=== PATIENT | male | born 1975 | race Caucasian/White ===

== ENCOUNTER 2018-04-13 00:22 | Emergency (ER) | payer SELFPAY ==
--- NOTE | 2018-04-13 00:52 | ER ---
Nurse's Notes [facility] Name: Ming Odonnell Age: 42 yrs Sex: Male : 1975 Arrival Date: 04/13/2018 Time: 00:24 Bed 19 Private MD: Diagnosis: Dental caries Presentation: 04/13 00:33 Presenting complaint: Patient states: that he has a bad tooth on the left lower side. fc States that it was swollen and then today he was chewing he heard a pop. Then tasted something bad. He is concerned that if the infection gets into his blood stream it will kill him (that's what marya says). Transition of care: patient was not received from another setting of care. Onset of symptoms was April 13, 2018. Risk Assessment: Do you want to hurt yourself or someone else? Patient reports no desire to harm self or others. Initial Sepsis Screen: Does the patient meet any 2 criteria? No. Patient's initial sepsis screen is negative. Does the patient have a suspected source of infection? No. Patient's initial sepsis screen is negative. Care prior to arrival: None. 00:33 Method Of Arrival: Ambulatory fc 00:33 Acuity: CELENA 4 fc Triage Assessment: 00:38 General: Appears uncomfortable, obese, Behavior is calm, cooperative, appropriate for age. Pain: Complains of pain in mouth Pain currently is 5 out of 10 on a pain scale. at worst was 9 out of 10 on a pain scale. Quality of pain is described as aching, throbbing, Is continuous, Aggravated by eating. EENT: Oral mucosa is moist. Dental caries noted in lower left first bicuspid (#21) Reports pain in mouth. Neuro: Level of Consciousness is awake, alert, obeys commands, Oriented to person, place, time, situation, Appropriate for age. Cardiovascular: No deficits noted. Respiratory: No deficits noted. GI: No deficits noted. : No deficits noted. Derm: Skin is pink, warm \T\ dry. Musculoskeletal: Circulation, motion, and sensation intact. Capillary refill < 3 seconds, Range of motion: intact in all extremities. Historical: - Allergies: 00:37 PENICILLINS; fc - Home Meds: 00:37 None [Active]; fc - PMHx: 00:37 None; fc - PSHx: 00:37 Ankle; Elbow; Ear; fc - Immunization history:: Last tetanus immunization: up to date Flu vaccine is not up to date. - Social history:: Smoking status: Patient uses tobacco products, smokes one pack cigarettes per day. Patient/guardian denies using alcohol, street drugs. - Ebola Screening: : Patient negative for fever greater than or equal to 101.5 degrees Fahrenheit, and additional compatible Ebola Virus Disease symptoms Patient denies exposure to infectious person Patient denies travel to an Ebola-affected area in the 21 days before illness onset. - Family history:: not pertinent. - Hospitalizations: : No recent hospitalization is reported. Screenin:38 Abuse screen: Denies threats or abuse. Nutritional screening: No deficits noted. fc Tuberculosis screening: No symptoms or risk factors identified. Fall Risk None identified. Assessment: 01:00 General: Appears in no apparent distress. Behavior is calm, cooperative, appropriate jd3 for age. Pain: Denies pain. Neuro: Level of Consciousness is awake, alert, obeys commands, Oriented to person, place, time, situation. Cardiovascular: Capillary refill < 3 seconds Patient's skin is warm and dry. Respiratory: Airway is patent Respiratory effort is even, unlabored, Respiratory pattern is regular, symmetrical. GI: No signs and/or symptoms were reported involving the gastrointestinal system. : No signs and/or symptoms were reported regarding the genitourinary system. EENT: Oral mucosa is moist. Poor dentition noted. pt reporting burst dental cyst.. Derm: Skin is intact, Skin is dry, Skin is normal, Skin temperature is warm. Musculoskeletal: Circulation, motion, and sensation intact. Range of motion: intact in all extremities. Vital Signs: 00:37 BP 120 / 77; Pulse 86; Resp 18; Temp 98.5(O); Pulse Ox 97% on R/A; Weight 113.4 kg (R); fc Height 5 ft. 10 in. (177.80 cm) (R); Pain 5/10; 00:37 Body Mass Index 35.87 (113.40 kg, 177.80 cm) ED Course: 00:24 Patient arrived in ED. am2 00:33 Ricardo Ambrocio MD is Attending Physician. rn 00:33 Irina Bhat is Primary Nurse. cc3 00:36 Triage completed. 00:37 Arm band placed on Patient placed in an exam room, on a stretcher. fc 00:38 Patient has correct armband on for positive identification. Bed in low position. Call fc light in reach. 00:38 No provider procedures requiring assistance completed. fc 01:00 Eladio Culver, RN is Primary Nurse. jd3 01:01 Patient did not have IV access during this emergency room visit. jd3 Administered Medications: No medications were administered Outcome: 00:51 Discharge ordered by MD. rn 01:01 Discharged to home ambulatory, with family. jd3 01:01 Condition: stable 01:01 Discharge instructions given to patient, family, Instructed on discharge instructions, follow up and referral plans. medication usage, Demonstrated understanding of instructions, follow-up care, medications, Prescriptions given X 1. 01:01 Patient left the ED. jd3 Signatures: Lillie Martinez RN RN Ricardo Ambrocio MD MD rn Moreno, Amanda am2 Eladio Culver RN RN jd3 Cordel, Charlene cc3 Corrections: (The following items were deleted from the chart) 00:38 00:33 Initial Sepsis Screen: Does the patient meet any 2 criteria? HR > 90 bpm. Yes fc Does the patient have a suspected source of infection? No. Patient's initial sepsis screen is negative. fc
--- NOTE | 2018-04-13 00:52 | EDPHYS ---
Physician Documentation [facility] Name: Ming Odonnell Age: 42 yrs Sex: Male : 1975 Arrival Date: 04/13/2018 Time: 00:24 Bed 19 Private MD: ED Physician Ricardo Ambrocio HPI: 04/13 00:46 This 42 yrs old Male presents to ER via Ambulatory with complaints of rn Toothache. 00:46 The patient presents with swelling. The problem is located in the left lower jaw. rn Onset: The symptoms/episode began/occurred 1 week(s) ago. Modifying factors: The symptoms are alleviated by nothing, the symptoms are aggravated by nothing. Severity of symptoms: At their worst the symptoms were moderate, in the emergency department the symptoms have improved. The patient has experienced a previous episode. Reports has been having tooth pain and swelling along left jaw, was chewing and felt pop, tasted purulence, and now pain has decreased to 1/10. Plans of seeing dentist soon, but googled could from dental infection so came in for evaluation. . Historical: - Allergies: 00:37 PENICILLINS; fc - Home Meds: 00:37 None [Active]; fc - PMHx: 00:37 None; fc - PSHx: 00:37 Ankle; Elbow; Ear; fc - Immunization history:: Last tetanus immunization: up to date Flu vaccine is not up to date. - Social history:: Smoking status: Patient uses tobacco products, smokes one pack cigarettes per day. Patient/guardian denies using alcohol, street drugs. - Ebola Screening: : Patient negative for fever greater than or equal to 101.5 degrees Fahrenheit, and additional compatible Ebola Virus Disease symptoms Patient denies exposure to infectious person Patient denies travel to an Ebola-affected area in the 21 days before illness onset. - Family history:: not pertinent. - Hospitalizations: : No recent hospitalization is reported. ROS: 00:46 Constitutional: Negative for fever, chills, and weight loss, ENT: + dental pain and rn swelling Exam: 00:46 Constitutional: This is a well developed, well nourished patient who is awake, alert, rn and in no acute distress. ENT: Oropharynx with no redness, swelling, or masses, exudates, or evidence of obstruction, uvula midline. Mucous membranes moist. + poor dentition, no visible or palpable abscess/fluctuance Vital Signs: 00:37 BP 120 / 77; Pulse 86; Resp 18; Temp 98.5(O); Pulse Ox 97% on R/A; Weight 113.4 kg (R); fc Height 5 ft. 10 in. (177.80 cm) (R); Pain 5/10; 00:37 Body Mass Index 35.87 (113.40 kg, 177.80 cm) fc MDM: 00:33 Patient medically screened. rn 00:46 Differential diagnosis: dental caries, dental abscess. Data reviewed: vital signs, rn nurses notes, and as a result, I will discharge patient. Counseling: I had a detailed discussion with the patient and/or guardian regarding: the historical points, exam findings, and any diagnostic results supporting the discharge/admit diagnosis, the need for outpatient follow up, to return to the emergency department if symptoms worsen or persist or if there are any questions or concerns that arise at home. Special discussion: I discussed with the patient/guardian in detail that at this point there is no indication for admission to the hospital. It is understood, however, that if the symptoms persist or worsen the patient needs to return immediately for re-evaluation. Based on the history and exam findings, there is no indication for further emergent testing or inpatient evaluation. I discussed with the patient/guardian the need to see a dentist for further evaluation of the symptoms. Administered Medications: No medications were administered Disposition: 04/13/18 00:51 Discharged to Home. Impression: Dental caries. - Condition is Stable. - Discharge Instructions: Dental Pain. - Prescriptions for Clindamycin HCl 300 mg Oral Capsule - take 1 capsule by ORAL route every 6 hours for 10 days; 40 capsule. - Medication Reconciliation Form, Thank You Letter, Antibiotic Education, Prescription Opioid Use form. - Follow up: Private Physician; When: As needed; Reason: Recheck today's complaints, Re-evaluation by your physician. - Problem is an ongoing problem. - Symptoms have improved. Signatures: Lillie Martinez RN RN Ricardo Ambrocio MD MD rn Davies, Jonathon, RN RN jd3 Corrections: (The following items were deleted from the chart) 01:01 00:51 04/13/2018 00:51 Discharged to Home. Impression: Dental caries. Condition is jd3 Stable. Forms are Medication Reconciliation Form, Thank You Letter, Antibiotic Education, Prescription Opioid Use. Follow up: Private Physician; When: As needed; Reason: Recheck today's complaints, Re-evaluation by your physician. Problem is an ongoing problem. Symptoms have improved. rn
== END 2018-04-13 01:01 | disposition home or self-care (01) ==
LOC: ER 00:22
DX: K02.9 Dental caries, unspecified (principal); F17.210 Nicotine dependence, cigarettes, uncomplicated; Z88.0 Allergy status to penicillin
CPT/HCPCS: 99282

== ENCOUNTER 2018-09-16 07:36 | Emergency (ER) | payer SELFPAY ==
--- NOTE | 2018-09-16 07:49 | ER ---
Nurse's Notes [facility] Name: Ming Odonnell Age: 42 yrs Sex: Male : 1975 Arrival Date: 09/16/2018 Time: 07:38 Bed 8 Private MD: Diagnosis: Cellulitis of left upper limb-left forearm Presentation: 09/16 07:49 Presenting complaint: Abscess on left forearm x 2 days. Transition of care: patient was hb not received from another setting of care. Onset of symptoms was September 16, 2018. Risk Assessment: Do you want to hurt yourself or someone else? Patient reports no desire to harm self or others. Initial Sepsis Screen: Does the patient meet any 2 criteria? No. Patient's initial sepsis screen is negative. Does the patient have a suspected source of infection? No. Patient's initial sepsis screen is negative. Care prior to arrival: None. 07:49 Method Of Arrival: Ambulatory hb 07:49 Acuity: CELENA 4 hb Historical: - Allergies: 07:52 PENICILLINS; hb - Home Meds: 07:52 None [Active]; hb - PMHx: 07:52 None; hb - PSHx: 07:52 Ankle; Ear - LEFT; Elbow - RIGHT; Knee - RIGHT; hb - Immunization history:: Adult Immunizations up to date. - Social history:: Smoking status: Patient uses tobacco products, smokes one pack cigarettes per day. - Ebola Screening: : No symptoms or risks identified at this time. Screenin:53 Abuse screen: Denies threats or abuse. Denies injuries from another. Nutritional hb screening: No deficits noted. Tuberculosis screening: No symptoms or risk factors identified. Fall Risk None identified. Assessment: 07:54 General: Appears in no apparent distress. Behavior is calm, cooperative. Pain: Pain hb currently is 2 out of 10 on a pain scale. Neuro: Level of Consciousness is awake, alert, obeys commands, Oriented to person, place, time, situation. Cardiovascular: Capillary refill < 3 seconds Patient's skin is warm and dry. Respiratory: Airway is patent Respiratory effort is even, unlabored, Respiratory pattern is regular, symmetrical. GI: No signs and/or symptoms were reported involving the gastrointestinal system. : No signs and/or symptoms were reported regarding the genitourinary system. EENT: No signs and/or symptoms were reported regarding the EENT system. Derm: cellulitis noted to left inner forearm. Musculoskeletal: No signs and/or symptoms reported regarding the musculoskeletal system. Vital Signs: 07:49 BP 124 / 75; Pulse 86; Resp 16; Temp 98.3; Pulse Ox 100% on R/A; Weight 108.86 kg; hb Height 6 ft. 1 in. (185.42 cm); Pain 2/10; 07:49 Body Mass Index 31.66 (108.86 kg, 185.42 cm) hb ED Course: 07:38 Patient arrived in ED. rg4 07:42 Michaela Sherman [facility]C [facility]. kb 07:42 Adrián Quiroga MD is Attending Physician. kb 07:49 Peyton Barlow, RN is Primary Nurse. hb 07:49 Patient has correct armband on for positive identification. Bed in low position. Call hb light in reach. 07:50 Triage completed. hb 07:53 Arm band placed on. hb 08:00 No provider procedures requiring assistance completed. Patient did not have IV access hb during this emergency room visit. Administered Medications: 07:59 Drug: Bactrim (160 mg-800 mg (DS) 1 tablet Route: PO; hb 07:59 Follow up: Response: Medication administered at discharge. hb Outcome: 07:48 Discharge ordered by . kb 08:00 Discharged to home ambulatory, with significant other. hb 08:00 Condition: stable 08:00 Discharge instructions given to patient, Instructed on discharge instructions, follow up and referral plans. medication usage, wound care, Demonstrated understanding of instructions, follow-up care, medications, wound care, Prescriptions given X 1. 08:10 Patient left the ED. hb Signatures: Michaela Sherman FNP-C FNP-Peyton Boateng, RN RN Haritha Bryan rg4 Corrections: (The following items were deleted from the chart) 07:55 07:54 Derm: Skin is healthy with good turgor, Abscess located on palmar aspect of left hb forearm is golf ball sized, has no drainage, hb
--- NOTE | 2018-09-16 07:49 | EDPHYS ---
Physician Documentation [facility] Name: Ming Odonnell Age: 42 yrs Sex: Male : 1975 Arrival Date: 09/16/2018 Time: 07:38 Bed 8 Private MD: ED Physician Adrián Quiroga HPI: 09/16 07:47 This 42 yrs old Male presents to ER via Unassigned with complaints of Arm kb Swelling. 07:49 the patient presents with a swollen area of the palmar aspect of left forearm. kb Description: erythematous, swollen, warm. Onset: The symptoms/episode began/occurred 2 day(s) ago. Possible cause(s): insect sting. Associated signs and symptoms: Pertinent positives: erythema, swelling, Pertinent negatives: discharge, drainage, foreign body sensation, fever, headache, nausea, shortness of breath, vomiting. Modifying factors: the symptoms are alleviated by nothing, the symptoms are aggravated by pressure, touching. Severity of symptoms: At their worst the symptoms were mild, moderate, in the emergency department the symptoms are unchanged. The patient has not experienced similar symptoms in the past. The patient has not recently seen a physician. Historical: - Allergies: 07:52 PENICILLINS; hb - Home Meds: 07:52 None [Active]; hb - PMHx: 07:52 None; hb - PSHx: 07:52 Ankle; Ear - LEFT; Elbow - RIGHT; Knee - RIGHT; hb - Immunization history:: Adult Immunizations up to date. - Social history:: Smoking status: Patient uses tobacco products, smokes one pack cigarettes per day. - Ebola Screening: : No symptoms or risks identified at this time. ROS: 07:49 Constitutional: Negative for fever, chills, and weight loss, Cardiovascular: Negative kb for chest pain, palpitations, and edema, Respiratory: Negative for shortness of breath, cough, wheezing, and pleuritic chest pain, Abdomen/GI: Negative for abdominal pain, nausea, vomiting, diarrhea, and constipation, MS/Extremity: Negative for injury and deformity, Neuro: Negative for headache, weakness, numbness, tingling, and seizure. 07:49 Skin: Positive for cellulitis, erythema, swelling, of the palmar aspect of left forearm. Exam: 07:49 Constitutional: This is a well developed, well nourished patient who is awake, alert, kb and in no acute distress. Head/Face: Normocephalic, atraumatic. Chest/axilla: Normal chest wall appearance and motion. Nontender with no deformity. No lesions are appreciated. Cardiovascular: Regular rate and rhythm with a normal S1 and S2. No gallops, murmurs, or rubs. Normal PMI, no JVD. No pulse deficits. Respiratory: Lungs have equal breath sounds bilaterally, clear to auscultation and percussion. No rales, rhonchi or wheezes noted. No increased work of breathing, no retractions or nasal flaring. Abdomen/GI: Soft, non-tender, with normal bowel sounds. No distension or tympany. No guarding or rebound. No evidence of tenderness throughout. MS/ Extremity: Pulses equal, no cyanosis. Neurovascular intact. Full, normal range of motion. Neuro: Awake and alert, GCS 15, oriented to person, place, time, and situation. Cranial nerves II-XII grossly intact. Motor strength 5/5 in all extremities. Sensory grossly intact. Cerebellar exam normal. Normal gait. 07:49 Skin: cellulitis, that is mild, on the palmar aspect of left forearm. Vital Signs: 07:49 BP 124 / 75; Pulse 86; Resp 16; Temp 98.3; Pulse Ox 100% on R/A; Weight 108.86 kg; hb Height 6 ft. 1 in. (185.42 cm); Pain 2/10; 07:49 Body Mass Index 31.66 (108.86 kg, 185.42 cm) hb MDM: 07:42 Patient medically screened. kb 07:48 Data reviewed: vital signs, nurses notes. Data interpreted: Pulse oximetry: on room air kb is 100 %. Interpretation: normal. Counseling: I had a detailed discussion with the patient and/or guardian regarding: the historical points, exam findings, and any diagnostic results supporting the discharge/admit diagnosis, the need for outpatient follow up, a family practitioner, to return to the emergency department if symptoms worsen or persist or if there are any questions or concerns that arise at home. Administered Medications: 07:59 Drug: Bactrim (160 mg-800 mg (DS) 1 tablet Route: PO; hb 07:59 Follow up: Response: Medication administered at discharge. hb Disposition: 10:12 Co-signature as Attending Physician, Adrián Quiroga MD I agree with the assessment and kdr plan of care. Disposition: 09/16/18 07:48 Discharged to Home. Impression: Cellulitis of left upper limb - left forearm. - Condition is Stable. - Discharge Instructions: Cellulitis, Adult, [id number]-[id number]. - Prescriptions for Bactrim DS 800- 160 mg Oral Tablet - take 1 tablet by ORAL route every 12 hours for 7 days; 14 tablet. - Work release form, Medication Reconciliation Form, Thank You Letter, Antibiotic Education, Prescription Opioid Use form. - Follow up: Emergency Department; When: As needed; Reason: Worsening of condition. Follow up: Private Physician; When: 2 - 3 days; Reason: Recheck today's complaints, Continuance of care, Re-evaluation by your physician. Signatures: Michaela Sherman, DIRECTOR SOCIAL WELFARE-C DIRECTOR SOCIAL WELFARE-Ckb Adrián Quiroga MD MD [facility] Peyton Barlow, RN RN Corrections: (The following items were deleted from the chart) 08:10 07:48 09/16/2018 07:48 Discharged to Home. Impression: Cellulitis of left upper limb - hb left forearm. Condition is Stable. Forms are Medication Reconciliation Form, Thank You Letter, Antibiotic Education, Prescription Opioid Use. Follow up: Emergency Department; When: As needed; Reason: Worsening of condition. Follow up: Private Physician; When: 2 - 3 days; Reason: Recheck today's complaints, Continuance of care, Re-evaluation by your physician. kb
[2018-09-16] MEDS ORDERED: SMZ./TMP. 800/160 MG TABLET ONE (08:10)
== END 2018-09-16 08:10 | disposition home or self-care (01) ==
LOC: ER 07:36
DX: L03.114 Cellulitis of left upper limb (principal); F17.210 Nicotine dependence, cigarettes, uncomplicated; Z88.0 Allergy status to penicillin
CPT/HCPCS: 99283

== ENCOUNTER 2018-11-15 08:08 | Emergency (ER) | payer SELFPAY ==
--- NOTE | 2018-11-15 08:39 | ER ---
Nurse's Notes [facility] Name: Ming Odonnell Age: 43 yrs Sex: Male : 1975 Arrival Date: 11/15/2018 Time: 08:12 Bed 20 Private MD: Diagnosis: Otalgia, right ear Presentation: 11/15 08:20 Presenting complaint: Patient states: right ear pain x 2 months ago. Pt states "my ear aa5 feels clogged and sometimes I get a sharp pain". 08:20 Transition of care: patient was not received from another setting of care. Onset of aa5 symptoms was 2018. Risk Assessment: Do you want to hurt yourself or someone else? Patient reports no desire to harm self or others. Initial Sepsis Screen: Does the patient meet any 2 criteria? No. Patient's initial sepsis screen is negative. Does the patient have a suspected source of infection? No. Patient's initial sepsis screen is negative. Care prior to arrival: None. 08:20 Acuity: CELENA 4 aa5 08:20 Method Of Arrival: Ambulatory aa5 Historical: - Allergies: 08:21 PENICILLINS; aa5 - Home Meds: 08:21 None [Active]; aa5 - PMHx: 08:21 None; aa5 - PSHx: 08:21 Ankle; Ear - LEFT; Elbow - RIGHT; Knee - RIGHT; aa5 - Immunization history:: Flu vaccine is up to date. - Social history:: Smoking status: Patient uses tobacco products, smokes one pack cigarettes per day. - Ebola Screening: : No symptoms or risks identified at this time. Screenin:31 Abuse screen: Denies threats or abuse. Nutritional screening: No deficits noted. aa5 Tuberculosis screening: No symptoms or risk factors identified. Fall Risk None identified. Assessment: 08:25 General: Appears comfortable, Behavior is calm, cooperative. Pain: Complains of pain in aa5 right ear Pain does not radiate. Pain currently is 5 out of 10 on a pain scale. Quality of pain is described as sharp, Pain began 2 months ago Is intermittent. Neuro: Level of Consciousness is awake, alert, obeys commands, Oriented to person, place, time, situation. Cardiovascular: Patient's skin is warm and dry. Respiratory: Airway is patent Respiratory effort is even, unlabored, Respiratory pattern is regular, symmetrical. GI: No signs and/or symptoms were reported involving the gastrointestinal system. : No signs and/or symptoms were reported regarding the genitourinary system. EENT: Reports pain in right ear. Derm: Skin is pink, warm \\T\\ dry. Musculoskeletal: Range of motion: intact in all extremities. Vital Signs: 08:22 BP 132 / 98; Pulse 77; Resp 16 S; Temp 98.3(O); Pulse Ox 97% on R/A; Weight 113.4 kg aa5 (R); Height 5 ft. 10 in. (177.80 cm) (R); Pain 5/10; 09:07 BP 111 / 73; Pulse 79; Resp 18; Pulse Ox 98% on R/A; ae4 08:22 Body Mass Index 35.87 (113.40 kg, 177.80 cm) aa5 ED Course: 08:12 Patient arrived in ED. as 08:21 Zuleyka Clark FNP-C is PHCP. snw 08:21 Ricardo Ambroico MD is Attending Physician. snw 08:21 Arm band placed on Patient placed in an exam room, on a stretcher. aa5 08:21 Patient has correct armband on for positive identification. aa5 08:28 Lorri Mckeon, RN is Primary Nurse. aa5 08:30 Triage completed. aa5 08:37 Santa Beckford MD is Referral Physician. snw 09:07 No provider procedures requiring assistance completed. Patient did not have IV access ae4 during this emergency room visit. Administered Medications: No medications were administered Outcome: 08:38 Discharge ordered by . snw 09:07 Discharged to home ambulatory. ae4 09:07 Condition: stable 09:07 Discharge instructions given to patient, Instructed on discharge instructions, follow up and referral plans. Demonstrated understanding of instructions. 09:08 Patient left the ED. ae4 Signatures: Zuleyka Clark FNP-C [employer]-Selina Mace Audri, RN RN aa5 Srikanth Green RN RN ae4
--- NOTE | 2018-11-15 08:39 | EDPHYS ---
Physician Documentation [facility] Name: Ming Odonnell Age: 43 yrs Sex: Male : 1975 Arrival Date: 11/15/2018 Time: 08:12 Bed 20 Private MD: ED Physician Ricardo Ambrocio HPI: 11/15 08:33 This 43 yrs old Male presents to ER via Ambulatory with complaints of Ear snw Pain. 08:33 The patient presents with a fullness, pain, tenderness. The complaints affect the right snw ear. Onset: The symptoms/episode began/occurred gradually. Modifying factors: The symptoms are alleviated by clearing with H2O2, the symptoms are aggravated by nothing. Severity of symptoms: At their worst the symptoms were mild moderate. It is unknown whether or not the patient has had similar symptoms in the past. The patient has not recently seen a physician. x 2 months. Historical: - Allergies: 08:21 PENICILLINS; aa5 - Home Meds: 08:21 None [Active]; aa5 - PMHx: 08:21 None; aa5 - PSHx: 08:21 Ankle; Ear - LEFT; Elbow - RIGHT; Knee - RIGHT; aa5 - Immunization history:: Flu vaccine is up to date. - Social history:: Smoking status: Patient uses tobacco products, smokes one pack cigarettes per day. - Ebola Screening: : No symptoms or risks identified at this time. ROS: 08:33 Constitutional: Negative for fever, chills, and weight loss, Eyes: Negative for injury, snw pain, redness, and discharge, ENT: Negative for injury Positive for pain and discharge, clogging multiple days of the week over the past two months Neck: Negative for injury, pain, and swelling, Cardiovascular: Negative for chest pain, palpitations, and edema, Respiratory: Negative for shortness of breath, cough, wheezing, and pleuritic chest pain, Abdomen/GI: Negative for abdominal pain, nausea, vomiting, diarrhea, and constipation, Back: Negative for injury and pain, : Negative for injury, bleeding, discharge, and swelling, MS/Extremity: Negative for injury and deformity, Skin: Negative for injury, rash, and discoloration, Neuro: Negative for headache, weakness, numbness, tingling, and seizure. Exam: 08:33 Constitutional: This is a well developed, well nourished patient who is awake, alert, snw and in no acute distress. Head/Face: Normocephalic, atraumatic. Eyes: Pupils equal round and reactive to light, extra-ocular motions intact. Lids and lashes normal. Conjunctiva and sclera are non-icteric and not injected. Cornea within normal limits. Periorbital areas with no swelling, redness, or edema. ENT: Nares patent. No nasal discharge, no septal abnormalities noted. Tympanic membranes are normal and external auditory canals are clear. Oropharynx with no redness, swelling, or masses, exudates, or evidence of obstruction, uvula midline. Mucous membranes moist. Neck: Trachea midline, no thyromegaly or masses palpated, and no cervical lymphadenopathy. Supple, full range of motion without nuchal rigidity, or vertebral point tenderness. No Meningismus. Chest/axilla: Normal chest wall appearance and motion. Nontender with no deformity. No lesions are appreciated. Cardiovascular: Regular rate and rhythm with a normal S1 and S2. No gallops, murmurs, or rubs. Normal PMI, no JVD. No pulse deficits. Respiratory: Lungs have equal breath sounds bilaterally, clear to auscultation and percussion. No rales, rhonchi or wheezes noted. No increased work of breathing, no retractions or nasal flaring. Abdomen/GI: Soft, non-tender, with normal bowel sounds. No distension or tympany. No guarding or rebound. No evidence of tenderness throughout. Back: No spinal tenderness. No costovertebral tenderness. Full range of motion. Skin: Warm, dry with normal turgor. Normal color with no rashes, no lesions, and no evidence of cellulitis. MS/ Extremity: Pulses equal, no cyanosis. Neurovascular intact. Full, normal range of motion. Neuro: Awake and alert, GCS 15, oriented to person, place, time, and situation. Cranial nerves II-XII grossly intact. Motor strength 5/5 in all extremities. Sensory grossly intact. Cerebellar exam normal. Normal gait. Psych: Awake, alert, with orientation to person, place and time. Behavior, mood, and affect are within normal limits. Vital Signs: 08:22 BP 132 / 98; Pulse 77; Resp 16 S; Temp 98.3(O); Pulse Ox 97% on R/A; Weight 113.4 kg aa5 (R); Height 5 ft. 10 in. (177.80 cm) (R); Pain 5/10; 09:07 BP 111 / 73; Pulse 79; Resp 18; Pulse Ox 98% on R/A; ae4 08:22 Body Mass Index 35.87 (113.40 kg, 177.80 cm) aa5 MDM: 08:21 Patient medically screened. snw 08:33 Data reviewed: vital signs, nurses notes. Data interpreted: Pulse oximetry: on room air snw is 97 %. Interpretation: normal. Counseling: I had a detailed discussion with the patient and/or guardian regarding: the historical points, exam findings, and any diagnostic results supporting the discharge/admit diagnosis, the presence of at least one elevated blood pressure reading (>120/80) during this emergency department visit, the need for outpatient follow up, to return to the emergency department if symptoms worsen or persist or if there are any questions or concerns that arise at home, smoking cessation. discussed causes of ear pain - tumors, tonsils, tmj, tm, thyroid, etc. No noted dysfunction of any of those symptoms presently. Encouraged to log s/s and see ENT. Administered Medications: No medications were administered Disposition: 11:39 Co-signature as Attending Physician, Ricardo Ambrocio MD. rn Disposition: 11/15/18 08:38 Discharged to Home. Impression: Otalgia, right ear. - Condition is Stable. - Discharge Instructions: Hypertension, Earache, Adult, Pain Without a Known Cause, Steps to Quit Smoking, Smoking Hazards. - Work release form, Medication Reconciliation Form, Thank You Letter, Antibiotic Education, Prescription Opioid Use form. - Follow up: Private Physician; When: 1 - 2 days; Reason: Recheck today's complaints, Continuance of care, Re-evaluation by your physician. Follow up: Emergency Department; When: As needed; Reason: Worsening of condition. Follow up: Santa Beckford MD; When: 1 - 2 days; Reason: Recheck today's complaints, Continuance of care. Signatures: Zuleyka Clark, ICE CREAM MIXER-C ICE CREAM MIXER-Csnw Ricardo Ambrocio MD MD rn Calderon, Audri, RN RN aa5 Srikanth Green RN RN ae4 Corrections: (The following items were deleted from the chart) 09:08 08:38 11/15/2018 08:38 Discharged to Home. Impression: Otalgia, right ear. Condition is ae4 Stable. Forms are Medication Reconciliation Form, Thank You Letter, Antibiotic Education, Prescription Opioid Use. Follow up: Private Physician; When: 1 - 2 days; Reason: Recheck today's complaints, Continuance of care, Re-evaluation by your physician. Follow up: Emergency Department; When: As needed; Reason: Worsening of condition. Follow up: Santa Beckford; When: 1 - 2 days; Reason: Recheck today's complaints, Continuance of care. snw
== END 2018-11-15 09:08 | disposition home or self-care (01) ==
LOC: ER 08:08
DX: H92.01 Otalgia, right ear (principal); Z88.0 Allergy status to penicillin; F17.210 Nicotine dependence, cigarettes, uncomplicated
CPT/HCPCS: 99281

== ENCOUNTER 2018-12-03 03:52 | Emergency (ER) | payer SELFPAY ==
[2018-12-03] MEDS ORDERED: METHOCARBAMOL 500 MG TAB ONE (04:25)
--- NOTE | 2018-12-03 05:32 | ER ---
Nurse's Notes [facility] Name: Ming Odonnell Age: 43 yrs Sex: Male : 1975 Arrival Date: 12/03/2018 Time: 03:54 Bed 20 Private MD: Diagnosis: Sacroiliitis, not elsewhere classified Presentation: 12/03 04:00 Presenting complaint: Patient states: last Thursday started like a back sore then rr5 yesterday I woke up cannot turn cannot bend cannot sit. its to painful. denies fall or trauma. 04:00 Transition of care: patient was not received from another setting of care. Onset of rr5 symptoms was December 01, 2018. Risk Assessment: Do you want to hurt yourself or someone else? Patient reports no desire to harm self or others. Initial Sepsis Screen: Does the patient meet any 2 criteria? No. Patient's initial sepsis screen is negative. Does the patient have a suspected source of infection? No. Patient's initial sepsis screen is negative. Care prior to arrival: Medication(s) given: ibuprofen. 04:00 Method Of Arrival: Ambulatory rr5 04:00 Acuity: CELENA 3 rr5 Historical: - Allergies: 04:00 PENICILLINS; rr5 - Home Meds: 04:00 None [Active]; rr5 - PMHx: 04:00 None; rr5 - PSHx: 04:00 finger surgery; Knee surgery; elbow surgery; ear surgery; rr5 - Immunization history:: Adult Immunizations up to date. - Social history:: Smoking status: Patient uses tobacco products, smokes one pack cigarettes per day. Patient/guardian denies using alcohol, street drugs. - Ebola Screening: : Patient negative for fever greater than or equal to 101.5 degrees Fahrenheit, and additional compatible Ebola Virus Disease symptoms Patient denies exposure to infectious person Patient denies travel to an Ebola-affected area in the 21 days before illness onset. Screenin:00 Abuse screen: Denies threats or abuse. Denies injuries from another. Nutritional rr5 screening: No deficits noted. Tuberculosis screening: No symptoms or risk factors identified. Fall Risk Gait- Impaired (20 pts.). Total Gavin Fall Scale indicates No Risk (0-24 pts). Assessment: 04:00 General: Appears in no apparent distress. uncomfortable, Behavior is calm, cooperative, rr5 appropriate for age. Pain: Complains of pain in left low back Pain radiates to left gluteal fold and left hamstring Pain currently is 10 out of 10 on a pain scale. Quality of pain is described as aching, Pain began gradually, Is intermittent. 04:00 Neuro: Level of Consciousness is awake, alert, obeys commands, Oriented to person, rr5 place, time, situation, Appropriate for age. Cardiovascular: Capillary refill < 3 seconds Patient's skin is warm and dry. Respiratory: Airway is patent Respiratory effort is even, unlabored, Respiratory pattern is regular, symmetrical. GI: No signs and/or symptoms were reported involving the gastrointestinal system. : No signs and/or symptoms were reported regarding the genitourinary system. EENT: No signs and/or symptoms were reported regarding the EENT system. Derm: Skin is intact, Skin temperature is warm. Musculoskeletal: Circulation, motion, and sensation intact. Capillary refill < 3 seconds, Reports pain in left low back Pain is 10 out of 10 on a pain scale. 04:30 Reassessment: Patient appears in no apparent distress at this time. walking around the rr5 corridor as ordered by ED provider. 05:35 Reassessment: Patient appears in no apparent distress at this time. Patient is alert, rr5 oriented x 3, equal unlabored respirations, skin warm/dry/pink. discharge instruction given and explained without complaints made. verbalized understanding.assisted by ceramics instructor going home. Patient states feeling better. Patient states symptoms have improved. Vital Signs: 04:02 BP 132 / 95; Pulse 79; Resp 18; Temp 98.9(O); Pulse Ox 97% on R/A; Pain 10/10; oe 04:28 Weight 113.4 kg; Height 5 ft. 10 in. (177.80 cm); rr5 05:30 BP 114 / 67; Pulse 68; Resp 17; Pulse Ox 100% on R/A; Pain 7/10; rr5 04:28 Body Mass Index 35.87 (113.40 kg, 177.80 cm) rr5 ED Course: 03:54 Patient arrived in ED. am2 04:00 Arm band placed on. rr5 04:00 Patient has correct armband on for positive identification. Bed in low position. Call rr5 light in reach. 04:03 Jason Ballard, RN is Primary Nurse. rr5 04:05 Haider Trujillo MD is Attending Physician. ps1 04:06 Triage completed. rr5 05:39 No provider procedures requiring assistance completed. Patient did not have IV access rr5 during this emergency room visit. Administered Medications: 04:28 Drug: Robaxin 750 mg Route: PO; rr5 05:30 Follow up: Response: No adverse reaction rr5 Outcome: 05:31 Discharge ordered by . ps1 05:39 Discharged to home ambulatory. rr5 05:39 Condition: stable 05:39 Discharge instructions given to patient, Instructed on discharge instructions, follow up and referral plans. medication usage, Demonstrated understanding of instructions, follow-up care, medications, Prescriptions given X 3. 05:41 Patient left the ED. rr5 Signatures: Trey Suazo Amanda 2 Haider Turjillo MD MD ps1 Jason Ballard, RN RN rr5
--- NOTE | 2018-12-03 05:32 | EDPHYS ---
Physician Documentation [facility] Name: Ming Odonnell Age: 43 yrs Sex: Male : 1975 Arrival Date: 12/03/2018 Time: 03:54 Bed 20 Private MD: ED Physician Haider Trujillo HPI: 12/03 05:13 This 43 yrs old Male presents to ER via Ambulatory with complaints of Back ps1 Pain. 05:13 Left SI back pain. Has spasm. Atraumatic. No fever. Not immunocompromised. No urinary ps1 complaints. Normal stools. Pain rated as moderate to severe described as spasm. . Historical: - Allergies: 04:00 PENICILLINS; rr5 - Home Meds: 04:00 None [Active]; rr5 - PMHx: 04:00 None; rr5 - PSHx: 04:00 finger surgery; Knee surgery; elbow surgery; ear surgery; rr5 - Immunization history:: Adult Immunizations up to date. - Social history:: Smoking status: Patient uses tobacco products, smokes one pack cigarettes per day. Patient/guardian denies using alcohol, street drugs. - Ebola Screening: : Patient negative for fever greater than or equal to 101.5 degrees Fahrenheit, and additional compatible Ebola Virus Disease symptoms Patient denies exposure to infectious person Patient denies travel to an Ebola-affected area in the 21 days before illness onset. ROS: 05:13 Constitutional: Negative for fever, chills, and weight loss, Eyes: Negative for injury, ps1 pain, redness, and discharge, Cardiovascular: Negative for chest pain, palpitations, and edema, Respiratory: Negative for shortness of breath, cough, wheezing, and pleuritic chest pain, Abdomen/GI: Negative for abdominal pain, nausea, vomiting, diarrhea, and constipation, MS/Extremity: Negative for injury and deformity, Skin: Negative for injury, rash, and discoloration. 05:13 Back: Positive for decreased range of motion, pain with movement. Exam: 05:13 Constitutional: This is a well developed, well nourished patient who is awake, alert, ps1 and in no acute distress. Head/Face: Normocephalic, atraumatic. Eyes: Pupils equal round and reactive to light, extra-ocular motions intact. Lids and lashes normal. Conjunctiva and sclera are non-icteric and not injected. Chest/axilla: Normal chest wall appearance and motion. Nontender with no deformity. No lesions are appreciated. Cardiovascular: Regular rate and rhythm. No gallops, murmurs, or rubs. Normal PMI, no JVD. No pulse deficits. Respiratory: Lungs have equal breath sounds bilaterally, clear to auscultation and percussion. No rales, rhonchi or wheezes noted. No increased work of breathing, no retractions or nasal flaring. Abdomen/GI: Soft, non-tender, with normal bowel sounds. No distension or tympany. No guarding or rebound. No evidence of tenderness throughout. MS/ Extremity: Pulses equal, no cyanosis. Neurovascular intact. Full, normal range of motion. Neuro: Awake and alert, GCS 15, oriented to person, place, time, and situation. Cranial nerves II-XII grossly intact. Sensory grossly intact. 05:13 Back: muscle spasm, is appreciated in the left low back and left mid back. Vital Signs: 04:02 BP 132 / 95; Pulse 79; Resp 18; Temp 98.9(O); Pulse Ox 97% on R/A; Pain 10/10; oe 04:28 Weight 113.4 kg; Height 5 ft. 10 in. (177.80 cm); rr5 05:30 BP 114 / 67; Pulse 68; Resp 17; Pulse Ox 100% on R/A; Pain 7/10; rr5 04:28 Body Mass Index 35.87 (113.40 kg, 177.80 cm) rr5 MDM: 04:29 Patient medically screened. ps1 05:13 Data reviewed: vital signs, nurses notes, and as a result, I will. Counseling: I had a ps1 detailed discussion with the patient and/or guardian regarding: the historical points, exam findings, and any diagnostic results supporting the discharge/admit diagnosis, to return to the emergency department if symptoms worsen or persist or if there are any questions or concerns that arise at home. Administered Medications: 04:28 Drug: Robaxin 750 mg Route: PO; rr5 05:30 Follow up: Response: No adverse reaction rr5 Disposition: 12/03/18 05:31 Discharged to Home. Impression: Sacroiliitis, not elsewhere classified. - Condition is Stable. - Discharge Instructions: Lumbosacral Radiculopathy. - Prescriptions for Anaprox DS 550 mg Oral Tablet - take 1 tablet by ORAL route every 12 hours As needed; 20 tablet. Robaxin 500 mg Oral Tablet - take 2 tablet by ORAL route every 6 hours As needed; 40 tablet. Medrol (Franky) 4 mg Oral Tablets, Dose Pack - take 1 tablet by ORAL route as directed - follow package instructions; 1 packet. - Medication Reconciliation Form, Thank You Letter, Antibiotic Education, Prescription Opioid Use form. - Follow up: Private Physician; When: As needed; Reason: Further diagnostic work-up, Recheck today's complaints, Continuance of care, Re-evaluation by your physician. Follow up: Emergency Department; When: As needed; Reason: Worsening of condition. - Problem is new. - Symptoms have improved. Signatures: Haider Trujillo MD MD ps1 Jason Ballard RN RN rr5 Corrections: (The following items were deleted from the chart) 05:41 05:31 12/03/2018 05:31 Discharged to Home. Impression: Sacroiliitis, not elsewhere rr5 classified. Condition is Stable. Forms are Medication Reconciliation Form, Thank You Letter, Antibiotic Education, Prescription Opioid Use. Follow up: Private Physician; When: As needed; Reason: Further diagnostic work-up, Recheck today's complaints, Continuance of care, Re-evaluation by your physician. Follow up: Emergency Department; When: As needed; Reason: Worsening of condition. Problem is new. Symptoms have improved. ps1
== END 2018-12-03 05:41 | disposition home or self-care (01) ==
LOC: ER 03:52
DX: M46.1 Sacroiliitis, not elsewhere classified (principal); F17.210 Nicotine dependence, cigarettes, uncomplicated; Z88.0 Allergy status to penicillin
CPT/HCPCS: 99283

== ENCOUNTER 2019-04-13 08:37 | Emergency (ER) | payer SELFPAY ==
[2019-04-13] MEDS ORDERED: ALBUTEROL 2.5 MG/3 ML NEB SOL ONE (09:46)
[2019-04-13] MEDS ORDERED: IPRATROPIUM BROM 0.5MG/2.5ML ONE (09:46)
--- NOTE | 2019-04-13 10:01 | ER ---
Nurse's Notes [facility] Name: Ming Odonnell Age: 43 yrs Sex: Male : 1975 Arrival Date: 04/13/2019 Time: 08:38 Bed 16 Private MD: Diagnosis: Acute upper respiratory infection, unspecified Presentation: 04/13 08:54 Presenting complaint: Nonproductive cough, pain with cough, and headache x 3 days. hb Denies fever/N/V/SOB. Transition of care: patient was not received from another setting of care. Onset of symptoms was April 10, 2019. Risk Assessment: Do you want to hurt yourself or someone else? Patient reports no desire to harm self or others. Initial Sepsis Screen: Does the patient meet any 2 criteria? No. Patient's initial sepsis screen is negative. Does the patient have a suspected source of infection? No. Patient's initial sepsis screen is negative. Care prior to arrival: None. 08:54 Method Of Arrival: Ambulatory 08:54 Acuity: CELENA 4 hb Triage Assessment: 09:37 Headache History: Other Headache feels like pressure and increases when he coughs. vc General: Appears. General: Behavior is calm, cooperative. Pain: Complains of pain in top of head and forehead Pain currently is 5 out of 10 on a pain scale. Quality of pain is described as pressure, Pain began 1 day ago. Also complains of cough and SOB when outside in the cool air. Neuro: Level of Consciousness is awake, alert, obeys commands, Oriented to person, place, time. Historical: - Allergies: 08:56 PENICILLINS; hb - Home Meds: 08:56 None [Active]; hb - PMHx: 08:56 None; hb - PSHx: 08:56 finger surgery; Knee surgery; elbow surgery; ear surgery; hb - Immunization history:: Adult Immunizations up to date. - Social history:: Smoking status: Patient uses tobacco products, smokes one pack cigarettes per day. - Ebola Screening: : No symptoms or risks identified at this time. Screenin:36 Abuse screen: Denies threats or abuse. Nutritional screening: No deficits noted. vc Tuberculosis screening: No symptoms or risk factors identified. Fall Risk None identified. Vital Signs: 08:56 BP 134 / 80; Pulse 72; Resp 16; Temp 98.6(O); Pulse Ox 98% on R/A; Weight 102.06 kg; hb Height 5 ft. 9 in. (175.26 cm); Pain 7/10; 09:45 BP 115 / 75; Pulse 65; Resp 18; Pulse Ox 95% on R/A; Pain 3/10; vc 08:56 Body Mass Index 33.23 (102.06 kg, 175.26 cm) hb ED Course: 08:38 Patient arrived in ED. as 08:55 Triage completed. hb 08:56 Arm band placed on. hb 09:09 Michaela Sherman FNP-C is [facility]. kb 09:09 Adrián Quiroga MD is Attending Physician. kb 09:34 Jessica Gaines, RN is Primary Nurse. vc 09:34 Strep Sent. vc 09:34 Flu Sent. vc 09:39 Patient has correct armband on for positive identification. Bed in low position. Call vc light in reach. 10:18 No provider procedures requiring assistance completed. Patient did not have IV access vc during this emergency room visit. Administered Medications: 09:49 Drug: Albuterol 2.5 mg Route: Inhalation; vc 09:49 Drug: AtroVENT Aerosol 0.5 mg Route: Inhalation; vc Outcome: 10:00 Discharge ordered by . kb 10:18 Discharged to home ambulatory. vc 10:18 Condition: good 10:18 Discharge instructions given to patient, significant other, Instructed on discharge instructions, follow up and referral plans. medication usage, Demonstrated understanding of instructions, follow-up care, medications, Prescriptions given X 1. 10:19 Patient left the ED. vc Signatures: Michaela Sherman FNP-C FNP-Ckb Martinez, Amelia as Peyton Barlow, RN RN Jessica Gaines, ANDREW RN vc
--- NOTE | 2019-04-13 10:01 | EDPHYS ---
Physician Documentation [facility] Name: Ming Odonnell Age: 43 yrs Sex: Male : 1975 Arrival Date: 04/13/2019 Time: 08:38 Bed 16 Private MD: ED Physician Adrián Quiroga HPI: 04/13 09:32 This 43 yrs old Male presents to ER via Ambulatory with complaints of Cough, kb Headache. 09:32 The patient or guardian reports cough, that is intermittent, described as moderate, kb with no sputum, difficulty breathing. 09:33 Onset: The symptoms/episode began/occurred 3 day(s) ago. Severity of symptoms: At their kb worst the symptoms were mild, moderate, in the emergency department the symptoms are unchanged. Modifying factors: The symptoms are alleviated by nothing, the symptoms are aggravated by nothing. Associated signs and symptoms: Pertinent positives: fever, sore throat. The patient has not experienced similar symptoms in the past. The patient has not recently seen a physician. Historical: - Allergies: 08:56 PENICILLINS; hb - Home Meds: 08:56 None [Active]; hb - PMHx: 08:56 None; hb - PSHx: 08:56 finger surgery; Knee surgery; elbow surgery; ear surgery; hb - Immunization history:: Adult Immunizations up to date. - Social history:: Smoking status: Patient uses tobacco products, smokes one pack cigarettes per day. - Ebola Screening: : No symptoms or risks identified at this time. ROS: 09:33 Neck: Negative for injury, pain, and swelling, Cardiovascular: Negative for chest pain, kb palpitations, and edema, Abdomen/GI: Negative for abdominal pain, nausea, vomiting, diarrhea, and constipation, Back: Negative for injury and pain, : Negative for injury, bleeding, discharge, and swelling, MS/Extremity: Negative for injury and deformity, Skin: Negative for injury, rash, and discoloration, Neuro: Negative for headache, weakness, numbness, tingling, and seizure. 09:33 Constitutional: Positive for fatigue, fever, malaise. 09:33 ENT: Positive for ear pain, sore throat. 09:33 Respiratory: Positive for cough, dyspnea on exertion, Negative for hemoptysis, orthopnea, pleurisy, shortness of breath, sputum production, wheezing. Exam: 09:33 Constitutional: This is a well developed, well nourished patient who is awake, alert, kb and in no acute distress. Head/Face: Normocephalic, atraumatic. ENT: Nares patent. No nasal discharge, no septal abnormalities noted. Tympanic membranes are normal and external auditory canals are clear. Oropharynx with no redness, swelling, or masses, exudates, or evidence of obstruction, uvula midline. Mucous membranes moist. Neck: Trachea midline, no thyromegaly or masses palpated, and no cervical lymphadenopathy. Supple, full range of motion without nuchal rigidity, or vertebral point tenderness. No Meningismus. Chest/axilla: Normal chest wall appearance and motion. Nontender with no deformity. No lesions are appreciated. Cardiovascular: Regular rate and rhythm with a normal S1 and S2. No gallops, murmurs, or rubs. Normal PMI, no JVD. No pulse deficits. Respiratory: Lungs have equal breath sounds bilaterally, clear to auscultation and percussion. No rales, rhonchi or wheezes noted. No increased work of breathing, no retractions or nasal flaring. Abdomen/GI: Soft, non-tender, with normal bowel sounds. No distension or tympany. No guarding or rebound. No evidence of tenderness throughout. Back: No spinal tenderness. No costovertebral tenderness. Full range of motion. Skin: Warm, dry with normal turgor. Normal color with no rashes, no lesions, and no evidence of cellulitis. MS/ Extremity: Pulses equal, no cyanosis. Neurovascular intact. Full, normal range of motion. Neuro: Awake and alert, GCS 15, oriented to person, place, time, and situation. Cranial nerves II-XII grossly intact. Motor strength 5/5 in all extremities. Sensory grossly intact. Cerebellar exam normal. Normal gait. Vital Signs: 08:56 BP 134 / 80; Pulse 72; Resp 16; Temp 98.6(O); Pulse Ox 98% on R/A; Weight 102.06 kg; hb Height 5 ft. 9 in. (175.26 cm); Pain 7/10; 09:45 BP 115 / 75; Pulse 65; Resp 18; Pulse Ox 95% on R/A; Pain 3/10; vc 08:56 Body Mass Index 33.23 (102.06 kg, 175.26 cm) hb MDM: 09:09 Patient medically screened. kb 09:35 Data reviewed: vital signs, nurses notes. Data interpreted: Pulse oximetry: on room air kb is 98 %. Interpretation: normal. 09:59 Counseling: I had a detailed discussion with the patient and/or guardian regarding: the kb historical points, exam findings, and any diagnostic results supporting the discharge/admit diagnosis, lab results, the need for outpatient follow up, a family practitioner, to return to the emergency department if symptoms worsen or persist or if there are any questions or concerns that arise at home. 04/13 09:09 Order name: Flu; Complete Time: 09:59 kb 04/13 09:22 Order name: Strep; Complete Time: :59 kb 04/13 10:02 Order name: Throat Culture EDMS Administered Medications: 09:49 Drug: Albuterol 2.5 mg Route: Inhalation; vc 09:49 Drug: AtroVENT Aerosol 0.5 mg Route: Inhalation; vc Disposition: 04/13/19 10:00 Discharged to Home. Impression: Acute upper respiratory infection, unspecified. - Condition is Stable. - Discharge Instructions: Upper Respiratory Infection, Adult, [id number], Viral Respiratory Infection, [id number]. - Prescriptions for Albuterol Sulfate 90 mcg/actuation - inhale 1-2 puff by INHALATION route every 4-6 hours; 1 Inhaler. - Medication Reconciliation Form, Thank You Letter, Antibiotic Education, Prescription Opioid Use, Work release form form. - Follow up: Emergency Department; When: As needed; Reason: Worsening of condition. Follow up: Private Physician; When: 2 - 3 days; Reason: Recheck today's complaints, Continuance of care, Re-evaluation by your physician. Addendum: 04/14/2019 20:50 Co-signature as Attending Physician, Adrián Quiroga MD I agree with the assessment and k dr plan of care. Signatures: Dispatcher [employer] EDUT Michaela Sherman, KAYLA-C KAYLA-Adrián Hernandez MD MD [facility] Peyton Barlow, ANDREW RN hb Jessica Gaines RN RN vc Corrections: (The following items were deleted from the chart) 04/13 10:19 10:00 04/13/2019 10:00 Discharged to Home. Impression: Acute upper respiratory vc infection, unspecified. Condition is Stable. Forms are Medication Reconciliation Form, Thank You Letter, Antibiotic Education, Prescription Opioid Use. Follow up: Emergency Department; When: As needed; Reason: Worsening of condition. Follow up: Private Physician; When: 2 - 3 days; Reason: Recheck today's complaints, Continuance of care, Re-evaluation by your physician. kb
[2019-04-13 10:28] VITALS: TEMP 98.6
[2019-04-13 10:30] VITALS: BP 115/75; O2SAT 95
== END 2019-04-13 10:19 | disposition home or self-care (01) ==
LOC: ER 08:37
DX: J06.9 Acute upper respiratory infection, unspecified (principal); Z88.0 Allergy status to penicillin
CPT/HCPCS: 87070; 87081; 87804; 99284

== ENCOUNTER 2019-07-11 13:25 | Emergency (ER) | payer SELFPAY ==
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
--- NOTE | 2019-07-11 13:51 | ER ---
Nurse's Notes [facility] Name: Ming Odonnell Age: 43 yrs Sex: Male : 1975 Arrival Date: 07/11/2019 Time: 13:30 Bed 14 Private MD: Diagnosis: Cough Presentation: 07/10 13:40 Chief complaint: Patient states: was sent from work to because he has a cough, needs a iw doctor's note to return to work, states he smokes daily and has a chronic cough. Coronavirus screen: The patient has NOT traveled to a country currently being monitored by the [facility] within the last 14 days. Proceed with normal triage procedures. The patient has NOT had contact with any known and/or suspected case of coronavirus. Proceed with normal triage procedures. Ebola Screen: Patient negative for fever greater than or equal to 101.5 degrees Fahrenheit, and additional compatible Ebola Virus Disease symptoms Patient denies exposure to infectious person. Patient denies travel to an Ebola-affected area in the 21 days before illness onset. No symptoms or risks identified at this time. Initial Sepsis Screen: Does the patient meet any 2 criteria? No. Patient's initial sepsis screen is negative. Does the patient have a suspected source of infection? No. Patient's initial sepsis screen is negative. Risk Assessment: Do you want to hurt yourself or someone else? Patient reports no desire to harm self or others. 13:40 Method Of Arrival: Ambulatory 13:40 Acuity: CELENA 4 iw Historical: - Allergies: 13:45 PENICILLINS; iw - PSHx: 13:45 finger surgery; Knee surgery; elbow surgery; ear surgery; iw - Family history:: not pertinent. - Hospitalizations: : No recent hospitalization is reported. Screenin:08 Abuse screen: Denies threats or abuse. Nutritional screening: No deficits noted. em Tuberculosis screening: No symptoms or risk factors identified. Fall Risk None identified. Assessment: 14:09 General: Appears in no apparent distress. comfortable, Behavior is calm, cooperative, em Denies fever. Pain: Denies pain. Neuro: Level of Consciousness is awake, alert, obeys commands, Oriented to person, place, time, situation, Appropriate for age. Cardiovascular: Capillary refill < 3 seconds Patient's skin is warm and dry. Respiratory: Reports cough that is non-productive, Airway is patent Respiratory effort is even, unlabored, Respiratory pattern is regular, symmetrical, Breath sounds are clear bilaterally. GI: Abdomen is flat. Derm: Skin is intact, is healthy with good turgor, Skin is pink, warm \T\ dry. Musculoskeletal: Capillary refill < 3 seconds, Range of motion: intact in all extremities. Vital Signs: 13:40 BP 133 / 79; Pulse 87; Resp 20 S; Temp 98.5; Pulse Ox 99% on R/A; iw ED Course: 13:30 Patient arrived in ED. fj1 13:34 Ricardo Ambrocio MD is Attending Physician. rn 13:39 Amaury Connor RN is Primary Nurse. em 13:43 Triage completed. iw 13:45 Arm band placed on. iw 14:08 Patient has correct armband on for positive identification. Bed in low position. Call em light in reach. Adult w/ patient. 14:08 No provider procedures requiring assistance completed. Patient did not have IV access em during this emergency room visit. Administered Medications: No medications were administered Outcome: 13:50 Discharge ordered by . rn 14:10 Discharged to home ambulatory. em 14:10 Condition: good 14:10 Discharge instructions given to patient, Instructed on discharge instructions, follow up and referral plans. Demonstrated understanding of instructions, follow-up care. 14:12 Patient left the ED. em Signatures: Amaury Connor, Tereza Barbosa RN, RN RN Ricardo Ambrocio MD MD rn James, Frank fj1
[2019-07-11 14:45] VITALS: BP 133/79; TEMP 98.5; O2SAT 99
== END 2019-07-11 14:12 | disposition home or self-care (01) ==
LOC: ER 13:25
DX: R05 Cough (principal)
CPT/HCPCS: 99281

== ENCOUNTER 2020-03-18 09:09 | Emergency (ER) | payer SELFPAY ==
[2020-03-18 10:24] LABS: Absolute Lymphocytes (CBC) 2.2 K/uL (0.7-4.9); Hematocrit 44.4 % (39.6-49.0); Lymphocytes % 17.9 % (15.3-44.8); MPV 9.8 fL (7.6-11.3); RBC Red Blood Cell Count 4.77 M/uL (4.33-5.43)
[2020-03-18 10:33] LABS: ALT/SGPT 23 U/L (12-78); AST/SGOT 17 U/L (15-37); Albumin 3.5 g/dL (3.4-5.0); Alkaline Phosphatase 81 U/L (45-117); BUN Blood Urea Nitrogen 16 mg/dL (7-18); Bicarbonate 27 mmol/L (21-32); Bilirubin Direct < 0.1 mg/dL (0-0.2); Bilirubin Total 0.3 mg/dL (0.2-1.0); Glucose Level 98 mg/dL (74-106); Lipase 820 U/L (73-393); Potassium 4.5 mmol/L (3.5-5.1); Protein, Total 8.1 g/dL (6.4-8.2); Sodium Level 141 mmol/L (136-145)
--- NOTE | 2020-03-18 10:47 | RAD REPORT ---
EXAM DESCRIPTION: CT - Stone Protocol - 03/18/2020 10:10 am CLINICAL HISTORY: Flank pain. left flank pain COMPARISON: No comparisons TECHNIQUE: Axial images were obtained without oral or IV contrast. Lack of contrast limits solid org an and vascular assessment. The [id number] spans the entirety of the system partially obscuring uppermost abdomen and lung bases. Coronal reformatted images were obtained and reviewed. All CT scans are performed using dose optimization technique as appropriate and may include automated exposure control or mA/KV adjustment according to patient size. FINDINGS: The lower lung low are clear. Imaged portions of the liver and spleen show no suspicious findings on non-contrast imaging. The adre nal glands are normal.Mild inflammation is seen region of the tail of the pancreas. No pathologic lym phadenopathy in the abdomen or pelvis. No urinary tract stones or obstructive uropathy. No bowel obstruction, free air, free fluid or abscess. Normal appendix noted.Small fat containing ing uinal hernia. No significant bony abnormality. IMPRESSION: Mild acute pancreatitis is suspected without complication evident.
[2020-03-18 10:55] LABS: Urine Blood TRACE (NEG); Urine Glucose NEGATIVE (NEG); Urine Protein NEGATIVE (NEG); Urine Specific Gravity 1.025 (1.005-1.030)
--- NOTE | 2020-03-18 11:07 | ER ---
Nurse's Notes [facility] Name: Ming Odonnell Age: 44 yrs Sex: Male : 1975 Arrival Date: 03/18/2020 Time: 09:13 Bed 13 [facility] MD: Diagnosis: Acute pancreatitis;Otitis media, unspecified, bilateral Presentation: 03/18 09:24 Chief complaint: Patient states: Left flank pain since Thursday, yesterday upper abdomen ph distended/bloated and nausea, denies fever V/D, also reports drainage from bilateral ears and headaches x "months", COVID test negative on . Coronavirus screen: Client denies travel out of the [place] in the last 14 days. At this time, the client does not indicate any symptoms associated with coronavirus-19. The client reports previous COVID testing was negative. Ebola Screen: No symptoms or risks identified at this time. Initial Sepsis Screen: Does the patient meet any 2 criteria? No. Patient's initial sepsis screen is negative. Does the patient have a suspected source of infection? No. Patient's initial sepsis screen is negative. Risk Assessment: Do you want to hurt yourself or someone else? Patient reports no desire to harm self or others. Onset of symptoms was March 18, 2020. 09:24 Method Of Arrival: Ambulatory 09:24 Acuity: CELENA 3 ph Historical: - Allergies: 09:30 PENICILLINS; ph - PSHx: 09:30 finger surgery; Knee surgery; elbow surgery; ear surgery; ph - Immunization history:: Adult Immunizations unknown. - Social history:: Smoking status: Patient reports the use of cigarette tobacco products, smokes one pack cigarettes per day. Screenin:00 Abuse screen: Denies threats or abuse. Denies injuries from another. Nutritional zb screening: No deficits noted. Tuberculosis screening: No symptoms or risk factors identified. Fall Risk No fall in past 12 months (0 pts). Secondary diagnosis (15 points) IV access (20 points). Ambulatory Aid- None/Bed Rest/Nurse Assist (0 pts). Gait- Normal/Bed Rest/Wheelchair (0 pts) Mental Status- Oriented to own ability (0 pts). Total Gavin Fall Scale indicates No Risk (0-24 pts). Assessment: 10:00 General: Appears in no apparent distress. comfortable, Behavior is calm, cooperative. zb Pain: Complains of pain in anterior aspect of left lateral abdomen and posterior aspect of left lateral abdomen. Neuro: Level of Consciousness is awake, alert, obeys commands, Oriented to person, place, time, situation. Cardiovascular: Capillary refill < 3 seconds in bilateral fingers. Respiratory: Airway is patent Respiratory effort is even, unlabored. GI: No signs and/or symptoms were reported involving the gastrointestinal system. : No signs and/or symptoms were reported regarding the genitourinary system. EENT: No signs and/or symptoms were reported regarding the EENT system. Derm: Skin is intact, is healthy with good turgor. Musculoskeletal: Circulation, motion, and sensation intact. 10:05 Reassessment: pt went to CT. zb 11:00 Reassessment: Patient appears in no apparent distress at this time. Patient and/or ph family updated on plan of care and expected duration. Pain level reassessed. Patient is alert, oriented x 3, equal unlabored respirations, skin warm/dry/pink. Vital Signs: 09:24 BP 135 / 88; Pulse 86; Resp 18; Temp 97.9; Pulse Ox 99% on R/A; Weight 124.74 kg; ph Height 5 ft. 11 in. (180.34 cm); 10:30 BP 128 / 86; Pulse 81; Resp 18; Pulse Ox 99% on R/A; ph 11:30 BP 130 / 88; Pulse 83; Resp 18; Temp 97.5; Pulse Ox 99% on R/A; ph 09:24 Body Mass Index 38.35 (124.74 kg, 180.34 cm) ph ED Course: 09:13 Patient arrived in ED. mr 09:16 Carolyn Juan, ANDREW is Primary Nurse. zb 09:17 Foster Perez PA is PHCP. cp 09:17 Ricardo Ambrocio MD is Attending Physician. cp 09:29 Triage completed. ph 09:30 Arm band placed on Patient placed in an exam room. ph 10:10 CT Stone Protocol In Process Unspecified. EDMS 10:37 No provider procedures requiring assistance completed. Inserted saline lock: 20 gauge zb in right antecubital area, using aseptic technique. 10:41 Patient has correct armband on for positive identification. Bed in low position. Call zb light in reach. Pulse ox on. NIBP on. 11:04 Taco Alvarez MD is Referral Physician. cp 11:35 IV discontinued, intact, bleeding controlled, No redness/swelling at site. Pressure ph dressing applied. Administered Medications: No medications were administered Outcome: 11:06 Discharge ordered by . cp 11:37 Patient left the ED. zb 11:37 Discharged to home ambulatory. ph 11:37 Condition: good 11:37 Discharge instructions given to patient, Instructed on discharge instructions, follow up and referral plans. medication usage, Demonstrated understanding of instructions, follow-up care, medications, Prescriptions given X 2. Signatures: Dispatcher [employer] EDMS Atiya Ennis Patricia, RN RN Foster Vela PA PA cp Brown, Zipporah, RN RN anselmo
--- NOTE | 2020-03-18 11:07 | EDPHYS ---
Physician Documentation [facility] Name: Ming Odonnell Age: 44 yrs Sex: Male : 1975 Arrival Date: 03/18/2020 Time: 09:13 Bed 13 Private MD: ED Physician Ricardo Ambrocio HPI: 03/18 09:30 This 44 yrs old Male presents to ER via Ambulatory with complaints of Flank cp Pain. 09:30 The patient complains of pain in the left flank. Onset: The symptoms/episode cp began/occurred 2 day(s) ago. 09:30 Associated signs and symptoms: Pertinent negatives: diarrhea, dysuria, fever, cp hematuria, pain radiating to the lower extremities, vomiting. Historical: - Allergies: 09:30 PENICILLINS; ph - PSHx: 09:30 finger surgery; Knee surgery; elbow surgery; ear surgery; ph - Immunization history:: Adult Immunizations unknown. - Social history:: Smoking status: Patient reports the use of cigarette tobacco products, smokes one pack cigarettes per day. ROS: 09:35 : Positive for flank pain, of the left flank. cp 09:35 Eyes: Negative for injury, pain, redness, and discharge. cp 09:35 Constitutional: Negative for body aches, chills, fever, poor PO intake. 09:35 Cardiovascular: Negative for chest pain. 09:35 Respiratory: Negative for cough, shortness of breath, wheezing. 09:35 Abdomen/GI: Negative for vomiting, diarrhea, constipation. 09:35 Neuro: Negative for altered mental status, weakness. cp 09:35 All other systems are negative. cp Exam: 09:42 Constitutional: The patient appears in no acute distress, alert, awake, non-toxic, well cp developed, well nourished. 09:42 Head/Face: Normocephalic, atraumatic. cp 09:42 Eyes: Periorbital structures: appear normal, Conjunctiva: normal, no exudate, no injection, Sclera: no appreciated abnormality, Lids and lashes: appear normal, bilaterally. 09:42 ENT: External ear(s): are unremarkable, Ear canal(s): are normal, TM's: bulging, bilaterally, erythema, that is mild, bilaterally, Nose: is normal, Mouth: Lips: moist, Oral mucosa: moist, Posterior pharynx: Airway: no evidence of obstruction, patent. 09:42 Chest/axilla: Inspection: normal, Palpation: is normal, no crepitus, no tenderness. 09:42 Cardiovascular: Rate: normal, Rhythm: regular. 09:42 Respiratory: the patient does not display signs of respiratory distress, Respirations: normal, no use of accessory muscles, no retractions, labored breathing, is not present, Breath sounds: are clear throughout, no decreased breath sounds, no stridor. 09:42 Abdomen/GI: Inspection: abdomen appears normal, Bowel sounds: active, all quadrants, Palpation: soft, in all quadrants, mild abdominal tenderness, in the anterior aspect of left lateral abdomen, rebound tenderness, is not appreciated, voluntary guarding, is not appreciated, involuntary guarding, is not appreciated. 09:42 Back: CVA tenderness, is absent. 09:42 Skin: no rash present. Vital Signs: 09:24 BP 135 / 88; Pulse 86; Resp 18; Temp 97.9; Pulse Ox 99% on R/A; Weight 124.74 kg; ph Height 5 ft. 11 in. (180.34 cm); 10:30 BP 128 / 86; Pulse 81; Resp 18; Pulse Ox 99% on R/A; ph 11:30 BP 130 / 88; Pulse 83; Resp 18; Temp 97.5; Pulse Ox 99% on R/A; ph 09:24 Body Mass Index 38.35 (124.74 kg, 180.34 cm) ph MDM: 09:25 Patient medically screened. cp 09:45 Differential diagnosis: nephrolithiasis, pyelonephritis, UTI, diverticulitis, cp pancreatitis, ruptured AAA, dissecting AAA. 11:05 Data reviewed: vital signs, nurses notes, lab test result(s), radiologic studies, CT cp scan, I have discussed the patient's presentation/case with the attending Emergency Department Physician; and as a result, I will discharge patient. 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 03/18 09:25 Order name: Urine Microscopic Only cp 03/18 09:38 Order name: Basic Metabolic Panel; Complete Time: 10:39 cp 03/18 10:39 Interpretation: Normal except: CL 109; GFR 79; CA 8.2. 03/18 09:38 Order name: CBC with Diff; Complete Time: 10:39 cp 03/18 10:39 Interpretation: Normal except: WBC 12.2; NEUT A 8.8. 03/18 09:38 Order name: Hepatic Function; Complete Time: 10:39 cp 03/18 10:39 Interpretation: Normal except: GLOB 4.6; A/G 0.8. 03/18 09:39 Order name: Lipase; Complete Time: 10:39 03/18 10:40 Interpretation: LIP 820; Reviewed. 03/18 10:51 Order name: Urine Dipstick--Ancillary (enter results); Complete Time: 10:56 ak 03/18 09:25 Order name: Urine Dipstick-Ancillary (obtain specimen); Complete Time: 11:06 03/18 09:39 Order name: IV Saline Lock; Complete Time: 18:40 03/18 09:39 Order name: Labs collected and sent; Complete Time: 18:40 03/18 09:39 Order name: CT Stone Protocol; Complete Time: 10:55 03/18 10:57 Interpretation: Report reviewed. 03/18 10:56 Order name: PO challenge; Complete Time: 18:40 cp Administered Medications: No medications were administered Disposition: 11:38 Co-signature as Attending Physician, Ricardo Ambrocio MD. rn Disposition: 03/18/20 11:06 Discharged to Home. Impression: Acute pancreatitis, Otitis media, unspecified, bilateral. - Condition is Stable. - Discharge Instructions: Otitis Media, Adult, Acute Pancreatitis. - Prescriptions for cefdinir 300 mg Oral capsule - take 1 capsule by ORAL route every 12 hours for 10 days; 20 capsule. Bentyl 20 mg Oral Tablet - take 2 tablets by ORAL route every 6 hours As needed; 30 tablet. - Medication Reconciliation Form, Thank You Letter, Antibiotic Education, Prescription Opioid Use form. - Follow up: Taco Alvarez MD; When: 1 - 2 days; Reason: pancreatitis. - Problem is new. - Symptoms have improved. Signatures: Dispatcher [employer] EDMS Ricardo Ambrocio MD MD rn Farrell, Osiris, RN RN Foster Vela, LOU PA Carolyn Martinez RN RN zb Corrections: (The following items were deleted from the chart) 10:39 10:39 Normal except: CL 109; GFR 79. cp cp 11:37 11:06 03/18/2020 11:06 Discharged to Home. Impression: Acute pancreatitis; Otitis zb media, unspecified, bilateral. Condition is Stable. Forms are Medication Reconciliation Form, Thank You Letter, Antibiotic Education, Prescription Opioid Use. Follow up: Taco Alvarez; When: 1 - 2 days; Reason: pancreatitis. Problem is new. Symptoms have improved. cp 18:52 18:49 : Positive for flank pain, of the left flank, cp cp
[2020-03-18] MEDS ORDERED: KETOROLAC 30 MG/ML INJ ONE (11:08)
[2020-03-18 11:12] LABS: Urine Bacteria NONE SEEN /HPF (NONE SEEN); Urine Culture Reflex Order NOT NEEDED; Urine RBC <5 /HPF (NONE SEEN)
[2020-03-18 16:00] VITALS: BP 135/88; TEMP 97.9; O2SAT 99
== END 2020-03-18 11:37 | disposition home or self-care (01) ==
LOC: ER 09:09
DX: K85.90 Acute pancreatitis without necrosis or infection, unspecified (principal); H66.93 Otitis media, unspecified, bilateral; F17.210 Nicotine dependence, cigarettes, uncomplicated; Z88.0 Allergy status to penicillin
CPT/HCPCS: 36415; 74176; 76377; 80048; 80076; 81003; 81015; 83690; 85025; 99284

== ENCOUNTER 2021-03-04 07:46 | Emergency (ER) | payer SELFPAY ==
[2021-03-04] MEDS ORDERED: CYCLOBENZAPRINE 10 MG TAB ONE (08:02)
[2021-03-04] MEDS ORDERED: KETOROLAC 30 MG/ML INJ ONE (08:02)
--- NOTE | 2021-03-04 08:38 | RAD REPORT ---
EXAM DESCRIPTION: RAD - Lumbar Spine 3 Views - 03/04/2021 8:26 am CLINICAL HISTORY: Back pain FINDINGS: The alignment of the lumbar spine is satisfactory. No fracture or dislocation is seen. Mild spondylosis involves the lumbar spine
--- NOTE | 2021-03-04 08:54 | ER ---
Nurse's Notes [facility] Name: Ming Odonnell Age: 45 yrs Sex: Male : 1975 Arrival Date: 03/04/2021 Time: 07:46 Bed 12 Private MD: Diagnosis: Muscle spasm of back Presentation: 03/04 07:50 Chief complaint: Patient states: yesterday i was fine for a couple of hours. and its aa5 like i turned or twisted wrong. but it hurts throughout my lower back. Spouse and/or significant other states: i month ago he was going down stairs and and the last step broke. i dont know if this lead to his back hurting. Coronavirus screen: At this time, the client does not indicate any symptoms associated with coronavirus-19. Ebola Screen: Patient denies travel to an Ebola-affected area in the 21 days before illness onset. Initial Sepsis Screen: Does the patient meet any 2 criteria? No. Patient's initial sepsis screen is negative. Does the patient have a suspected source of infection? No. Patient's initial sepsis screen is negative. Risk Assessment: Do you want to hurt yourself or someone else? Patient reports no desire to harm self or others. Onset of symptoms was March 04, 2021. 07:50 Method Of Arrival: Ambulatory aa5 07:50 Acuity: CELENA 4 aa5 Triage Assessment: 07:52 General: Appears in no apparent distress. uncomfortable, Behavior is calm, cooperative, aa5 appropriate for age. Pain: Complains of pain in lumbar area, left low back and right low back. Musculoskeletal: Range of motion: intact in all extremities. Historical: - Allergies: 07:52 PENICILLINS; aa5 - Home Meds: 07:52 None [Active]; aa5 - PMHx: 07:52 Diabetes mellitus; Hypertensive disorder; Pancreatitis; aa5 - PSHx: 07:52 None; aa5 - Immunization history:: Client reports receiving the 2nd dose of the Covid vaccine. - Social history:: Smoking status: Patient reports the use of cigarette tobacco products, smokes one pack cigarettes per day. Screenin:52 Abuse screen: Denies threats or abuse. Nutritional screening: No deficits noted. tw2 Tuberculosis screening: No symptoms or risk factors identified. Fall Risk Gait- Impaired (20 pts.). Assessment: 07:52 Neuro: Level of Consciousness is awake, alert, obeys commands, Oriented to person, tw2 place, time, situation. Respiratory: Airway is patent Respiratory effort is even, unlabored, Respiratory pattern is regular, symmetrical. Musculoskeletal: Range of motion: intact in all extremities, Reports pain in back and right low back and left low back and lumbar area the pain just makes my knees buckle at times. it hurts to sit down or stand. 07:59 Reassessment: provider at bedside at this time. tw2 08:47 Reassessment: Patient appears in no apparent distress at this time. Patient and/or tw2 family updated on plan of care and expected duration. Pain level reassessed. Patient is alert, oriented x 3, equal unlabored respirations, skin warm/dry/pink. Patient states feeling better. Patient states symptoms have improved. Vital Signs: 07:50 BP 119 / 76; Pulse 79; Resp 18; Temp 97.8(TE); Pulse Ox 100% on R/A; Weight 113.4 kg aa5 (R); Height 5 ft. 10 in. (177.80 cm); Pain 10/10; 08:46 Pain 7/10; tw2 07:50 Body Mass Index 35.87 (113.40 kg, 177.80 cm) aa5 ED Course: 07:46 Patient arrived in ED. am2 07:51 Triage completed. aa5 07:51 Arm band placed on. aa5 07:52 Bed in low position. Call light in reach. Adult w/ patient. tw2 07:55 Charu Rivas MD is Attending Physician. sp3 07:59 Zenaida Calderon, ANDREW is Primary Nurse. tw2 08:08 No provider procedures requiring assistance completed. tw2 08:26 Lumbar Spine (3 Views) XRAY In Process Unspecified. EDMS 09:00 Patient did not have IV access during this emergency room visit. tw2 Administered Medications: 08:07 Drug: Ketorolac 60 mg Route: IM; Site: left deltoid; tw2 08:46 Follow up: Pain 7/10 Adult; Response: No adverse reaction; Pain is decreased tw2 08:08 Drug: Flexeril (cyclobenzaprine) 10 mg Route: PO; tw2 08:46 Follow up: Response: No adverse reaction tw2 Outcome: 08:54 Discharge ordered by . sp3 09:00 Discharged to home ambulatory, with significant other. tw2 09:00 Condition: stable 09:00 Discharge instructions given to patient, significant other, Instructed on discharge instructions, follow up and referral plans. medication usage, Demonstrated understanding of instructions, follow-up care, medications, Prescriptions given X 2. 09:00 Patient left the ED. tw2 Signatures: Dispatcher [employer] EDMS Lorri Mckeon RN RN aa5 Zenaida Calderon RN RN tw2 Adela Diallo am2 Charu Rivas MD MD sp3 Corrections: (The following items were deleted from the chart) 08:27 07:52 Fall Risk None identified. tw2 tw2
--- NOTE | 2021-03-04 08:54 | EDPHYS ---
Physician Documentation [facility] Name: Ming Odonnell Age: 45 yrs Sex: Male : 1975 Arrival Date: 03/04/2021 Time: 07:46 Bed 12 Private MD: ED Physician Charu Rivas HPI: 03/04 08:02 This 45 yrs old Male presents to ER via Ambulatory with complaints of Back sp3 Pain. 08:02 45-year-old male with a history of hypertension, diabetes, and obesity presents to the sp3 ED for lumbar muscular pain that was present when patient awoke. Patient states that he "may have twisted it yesterday" and denies any direct trauma, prior injury, or radiculopathy symptoms. Patient denies numbness or tingling in his extremities, loss of bowel or bladder function, weakness, or any other neurological symptoms. He states that his muscles are "tight" and predominantly in his lower back. On review of systems, he denies headache, neck pain, fever, URI symptoms, chest pain, shortness of breath, back pain, abdominal pain, nausea, vomiting, diarrhea, upper extremity pain, lower extremity pain, rash, dysuria, urinary symptoms, syncope, neurological focal deficits, or any other symptoms at this time. Remainder of ROS negative.. Historical: - Allergies: 07:52 PENICILLINS; aa5 - Home Meds: 07:52 None [Active]; aa5 - PMHx: 07:52 Diabetes mellitus; Hypertensive disorder; Pancreatitis; aa5 - PSHx: 07:52 None; aa5 - Immunization history:: Client reports receiving the 2nd dose of the Covid vaccine. - Social history:: Smoking status: Patient reports the use of cigarette tobacco products, smokes one pack cigarettes per day. ROS: 08:04 Constitutional: Negative for fever, chills, and weight loss, Eyes: Negative for injury, sp3 pain, redness, and discharge, ENT: Negative for injury, pain, and discharge, Neck: Negative for injury, pain, and swelling, Cardiovascular: Negative for chest pain, palpitations, and edema, Respiratory: Negative for shortness of breath, cough, wheezing, and pleuritic chest pain, Abdomen/GI: Negative for abdominal pain, nausea, vomiting, diarrhea, and constipation, : Negative for injury, bleeding, discharge, and swelling, MS/Extremity: Negative for injury and deformity, Skin: Negative for injury, rash, and discoloration, Neuro: Negative for headache, weakness, numbness, tingling, and seizure, Psych: Negative for depression, anxiety, suicide ideation, homicidal ideation, and hallucinations. 08:04 All other systems are negative. Exam: 08:04 Constitutional: This is a well developed, well nourished patient who is awake, alert, sp3 and in no acute distress. Head/Face: Normocephalic, atraumatic. Neck: Trachea midline, no thyromegaly or masses palpated, and no cervical lymphadenopathy. Supple, full range of motion without nuchal rigidity, or vertebral point tenderness. No Meningismus. Chest/axilla: Normal chest wall appearance and motion. Nontender with no deformity. No lesions are appreciated. Cardiovascular: Regular rate and rhythm with a normal S1 and S2. No gallops, murmurs, or rubs. Normal PMI, no JVD. No pulse deficits. Respiratory: Lungs have equal breath sounds bilaterally, clear to auscultation and percussion. No rales, rhonchi or wheezes noted. No increased work of breathing, no retractions or nasal flaring. Abdomen/GI: Soft, non-tender, with normal bowel sounds. No distension or tympany. No guarding or rebound. No evidence of tenderness throughout. Skin: Warm, dry with normal turgor. Normal color with no rashes, no lesions, and no evidence of cellulitis. MS/ Extremity: Pulses equal, no cyanosis. Neurovascular intact. Full, normal range of motion. Neuro: Awake and alert, GCS 15, oriented to person, place, time, and situation. Cranial nerves II-XII grossly intact. Motor strength 5/5 in all extremities. Sensory grossly intact. Cerebellar exam normal. Normal gait. Psych: Awake, alert, with orientation to person, place and time. Behavior, mood, and affect are within normal limits. 08:04 Back: Patient has muscular and diffuse muscular pain on his lower back. There is no pain along the bony prominences and patient has limited range of motion secondary to muscle spasm. Neurovascular exam in the lower extremities are normal including two-point discrimination, pain and temperature, and proprioception. There is no muscle weakness in the lower extremities.. Vital Signs: 07:50 BP 119 / 76; Pulse 79; Resp 18; Temp 97.8(TE); Pulse Ox 100% on R/A; Weight 113.4 kg aa5 (R); Height 5 ft. 10 in. (177.80 cm); Pain 10/10; 08:46 Pain 7/10; tw2 07:50 Body Mass Index 35.87 (113.40 kg, 177.80 cm) aa5 MDM: 08:00 Patient medically screened. sp3 08:05 Data reviewed: vital signs, nurses notes. ED course: 45-year-old male with lumbar sp3 muscle pain. Will administer Flexeril p.o., and ketorolac intramuscularly. I am not highly suspicious of bone injury, fracture, cord compression, vascular compromise including AAA, infectious process, or any other critical emergency at this time. Disposition likely discharge home with PCP follow-up.. 08:53 ED course: Patient is improved after pain medications. X-rays are negative. Will sp3 discharge patient home on diclofenac and Flexeril p.o.. 03/04 08:00 Order name: Lumbar Spine (3 Views) XRAY; Complete Time: 08:42 sp3 Administered Medications: 08:07 Drug: Ketorolac 60 mg Route: IM; Site: left deltoid; tw2 08:46 Follow up: Pain 7/10 Adult; Response: No adverse reaction; Pain is decreased tw2 08:08 Drug: Flexeril (cyclobenzaprine) 10 mg Route: PO; tw2 08:46 Follow up: Response: No adverse reaction tw2 Disposition Summary: 03/04/21 08:54 Discharge Ordered Location: Home sp3 Condition: Stable sp3 Diagnosis - Muscle spasm of back sp3 Followup: sp3 - With: Private Physician - When: - Reason: Re-evaluation by your physician Discharge Instructions: - Discharge Summary Sheet tw2 - Muscle Cramps and Spasms sp3 - Back Injury Prevention, [id number] sp3 Forms: - Work release form tw2 - Medication Reconciliation Form sp3 - Thank You Letter sp3 - Antibiotic Education sp3 - Prescription Opioid Use sp3 Prescriptions: - Diclofenac Sodium 75 mg Oral Tablet Sustained Release - take 1 tablet by ORAL route 2 times per day; 30 tablet; Refills: 0, Product sp3 Selection Permitted - Cyclobenzaprine 5 mg Oral Tablet - take 1 tablet by ORAL route 3 times per day As needed; 15 tablet; Refills: 0, sp3 Product Selection Permitted Signatures: Dispatcher [employer] Lorri Davis, RN RN aa5 Zenaida Calderon RN RN tw2 Charu Rivas MD MD sp3
[2021-03-04 09:06] VITALS: BP 119/76; TEMP 97.8; O2SAT 100
== END 2021-03-04 09:00 | disposition home or self-care (01) ==
LOC: ER 07:46
DX: M62.830 Muscle spasm of back (principal); E11.9 Type 2 diabetes mellitus without complications; I10 Essential (primary) hypertension; F17.210 Nicotine dependence, cigarettes, uncomplicated; Z88.0 Allergy status to penicillin
CPT/HCPCS: 72100; 96372; 99283

== ENCOUNTER 2021-06-11 06:26 | Emergency (ER) | payer SELFPAY ==
[2021-06-11 07:59] LABS: SARS-COV-2 RT PCR NEGATIVE (NEGATIVE)
--- NOTE | 2021-06-11 08:09 | EDPHYS ---
Physician Documentation [facility] Name: Ming Odonnell Age: 45 yrs Sex: Male : 1975 Arrival Date: 06/11/2021 Time: 06:29 Bed 14 Private MD: ED Physician Ricardo Ambrocio HPI: 06/11 07:00 This 45 yrs old Male presents to ER via Ambulatory with complaints of Cough, Sore cp Throat, Chest Congestion. 07:00 The patient or guardian reports cough, chest congestion. Onset: The symptoms/episode cp began/occurred 4 day(s) ago. Severity of symptoms: in the emergency department the symptoms are unchanged, despite home interventions. Associated signs and symptoms: Pertinent positives: chest pain, with cough, sore throat, Pertinent negatives: diarrhea, fever, vomiting. Historical: - Allergies: 06:41 PENICILLINS; st1 - PMHx: 06:41 Pancreatitis; Hypertensive disorder; st1 - Immunization history:: Flu vaccine is up to date. - Social history:: Smoking status: Patient reports the use of cigarette tobacco products, smokes one pack cigarettes per day. Patient/guardian denies using alcohol, street drugs, IV drugs. ROS: 07:05 Constitutional: Negative for body aches, chills, fever, poor PO intake. cp 07:05 Eyes: Negative for injury, pain, redness, and discharge. cp 07:05 ENT: Positive for sore throat, Negative for drainage from ear(s), ear pain, sinus pain, difficulty swallowing, difficulty handling secretions. 07:05 Cardiovascular: Positive for chest pain, with cough, Negative for edema, palpitations. 07:05 Respiratory: Positive for cough, "sounds productive", Negative for shortness of breath, wheezing. 07:05 Abdomen/GI: Negative for abdominal pain, vomiting, diarrhea, constipation. 07:05 Neuro: Negative for altered mental status, headache, weakness. 07:05 All other systems are negative. Exam: 07:10 Constitutional: The patient appears in no acute distress, alert, awake, cp non-diaphoretic, non-toxic, well developed, well nourished. 07:10 Head/Face: Normocephalic, atraumatic. cp 07:10 Eyes: Periorbital structures: appear normal, Conjunctiva: normal, no exudate, no injection, Sclera: no appreciated abnormality, Lids and lashes: appear normal, bilaterally. 07:10 ENT: External ear(s): are unremarkable, Nose: is normal, Mouth: Lips: moist, Oral mucosa: moist, Posterior pharynx: Airway: no evidence of obstruction, patent, Tonsils: no enlargement, no exudate, Uvula: midline, swelling, is not appreciated, erythema, that is mild, exudate, is not appreciated. 07:10 Neck: ROM/movement: is normal, is supple, without pain, no range of motions limitations, Lymph nodes: no appreciated lymphadenopathy. 07:10 Chest/axilla: Inspection: normal. 07:10 Cardiovascular: Rate: tachycardic, Rhythm: regular. 07:10 Respiratory: the patient does not display signs of respiratory distress, Respirations: normal, no use of accessory muscles, no retractions, labored breathing, is not present, Breath sounds: bronchial sounds, that are mild, are heard diffusely, decreased breath sounds, are not appreciated, stridor, is not appreciated, + upper airway congestion. wheezing: is not appreciated. 07:10 Abdomen/GI: Exam negative for discomfort, distension, guarding, Inspection: abdomen appears normal. Vital Signs: 06:37 BP 111 / 82; Pulse 74; Resp 16; Temp 98.3; Pulse Ox 99% on R/A; Weight 113.4 kg; Height st1 5 ft. 10 in. (177.80 cm); Pain 5/10; 06:51 BP 115 / 92; Pulse 102; Resp 16; Pulse Ox 98% on R/A; vc1 07:15 BP 110 / 70; Pulse 68; Resp 18; Pulse Ox 98% on R/A; ww 08:30 BP 107 / 70; Pulse 60; Resp 16; Pulse Ox 98% on R/A; ww 06:37 Body Mass Index 35.87 (113.40 kg, 177.80 cm) st1 MDM: 06:48 Patient medically screened. [facility] 07:10 Differential Diagnosis: Bronchitis Influenza Otitis Media Viral Syndrome Pneumonia cp Other COVID-19. 08:06 Data reviewed: vital signs, nurses notes, lab test result(s), radiologic studies, plain cp films. 08:06 Test interpretation: by ED physician or midlevel provider: plain radiologic studies. cp Counseling: I had a detailed discussion with the patient and/or guardian regarding: the historical points, exam findings, and any diagnostic results supporting the discharge/admit diagnosis, lab results, radiology results, to return to the emergency department if symptoms worsen or persist or if there are any questions or concerns that arise at home. ED course: VSS. Patient appears non-toxic and no signs of respiratory distress. Will discharge to home for continued monitoring. 06/11 06:55 Order name: COVID-19/FLU A+B (Document "Date of Onset" if Symptomatic); Complete Time: cp 08:01 06/11 06:55 Order name: Strep; Complete Time: 08:01 cp 06/11 06:55 Order name: XRAY Chest Pa And Lat (2 Views) cp 06/11 07:34 Order name: Throat Culture EDMS Administered Medications: No medications were administered Disposition: 11:40 Co-signature as Attending Physician, Ricardo Ambrocio MD I agree with the assessment and rn plan of care. Attestation: The patient's history, exam findings, diagnostics, and a summary of any interventions or procedures was reviewed in detail with Foster BLAKE. Disposition Summary: 06/11/21 08:07 Discharge Ordered Location: Home cp Problem: new cp Symptoms: are unchanged cp Condition: Stable cp Diagnosis - Acute bronchitis, unspecified cp Followup: cp - With: Private Physician - When: 2 - 3 days - Reason: Worsening of condition Discharge Instructions: - Discharge Summary Sheet cp - Acute Bronchitis, Adult cp - Steps to Quit Smoking cp - Smoking Tobacco Information, Adult cp - Form - Return To Work ap3 Forms: - Medication Reconciliation Form cp - Thank You Letter cp - Antibiotic Education cp - Prescription Opioid Use cp - Work release form ap3 Prescriptions: - albuterol sulfate 90 mcg/actuation Inhalation HFA aerosol inhaler - inhale 1 puff by INHALATION route every 4-6 hours; 1 Inhaler; Refills: 0, cp Product Selection Permitted - Zithromax Z-Franky 250 mg Oral Tablet - take 1 tablet by ORAL route as directed for 5 days Day 1 - take two (2) tablets cp one time. Day 2, 3, 4 , 5 take one (1) tablet once daily.; 6 tablet; Refills: 0, Product Selection Permitted - Bromfed DM 2-30-10 mg/5 mL Oral syrup - take 10 milliliter by ORAL route every 4 hours; 200 milliliter; Refills: 0, cp Product Selection Permitted Signatures: Dispatcher [employer] Foster Charlton MD MD cha Nieto, Roman, MD MD rn Page, Corey, PA PA cp Tingle, Shellie, RN RN st1
--- NOTE | 2021-06-11 08:09 | ER ---
Nurse's Notes [facility] Name: Ming Odonnell Age: 45 yrs Sex: Male : 1975 Arrival Date: 06/11/2021 Time: 06:29 Bed 14 Private MD: Diagnosis: Acute bronchitis, unspecified Presentation: 06/11 06:37 Chief complaint: Patient states: Coughing with chest congestion , sore throat and st1 lightheaded. Coronavirus screen: Vaccine status: Patient reports receiving the 2nd dose of the covid vaccine. Pfizer. Ebola Screen: No symptoms or risks identified at this time. Initial Sepsis Screen: Does the patient meet any 2 criteria? No. Patient's initial sepsis screen is negative. Does the patient have a suspected source of infection? No. Patient's initial sepsis screen is negative. Risk Assessment: Do you want to hurt yourself or someone else? Patient reports no desire to harm self or others. Onset of symptoms was June 07, 2021. 06:37 Method Of Arrival: Ambulatory st1 06:44 Acuity: CELENA 3 st1 Triage Assessment: 06:41 General: Appears in no apparent distress. uncomfortable, obese, well groomed, Behavior st1 is calm, cooperative. Pain: Complains of pain in Chest congestion pain Pain does not radiate. Pain radiates to Back. EENT: Reports Red ears with liquid and crust bilaterally. Historical: - Allergies: 06:41 PENICILLINS; st1 - PMHx: 06:41 Pancreatitis; Hypertensive disorder; st1 - Immunization history:: Flu vaccine is up to date. - Social history:: Smoking status: Patient reports the use of cigarette tobacco products, smokes one pack cigarettes per day. Patient/guardian denies using alcohol, street drugs, IV drugs. Screenin:52 Abuse screen: Denies threats or abuse. Nutritional screening: No deficits noted. vc1 Tuberculosis screening: No symptoms or risk factors identified. Fall Risk None identified. Assessment: 06:53 Respiratory: Airway is patent Respiratory effort is even, labored. EENT:. vc1 06:54 General: Appears uncomfortable, Behavior is calm, cooperative, appropriate for age. vc1 Neuro: Level of Consciousness is awake, alert, obeys commands. Cardiovascular: No deficits noted. 07:07 General: Appears in no apparent distress. Behavior is calm, cooperative. Pain: ww Complains of pain in uvula, left aspect of posterior pharynx and right aspect of posterior pharynx. Neuro: Level of Consciousness is awake, alert, obeys commands, Oriented to person, place, time, situation, Moves all extremities. Speech is normal. Cardiovascular: No deficits noted. Capillary refill < 3 seconds Patient's skin is warm and dry. Respiratory: Airway is patent Respiratory effort is even, unlabored, Respiratory pattern is regular. GI: Abdomen is round. : No signs and/or symptoms were reported regarding the genitourinary system. EENT: Throat is reddened. Derm: Skin is intact, is healthy with good turgor, Skin is pink, warm \T\ dry. Musculoskeletal: No signs and/or symptoms reported regarding the musculoskeletal system. Circulation, motion, and sensation intact. 08:29 Reassessment: Patient appears in no apparent distress at this time. No changes from ww previously documented assessment. Patient and/or family updated on plan of care and expected duration. Pain level reassessed. Vital Signs: 06:37 BP 111 / 82; Pulse 74; Resp 16; Temp 98.3; Pulse Ox 99% on R/A; Weight 113.4 kg; Height st1 5 ft. 10 in. (177.80 cm); Pain 5/10; 06:51 BP 115 / 92; Pulse 102; Resp 16; Pulse Ox 98% on R/A; vc1 07:15 BP 110 / 70; Pulse 68; Resp 18; Pulse Ox 98% on R/A; ww 08:30 BP 107 / 70; Pulse 60; Resp 16; Pulse Ox 98% on R/A; ww 06:37 Body Mass Index 35.87 (113.40 kg, 177.80 cm) st1 ED Course: 06:29 Patient arrived in ED. ja2 06:40 Triage completed. st1 06:41 Arm band placed on right wrist. st1 06:45 Foster Perez PA is PHCP. cp 06:45 Foster Trejo MD is Attending Physician. cp 06:47 Jessica Gaines, ANDREW is Primary Nurse. vc1 06:54 Patient has correct armband on for positive identification. Pulse ox on. NIBP on. vc1 07:25 Ricardo Ambrocio MD is Attending Physician. cp 07:44 Primary Nurse role handed off by Jessica Gaines RN bd 07:55 Yessica Oro, RN is Primary Nurse. ww 08:09 XRAY Chest Pa And Lat (2 Views) In Process Unspecified. EDMS 08:30 No provider procedures requiring assistance completed. Patient did not have IV access ww during this emergency room visit. Administered Medications: No medications were administered Outcome: 08:07 Discharge ordered by MD. cp 08:30 Discharged to home ambulatory. ww 08:30 Condition: stable 08:30 Discharge instructions given to patient, Instructed on discharge instructions, follow up and referral plans. no drinking with medication, medication usage, benefits of quitting smoking, safety practices, Demonstrated understanding of instructions, follow-up care, medications, Prescriptions given X 3. 08:31 Patient left the ED. ww Signatures: Dispatcher [employer] EDMS Adenike Laura bd Foster Perez PA PA cp Alexander, Jessica ja2 Wood, Whitney, RN RN ww Erica Pride RN RN st1 Jessica Gaines RN RN vc1 Corrections: (The following items were deleted from the chart) 06:44 06:37 Acuity: CELENA 3 st1 st1
[2021-06-11 08:36] VITALS: TEMP 98.3
[2021-06-11 08:37] VITALS: O2SAT 98
[2021-06-11 08:40] VITALS: BP 107/70
--- NOTE | 2021-06-11 09:00 | RAD REPORT ---
EXAM DESCRIPTION: RAD - Chest Pa And Lat (2 Views) - 06/11/2021 8:09 am CLINICAL HISTORY: Cough;Congestion COMPARISON: None TECHNIQUE: Frontal and lateral views of the chest were obtained. FINDINGS: The lungs are clear. Heart size is normal and central vasculature is within normal limit s. No pleural effusion or pneumothorax seen. No acute bony finding noted. No aortic abnormality. IMPRESSION: No acute cardiopulmonary process.
== END 2021-06-11 08:31 | disposition home or self-care (01) ==
LOC: ER 06:26
DX: J20.9 Acute bronchitis, unspecified (principal); I10 Essential (primary) hypertension; Z88.0 Allergy status to penicillin; Z20.822 Contact with and (suspected) exposure to COVID-19
CPT/HCPCS: 0240U; 71046; 87070; 87081; 99283

== ENCOUNTER 2021-08-15 09:42 | Emergency (ER) | payer SELFPAY ==
[2021-08-15 10:14] LABS: Absolute Lymphocytes (CBC) 2.9 K/uL (0.7-4.9); Hematocrit 43.3 % (39.6-49.0); Lymphocytes % 23.3 % (15.3-44.8); MPV 8.8 fL (7.6-11.3); RBC Red Blood Cell Count 4.63 M/uL (4.33-5.43)
[2021-08-15] MEDS ORDERED: ONDANSETRON 4 MG/2 ML VIAL ONE (10:15)
[2021-08-15] MEDS ORDERED: MORPHINE 4 MG/ML SYR ONE (10:15)
[2021-08-15 10:33] LABS: ALT/SGPT 21 U/L (12-78); AST/SGOT 17 U/L (15-37); Albumin 3.8 g/dL (3.4-5.0); Alkaline Phosphatase 68 U/L (45-117); BUN Blood Urea Nitrogen 11 mg/dL (7-18); Bicarbonate 25 mmol/L (21-32); Bilirubin Total 0.4 mg/dL (0.2-1.0); Glucose Level 101 mg/dL (74-106); Lipase 171 U/L (73-393); Potassium 4.1 mmol/L (3.5-5.1); Protein, Total 7.8 g/dL (6.4-8.2); Sodium Level 140 mmol/L (136-145)
[2021-08-15 10:34] LABS: Troponin High Sensitivity < 3.0 pg/mL (<58.9)
--- NOTE | 2021-08-15 10:42 | RAD REPORT ---
EXAM DESCRIPTION: RAD - Chest Single View - 08/15/2021 10:35 am CLINICAL HISTORY: CHEST PAIN Chest pain. COMPARISON: Chest Pa And Lat (2 Views) dated 06/11/2021 FINDINGS: Portable technique limits examination quality. The lungs are grossly clear. The heart is normal in size. No displaced fractures. IMPRESSION: No acute intrathoracic process suspected.
--- NOTE | 2021-08-15 11:18 | RAD REPORT ---
EXAM DESCRIPTION: CTAbdomen Pelvis W Contrast - 08/15/2021 11:02 am CLINICAL HISTORY: Abdominal pain. LLQ abdominal pain COMPARISON: No comparisons TECHNIQUE: Biphasic CT imaging of the abdomen and pelvis was performed with 100 ml non-ionic IV cont rast. All CT scans are performed using dose optimization technique as appropriate and may include automated exposure control or mA/KV adjustment according to patient size. FINDINGS: The lung bases are clear. 9 mm enhancing lesion in the left lobe liver. Hemangioma is suspected in the medial right lobe liver measuring 3 cm. No aggressive hepatic lesion or biliary dilatation. The spleen, pancreas, adrenal gla nds and kidneys are within normal limits. No bowel obstruction, free air, free fluid or abscess. Mild inflammation is seen involving the left l ower quadrant sigmoid colon suggesting mild/ early acute diverticulitis. The appendix is normal. No evidence of significant lymphadenopathy. Small fat containing left inguinal hernia. No suspicious bony findings. IMPRESSION: Mild acute diverticulitis in the left lower quadrant sigmoid colon.
--- NOTE | 2021-08-15 11:38 | ER ---
Nurse's Notes [facility] Name: Ming Odonnell Age: 45 yrs Sex: Male : 1975 Arrival Date: 08/15/2021 Time: 09:43 Bed 6 Private MD: Diagnosis: Diverticulitis of large intestine without perforation or abscess without bleeding;Low back pain Presentation: 08/15 09:49 Chief complaint: Patient states: low back pain x 2 months, midsternal chest pain with jl7 palpation x 2 months, Pain from chest to abdomen x 2 months and "Something's just not right.". Coronavirus screen: At this time, the client does not indicate any symptoms associated with coronavirus-19. Ebola Screen: No symptoms or risks identified at this time. Initial Sepsis Screen: Does the patient meet any 2 criteria? No. Patient's initial sepsis screen is negative. Does the patient have a suspected source of infection? No. Patient's initial sepsis screen is negative. Risk Assessment: Do you want to hurt yourself or someone else? Patient reports no desire to harm self or others. Onset of symptoms is unknown. 09:49 Method Of Arrival: Ambulatory jl7 09:49 Acuity: CELENA 3 jl7 Triage Assessment: 09:51 General: Appears in no apparent distress. uncomfortable, Behavior is calm, cooperative, jl7 appropriate for age. Pain: Complains of pain in back, chest and abdomen Pain currently is 9 out of 10 on a pain scale. GI: Reports diarrhea, Patient currently denies nausea, vomiting. Historical: - Allergies: 09:51 PENICILLINS; jl7 - Home Meds: 09:51 None [Active]; jl7 - PMHx: 09:51 Pancreatitis; jl7 - PSHx: 09:51 None; jl7 - Immunization history:: Client reports receiving the 2nd dose of the Covid vaccine. - Social history:: Smoking status: Patient reports the use of cigarette tobacco products, smokes one pack cigarettes per day. Screenin:10 Abuse screen: Denies threats or abuse. Nutritional screening: No deficits noted. aa5 Tuberculosis screening: No symptoms or risk factors identified. Fall Risk None identified. Assessment: 10:05 General: Appears uncomfortable, Behavior is cooperative, anxious. Pain: Complains of aa5 pain in chest, abdomen, and low back Pain currently is 9 out of 10 on a pain scale. Quality of pain is described as sharp, Pain began 2 months ago Is continuous. Neuro: Level of Consciousness is awake, alert, obeys commands, Oriented to person, place, time, situation. Cardiovascular: Reports chest pain, Denies lightheadedness, nausea, palpitations, shortness of breath, Heart tones S1 S2 present Capillary refill < 3 seconds is brisk in bilateral fingers Edema is absent. Rhythm is regular. Respiratory: Airway is patent Respiratory effort is even, unlabored, Respiratory pattern is regular, symmetrical, Denies cough, shortness of breath. GI: Abdomen is round non-distended, Bowel sounds present X 4 quads. Abd is soft and non tender X 4 quads. Patient currently denies diarrhea, nausea, vomiting. : Denies burning with urination, inability to void. EENT: No signs and/or symptoms were reported regarding the EENT system. Derm: Skin is pink, warm \\T\\ dry. Musculoskeletal: Range of motion: intact in all extremities. 10:40 Reassessment: Patient is alert, oriented x 3, equal unlabored respirations, skin aa5 warm/dry/pink. Pt now to CT via wheelchair . 11:43 Reassessment: Patient is alert, oriented x 3, equal unlabored respirations, skin aa5 warm/dry/pink. Vital Signs: 09:49 BP 127 / 83; Pulse 83; Resp 17; Temp 98.2; Pulse Ox 98% on R/A; Weight 113.4 kg; Height jl7 5 ft. 10 in. (177.80 cm); Pain 9/10; 11:30 BP 115 / 73; Pulse 67; Resp 16 S; Temp 98.0(TE); Pulse Ox 98% on R/A; aa5 09:49 Body Mass Index 35.87 (113.40 kg, 177.80 cm) jl7 ED Course: 09:43 Patient arrived in ED. as 09:44 Tito Guzman FNP-C is [facility]. la1 09:44 Devon Green MD is Attending Physician. la1 09:50 Triage completed. jl7 09:51 Arm band placed on right wrist. jl7 09:54 Lorri Mckeon, RN is Primary Nurse. aa5 10:05 Patient has correct armband on for positive identification. Placed in gown. Bed in low aa5 position. Call light in reach. Side rails up X2. 10:10 Initial lab(s) drawn, by me, sent to lab. Inserted saline lock: 20 gauge in right aa5 antecubital area, using aseptic technique. Blood collected. 10:11 EKG done, by ED staff, reviewed by Tito SHAH. ap3 10:36 Chest Single View XRAY In Process Unspecified. EDMS 11:04 CT Abd/Pelvis - IV Contrast Only In Process Unspecified. EDMS 12:01 No provider procedures requiring assistance completed. IV discontinued, intact, ap3 bleeding controlled, No redness/swelling at site. Pressure dressing applied. Administered Medications: 10:14 Drug: morphine 4 mg Route: IVP; Site: right antecubital; aa5 12:01 Follow up: Response: No adverse reaction ap3 10:14 Drug: Zofran (Ondansetron) 4 mg Route: IVP; Site: right antecubital; aa5 12:02 Follow up: Response: No adverse reaction ap3 11:43 Drug: Cipro (ciprofloxacin) 500 mg Route: PO; aa5 12:01 Follow up: Response: No adverse reaction ap3 11:43 Drug: Flagyl (metroNIDAZOLE) 500 mg Route: PO; aa5 12:02 Follow up: Response: No adverse reaction ap3 11:43 Drug: HYDROcodone-acetaminophen 5 mg-325 mg 1 tabs Route: PO; aa5 12:02 Follow up: Response: No adverse reaction ap3 11:43 Drug: Flexeril (cyclobenzaprine) 10 mg Route: PO; aa5 12:02 Follow up: Response: No adverse reaction ap3 Outcome: 11:38 Discharge ordered by . la1 12:01 Discharged to home ambulatory. ap3 12:01 Condition: good 12:01 Discharge instructions given to patient, family, Instructed on discharge instructions, follow up and referral plans. medication usage, Demonstrated understanding of instructions, follow-up care, medications, Prescriptions given X 3. 12:02 Patient left the ED. ap3 Signatures: Dispatcher [employer] Selina Godinez Audri, RN RN aa5 Tito Guzman FNP-C [employer]-Cla1 Aida Das RN RN jl7 Adela Hermosillo RN RN ap3 Corrections: (The following items were deleted from the chart) 09:51 PMHx: diabetes mellitus; jl7 jl7 [id number] 09:51 PMHx: Hypertensive disorder; jl7 jl7 12:04 11:50 Reassessment: Patient is alert, oriented x 3, equal unlabored respirations, skin aa5 warm/dry/pink. aa5
--- NOTE | 2021-08-15 11:38 | EDPHYS ---
Physician Documentation [facility] Name: Ming Odonnell Age: 45 yrs Sex: Male : 1975 Arrival Date: 08/15/2021 Time: 09:43 Bed 6 Private MD: ED Physician Devon Green HPI: 08/15 10:18 This 45 yrs old Male presents to ER via Ambulatory with complaints of Low Back Pain, la1 Abdominal Pain, Chest Pain. 10:18 The patient presents with abdominal pain in the lower abdomen. Onset: The la1 symptoms/episode began/occurred at an unknown time. The symptoms radiate to back. Associated signs and symptoms: Pertinent negatives: nausea, vomiting, and diarrhea. The symptoms are described as sharp. Modifying factors: the symptoms are aggravated by movement, laying flat. Severity of pain: At its worst the pain was severe in the emergency department the pain has improved. The patient has not experienced similar symptoms in the past. Patient reports problem with ongoing back pain, abdominal pain, chest pain intermittently over the course of last couple months worse today. Historical: - Allergies: 09:51 PENICILLINS; jl7 - Home Meds: 09:51 None [Active]; jl7 - PMHx: 09:51 Pancreatitis; jl7 - PSHx: 09:51 None; jl7 - Immunization history:: Client reports receiving the 2nd dose of the Covid vaccine. - Social history:: Smoking status: Patient reports the use of cigarette tobacco products, smokes one pack cigarettes per day. ROS: 10:19 Constitutional: Negative for fever, chills, and weight loss, Eyes: Negative for injury, la1 pain, redness, and discharge. 10:19 ENT: Negative for injury, pain, and discharge, Neck: Negative for injury, pain, and swelling, : Negative for injury, bleeding, discharge, and swelling, MS/Extremity: Negative for injury and deformity, Neuro: Negative for headache, weakness, numbness, tingling, and seizure. 10:19 Cardiovascular: Positive for chest pain. 10:19 Abdomen/GI: Positive for abdominal pain. 10:19 Back: Positive for pain with movement. Exam: 10:20 Head/Face: Normocephalic, atraumatic. ENT: Nares patent. No nasal discharge, no la1 septal abnormalities noted. Neck: Trachea midlineSupple, full range of motion without nuchal rigidity, Chest/axilla: Normal chest wall appearance and motion. Cardiovascular: Regular rate and rhythm with a normal S1 and S2. Respiratory: Lungs have equal breath sounds bilaterally, clear to auscultation and percussion. Back: No spinal tenderness. No costovertebral tenderness. Full range of motion. Skin: Warm, dry with normal turgor. Normal color with no rashes, no lesions, and no evidence of cellulitis. MS/ Extremity: Pulses equal, no cyanosis. Neurovascular intact. Full, normal range of motion. 10:20 Abdomen/GI: Inspection: obese Bowel sounds: normal, Palpation: soft, in all quadrants, mild abdominal tenderness, in the suprapubic area, right lower quadrant and left lower quadrant, Indicators: McBurney's point is not tender, Mcmillan's sign is negative, Rovsing's sign is negative, Obturator sign is negative, Psoas sign is negative. Vital Signs: 09:49 BP 127 / 83; Pulse 83; Resp 17; Temp 98.2; Pulse Ox 98% on R/A; Weight 113.4 kg; Height jl7 5 ft. 10 in. (177.80 cm); Pain 9/10; 11:30 BP 115 / 73; Pulse 67; Resp 16 S; Temp 98.0(TE); Pulse Ox 98% on R/A; aa5 09:49 Body Mass Index 35.87 (113.40 kg, 177.80 cm) jl7 MDM: 09:52 Patient medically screened. la1 11:36 Data reviewed: vital signs, nurses notes, lab test result(s), radiologic studies, and la1 as a result, I will discharge patient. Data interpreted: Pulse oximetry: on room air is 98 %. Interpretation: normal. Counseling: I had a detailed discussion with the patient and/or guardian regarding: the historical points, exam findings, and any diagnostic results supporting the discharge/admit diagnosis, lab results, radiology results, the need for outpatient follow up, a family practitioner, a schedule manager, to return to the emergency department if symptoms worsen or persist or if there are any questions or concerns that arise at home. ED course: Patient abdominal and back pain improved only mild leukocytosis, will trial patient on outpatient oral antibiotics Cipro/Flagyl, also complaining of low back pain seems to musculoskeletal will provide patient with Flexeril. Return precautions given. Also discussed patient with need for follow-up with GI and family practice.. 08/15 09:59 Order name: CBC with Diff; Complete Time: 10:41 08/15 09:59 Order name: CMP; Complete Time: 10:41 08/15 09:59 Order name: Lipase; Complete Time: 10:41 08/15 09:59 Order name: Troponin HS; Complete Time: 10:41 08/15 09:59 Order name: Chest Single View XRAY; Complete Time: 11:03 08/15 09:59 Order name: CT Abd/Pelvis - IV Contrast Only; Complete Time: 11:23 08/15 09:59 Order name: IV; Complete Time: 10:16 08/15 09:59 Order name: EKG - Nurse/Tech; Complete Time: 10:11 la1 Administered Medications: 10:14 Drug: morphine 4 mg Route: IVP; Site: right antecubital; aa5 12:01 Follow up: Response: No adverse reaction ap3 10:14 Drug: Zofran (Ondansetron) 4 mg Route: IVP; Site: right antecubital; aa5 12:02 Follow up: Response: No adverse reaction ap3 11:43 Drug: Cipro (ciprofloxacin) 500 mg Route: PO; aa5 12:01 Follow up: Response: No adverse reaction ap3 11:43 Drug: Flagyl (metroNIDAZOLE) 500 mg Route: PO; aa5 12:02 Follow up: Response: No adverse reaction ap3 11:43 Drug: HYDROcodone-acetaminophen 5 mg-325 mg 1 tabs Route: PO; aa5 12:02 Follow up: Response: No adverse reaction ap3 11:43 Drug: Flexeril (cyclobenzaprine) 10 mg Route: PO; aa5 12:02 Follow up: Response: No adverse reaction ap3 Disposition: 18:41 Co-signature as Attending Physician, Devon Green MD. ma2 Disposition Summary: 08/15/21 11:38 Discharge Ordered Location: Home la1 Condition: Stable la1 Diagnosis - Diverticulitis of large intestine without perforation or abscess without bleeding la1 - Low back pain la1 Followup: la1 - With: Private Physician - When: 2 - 3 days - Reason: Recheck today's complaints, Re-evaluation by your physician Followup: la1 - With: Emergency Department - When: As needed - Reason: Worsening of condition Discharge Instructions: - Discharge Summary Sheet la1 - Acute Back Pain, Adult la1 - High-Fiber Diet la1 - Diverticulitis la1 - Musculoskeletal Pain la1 - Diverticulitis, [id number] la1 - Back Exercises, [id number] la1 Forms: - Medication Reconciliation Form la1 - Thank You Letter la1 - Antibiotic Education la1 - Work release form aa5 Prescriptions: - Cipro 500 mg Oral Tablet - take 1 tablet by ORAL route every 12 hours for 10 days; 20 tablet; Refills: 0, la1 Product Selection Permitted - Flagyl 500 mg Oral Tablet - take 1 tablet by ORAL route every 8 hours for 10 days; 30 tablet; Refills: 0, la1 Product Selection Permitted - Cyclobenzaprine 5 mg Oral Tablet - take 1 tablet by ORAL route 3 times per day As needed; 15 tablet; Refills: 0, la1 Product Selection Permitted Signatures: Dispatcher [employer] Lorri Davis, RN RN aa5 Tito Guzman, AN/SSN 2 4 OPERATOR-C AN/SSN 2 4 OPERATOR-Cla1 Aida Das RN RN jl7 Devon Green MD MD ma2 Adela Hermosillo RN ap3 Corrections: (The following items were deleted from the chart) 09:51 09:51 PMHx: diabetes mellitus; jl7 09:51 09:51 PMHx: Hypertensive disorder; 7 jl7
[2021-08-15] MEDS ORDERED: metroNIDAZOLE 500 MG TABLET ONE (11:44)
[2021-08-15] MEDS ORDERED: CIPROFLOXACIN HCL 500 MG TAB ONE (11:44)
[2021-08-15] MEDS ORDERED: CYCLOBENZAPRINE 10 MG TAB ONE (11:45)
[2021-08-15] MEDS ORDERED: HYDROCODONE/APAP 5/325 MG TAB ONE (11:45)
[2021-08-15 12:19] VITALS: BP 127/83; TEMP 98.2; O2SAT 98
== END 2021-08-15 12:02 | disposition home or self-care (01) ==
LOC: ER 09:42
DX: K57.32 Diverticulitis of large intestine without perforation or abscess without bleeding (principal); K85.90 Acute pancreatitis without necrosis or infection, unspecified; Z88.0 Allergy status to penicillin; F17.210 Nicotine dependence, cigarettes, uncomplicated
CPT/HCPCS: 36415; 71045; 74177; 80053; 83690; 84484; 85025; 93005; 96374; 96375; 99284; J2405; Q9967

== ENCOUNTER 2021-08-25 13:05 | Inpatient (IN) | payer SELFPAY ==
[2021-08-25 14:06] LABS: Absolute Lymphocytes (CBC) 2.7 K/uL (0.7-4.9); MPV 9.4 fL (7.6-11.3); RBC Red Blood Cell Count 4.51 M/uL (4.33-5.43)
[2021-08-25 14:28] LABS: Albumin 3.6 g/dL (3.4-5.0); Bilirubin Total 0.4 mg/dL (0.2-1.0); Potassium 4.1 mmol/L (3.5-5.1); Protein, Total 7.7 g/dL (6.4-8.2)
--- NOTE | 2021-08-25 14:52 | RAD REPORT ---
EXAM DESCRIPTION: CTAbdomen Pelvis W Contrast - 08/25/2021 2:44 pm CLINICAL HISTORY: Abdominal pain. LLQ abdominal pain COMPARISON: Abdomen Pelvis W Contrast dated 08/15/2021 TECHNIQUE: Biphasic CT imaging of the abdomen and pelvis was performed with 100 ml non-ionic IV cont rast. All CT scans are performed using dose optimization technique as appropriate and may include automated exposure control or mA/KV adjustment according to patient size. FINDINGS: The lung bases are clear. Hepatic lesions are again seen likely benign hemangioma and unchanged. No intra or extrahepatic bilia ry tree dilatation. The spleen, pancreas, adrenal glands and kidneys are within normal limits. Inflammation surrounding the sigmoid colon is again seen and appears moderately increased. In the reg ion of interest there has been development of a small 13 mm intramural abscess is suspected on today' s study. No bowel obstruction. Normal appendix. No evidence of significant lymphadenopathy. Moderate fat containing left inguinal hernia. No suspicious bony findings. IMPRESSION: Moderate worsening of sigmoid acute diverticulitis since 08/15/2021 as detailed.
[2021-08-25] MEDS ORDERED: ONDANSETRON 4 MG/2 ML VIAL ONE (15:07)
[2021-08-25] MEDS ORDERED: MORPHINE 4 MG/ML SYR ONE (15:07)
[2021-08-25] MEDS ORDERED: METRONIDAZOLE 500mg IVPB 500 MG/100 ML BAG IV ONE (15:16)
[2021-08-25] MEDS ORDERED: CIPROFLOXACIN 400mg IV 400 MG/200 ML BAG IV ONE (15:16)
--- NOTE | 2021-08-25 15:20 | EDPHYS ---
Physician Documentation [facility] Name: Ming Odonnell Age: 45 yrs Sex: Male : 1975 Arrival Date: 08/25/2021 Time: 13:06 Bed 8 Private MD: ED Physician Adrián Quiroga HPI: 08/25 13:56 This 45 yrs old Male presents to ER via Ambulatory with complaints of Abdominal Pain. m 13:56 The patient presents with abdominal pain. Onset: The symptoms/episode began/occurred jmm gradually. The symptoms do not radiate. Associated signs and symptoms: Pertinent positives: diarrhea. This is a 45 year old male with a history of pancreatitis that presents to the ED with complaints of ongoing lower abdominal pain. Denies vomiting. Patient was evaluated on 08/15 and prescribed cipro and flagyl. Patient states he has been taking fiber supplements as well. . Historical: - Allergies: 13:46 PENICILLINS; aa5 - PMHx: 13:46 Pancreatitis; aa5 - Immunization history:: Adult Immunizations unknown. - Social history:: Smoking status: Patient reports the use of cigarette tobacco products, smokes two packs cigarettes per day. ROS: 13:56 Constitutional: Negative for fever, chills, and weight loss, Cardiovascular: Negative jmm for chest pain, palpitations, and edema, Respiratory: Negative for shortness of breath, cough, wheezing, and pleuritic chest pain. 13:56 Abdomen/GI: Positive for abdominal pain, diarrhea. 13:56 All other systems are negative. Exam: 13:56 Constitutional: This is a well developed, well nourished patient who is awake, alert, jmm and in no acute distress. Head/Face: atraumatic. Eyes: EOMI, no conjunctival erythema appreciated ENT: Moist Mucus Membranes Neck: Trachea midline, Supple Chest/axilla: Normal chest wall appearance and motion. Cardiovascular: Regular rate and rhythm. No edema appreciated Respiratory: Normal respirations, no respiratory distress appreciated 13:56 Back: Normal ROM Skin: General appearance color normal MS/ Extremity: Moves all extremities, no obvious deformities appreciated, no edema noted to the lower extremities Neuro: Awake and alert Psych: Behavior is normal, Mood is normal, Patient is cooperative and pleasant 13:56 Abdomen/GI: Inspection: abdomen appears normal, Bowel sounds: normal, Palpation: soft, moderate abdominal tenderness, in the right lower quadrant and left lower quadrant. Vital Signs: 13:47 BP 100 / 87; Pulse 95; Resp 20 S; Temp 98.3(O); Pulse Ox 99% on R/A; Weight 113.4 kg aa5 (R); Height 5 ft. 10 in. (177.80 cm) (R); 15:09 BP 115 / 55; Pulse 72; Resp 19 S; Pulse Ox 98% on R/A; jd3 16:24 BP 98 / 60; Pulse 65; Resp 19 S; Pulse Ox 97% on R/A; jd3 13:47 Body Mass Index 35.87 (113.40 kg, 177.80 cm) aa5 MDM: 13:[address] [facility] 15:17 Data reviewed: vital signs, nurses notes. Counseling: I had a detailed discussion with mehrdad the patient and/or guardian regarding: the historical points, exam findings, and any diagnostic results supporting the discharge/admit diagnosis, lab results, radiology results, the need for further work-up and treatment in the hospital. ED course: I discussed the patient with Dr. Ambrocio whom accepted the patient to his service. . 08/25 13:56 Order name: CBC with Diff; Complete Time: 14:13 08/25 13:56 Order name: CMP; Complete Time: 14:32 08/25 13:56 Order name: Lipase; Complete Time: 14:32 08/25 15:13 Order name: SARS-COV-2 RT PCR (Document "Date of Onset" if Symptomatic); Complete Time: [facility] 17:38 08/25 16:06 Order name: CBC with Automated Diff [facility] 08/25 16:06 Order name: CBC with Automated Diff [facility] 08/25 13:57 Order name: CT Abd/Pelvis - IV Contrast Only; Complete Time: 15:00 [facility] 08/25 16:06 Order name: Comprehensive Metabolic Panel [facility] 08/25 16:06 Order name: Comprehensive Metabolic Panel [facility] 08/25 16:06 Order name: Magnesium EDVT 08/25 16:06 Order name: Magnesium [facility] 08/25 13:56 Order name: IV Saline Lock; Complete Time: 14:00 08/25 13:56 Order name: Labs collected and sent; Complete Time: 14:00 08/25 16:04 Order name: CONS Physician Consult EDMS 08/25 16:06 Order name: NPO EDMS Administered Medications: 15:08 Drug: morphine 4 mg Route: IVP; Site: right antecubital; jd3 15:55 Follow up: Response: No adverse reaction; RASS: Alert and Calm (0) jd3 15:08 Drug: Zofran (Ondansetron) 4 mg Route: IVP; Site: right antecubital; jd3 15:55 Follow up: Response: No adverse reaction jd3 15:17 Drug: Flagyl (metroNIDAZOLE) 500 mg Volume: 100 ml; Route: IVPB; Rate: 200 ml/hr; jd3 Infused Over: 30 mins; Site: right antecubital; 15:55 Follow up: Response: No adverse reaction; IV Status: Completed infusion jd3 15:54 Drug: Cipro (ciprofloxacin) 400 mg Volume: 200 ml; Route: IVPB; Infused Over: 60 mins; jd3 Site: right antecubital; 16:50 Follow up: Response: No adverse reaction; IV Status: Completed infusion jd3 Disposition: 18:02 Co-signature as Attending Physician, Adrián Quiroga MD I agree with the assessment and kdr plan of care. Disposition Summary: 08/25/21 15:19 Hospitalization Ordered Hospitalization Status: Inpatient Admission [facility] Provider: Jason Ambrocio Location: Telemetry/[facility] (Inpatient) [facility] Condition: Stable [facility] Problem: new jmm Symptoms: are unchanged [facility] Bed/Room Type: Standard [facility] Room Assignment: 212(08/25/21 17:15) dw Diagnosis - Lower abdominal pain, unspecified jmm - Acute Signmoid Diverticulitis - Failed Outpatient Therapy [facility] Forms: - Medication Reconciliation Form jmm - SBAR form [facility] Signatures: Dispatcher [employer] EDVT Kayla Daniel RN RN dw Rittger, Kevin, MD MD kdr Mickail, Joel, PA PA [facility] Tereza Christie RN RN iw Calderon, Audri RN RN aa5 Tito Guzman, NURSE INTERN-C NURSE INTERN-Cla1 Eladio Culver RN RN jd3 Corrections: (The following items were deleted from the chart) 17:15 15:19 jm dw
--- NOTE | 2021-08-25 15:20 | ER ---
Nurse's Notes [facility] Name: Ming Odonnell Age: 45 yrs Sex: Male : 1975 Arrival Date: 08/25/2021 Time: 13:06 Bed 8 Private MD: Diagnosis: Lower abdominal pain, unspecified;Acute Signmoid Diverticulitis - Failed Outpatient Therapy Presentation: 08/25 13:47 Chief complaint: Patient states: was seen here 08/15/21 and diagnosed with aa5 diverticulitis, sent home with Cipro and Flagyl and has almost completed treatment. Pt c/o increased lower abd pain. Coronavirus screen: At this time, the client does not indicate any symptoms associated with coronavirus-19. Ebola Screen: No symptoms or risks identified at this time. Initial Sepsis Screen: Does the patient meet any 2 criteria? No. Patient's initial sepsis screen is negative. Does the patient have a suspected source of infection? No. Patient's initial sepsis screen is negative. Risk Assessment: Do you want to hurt yourself or someone else? Patient reports no desire to harm self or others. Onset of symptoms was July 2021. 13:47 Acuity: CELENA 3 aa5 13:47 Method Of Arrival: Ambulatory aa5 Historical: - Allergies: 13:46 PENICILLINS; aa5 - PMHx: 13:46 Pancreatitis; aa5 - Immunization history:: Adult Immunizations unknown. - Social history:: Smoking status: Patient reports the use of cigarette tobacco products, smokes two packs cigarettes per day. Screenin:23 Abuse screen: Denies threats or abuse. Nutritional screening: No deficits noted. jd3 Tuberculosis screening: No symptoms or risk factors identified. Fall Risk Ambulatory Aid- None/Bed Rest/Nurse Assist (0 pts). Gait- Normal/Bed Rest/Wheelchair (0 pts) Mental Status- Oriented to own ability (0 pts). Total Gavin Fall Scale indicates No Risk (0-24 pts). Assessment: 15:00 General: Appears in no apparent distress. comfortable, Behavior is calm, cooperative, jd3 appropriate for age. Pain: Complains of pain in suprapubic area, right lower quadrant and left lower quadrant Quality of pain is described as sharp, tender. Neuro: Level of Consciousness is awake, alert, obeys commands, Oriented to person, place, time, situation. Cardiovascular: Denies chest pain, Capillary refill < 3 seconds Patient's skin is warm and dry. Respiratory: Airway is patent Respiratory effort is even, unlabored, Respiratory pattern is regular, symmetrical, Denies cough, shortness of breath. GI: Abdomen is round non-distended, Bowel sounds present X 4 quads. Abd is soft X 4 quads Abdomen is tender to palpation in right lower quadrant and left lower quadrant Reports lower abdominal pain. : No signs and/or symptoms were reported regarding the genitourinary system. EENT: No signs and/or symptoms were reported regarding the EENT system. Derm: Skin is intact, Skin is dry, Skin is normal, Skin temperature is warm. Musculoskeletal: Circulation, motion, and sensation intact. Range of motion: intact in all extremities. 16:23 Reassessment: Patient appears in no apparent distress at this time. No changes from [facility] previously documented assessment. Patient and/or family updated on plan of care and expected duration. Pain level reassessed. Patient is alert, oriented x 3, equal unlabored respirations, skin warm/dry/pink. 17:34 Reassessment: Patient appears in no apparent distress at this time. Patient and/or jd3 family updated on plan of care and expected duration. Pain level reassessed. Patient is alert, oriented x 3, equal unlabored respirations, skin warm/dry/pink. report given to TIKA RN. Vital Signs: 13:47 BP 100 / 87; Pulse 95; Resp 20 S; Temp 98.3(O); Pulse Ox 99% on R/A; Weight 113.4 kg aa (R); Height 5 ft. 10 in. (177.80 cm) (R); 15:09 BP 115 / 55; Pulse 72; Resp 19 S; Pulse Ox 98% on R/A; jd3 16:24 BP 98 / 60; Pulse 65; Resp 19 S; Pulse Ox 97% on R/A; jd3 13:47 Body Mass Index 35.87 (113.40 kg, 177.80 cm) [facility] ED Course: 13:06 Patient arrived in ED. as 13:41 Piter Friend PA is PHCP. [facility] 13:41 Adrián Quiroga MD is Attending Physician. [facility] 13:47 Arm band placed on. aa5 13:48 Triage completed. aa5 14:01 Initial lab(s) drawn, by wi, sent to lab. Inserted saline lock: 20 gauge in right aa5 antecubital area, using aseptic technique. Blood collected. 14:38 Eladio Culver, RN is Primary Nurse. jd3 14:45 CT Abd/Pelvis - IV Contrast Only In Process Unspecified. EDMS 15:19 Jason Ambrocio MD is Hospitalizing Provider. jmm 16:24 Patient has correct armband on for positive identification. Bed in low position. Call jd3 light in reach. Side rails up X 1. Adult w/ patient. Pulse ox on. NIBP on. 17:35 No provider procedures requiring assistance completed. Patient admitted, IV remains in jd3 place. Administered Medications: 15:08 Drug: morphine 4 mg Route: IVP; Site: right antecubital; jd3 15:55 Follow up: Response: No adverse reaction; RASS: Alert and Calm (0) jd3 15:08 Drug: Zofran (Ondansetron) 4 mg Route: IVP; Site: right antecubital; jd3 15:55 Follow up: Response: No adverse reaction jd3 15:17 Drug: Flagyl (metroNIDAZOLE) 500 mg Volume: 100 ml; Route: IVPB; Rate: 200 ml/hr; jd3 Infused Over: 30 mins; Site: right antecubital; 15:55 Follow up: Response: No adverse reaction; IV Status: Completed infusion jd3 15:54 Drug: Cipro (ciprofloxacin) 400 mg Volume: 200 ml; Route: IVPB; Infused Over: 60 mins; jd3 Site: right antecubital; 16:50 Follow up: Response: No adverse reaction; IV Status: Completed infusion jd3 Outcome: 15:19 Decision to Hospitalize by Provider. jmm 17:35 Admitted to Med/surg accompanied by tech, via wheelchair, room 212, with chart, Report jd3 called to TIKA RN 17:35 Condition: stable 17:35 Instructed on the need for admit, Demonstrated understanding of instructions. 17:50 Patient left the ED. j Signatures: Dispatcher [employer] EDMS Piter Friend PA PA jmm Martinez, Amelia as Calderon, Audri RN ANDREW [facility] Eladio Culver, ANDREW MORALES jd3
[2021-08-25] MEDS ORDERED: ONDANSETRON 4 MG/2 ML VIAL IV PRN (16:02)
--- NOTE | 2021-08-25 16:10 | P.HP ---
Certification for Inpatient Patient admitted to: Inpatient With expected LOS: >2 Midnights Practitioner: I am a practitioner with admitting privileges, knowledge of patient current condition, hospital course, and medical plan of care. Services: Services provided to patient in accordance with Admission requirements found in Title 42 Section 412.3 of the Code of Federal Regulations Patient History Date of Service: 08/25/21 Reason for admission: sigmoid diverticulitis, failed outpatient therapy History of Present Illness: 45yo M, without significant PMH presents to ED due to ~2 days of worsening lower abdominal pain. Patient was diagnosed with acute diverticulitis ~1-2 weeks ago, treated with PO cipro & flagyl. He reports initial improvement, then worsening symptoms. States he was told to follow a high fiber diet and was taking fiber supplement pills at home. He was having multiple bowel movements each day. He has been eating chicken / rice, lasagna, etc. Pain became severe yesterday afternoon and again this morning. Denies nausea/vomiting, no urinary changes, no chest pain, no shortness of breath, no rashes In the ED, he was noted to have mild leukocytosis of 12.1, other labs rather unremarkable, CT abd/pelvis: moderate worsening of sigmoid diverticulitis with likely 13mm intramural abscess. Home medications list reviewed: Yes - Past Medical/Surgical History Diabetic: No Past Medical History: Patient denies medical history -: knee - Family History Sister -: Cancer ("stomach", unknown ) - Social History Smoking Status: Current every day smoker Alcohol use: No CD- Drugs: Yes Place of Residence: Home Review of Systems 10-point ROS is otherwise unremarkable Physical Examination - Physical Exam General: Alert, Oriented x3, Mild distress HEENT: Sclerae nonicteric Neck: Supple, No LAD Respiratory: Clear to auscultation bilaterally, Normal air movement Cardiovascular: No edema, Regular rate/rhythm Gastrointestinal: Other (soft, moderate tenderness in lower abdomen, most severe suprapubic. no guarding, no rebound) Musculoskeletal: No erythema, No tenderness Integumentary: No significant lesion Neurological: Normal speech, Normal affect - Studies Laboratory Data (last 24 hrs) 08/25/21 13:55: Sodium 138, Potassium 4.1, BUN 12, Creatinine 1.02, Glucose 99, Total Bilirubin 0.4, AST 17, ALT 30, Alkaline Phosphatase 63, Lipase 220 08/25/21 13:55: WBC 12.1 H, Hgb 14.5, Hct 43.0, Plt Count 227 Assessment and Plan - Advance Directives Does patient have a Living Will: No Does patient have a Durable POA for Healthcare: No Physician Review Additional Text: Problem List Sepsis secondary to Acute sigmoid diverticulitis, failed outpatient therapy 13mm intramural abscess severe penicillin allergy SIRS 2/: tachycardia, leukocytosis; without severe sepsis/shock failed outpatient therapy = cirpo & flagyl, likely due to high fiber diet and having frequent stools likely aggravated the area and possibly affected absorption of antibiotics given severe / anaphylactic reaction to penicillins, will continue IV Cipro & flagyl, started in ED NPO, mIVF IV pain medication and antiemetics as needed serial abd exams repeat labs in AM general surgery consulted VTE: SCDs Code: Full Dispo: home, ~2-3 days Time Spent Managing Pts Care (In Minutes): 65
[2021-08-25] MEDS ORDERED: D5.45NS W/KCL 20MEQ 1,000 ML IV SCH ×2 (17:00)
[2021-08-25] MEDS: Ringers Lactate 1,000 ML IV SCH (18:16)
[2021-08-25] MEDS: CIPROFLOXACIN 400mg IV 400 MG/200 ML BAG IV SCH (20:58)
[2021-08-25] MEDS: MORPHINE 4 MG/ML SYR IV PRN (20:59)
[2021-08-26] MEDS: METRONIDAZOLE 500mg IVPB 500 MG/100 ML BAG IV SCH ×3 (01:35→16:05)
[2021-08-26] MEDS: Ringers Lactate 1,000 ML IV SCH ×3 (01:35→16:05)
[2021-08-26 02:52] VITALS: BMI 35.9
[2021-08-26 05:57] LABS: Absolute Lymphocytes (CBC) 1.8 K/uL (0.7-4.9); Lymphocytes % 18.1 % (15.3-44.8); MPV 9.1 fL (7.6-11.3); RBC Red Blood Cell Count 4.31 M/uL (4.33-5.43)
--- NOTE | 2021-08-26 06:20 | P.PN ---
Date of Service: 08/26/21 Subjective: No nausea/vomiting, pain improving, but still very tender + Flatus, no BM Did not get much sleep, restless, wants to smoke, does not want nicotine patch ROS: 10 point ROS as noted above, otherwise negative Physical exam General: Alert, Oriented x3, NAD HEENT: Sclerae nonicteric Respiratory: Clear to auscultation bilaterally, Normal air movement Cardiovascular: No edema, Regular rate/rhythm Gastrointestinal: soft, moderate tenderness in lower abdomen, most severe suprapubic. no guarding, no rebound Neurological: Normal speech, Normal affect Problem List Sepsis secondary to Acute sigmoid diverticulitis, failed outpatient therapy 13mm intramural abscess severe penicillin allergy Nicotine dependence SIRS 2/4: tachycardia, leukocytosis; without severe sepsis/shock failed outpatient therapy = cirpo & flagyl, likely due to high fiber diet and having frequent stools likely aggravated the area and possibly affected absorption of antibiotics improving, continue IV cipro/flagyl NPO, mIVF IV pain medication and antiemetics as needed serial abd exams general surgery consulted possible ice chips/sips this evening Counseled on tobacco cessation, offered nicotine patch, refused - has not helped in past / made him feel strange VTE: SCDs Code: Full Dispo: home, ~1-2 days Time Spent Managing Pts Care (In Minutes): 35
[2021-08-26 06:21] LABS: Bilirubin Total 0.4 mg/dL (0.2-1.0); Potassium 4.3 mmol/L (3.5-5.1); Protein, Total 6.8 g/dL (6.4-8.2)
[2021-08-26] MEDS: CIPROFLOXACIN 400mg IV 400 MG/200 ML BAG IV SCH ×2 (08:55→20:36)
[2021-08-26] MEDS: MORPHINE 4 MG/ML SYR IV PRN ×3 (09:00→20:34)
--- NOTE | 2021-08-26 11:20 | CON ---
Date of Consultation: 08/25/2021 Reason For Consultation: Abdominal pain. History Of Present Illness: The patient is a 45-year-old gentleman who presented initially to the em ergency room a week ago and was found to have uncomplicated diverticulitis, was sent home on antibiot ics. However, he took high-fiber diet and started having multiple bowel movements. Pain yesterday b ecame worse. He came to the emergency room. Pain is in the left lower quadrant suprapubic region. There was no vomiting involved. There was some nausea. There is no diarrhea currently. No constipa tion. No blood in his stool. No dysuria or hematuria. No sore throat, runny nose, cough, headaches , or dizziness. No chest pain. Review of Systems: Otherwise unremarkable. Past Medical History: Significant for pancreatitis. Past Surgical History: Negative. Allergies: INCLUDE PENICILLIN. Social History: He does smoke and has been counseled. He denies using alcohol. Family History: Significant for heart disease, diabetes, automotive mechanic cancer in family members. Physical Examination: Vital Signs: Today are stable. He is currently afebrile. General: He is awake, alert, and oriented x3. Head And Neck: Cranial 2 through 12 grossly within normal limits. No neck masses. No JVD. Throat clear. Neck supple. Chest: Clear. Heart: S1 and S2. Abdomen: Soft, nondistended. Positive bowel sounds in the left lower quadrant suprapubic region. T here is exquisite tenderness with rebound. No rigidity or guarding elsewhere. Extremity: Adequately perfused. Nontender. Neuro: Nonfocal. Laboratory Data: White count was 12.1, currently is 9.8. Chemistry reviewed. CT of the abdomen and pelvis reviewed, shows moderate worsening sigmoid acute diverticulitis since 08/15. There is a 13 m m intramural abscess suspected on yesterday's study. Assessment: Acute sigmoid diverticulitis with failed outpatient therapy. Recommendation: Admit, n.p.o., IV fluid, IV antibiotics. Dietary consultation for appropriate diet during this acute phase. The patient will need a GI consult as an outpatient for a colonoscopy in 4- 6 weeks followed by an evaluation by a colorectal surgeon for segmental colon resection which I think the patient would benefit from. Plan of care was discussed in detail with the patient. BRITTNEY/BERNADETTE Voice ID: [id number] Report ID: [id number]
[2021-08-27] MEDS: MORPHINE 4 MG/ML SYR IV PRN ×4 (00:38→20:22)
[2021-08-27] MEDS: Ringers Lactate 1,000 ML IV SCH ×3 (00:40→15:56)
[2021-08-27] MEDS: METRONIDAZOLE 500mg IVPB 500 MG/100 ML BAG IV SCH ×3 (00:40→16:53)
[2021-08-27] MEDS: CIPROFLOXACIN 400mg IV 400 MG/200 ML BAG IV SCH ×2 (08:41→20:16)
--- NOTE | 2021-08-27 10:50 | P.PN ---
Date of Service: 08/27/21 Subjective: Patient is awake and alert and feels much better. Patient has minimal pain. Objective: Vital signs are stable and patient is afebrile Abdomen: Soft, nondistended, positive bowel sounds, minimal tenderness in the left lower quadrant and suprapubic region. Patient has no evidence of peritonitis. Assessment: Acute sigmoid diverticulitis that has failed outpatient therapy Plan: Dietary consult, IV antibiotics and we will begin sips of clear liquids and advance slowly. Anticipate discharge in 24 to 48 hours on oral antibiotics for 2 weeks with an outpatient GI follow-up and a colorectal surgery evaluation. CC:
--- NOTE | 2021-08-27 17:12 | P.PN ---
Subjective Date of Service: 08/27/21 Chief Complaint: sigmoid diverticulitis, failed outpatient therapy Patient reports only mild abdominal pain. He reported bowel movement yesterday. No fever. No nausea or vomiting. Physical Examination - Vital Signs Temperature: 99.0 F Blood Pressure: 118/51 Pulse: 68 Respirations: 16 Pulse Ox (%): 98 Assessment And Plan - Plan Physical exam General: Alert, Oriented x3, NAD HEENT: Sclerae nonicteric Respiratory: Clear to auscultation bilaterally, Normal air movement Cardiovascular: No edema, Regular rate/rhythm Gastrointestinal: soft, moderate tenderness on deep palpation of lower abdomen. No guarding, no rebound Neurological: Normal speech, Normal affect Problem List Sepsis secondary to Acute sigmoid diverticulitis, failed outpatient therapy 13mm intramural abscess severe penicillin allergy Nicotine dependence SIRS 2/4: tachycardia, leukocytosis; without severe sepsis/shock. Sepsis resolved. Seen by Dr. Martin who recommended medical management at this time and further evaluation as an outpatient for bowel resection. Clinically improving, continue IV cipro/flagyl Start clear liquid diet today. Concurred by Dr. Martin. Supportive measures with pain medication and antiemetics as needed serial abd exams. Monitor CBC.
[2021-08-27 22:58] VITALS: O2SAT 98
[2021-08-28] MEDS: Ringers Lactate 1,000 ML IV SCH ×2 (00:34→09:00)
[2021-08-28] MEDS: METRONIDAZOLE 500mg IVPB 500 MG/100 ML BAG IV SCH ×2 (00:36→09:24)
[2021-08-28 04:47] LABS: Absolute Lymphocytes (CBC) 1.8 K/uL (0.7-4.9); Hematocrit 40.6 % (39.6-49.0); Lymphocytes % 18.3 % (15.3-44.8); RBC Red Blood Cell Count 4.29 M/uL (4.33-5.43)
[2021-08-28 04:56] LABS: Potassium 4.2 mmol/L (3.5-5.1)
--- NOTE | 2021-08-28 08:54 | P.DS ---
Admission Date: 08/25/21 Discharge Date: 08/28/21 Disposition: ROUTINE DISCHARGE Discharge Condition: FAIR Reason for Admission: sigmoid diverticulitis, failed outpatient therapy Brief History of Present Illness: 45yo M, without significant PMH presents to ED due to 2 days of worsening lower abdominal pain. Patient was diagnosed with acute diverticulitis ~1-2 weeks ago, treated with PO cipro & flagyl. He reports initial improvement, then worsening symptoms. States he was told to eat a high fiber diet and was taking fiber supplement pills at home. He was having multiple bowel movements each day. Pain became severe and he presented to the ED. In the ED, he was noted to have mild leukocytosis of 12.1, other labs rather unremarkable, CT abd/pelvis: moderate worsening of sigmoid diverticulitis with likely 13mm intramural abscess. Patient admitted for further management. Hospital Course: Diagnosis Sepsis secondary to Acute sigmoid diverticulitis, failed outpatient therapy 13mm intramural abscess severe penicillin allergy Nicotine dependence Patient admitted to the medical floor, diagnosis acute sigmoid diverticulitis with intramural abscess and sepsis He was treated with aggressive antibiotic therapy-IV Cipro and Flagyl Sepsis resolved. Seen by Dr. Martin who recommended medical management at this time and further evaluation as an outpatient for bowel resection. Patient improved with treatment, he tolerated diet advancement to soft diet and cleared for discharge by Dr. Martin Patient discharged to continue oral antibiotics and low residue diet. He will follow with Dr. Salmeron as an outpatient. Vital Signs/Physical Exam: Temp Pulse Resp BP Pulse Ox 97.4 F 68 15 114/62 97 08/28/21 04:00 08/28/21 04:00 08/28/21 04:00 08/28/21 04:00 08/28/21 04:00 General: Alert, In no apparent distress, Oriented x3 HEENT: Mucous membr. moist/pink Neck: JVD not distended Respiratory: Clear to auscultation bilaterally, Normal air movement Cardiovascular: No edema, Regular rate/rhythm, Normal S1 S2 Gastrointestinal: Soft and benign, Non-distended, No tenderness Musculoskeletal: No swelling Integumentary: No rashes Neurological: Normal strength at 5/5 x4 extr Laboratory Data at Discharge: WBC 10.0 K/uL (4.3-10.9) 08/28/21 04:29 Hgb 14.0 g/dL (13.6-17.9) 08/28/21 04:29 Hct 40.6 % (39.6-49.0) 08/28/21 04:29 Plt Count 209 K/uL (152-406) 08/28/21 04:29 Sodium 137 mmol/L (136-145) 08/28/21 04:29 Potassium 4.2 mmol/L (3.5-5.1) 08/28/21 04:29 BUN 10 mg/dL (7-18) 08/28/21 04:29 Creatinine 1.01 mg/dL (0.55-1.3) 08/28/21 04:29 Glucose 89 mg/dL (74-106) 08/28/21 04:29 Magnesium 2.0 mg/dL (1.8-2.4) 08/26/21 05:40 Total Bilirubin 0.4 mg/dL (0.2-1.0) 08/26/21 05:40 AST 15 U/L (15-37) 08/26/21 05:40 ALT 24 U/L (12-78) 08/26/21 05:40 Alkaline Phosphatase 56 U/L (45-117) 08/26/21 05:40 Lipase 220 U/L (73-393) 08/25/21 13:55 Home Medications: Cyclobenzaprine [Flexeril*] 5 mg PO TID PRN 08/25/21 Ciprofloxacin HCl [Cipro] 500 mg PO Q12H #20 08/28/21 metroNIDAZOLE [Flagyl*] 500 mg PO Q8H #30 08/28/21 New Medications: Ciprofloxacin HCl [Cipro] 500 mg PO Q12H #20 metroNIDAZOLE [Flagyl*] 500 mg PO Q8H #30 Physician Discharge Instructions: Please start with soft diet and progress as tolerated. Diet: Regular Activity: Ad william Followup: [facility] [Primary Care Provider] - (Call to schedule appointment.) Eddie Martin MD [ACTIVE - CAN ADMIT] - (within 2 weeks) Time spent managing pt's care (in minutes): 35
[2021-08-28] MEDS: CIPROFLOXACIN 400mg IV 400 MG/200 ML BAG IV SCH (09:00)
--- NOTE | 2021-08-28 09:09 | P.PN ---
Date of Service: 08/28/21 Subjective: Patient is awake and alert and feels much better. Patient has no pain and is tolerating clear liquids without any problems. Objective: Vital signs are stable and patient is afebrile, white count is normal Abdomen: Soft, nondistended, positive bowel sounds and patient has no evidence of peritonitis. Assessment: Acute sigmoid diverticulitis that has failed outpatient therapy and clinically improving Plan: Dietary consult, advance diet and patient can be discharged on oral antibiotics for 2 weeks. Patient needs outpatient colonoscopy. And a colorectal surgery evaluation following that. CC:
[2021-08-28 09:19] VITALS: BP 106/54; TEMP 97.6
== END 2021-08-28 10:20 | disposition home or self-care (01) | DRG 872 ==
LOC: ER 13:05 → ERHOLD 16:01 → 2ND 17:35
PROVIDERS: ADMIT Hospitalist; ATTEND Hospitalist
DX: A41.9 Sepsis, unspecified organism (principal); K57.20 Diverticulitis of large intestine with perforation and abscess without bleeding; F17.210 Nicotine dependence, cigarettes, uncomplicated; Z88.0 Allergy status to penicillin; Z20.822 Contact with and (suspected) exposure to COVID-19
CPT/HCPCS: 36415; 74177; 80048; 80053; 83690; 83735; 85025; 96365; 96375; 99285; J0744; J2405; J3490; J7120; Q9967; U0003

== ENCOUNTER 2021-11-19 10:48 | Emergency (ER) | payer OTHER, SELFPAY ==
--- OUTSIDE RECORDS SUMMARY | 2021-11-19 10:51 | XMS REPORT | Continuity of Care Document ---
:1975 Author Organization [facility] t Address [address] [place] [address] Care Team Providers Name Role Phone Rick MEJIAS Primary Care Physician [phone] BROOKE Attending Clinician Unavailable BROOKE Admitting Clinician Unavailable Problems This patient has no known problems. Allergies, Adverse Reactions, Alerts Allergy Allergy Status Severity Reaction(s) Onset Inactive Treating Comm ents Source Name Type Date Date Clinician Penicill Propensi Active ins - ty to 11-12 CLASS adverse 00:00: reaction 00 to drug Penicill Propensi Active ins ty to 24 adverse 00:00: reaction 00 to drug Medications Ordered Filled Start Stop Current Ordering Indication Dosage Frequency Signature Comments Components Source Medication Medication Date Date Medication? Clinician (SIG) Name Name APPLY 2-3 No [id number] TIMES DAILY - TO AFFECTED 00:00: AREA(S). 00 Ciprodex No 4% 0.3 %-0.1 % 11-13 ear 00:00: drops,suspe 00 nsion doxycycline No 1mg hyclate 100 7-20 mg capsule 00:00: 00 Vital Signs Vital Name Observation Time Observation Value Comments Source BP Systolic 2021-11-12 09:34:00 97 mm[Hg] BP Diastolic 2021-11-12 09:34:00 63 mm[Hg] Weight Measured 2021-11-12 09:34:00 258.80 pounds Height Measured 2021-11-12 09:34:00 70.00 inches Body Temperature 2021-11-12 09:34:00 98.30 degrees Heart Rate 2021-11-12 09:34:00 83.00 /min Respiratory Rate 2021-11-12 09:34:00 18.00 /min BP Systolic 2020-11-13 13:25:00 111 mm[Hg] BP Diastolic 2020-11-13 13:25:00 70 mm[Hg] Weight Measured 2020-11-13 13:25:00 251.00 pounds Height Measured 2020-11-13 13:25:00 70.00 inches Body Temperature 2020-11-13 13:25:00 98.40 degrees Heart Rate 2020-11-13 13:25:00 89.00 /min Respiratory Rate 2020-11-13 13:25:00 21.00 /min Procedures This patient has no known procedures. Plan of Care Planned Activity Planned Date Details Comments Source Goal Plan of Care Note [code = 73291-7] Goal Plan of Care Note [code = 49098-8] Goal Plan of Care Note [code = 59593-7] Goal Plan of Care Note [code = 66875-3] Goal Plan of Care Note [code = 65885-4] Goal Plan of Care Note [code = 15452-3] Goal Plan of Care Note [code = 39339-5] Goal Plan of Care Note [code = 10386-8] Goal Plan of Care Note [code = 93646-4] Goal Plan of Care Note [code = 05282-5] Goal Plan of Care Note [code = 95744-5] Goal Plan of Care Note [code = 29630-9] Goal Plan of Care Note [code = 34273-2] Goal Plan of Care Note [code = 19547-7] Encounters Start End Encounter Admission Attending Care Care Encounter Source Date/Time Date/Time Type Type Clinicians Facility Department ID 2021-11-12 2021-11-12 Outpatient [id number] 00:00:00 00:00:00 Visit [id number] 2021-11-07 2021-11-07 Outpatient AMBREEN_JOSE [facility] [address] 12:32:00 12:32:00 [facility] Results Test Description Test Time Test Comments Results Result Comments Source LIPID PANEL 2020-11-23 00:00:00 Test Item Value Reference Range Interpretation Comme nts CHOLESTEROL (test code = 2210) 199 MG/DL TRIGLYCERIDES (test code = 2232) 172 MG/DL HDL CHOLESTEROL (test code = 2220) 33 MG/DL CALC LDL CHOL (test code = 2237) 135 MG/DL RISK RATIO LDL/HDL (test code = 2238) 4.09 RATIO BLOOD GROUP (ABO) AND RH [id number] 00:00:00 Test Item Value Reference Range Interpretation Comments BLOOD TYPE AND RH (test code = A POSITIVE 3901) BLOOD GROUP (ABO) AND RH [id number] 00:00:00 Test Item Value Reference Range Interpretation Comments BLOOD TYPE AND RH (test code = A POSITIVE 3901) CBC W/AUTO [id number] 00:00:00 Test Item Value Reference Range Interpretation Comments WBC (test code = 1001) 11.5 K/UL RBC (test code = 1002) 4.65 M/UL HEMOGLOBIN (test code = 1003) 15.0 G/DL HEMATOCRIT (test code = 1004) 42.7 % MCV (test code = 1005) 91.8 fL MCH (test code = 1006) 32.3 PG MCHC (test code = 1007) 35.1 G/DL RDW (test code = 1038) 13.0 % NEUTROPHILS (test code = 1008) 67.7 % LYMPHOCYTES (test code = 1010) 24.1 % MONOCYTES (test code = 1011) 6.7 % EOSINOPHILS (test code = 1012) 0.8 % BASOPHILS (test code = 1013) 0.4 % IMMATURE GRANULOCYTES (test 0.3 % code = 1036) NUCLEATED RBCS (test code = 0.0 /100WBC'S 1065) PLATELET COUNT (test code = 235 K/UL 1015) ABSOLUTE NEUTROPHILS (test code 7.76 K/UL = 1066) ABSOLUTE LYMPHOCYTES (test code 2.76 K/UL = 1067) ABSOLUTE MONOCYTES (test code = 0.77 K/UL 1068) ABSOLUTE EOSINOPHILS (test code 0.09 K/UL = 1040) ABSOLUTE BASOPHILS (test code = 0.05 K/UL 1069) ABS IMMATURE GRANULOCYTES (test 0.04 K/UL code = 1020) ABS NUCLEATED RBCS (test code = 0.00 K/UL 27338) HEMOGLOBIN [id number] 00:00:00 Test Item Value Reference Range Interpretation Comments HEMOGLOBIN A1c (test code = 39115) 5.7 % HEMOGLOBIN [id number] 00:00:00 Test Item Value Reference Range Interpretation Comments HEMOGLOBIN A1c (test code = 11564) 5.7 % LIPID [id number] 00:00:00 Test Item Value Reference Range Interpretation Comments CHOLESTEROL (test code = 2210) 221 MG/DL TRIGLYCERIDES (test code = 2232) 154 MG/DL HDL CHOLESTEROL (test code = 2220) 35 MG/DL CALC LDL CHOL (test code = 2237) 157 MG/DL RISK RATIO LDL/HDL (test code = 4.49 RATIO 2238) COMPREHENSIVE METABOLIC [id number] 00:00:00 Test Item Value Reference Range Interpretation Comments GLUCOSE (test code = 2217) 107 MG/DL BUN (test code = 2208) 14 MG/DL CREATININE (test code = 2214) 1.13 MG/DL eGFR AMER. (test code 91 ML/MIN/1.73 = 10649) eGFR NON- AMER. (test 79 ML/MIN/1.73 code = 93532) CALC BUN/CREAT (test code = 12 RATIO 2235) SODIUM (test code = 2231) 138 MEQ/L POTASSIUM (test code = 2228) 4.3 MEQ/L CHLORIDE (test code = 2215) 104 MEQ/L CARBON DIOXIDE (test code = 24 MEQ/L 2205) CALCIUM (test code = 2209) 9.0 MG/DL PROTEIN, TOTAL (test code = 7.4 G/DL 2228) ALBUMIN (test code = 2201) 4.6 G/DL CALC GLOBULIN (test code = 2.8 G/DL 0) CALC A/G RATIO (test code = 1.6 RATIO 2234) BILIRUBIN, TOTAL (test code = 0.3 MG/DL 2206) ALKALINE PHOSPHATASE (test 77 U/L code = 2204) AST (test code = 2218) 18 U/L ALT (test code = 2219) 19 U/L [id number] 00:00:00 Test Item Value Reference Range Interpretation Comments AMYLASE (test code = 2205) 59 U/L [id number] 00:00:00 Test Item Value Reference Range Interpretation Comments LIPASE (test code = 2057) 74 U/L [id number] 00:00:00 Test Item Value Reference Range Interpretation Comments LIPASE (test code = 2057) 74 U/L CBC W/AUTO [id number] 00:00:00 Test Item Value Reference Range Interpretation Comments WBC (test code = 1001) 11.5 K/UL RBC (test code = 1002) 4.65 M/UL HEMOGLOBIN (test code = 1003) 15.0 G/DL HEMATOCRIT (test code = 1004) 42.7 % MCV (test code = 1005) 91.8 fL MCH (test code = 1006) 32.3 PG MCHC (test code = 1007) 35.1 G/DL RDW (test code = 1038) 13.0 % NEUTROPHILS (test code = 1008) 67.7 % LYMPHOCYTES (test code = 1010) 24.1 % MONOCYTES (test code = 1011) 6.7 % EOSINOPHILS (test code = 1012) 0.8 % BASOPHILS (test code = 1013) 0.4 % IMMATURE GRANULOCYTES (test 0.3 % code = 1036) NUCLEATED RBCS (test code = 0.0 /100WBC'S 1065) PLATELET COUNT (test code = 235 K/UL 1015) ABSOLUTE NEUTROPHILS (test code 7.76 K/UL = 1066) ABSOLUTE LYMPHOCYTES (test code 2.76 K/UL = 1067) ABSOLUTE MONOCYTES (test code = 0.77 K/UL 1068) ABSOLUTE EOSINOPHILS (test code 0.09 K/UL = 1040) ABSOLUTE BASOPHILS (test code = 0.05 K/UL 1069) ABS IMMATURE GRANULOCYTES (test 0.04 K/UL code = 1020) ABS NUCLEATED RBCS (test code = 0.00 K/UL 88853) COMPREHENSIVE METABOLIC [id number] 00:00:00 Test Item Value Reference Range Interpretation Comments GLUCOSE (test code = 2217) 95 MG/DL BUN (test code = 2208) 14 MG/DL CREATININE (test code = 2214) 0.88 MG/DL eGFR AMER. (test code 122 ML/MIN/1.73 = 14160) eGFR NON- AMER. (test 105 ML/MIN/1.73 code = 35010) CALC BUN/CREAT (test code = 16 RATIO 2235) SODIUM (test code = 2231) 139 MEQ/L POTASSIUM (test code = 2228) 4.2 MEQ/L CHLORIDE (test code = 2215) 105 MEQ/L CARBON DIOXIDE (test code = 23 MEQ/L 2205) CALCIUM (test code = 2209) 9.0 MG/DL PROTEIN, TOTAL (test code = 7.3 G/DL 2228) ALBUMIN (test code = 2201) 4.2 G/DL CALC GLOBULIN (test code = 3.1 G/DL 2239) CALC A/G RATIO (test code = 1.4 RATIO 2233) BILIRUBIN, TOTAL (test code = 0.3 MG/DL 2206) ALKALINE PHOSPHATASE (test 70 U/L code = 220) AST (test code = 2218) 17 U/L ALT (test code = 2219) 18 U/L [id number] 00:00:00 Test Item Value Reference Range Interpretation Comments TSH, THIRD GENERATION (test code 3.110 UIU/ML = 2821) [id number] 00:00:00 Test Item Value Reference Range Interpretation Comments TSH, THIRD GENERATION (test code 3.110 UIU/ML = 2821) LIPID [id number] 00:00:00 Test Item Value Reference Range Interpretation Comments CHOLESTEROL (test code = 2210) 214 MG/DL TRIGLYCERIDES (test code = 2232) 182 MG/DL HDL CHOLESTEROL (test code = 2220) 35 MG/DL CALC LDL CHOL (test code = 2237) 147 MG/DL RISK RATIO LDL/HDL (test code = 4.20 RATIO 8)
--- NOTE | 2021-11-19 11:21 | ER ---
Nurse's Notes [facility] Name: Ming Odonnell Age: 46 yrs Sex: Male : 1975 Arrival Date: 11/19/2021 Time: 10:50 Bed Waiting Private MD: Diagnosis: Unspecified otitis externa, left ear;Unspecified otitis externa, right ear;Acute lymphadenitis, unspecified-post immunization Presentation: 11/19 11:19 Chief complaint: Patient states: Swelling to left axilla x 1 day post covid shot 4 days jl7 ago, ears leaking clear fluid x 6 months. Coronavirus screen: At this time, the client does not indicate any symptoms associated with coronavirus-19. Ebola Screen: No symptoms or risks identified at this time. Initial Sepsis Screen: Does the patient meet any 2 criteria? No. Patient's initial sepsis screen is negative. Does the patient have a suspected source of infection? No. Patient's initial sepsis screen is negative. Risk Assessment: Do you want to hurt yourself or someone else? Patient reports no desire to harm self or others. Onset of symptoms is unknown. 11:19 Method Of Arrival: Ambulatory [facility] 11:19 Acuity: CELENA 4 jl7 Historical: - Allergies: 11:21 PENICILLINS; jl7 - PMHx: 11:21 Pancreatitis; Pancreatitis; Diverticulitis; jl7 - Immunization history:: Client reports receiving the 2nd dose of the Covid vaccine. - Social history:: Smoking status: Patient reports the use of cigarette tobacco products, smokes one pack cigarettes per day. Assessment: 11:10 Reassessment: Shun kay assessing pt. jl7 Vital Signs: 11:19 BP 122 / 69; Pulse 84; Resp 17; Temp 98.2; Pulse Ox 99% on R/A; Weight 113.4 kg; Height jl7 5 ft. 11 in. (180.34 cm); Pain 5/10; 11:19 Body Mass Index 34.87 (113.40 kg, 180.34 cm) 7 ED Course: 10:50 Patient arrived in ED. rg4 11:20 Shun Parks PA is PHCP. jr8 11:20 Foster Trejo MD is Attending Physician. jr8 11:20 Paty Morales MD is Referral Physician. jr8 11:21 Triage completed. jl7 11: Arm band placed on right wrist. jl7 11: No provider procedures requiring assistance completed. Patient did not have IV access jl7 during this emergency room visit. Administered Medications: No medications were administered Outcome: : Discharge ordered by . jr8 11: Discharged to home ambulatory. jl7 11: Condition: stable 11: Discharge instructions given to patient, Instructed on discharge instructions, follow up and referral plans. medication usage, Demonstrated understanding of instructions, follow-up care, medications, Prescriptions given X 1. 11:26 Patient left the ED. jl7 Signatures: Shun Parks PA PA jr8 Haritha Bowman rg4 Aida Das, RN RN jl7
--- NOTE | 2021-11-19 11:22 | EDPHYS ---
Physician Documentation [facility] Name: Ming Odonnell Age: 46 yrs Sex: Male : 1975 Arrival Date: 11/19/2021 Time: 10:50 Bed Waiting Private MD: DESTINEE Physician Foster Trejo HPI: 11/19 11:24 This 46 yrs old Male presents to ER via Ambulatory with complaints of Arm Problem, Arm jr8 Swelling. 11:24 Onset: The symptoms/episode began/occurred acutely, yesterday. Severity of symptoms: At jr8 their worst the symptoms were mild. The patient has not experienced similar symptoms in the past. The patient has not recently seen a physician. Patient stated that he had his COVID immunization on Thursday. Now has a lump to the left axilla on the side of his COVID immunization. Stated that he is also had bilateral ear drainage. Had to have eardrops to clear up the last time and now is back.. Historical: - Allergies: 11:21 PENICILLINS; jl7 - PMHx: 11:21 Pancreatitis; Pancreatitis; Diverticulitis; jl7 - Immunization history:: Client reports receiving the 2nd dose of the Covid vaccine. - Social history:: Smoking status: Patient reports the use of cigarette tobacco products, smokes one pack cigarettes per day. ROS: 11:24 Eyes: Negative for injury, pain, redness, and discharge, Neck: Negative for injury, jr8 pain, and swelling, Cardiovascular: Negative for chest pain, palpitations, and edema, Respiratory: Negative for shortness of breath, cough, wheezing, and pleuritic chest pain, Abdomen/GI: Negative for abdominal pain, nausea, vomiting, diarrhea, and constipation, Back: Negative for injury and pain, MS/Extremity: Negative for injury and deformity, Skin: Negative for injury, rash, and discoloration, Neuro: Negative for headache, weakness, numbness, tingling, and seizure. 11:24 ENT: Positive for drainage from ear(s). 11:24 Hematologic/Lymphatic: Positive for swollen nodes, tender nodes. Exam: 11:24 Constitutional: This is a well developed, well nourished patient who is awake, alert, jr8 and in no acute distress. Neck: Trachea midline, no thyromegaly or masses palpated, and no cervical lymphadenopathy. Supple, full range of motion without nuchal rigidity, or vertebral point tenderness. No Meningismus. Cardiovascular: Regular rate and rhythm with a normal S1 and S2. No gallops, murmurs, or rubs. Normal PMI, no JVD. No pulse deficits. Respiratory: Lungs have equal breath sounds bilaterally, clear to auscultation and percussion. No rales, rhonchi or wheezes noted. No increased work of breathing, no retractions or nasal flaring. Abdomen/GI: Soft, non-tender, with normal bowel sounds. No distension or tympany. No guarding or rebound. No evidence of tenderness throughout. Skin: Warm, dry with normal turgor. Normal color with no rashes, no lesions, and no evidence of cellulitis. MS/ Extremity: Pulses equal, no cyanosis. Neurovascular intact. Full, normal range of motion. Neuro: Awake and alert, GCS 15, oriented to person, place, time, and situation. Cranial nerves II-XII grossly intact. Motor strength 5/5 in all extremities. Sensory grossly intact. 11:24 ENT: External ear(s): are unremarkable, Ear canal(s): erythema, that is minimal, bilaterally, purulent discharge, that is moderate, bilaterally, swelling, that is moderate, bilaterally, TM's: are normal, Mouth: is normal, Posterior pharynx: is normal. 11:24 Chest/axilla: Lymph nodes: Axillary nodes are palpable, tender, on the left. Vital Signs: 11:19 BP 122 / 69; Pulse 84; Resp 17; Temp 98.2; Pulse Ox 99% on R/A; Weight 113.4 kg; Height jl7 5 ft. 11 in. (180.34 cm); Pain 5/10; 11:19 Body Mass Index 34.87 (113.40 kg, 180.34 cm) jl7 MDM: 11:21 Patient medically screened. jr8 11:24 Data reviewed: vital signs, nurses notes, and as a result, I will discharge patient. jr8 Data interpreted: Pulse oximetry: on room air is 99 %. Interpretation: normal. Counseling: I had a detailed discussion with the patient and/or guardian regarding: the historical points, exam findings, and any diagnostic results supporting the discharge/admit diagnosis, the need for outpatient follow up, an ENT specialist, a family practitioner, to return to the emergency department if symptoms worsen or persist or if there are any questions or concerns that arise at home. ED course: Discussed with patient that he needs to follow-up with ENT if he does not clear up with this round of antibiotics. Checked his sugar here and was 104 with fasting. Could be that he is prediabetic as well and needs to follow-up with his family practice physician for this. As far as the lymphadenopathy, discussed with him that it is a known occurrence post COVID immunization that they have lymphadenitis secondary to the immunization. Can take up to a week or so for it to dissipate. Patient good with this and will come back if he worsens at any point time.. Administered Medications: No medications were administered Disposition Summary: 11/19/21 11:21 Discharge Ordered Location: Home jr8 Problem: new jr8 Symptoms: have improved jr8 Condition: Stable jr8 Diagnosis - Unspecified otitis externa, left ear jr8 - Unspecified otitis externa, right ear jr8 - Acute lymphadenitis, unspecified - post immunization jr8 Followup: jr8 - With: Private Physician - When: 1 week - Reason: Recheck today's complaints, Continuance of care, Re-evaluation by your physician Followup: jr8 - With: Paty Morales MD - When: 1 week - Reason: Recheck today's complaints, Continuance of care, Re-evaluation by your physician Discharge Instructions: - Discharge Summary Sheet jr8 - Ear Drops, Adult jr8 - Otitis Externa jr8 - Lymphadenopathy jr8 Forms: - Medication Reconciliation Form jr8 - Thank You Letter jr8 - Antibiotic Education jr8 - Prescription Opioid Use jr8 Prescriptions: - Cortisporin-TC 3.3-3-10-0.5 mg/mL Otic drops,suspension - instill 4 drops by OTIC route every 6 hours Both ears; 1 bottle; Refills: 0, jr8 Product Selection Permitted Signatures: Shun Parks PA PA jr8 Aida Das RN RN jl7
[2021-11-19 11:31] VITALS: BP 122/69; TEMP 98.2; O2SAT 99
== END 2021-11-19 11:26 | disposition home or self-care (01) ==
LOC: ER 10:48
DX: H60.92 Unspecified otitis externa, left ear (principal); H60.91 Unspecified otitis externa, right ear; L04.9 Acute lymphadenitis, unspecified
CPT/HCPCS: 82947; 99282

== ENCOUNTER 2022-06-12 14:47 | Emergency (ER) | payer SELFPAY ==
--- OUTSIDE RECORDS SUMMARY | 2022-06-12 14:51 | XMS REPORT | Continuity of Care Document ---
:1975 Author Organization [facility] t Address [address] [place] [address] Care Team Providers Name Role Phone Rick MEJIAS, [facility] Primary Care Physician [phone] BROOKE Attending Clinician Unavailable BROOKE Admitting Clinician [...] Clinician (SIG) Name Name APPLY 2-3 No [id number] TIMES DAILY - TO AFFECTED 00:00: AREA(S). 00 Ciprodex No 4% 0.3 %-0.1 % 20 ear 00:00: drops,suspe 00 nsion doxycycline No [...] Goal Plan of Care Note [code = 08125-3] Goal Plan of Care Note [code = 57114-1] Goal Plan of Care Note [code = 46289-3] Goal Plan of Care Note [code = 84793-9] Goal Plan of Care Note [code = 46657-0] Goal Plan of Care Note [code = 78705-1] Goal Plan of Care Note [code = 85833-1] Goal Plan of Care Note [code = 49357-0] Goal Plan of Care Note [code = 28446-7] Goal Plan of Care Note [code = 40570-4] Goal Plan of Care Note [code = 31591-2] Goal Plan of Care Note [code = 64824-3] Goal Plan of Care Note [code = 92635-1] Goal Plan of Care Note [code = 45789-6] Encounters Start End Encounter Admission Attending Care Care Encounter Source Date/Time Date/Time Type Type Clinicians Facility Department ID 2021-11-12 2021-11-12 Outpatient [id number] 00:00:00 00:00:00 Visit [id number] 2021-11-07 2021-11-[address] [facility] [address] 12:32:00 12:32:00 SHANNON 0714 da [facility] Program Results Test Description Test Time Test [...] 4.09 RATIO BLOOD GROUP (ABO) AND RH [id number] 00:00:00 Test Item Value Reference Range Interpretation Comments BLOOD TYPE AND RH (test code = A POSITIVE 3901) BLOOD GROUP (ABO) AND RH [id number] 00:00:00 Test Item Value Reference Range Interpretation Comments BLOOD TYPE AND RH (test code = A POSITIVE 3901) CBC W/AUTO [id number] 00:00:00 Test Item Value Reference Range Interpretation [...] NUCLEATED RBCS (test code = 0.00 K/UL 60576) HEMOGLOBIN [id number] 00:00:00 Test Item Value Reference Range Interpretation Comments HEMOGLOBIN A1c (test code = 10525) 5.7 % HEMOGLOBIN [id number] 00:00:00 Test Item Value Reference Range Interpretation Comments HEMOGLOBIN A1c (test code = 87587) 5.7 % LIPID [id number] 00:00:00 Test Item Value Reference Range Interpretation Comments CHOLESTEROL (test code = 2210) 221 MG/DL TRIGLYCERIDES (test code = 2232) 154 MG/DL HDL CHOLESTEROL (test code = 2220) 35 MG/DL CALC LDL CHOL (test code = 2237) 157 MG/DL RISK RATIO LDL/HDL (test code = 4.49 RATIO 2238) COMPREHENSIVE METABOLIC [id number] 00:00:00 Test Item Value Reference Range Interpretation Comments GLUCOSE (test code = 2217) 107 MG/DL BUN (test code = 2208) 14 MG/DL CREATININE (test code = 2214) 1.13 MG/DL eGFR AMER. (test code 91 ML/MIN/1.73 = 74965) eGFR NON- AMER. (test 79 ML/MIN/1.73 code = 40286) CALC BUN/CREAT (test code = 12 RATIO [...] CALC GLOBULIN (test code = 2.8 G/DL 2240) CALC A/G RATIO (test code = 1.6 RATIO 2234) BILIRUBIN, TOTAL (test code = 0.3 MG/DL 2206) ALKALINE PHOSPHATASE (test 77 U/L code = 2204) AST (test code = 2218) 18 U/L ALT (test code = 2219) 19 U/L [id number] 00:00:00 Test Item Value Reference Range Interpretation Comments AMYLASE (test code = 2205) 59 U/L [id number] 00:00:00 Test Item Value Reference Range Interpretation Comments LIPASE (test code = 2057) 74 U/L [id number] 00:00:00 Test Item Value Reference Range Interpretation Comments LIPASE (test code = 2057) 74 U/L CBC W/AUTO [id number] 00:00:00 Test Item Value Reference Range Interpretation [...] NUCLEATED RBCS (test code = 0.00 K/UL 57363) COMPREHENSIVE METABOLIC [id number] 00:00:00 Test Item Value Reference Range Interpretation Comments GLUCOSE (test code = 2217) 95 MG/DL BUN (test code = 2208) 14 MG/DL CREATININE (test code = 2214) 0.88 MG/DL eGFR AMER. (test code 122 ML/MIN/1.73 = 33041) eGFR NON- AMER. (test 105 ML/MIN/1.73 code = 63531) CALC BUN/CREAT (test code = 16 RATIO [...] ALT (test code = 2219) 18 U/L [id number] 00:00:00 Test Item Value Reference Range Interpretation Comments TSH, THIRD GENERATION (test code 3.110 UIU/ML = 2821) [id number] 00:00:00 Test Item Value Reference Range Interpretation Comments TSH, THIRD GENERATION (test code 3.110 UIU/ML = 2821) LIPID [id number] 00:00:00 Test Item Value Reference Range Interpretation Comments CHOLESTEROL (test code = 2210) 214 MG/DL TRIGLYCERIDES (test code = 2232) 182 MG/DL HDL CHOLESTEROL (test code = 2220) 35 MG/DL CALC LDL CHOL (test code = 2237) 147 MG/DL RISK RATIO LDL/HDL (test code = 4.20 RATIO 8)
[2022-06-12 15:32] LABS: Absolute Lymphocytes (CBC) 2.8 K/uL (0.7-4.9); Hematocrit 39.6 % (39.6-49.0); Lymphocytes % 34.2 % (15.3-44.8); MCV 96.3 fL (80-100); MPV 8.7 fL (7.6-11.3); RBC Red Blood Cell Count 4.11 M/uL (4.33-5.43)
[2022-06-12 15:51] LABS: Albumin 3.5 g/dL (3.4-5.0); Bilirubin Total 0.4 mg/dL (0.2-1.0); Potassium 3.8 mmol/L (3.5-5.1)
--- NOTE | 2022-06-12 17:09 | RAD REPORT ---
EXAM DESCRIPTION: CT - Abdomen Pelvis W Contrast - 06/12/2022 4:57 pm CLINICAL HISTORY: Abdominal pain/left flank pain COMPARISON: 2021 TECHNIQUE: Computed axial tomography of the abdomen pelvis was obtained. 100 cc Isovue-300 was admin istered intravenously. Oral contrast was not requested which limits evaluation of bowel and appendix All CT scans are performed using dose optimization technique as appropriate and may include automated exposure control or mA/KV adjustment according to patient size. FINDINGS: Hepatic hemangioma unchanged Spleen, pancreas, adrenals and left kidney unremarkable. Tiny right renal cyst. Normal appendix. Diverticular stem from the colon without evidence of diverticulitis. Small left inguinal hernia contains fat. Small umbilical hernia IMPRESSION: No acute abnormality is displayed.
--- NOTE | 2022-06-12 18:03 | EDPHYS ---
Physician Documentation [facility] Name: Ming Odonnell Age: 46 yrs Sex: Male : 1975 Arrival Date: 06/12/2022 Time: 14:49 Bed 14 Private MD: ED Physician Charu Rivas HPI: 06/12 15:06 This 46 yrs old Male presents to ER via Ambulatory with complaints of Back Pain. jmm 15:06 The patient presents with pain that is acute. Onset: The symptoms/episode jmm began/occurred gradually. The pain radiates to the left lower quadrant. Associated signs and symptoms: Pertinent negatives: fever. Modifying factors: The patient symptoms are alleviated by nothing, the patient symptoms are aggravated by any movement. Is a 46-year-old male with history of diverticulitis the presents emerged part with complaints of left flank pain which radiates to the left lower quadrant. Denies vomiting or diarrhea. Patient does have some concern she may have a flare of diverticulitis. Historical: - Allergies: 15:06 PENICILLINS; mb9 - Home Meds: 15:06 None [Active]; mb9 - PMHx: 15:06 Diverticulitis; Pancreatitis; mb9 - Immunization history:: Adult Immunizations up to date. - Social history:: Smoking status: Patient reports the use of cigarette tobacco products, smokes one pack cigarettes per day. ROS: 15:06 Constitutional: Negative for fever, chills, and weight loss, Cardiovascular: Negative jmm for chest pain, palpitations, and edema, Respiratory: Negative for shortness of breath, cough, wheezing, and pleuritic chest pain. 15:06 Abdomen/GI: Positive for abdominal pain. 15:06 Back: Positive for flank pain, on the left. 15:06 All other systems are negative. Exam: 15:06 Constitutional: This is a well developed, well nourished patient who is awake, alert, jmm and in no acute distress. Head/Face: atraumatic. Eyes: EOMI, no conjunctival erythema appreciated ENT: Moist Mucus Membranes Neck: Trachea midline, Supple Chest/axilla: Normal chest wall appearance and motion. Cardiovascular: Regular rate and rhythm. No edema appreciated Respiratory: Normal respirations, no respiratory distress appreciated Abdomen/GI: Non distended 15:06 Back: pain, that is moderate, of the left mid back. 15:06 Musculoskeletal/extremity: ROM: intact in all extremities. 15:06 Skin: Appearance: Color: normal in color. 15:06 Neuro: Orientation: is normal, Mentation: is normal, Memory: is normal. 15:06 Psych: Behavior/mood is pleasant, cooperative. Vital Signs: 15:04 BP 119 / 69; Pulse 68; Resp 20; Temp 99(O); Pulse Ox 99% on R/A; Weight 113.4 kg; 9 Height 5 ft. 11 in. (180.34 cm); Pain 9/10; 16:23 BP 106 / 62; Pulse 72; Resp 17; Pulse Ox 100% on R/A; mb9 17:45 BP 129 / 72; Pulse 60; Resp 17; Pulse Ox 100% ; mb9 15:04 Body Mass Index 34.87 (113.40 kg, 180.34 cm) 9 MDM: 15:06 Patient medically screened. [facility] 18:02 Data reviewed: vital signs, nurses notes. [facility] 19:46 Counseling: I had a detailed discussion with the patient and/or guardian regarding: the [facility] historical points, exam findings, and any diagnostic results supporting the discharge/admit diagnosis, radiology results, the need for outpatient follow up, to return to the emergency department if symptoms worsen or persist or if there are any questions or concerns that arise at home. ED course: CT was negative for any acute process. Most likely musculoskeletal. Advised follow-up PCP and otherwise given strict return precautions. Patient understood agrees plan of care. 06/12 15:16 Order name: CBC with Diff; Complete Time: 15:49 [facility] 06/12 15:16 Order name: CMP; Complete Time: 15:53 [facility] 06/12 15:16 Order name: Lipase; Complete Time: 15:53 [facility] 06/12 15:16 Order name: CT Abd/Pelvis - IV Contrast Only; Complete Time: 17:11 [facility] 06/12 15:16 Order name: IV Saline Lock; Complete Time: 15:23 [facility] 06/12 15:16 Order name: Labs collected and sent; Complete Time: 15:23 [facility] Administered Medications: No medications were administered Disposition Summary: 06/12/22 18:03 Discharge Ordered Location: Home [facility] Condition: Stable [facility] Diagnosis - Low back pain [facility] Followup: [facility] - With: Private Physician - When: 2 - 3 days - Reason: Recheck today's complaints, Continuance of care, Re-evaluation by your physician Discharge Instructions: - Discharge Summary Sheet thad - Acute Back Pain, Adult mehrdad Forms: - Medication Reconciliation Form thad - Work release form mehrdad - Thank You Letter mehrdad - Antibiotic Education mehrdad - Prescription Opioid Use thad Prescriptions: - Medrol (Franky) 4 mg Oral Tablets, Dose Pack - take 1 tablet by ORAL route as directed - follow package instructions; 1 jmm packet; Refills: 0, Product Selection Permitted - orphenadrine citrate 100 mg Oral Tablet Sustained Release - take 1 tablet by ORAL route 2 times per day As needed; 20 tablet; Refills: 0, [facility] Product Selection Permitted Signatures: Dispatcher [employer] Piter Ennis PA PA jmm Breneman, Mary Beth, RN RN mb9
--- NOTE | 2022-06-12 18:03 | ER ---
Nurse's Notes [facility] Name: Ming Odonnell Age: 46 yrs Sex: Male : 1975 Arrival Date: 06/12/2022 Time: 14:49 Bed 14 Private MD: Diagnosis: Low back pain Presentation: 06/12 15:04 Chief complaint: Patient states: "I have left sided back pain for the past couple days mb9 and it got worse today. Its a sharp shooting pain that goes across my back. I have chronic back pain but today is worse". Coronavirus screen: Vaccine status: Patient reports receiving the 2nd dose of the covid vaccine. Ebola Screen: No symptoms or risks identified at this time. Initial Sepsis Screen: Does the patient meet any 2 criteria? No. Patient's initial sepsis screen is negative. Does the patient have a suspected source of infection? No. Patient's initial sepsis screen is negative. Risk Assessment: Do you want to hurt yourself or someone else? Patient reports no desire to harm self or others. Onset of symptoms was June 12, 2022. 15:04 Method Of Arrival: Ambulatory mb9 15:04 Acuity: CELENA 3 mb9 Historical: - Allergies: 15:06 PENICILLINS; mb9 - Home Meds: 15:06 None [Active]; mb9 - PMHx: 15:06 Diverticulitis; Pancreatitis; mb9 - Immunization history:: Adult Immunizations up to date. - Social history:: Smoking status: Patient reports the use of cigarette tobacco products, smokes one pack cigarettes per day. Screenin:06 [facility] ED Fall Risk Assessment (Adult) History of falling in the last 3 months, mb9 including since admission No falls in past 3 months (0 pts) Confusion or Disorientation No (0 pts) Intoxicated or Sedated No (0 pts) Impaired Gait No (0 pts) Mobility Assist Device Used No (0 pt) Altered Elimination No (0 pt) Score/Fall Risk Level 0 - 2 = Low Risk Oriented to surroundings, Maintained a safe environment, Educated pt \\T\\ family on fall prevention, incl call for assistance when getting out of bed. Abuse screen: Denies threats or abuse. Nutritional screening: No deficits noted. Tuberculosis screening: No symptoms or risk factors identified. Assessment: 15:09 General: Appears in no apparent distress. comfortable, Behavior is calm, cooperative, mb9 appropriate for age. Pain: Complains of pain in lower left back Pain radiates to lower right side of back Pain currently is 9 out of 10 on a pain scale. Quality of pain is described as sharp, shooting, Pain began 1 day ago. Is continuous, Aggravated by increased activity, repositioning. Neuro: [place] Agitation-Sedation Scale (RASS): 0 - Alert and Calm Level of Consciousness is awake, alert, obeys commands, Oriented to person, place, time, situation, Appropriate for age. Cardiovascular: Capillary refill < 3 seconds is brisk Patient's skin is warm and dry. Rhythm is regular. Respiratory: Airway is patent Respiratory effort is even, unlabored, Respiratory pattern is regular, symmetrical. GI: Abdomen is round non-distended. : Denies burning with urination. EENT: No signs and/or symptoms were reported regarding the EENT system. Derm: Skin is pink, warm \\T\\ dry. Musculoskeletal: Range of motion: intact in all extremities. 16:29 Reassessment: No changes from previously documented assessment. Patient and/or family mb9 updated on plan of care and expected duration. Pain level reassessed. Patient is alert, oriented x 3, equal unlabored respirations, skin warm/dry/pink. 16:40 Reassessment: pt taken to CT via wheelchair. mb9 17:45 Reassessment: No changes from previously documented assessment. Patient and/or family mb9 updated on plan of care and expected duration. Pain level reassessed. Patient is alert, oriented x 3, equal unlabored respirations, skin warm/dry/pink. Patient states feeling better. Patient states symptoms have improved. Vital Signs: 15:04 BP 119 / 69; Pulse 68; Resp 20; Temp 99(O); Pulse Ox 99% on R/A; Weight 113.4 kg; mb9 Height 5 ft. 11 in. (180.34 cm); Pain 9/10; 16:23 BP 106 / 62; Pulse 72; Resp 17; Pulse Ox 100% on R/A; mb9 17:45 BP 129 / 72; Pulse 60; Resp 17; Pulse Ox 100% ; mb9 15:04 Body Mass Index 34.87 (113.40 kg, 180.34 cm) mb9 ED Course: 14:49 Patient arrived in ED. rg4 15:03 Mickail, Piter, PA is PHCP. [facility] 15:03 Charu Rivas MD is Attending Physician. [facility] 15:04 Atiya Eduardo, RN is Primary Nurse. mb9 15:04 Arm band placed on. mb9 15:06 Triage completed. mb9 15:07 Placed in gown. Bed in low position. Call light in reach. Side rails up X 1. Client mb9 placed on continuous cardiac and pulse oximetry monitoring. NIBP monitoring applied. Door closed. Noise minimized. Warm blanket given. 15:08 No provider procedures requiring assistance completed. mb9 15:23 Inserted saline lock: 20 gauge in right forearm, using aseptic technique. Blood mb9 collected. 15:23 CBC with Diff Sent. mb9 15:23 Lipase Sent. mb9 15:24 CMP Sent. mb9 16:58 CT Abd/Pelvis - IV Contrast Only In Process Unspecified. EDMS 18:05 IV discontinued, intact, bleeding controlled, No redness/swelling at site. Pressure mb9 dressing applied. Administered Medications: No medications were administered Medication: 15:07 VIS not applicable for this client. mb9 Outcome: 18:03 Discharge ordered by . jmm 18:05 Discharged to home ambulatory. mb9 18:05 Condition: stable 18:05 Discharge instructions given to patient, Instructed on discharge instructions, follow up and referral plans. Demonstrated understanding of instructions, follow-up care, medications, Prescriptions given X 2. 18:12 Patient left the ED. mb9 Signatures: Dispatcher [employer] EDMS Piter Friend PA PA jmm Garcia, Rubi rg4 Atiya Eduardo, RN RN mb9 Corrections: (The following items were deleted from the chart) 15:07 15:04 Pulse 68bpm; Resp 20bpm; Pulse Ox 99% RA; 113.4 kg; Height 5 ft. 11 in.; BMI: mb9 34.8; Pain 9/10; mb9 15:09 15:04 BP 119 / 69; Pulse 68bpm; Resp 20bpm; Pulse Ox 99% RA; 113.4 kg; Height 5 ft. 11 mb9 in.; BMI: 34.8; Pain 9/10; mb9 15:19 15:04 Acuity: CELENA 4 mb9 mb9
[2022-06-12 18:42] VITALS: TEMP 99
[2022-06-12 18:48] VITALS: O2SAT 100
[2022-06-12 19:06] VITALS: BP 129/72
== END 2022-06-12 18:12 | disposition home or self-care (01) ==
LOC: ER 14:47
DX: M54.50 Low back pain, unspecified (principal)
CPT/HCPCS: 36415; 74177; 80053; 83690; 85025; 99284; Q9967

== ENCOUNTER 2022-12-27 14:33 | Emergency (ER) | payer SELFPAY ==
--- OUTSIDE RECORDS SUMMARY | 2022-12-27 14:36 | XMS REPORT | Continuity of Care Document ---
:1975 Author Organization [facility] t Address [address] [facility] [address] [place] [id number] Care Team Providers Name Role Phone [facility] Physician Miguelina King MD Attending Clinician Gus Tadeo MD Attending Clinician GUS TADEO Attending Clinician Unavailable YOLANDA_JOSE Attending Clinician Unavailable GUS TADEO Admitting Clinician Unavailable BROOKE Admitting Clinician Unavailable Problems This patient has no known problems. Allergies, Adverse Reactions, Alerts Allergy Allergy Status Severity Reaction(s) Onset Inactive Treating Comm ents Source Name Type Date Date Clinician Penicill Propensi Active Anaphylaxis U nivers in ty to 5-16 ity of adverse 00:00: [place] reaction 00 Medical Branch PENICILL DRUG Active Anaphylaxis Uni vers IN INGREDI 5-16 ity of 00:00: [place] 00 [facility] Branch Penicill Propensi Active 0 ins - ty to 7-19 CLASS adverse 00:00: reaction 00 to drug Penicill Propensi Active 0 ins ty to 2-24 adverse 00:00: reaction 00 to drug NO KNOWN Drug Active Univers ALLERGIE Class ity of [facility] Social History Social Habit Start Date Stop Date Quantity Comments Source Exposure to 2022-08-30 2022-09-09 Not sure [facility] SARS-CoV-2 (event) 00:00:00 22:44:00 Medica l Branch Sex Ass[birth year] At [birth year] [facility] of [place] 00:00:00 00:00:00 Medical Branch Smoking Status Start Date Stop Date Source Tobacco smoking consumption [facility] Medical unknown Branch Medications Ordered Filled Start Stop Current Ordering Indication Dosage Frequency Signature Comments Components Source Medication Medication Date Date Medication? Clinician (SIG) Name Name iopamidol No [id number] 100mL 100 mL, Univers (ISOVUE 09-10 Intravenou ity o f 370-500 mL) 05:15: 04:16 s, ONCE, 1 [place] injection 00 :00 dose, On Medica l 100 mL Thu Branch 09/10/22 at 0015, Routine morpHINE (2022- No 4mg 4 mg, Slow Univers mg/mL) 09-10 IV Push, ity of injection 4 05:00: 05:02 ONCE, 1 [place] mg 00 :[place] dose, On Medical Thu Branch 09/10/22 at 0000, STAT levoFLOXaci No 500mg 500 mg, U nivers n 09-10 Oral, ity of (LEVAQUIN) 04:45: 04:41 ONCE, 1 [place] tablet 500 00 :00 dose, On Medic al mg Thu Branch 09/09/22 at 2345, LICHA
Re ason for Anti-Infec tive: Empiric Therapy for Suspected Infection< br>Empiric Therapy Site: Abdominal< br>Duratio n of therapy: 72 hours NaCl 0.9% 2022- No 1000mL at 999 Uni vers (NS) bolus 09-10 mL/hr, ity of infusion 04:45: 05:03 1,000 mL, Rob as 1,000 mL 00 :00 IV Medical Piggyback, Branch ONCE, 1 dose, On Thu09/09/22 at 2345, STAT famotidine No 20mg 20 mg, Univ ers (PEPCID 09-10 Slow IV ity of (PF)) 04:00: 04:02 Push, [place] injection 00 :00 ONCE, 1 Medical 20 mg dose, On Branch e 09/09/22 at 2300, LICHA morpHINE (4 2022- No 4mg 4 mg, Slow Univers mg/mL) 5-17 05-17 IV Push, ity of injection 4 04:00: 04:03 ONCE, 1 [place] mg 00 :[place] dose, On Medical Tue Branch 09/09/22 at 2300, STAT ondansetron 0 202- No 4mg 4 mg, Slow Univers (ZOFRAN 5-17 05-17 IV Push, ity of (PF)) 04:00: 04:02 ONCE, 1 [place] injection 4 00 :00 dose, On Medi jian mg Tue Branch 09/09/22 at 2300, LICHA dicyclomine 0 Yes [id number] 20mg Take 1 Univers 20 mg 5-16 tablet by ity of tablet 00:00: mouth 3 (three) Medical times Branch daily as needed for Abdominal pain. proMETHazin 0 Yes [id number] 12.5mg Take 0.5 Univers e 25 mg 5-16 tablets by ity of tablet 00:00: mouth [place] 00 every 6 Medical (six) Branch hours as needed for Nausea and Vomiting (N/V). dicyclomine 2022-0 Yes [id number] 20mg Take 1 Univers 20 mg 5-16 tablet by ity of tablet 00:00: mouth 3 [place] 00 (three) Medical times Branch daily as needed for Abdominal pain. proMETHazin 2022-0 Yes [id number] 12.5mg Take 0.5 Univers e 25 mg 5-16 tablets by ity of tablet 00:00: mouth [place] 00 every 6 Medical (six) Branch hours as needed for Nausea and Vomiting (N/V). levoFLOXaci 2022-0 2022- No [id number] 500mg Take 1 Univers n 5-16 05-24 tablet by ity of (LEVAQUIN) 00:00: 04:59 mouth [place] 500 mg 00 :00 the Medical tablet morning Branch for 7 days. APPLY 2-3 2021-0 No [id number] TIMES DAILY 7-19 TO AFFECTED 00:00: AREA(S). 00 Ciprodex 0 No 4% 0.3 %-0.1 % 7-20 ear 00:00: drops,suspe 00 nsion doxycycline No 1mg hyclate 100 7-20 mg capsule 00:00: 00 Vital Signs Vital Name Observation Time Observation Value Comments Source Heart rate 2022-09-10 03:51:00 65 /min [facility] Body temperature 2022-09-10 03:51:00 37 Kecia [facility] Body height 2022-09-10 03:51:00 177.8 cm [facility] Body weight 2022-09-10 03:51:00 113.399 kg [facility] BMI 2022-09-10 03:51:00 35.87 kg/m2 [facility] Systolic blood 2022-09-10 03:50:00 137 mm[Hg] Univer sity of [facility] Diastolic blood 2022-09-10 03:50:00 76 mm[Hg] [facility] Respiratory rate 2022-09-10 03:50:00 18 /min [facility] Oxygen saturation in 2022-09-10 03:50:00 98 /min [facility] Arterial blood by [facility] Pulse oximetry Branch Height Measured 2021-11-12 09:34:00 70.00 inches Body Temperature 2021-11-12 09:34:00 98.30 degrees Heart Rate 2021-11-12 09:34:00 83.00 /min Respiratory Rate 2021-11-12 09:34:00 18.00 /min BP Systolic 2021-11-12 09:34:00 97 mm[Hg] BP Diastolic 2021-11-12 09:34:00 63 mm[Hg] Weight Measured 2021-11-12 09:34:00 258.80 pounds BP Systolic 2020-11-13 13:25:00 111 mm[Hg] BP Diastolic 2020-11-13 13:25:00 70 mm[Hg] Weight Measured 2020-11-13 13:25:00 251.00 pounds Height Measured 2020-11-13 13:25:00 70.00 inches Body Temperature 2020-11-13 13:25:00 98.40 degrees Heart Rate 2020-11-13 13:25:00 89.00 /min Respiratory Rate 2020-11-13 13:25:00 21.00 /min Procedures Procedure Date / Time Performed Performing Clinician Nila JENSEN 2022-09-10 03:57:00 Gus Tadeo [facility] COMP. METABOLIC PANEL 2022-09-10 03:57:00 Gus Tadeo [facility] ([id number]) [facility] CBC WITH DIFF 2022-09-10 03:57:00 Gus Tadeo [facility] CONSENT/REFUSAL FOR 2022-09-10 03:41:34 [facility] Un[facility], [facility] Name [facility] TREATMENT NOTICE OF PRIVACY 2022-09-10 03:40:44 Doctor Unassigned, No Univ [facility] PRACTICES Name [facility] Plan of Care Planned Activity Planned Date Details Comments Source Goal Plan of Care Note [code = 98595-0] Goal Plan of Care Note [code = 93471-1] Goal Plan of Care Note [code = 56638-8] Goal Plan of Care Note [code = 41945-0] Goal Plan of Care Note [code = 59168-9] Goal Plan of Care Note [code = 51423-1] Goal Plan of Care Note [code = 27326-8] Goal Plan of Care Note [code = 59696-4] Goal Plan of Care Note [code = 16901-1] Goal Plan of Care Note [code = 36559-4] Goal Plan of Care Note [code = 30895-0] Goal Plan of Care Note [code = 93006-7] Goal Plan of Care Note [code = 90823-8] Goal Plan of Care Note [code = 27497-1] Encounters Start End Encounter Admission Attending Care Care Encounter Source Date/Time Date/Time Type Type Clinicians Facility Department ID 2022-10-09 2022-10-09 Telephone [facility] [id number] Univers 00:00:00 00:00:00 Akshata MULTISPEC [id number] ity of [place] 4.2.7.2.686 [facility] [id number] Gokul villar AND BUDDY 2 Branch DI[facility]ES [facility] 2022-09-09 2022-09-10 Emergency [facility] [id number] Univers 22:42:00 00:10:00 Gus DAVIS [id number] i ty of [place] 4.2.7.2.686 [facility] [id number] [facility] 084 Branch 2022-09-09 2022-09-10 Emergency X ELIZABETH, [facility] ERT [id number] Univers 22:42:00 00:10:00 GUS coleman [facility] 2022-07-24 2022-07-24 Outpatient SFA SFA [id number] Guillaume 11:23:25 11:23:25 0330 F Jarett 2021-11-12 2021-11-12 Outpatient [id number] 00:00:00 00:00:00 Visit [id number] 2021-11-07 2021-11-07 Outpatient [facility] [address] [place] 12:32:00 12:32:00 HANA 0714 da [facility] Program Results Test Description Test Time Test Comments Results Result Comments Source COMP. METABOLIC PANEL (67155) 2022-09-10 04:28:30 Test Item Value Reference Range Interpretation Comme nts NA (test code = 6981148882) 139 mmol/L 135-145 K (test code = 0345411271) 4.1 mmol/L 3.5-5.0 CL (test code = 9082700810) 106 mmol/L 98-108 CO2 TOTAL (test code = 25 mmol/L 23-31 9446020699) AGAP (test code = 8385537560) 8 2-16 BUN (test code = 9923918561) 11 mg/dL 7-23 GLUCOSE (test code = 1397304551) 108 mg/dL 70-110 CREATININE (test code = 0.89 mg/dL 0.60-1.25 5883583730) TOTAL BILI (test code = 0.8 mg/dL 0.1-1.7 8157187959) CALCIUM (test code = 3212843455) 8.7 mg/dL 8.6-10.6 T PROTEIN (test code = 7.5 g/dL 6.3-8.2 5836558535) ALBUMIN (test code = 7037867214) 4.2 g/dL 3.5-5.0 ALK PHOS (test code = 5348611702) 53 U/L 34-122 ALTv (test code = 1742-6) 19 U/L 5-50 AST(SGOT) (test code = 28 U/L 13-40 4105952846) eGFR (test code = 8396893110) 92.4 mL/min/1.73m2 ANA (test code = ANA) Association of Glomerular Filtration Rate (GFR) and Staging of Kidney Disease* + +--------- + ----+| GFR (mL/min/1.73 m2) ?| With Kidney Damage ?| ?Without Kidney Damage+ +--- + +| ?>90 ?| ?Stage one ?| ? Normal ?+ +-------- + -----+| ?60-89 ?| ?Stage two ?| ? Decreased GFR ? + +--------- + ----+| ?30-59 ?| ?Stage three ?| ? Stage three ? + +--------- + ----+| ?15-29 ?| ?Stage four ? | ? Stage four ?+ +-------- + -----+| ?<15 (or dialysis) ? ?| ?Stage five ? | ? Stage five ?+ +-------- + -----+ *Each stage assumes the associated GFR level has been in effect for at least three months. ?Stages 1 to 5, with or without kidney disease, indicate chronic kidney disease. Notes: Determination of stages one and two (with eGFR >59mL/min/1.73 m2) requires estimation of kidney damage for at least three months as defined by structural or functional abnormalities of the kidney, manifested by either:Pathological abnormalities or Markers of kidney damage (including abnormalities in the composition of the blood or urine or abnormalities in imaging tests). [facility]10 Test Item Value Reference Range Interpretation Comments LIPASE (test code = 7204681268) 145 U/L 0-220 Lab Interpretation (test code = Normal 75451-3) [facility] [id number] 04:14:27 Test Item Value Reference Range Interpretation Comments WBC (test code = 13.93 See_Comment H [Automated 7334-2) message] The sy stem which generated this result transmitted reference range : 4.20 - 10.70 10*3/?L. The reference range was not used to interpret this result as normal/abnormal . RBC (test code = 4.40 See_Comment [Automated 789-8) message] The sy stem which generated this result transmitted reference range : 4.26 - 5.52 10*6/?L. The reference range was not used to interpret this result as normal/abnormal . HGB (test code = 14.2 g/dL 12.2-16.4 718-7) HCT (test code = 42.0 % 38.4-49.3 4544-3) MCV (test code = 95.5 fL 81.7-95.6 787-2) MCH (test code = 32.3 pg 26.1-32.7 785-6) MCHC (test code = 33.8 g/dL 31.2-35.0 786-4) RDW-SD (test code = 44.7 fL 38.5-51.6 72454-8) RDW-CV (test code = 12.8 % 12.1-15.4 788-0) PLT (test code = 226 See_Comment [Automated 777-3) message] The sy stem which generated this result transmitted reference range : 150 - 328 10*3/ ?L. The reference r shaylee was not used to interpret this result as normal/abnormal . MPV (test code = 11.2 fL 9.8-13.0 34163-5) NRBC/100 WBC (test 0.0 See_Comment [Automat ed code = 6816251660) message] The system which generated this result transmitted reference range : 0.0 - 10.0 /100 WBCs. The refer ence range was not u sed to interpret th is result as normal/abnormal . NRBC x10^3 (test code See_Comment [Auto mated = 1163567274) message] The s ystem which generated this result transmitted reference range : 10*3/?L. The reference range was not used to interpret this result as normal/abnormal . GRAN MAT (NEUT) % 68.9 % (test code = 770-8) IMM GRAN % (test code 0.40 % = 4593887958) LYMPH % (test code = 23.3 % 736-9) MONO % (test code = 6.6 % 5905-5) EOS % (test code = 0.4 % 713-8) BASO % (test code = 0.4 % 706-2) GRAN MAT x10^3(ANC) 9.61 10*3/uL 1.99-6.95 H (test code = 5945644066) IMM GRAN x10^3 (test 0.06 10*3/uL 0.00-0.06 code = 1711112336) LYMPH x10^3 (test code 3.24 10*3/uL 1.09-3.23 H = 731-0) MONO x10^3 (test code 0.92 10*3/uL 0.36-1.02 = 742-7) EOS x10^3 (test code = 0.05 10*3/uL 0.06-0.53 L 711-2) BASO x10^3 (test code 0.05 10*3/uL 0.01-0.09 = 704-7) Lab Interpretation Abnormal (test code = 78937-3) [facility] [id number] 00:00:00 Test Item Value Reference Range Interpretation Comments CHOLESTEROL (test code = 2210) 199 MG/DL TRIGLYCERIDES (test code = 2232) 172 MG/DL HDL CHOLESTEROL (test code = 2220) 33 MG/DL CALC LDL CHOL (test code = 2237) 135 MG/DL RISK RATIO LDL/HDL (test code = 4.09 RATIO 2238) BLOOD GROUP (ABO) AND RH [id number] 00:00:00 Test Item Value Reference Range Interpretation Comments BLOOD TYPE AND RH (test code = A POSITIVE 3901) BLOOD GROUP (ABO) AND RH [id number] 00:00:00 Test Item Value Reference Range Interpretation Comments BLOOD TYPE AND RH (test code = A POSITIVE 3901) CBC W/AUTO [id number] 00:00:00 Test Item Value Reference Range Interpretation [...] NUCLEATED RBCS (test code = 0.00 K/UL 43448) HEMOGLOBIN [id number] 00:00:00 Test Item Value Reference Range Interpretation Comments HEMOGLOBIN A1c (test code = 51668) 5.7 % HEMOGLOBIN [id number] 00:00:00 Test Item Value Reference Range Interpretation Comments HEMOGLOBIN A1c (test code = 21642) 5.7 % LIPID [id number] 00:00:00 Test Item Value Reference Range Interpretation Comments CHOLESTEROL (test code = 2210) 221 MG/DL TRIGLYCERIDES (test code = 2232) 154 MG/DL HDL CHOLESTEROL (test code = 2220) 35 MG/DL CALC LDL CHOL (test code = 2237) 157 MG/DL RISK RATIO LDL/HDL (test code = 4.49 RATIO 2238) COMPREHENSIVE METABOLIC [id number] 00:00:00 Test Item Value Reference Range Interpretation Comments GLUCOSE (test code = 2217) 107 MG/DL BUN (test code = 2208) 14 MG/DL CREATININE (test code = 2214) 1.13 MG/DL eGFR AMER. (test code 91 ML/MIN/1.73 = 02137) eGFR NON- AMER. (test 79 ML/MIN/1.73 code = 16113) CALC BUN/CREAT (test code = 12 RATIO 2234) SODIUM (test code = 2231) 138 MEQ/L POTASSIUM (test code = 2228) 4.3 MEQ/L CHLORIDE (test code = 2215) 104 MEQ/L CARBON DIOXIDE (test code = 24 MEQ/L 2205) CALCIUM (test code = 2209) 9.0 MG/DL PROTEIN, TOTAL (test code = 7.4 G/DL 2228) ALBUMIN (test code = 2201) 4.6 G/DL CALC GLOBULIN (test code = 2.8 G/DL 2239) CALC A/G RATIO (test code = 1.6 RATIO 2233) BILIRUBIN, TOTAL (test code = 0.3 MG/DL 2206) ALKALINE PHOSPHATASE (test 77 U/L code = 4) AST (test code = 8) 18 U/L ALT (test code = 221) 19 U/L [id number] 00:00:00 Test Item Value Reference Range Interpretation Comments AMYLASE (test code = 5) 59 U/L [id number] 00:00:00 Test Item Value Reference Range Interpretation Comments LIPASE (test code = 2057) 74 U/L [id number] 00:00:00 Test Item Value Reference Range Interpretation Comments LIPASE (test code = 8) 74 U/L CBC W/AUTO [id number] 00:00:00 Test Item Value Reference Range Interpretation [...] NUCLEATED RBCS (test code = 0.00 K/UL 98190) COMPREHENSIVE METABOLIC [id number] 00:00:00 Test Item Value Reference Range Interpretation Comments GLUCOSE (test code = 2217) 95 MG/DL BUN (test code = 2208) 14 MG/DL CREATININE (test code = 2214) 0.88 MG/DL eGFR AMER. (test code 122 ML/MIN/1.73 = 96854) eGFR NON- AMER. (test 105 ML/MIN/1.73 code = 36716) CALC BUN/CREAT (test code = 16 RATIO 2235) SODIUM (test code = 2231) 139 MEQ/L POTASSIUM (test code = 2228) 4.2 MEQ/L CHLORIDE (test code = 2215) 105 MEQ/L CARBON DIOXIDE (test code = 23 MEQ/L 2206) CALCIUM (test code = 2209) 9.0 MG/DL PROTEIN, TOTAL (test code = 7.3 G/DL 222) ALBUMIN (test code = 2201) 4.2 G/DL CALC GLOBULIN (test code = 3.1 G/DL 2240) CALC A/G RATIO (test code = 1.4 RATIO 2234) BILIRUBIN, TOTAL (test code = 0.3 MG/DL 2207) ALKALINE PHOSPHATASE (test 70 U/L code = 2204) AST (test code = 2218) 17 U/L ALT (test code = 2219) 18 U/L [id number] 00:00:00 Test Item Value Reference Range Interpretation Comments TSH, THIRD GENERATION (test code 3.110 UIU/ML = 2821) [id number] 00:00:00 Test Item Value Reference Range Interpretation Comments TSH, THIRD GENERATION (test code 3.110 UIU/ML = 2821) LIPID [id number] 00:00:00 Test Item Value Reference Range Interpretation Comments CHOLESTEROL (test code = 2210) 214 MG/DL TRIGLYCERIDES (test code = 2232) 182 MG/DL HDL CHOLESTEROL (test code = 2220) 35 MG/DL CALC LDL CHOL (test code = 2237) 147 MG/DL RISK RATIO LDL/HDL (test code = 4.20 RATIO 2238)"
[2022-12-27] MEDS ORDERED: MORPHINE 4 MG/ML SYR ONE (14:59)
[2022-12-27] MEDS ORDERED: ONDANSETRON 4 MG/2 ML VIAL ONE (14:59)
[2022-12-27] MEDS ORDERED: NA CHLORIDE 0.9% 1,000 ML ONE (15:00)
[2022-12-27] MEDS ORDERED: FAMOTIDINE 20 MG/2 ML VIAL IV ONE (15:00)
[2022-12-27 15:22] LABS: Absolute Lymphocytes (CBC) 2.1 K/uL (0.7-4.9); Hematocrit 43.4 % (39.6-49.0); Lymphocytes % 33.1 % (15.3-44.8); MCV 94.5 fL (80-100); MPV 8.9 fL (7.6-11.3); Platelets 217 thou/uL (152-406); RBC Red Blood Cell Count 4.59 M/uL (4.33-5.43)
[2022-12-27 15:30] LABS: Albumin 3.7 g/dL (3.4-5.0); Bilirubin Total 0.5 mg/dL (0.2-1.0); Potassium 3.8 mEq/L (3.5-5.1); Protein, Total 8.3 g/dL (6.4-8.2)
--- NOTE | 2022-12-27 16:41 | RAD REPORT ---
EXAM DESCRIPTION: CT - Abdomen Pelvis W Contrast - 12/27/2022 3:51 pm CLINICAL HISTORY: ABD PAIN COMPARISON: Abdomen Pelvis W Contrast dated 06/12/2022; Abdomen Pelvis W Contrast dated 08/25/2021; Abdomen Pelvis W Contrast dated 08/15/2021 TECHNIQUE: Thin cut axial CT imaging of the abdomen and pelvis was performed following intravenous a dministration of 100 mL Isovue 300. Multiplanar reformats were generated and reviewed. All CT scans are performed using dose optimization technique as appropriate and may include automated exposure control or mA/KV adjustment according to patient size. FINDINGS: No suspicious findings in the lung bases. The liver again demonstrates a 3.5 cm posterior right lobe subcapsular mass demonstrating marginal no dular enhancement, grossly stable allowing for differences in contrast timing, most suggestive of a h emangioma. Other subcentimeter hypoattenuating lesions are too small to characterize, and suggest jose ign cysts. Spleen, adrenal glands, and pancreas show no suspicious findings. Gallbladder and biliary tree are also without suspicious finding. Symmetric renal function is seen with no hydronephrosis or suspicious renal mass. No dilated bowel loops or bowel wall thickening. Mild colonic diverticulosis. No free air, free fluid or inflammatory stranding. Small left fat containing inguinal hernia. No suspicious mass or bulky ly mphadenopathy. The urinary bladder is suboptimally distended, without significant finding. No suspicious bony findings. IMPRESSION: No acute intra-abdominal process. Stable findings as above, including a right hepatic lobe subcapsular 3.5 cm hemangioma, probable sub centimeter liver cysts elsewhere, too small to characterize, and colonic diverticulosis.
--- NOTE | 2022-12-27 17:32 | ER ---
Nurse's Notes [facility] Name: Ming Odonnell Age: 47 yrs Sex: Male : 1975 Arrival Date: 12/27/2022 Time: 14:33 Bed 15 Private MD: Diagnosis: Nausea with vomiting, unspecified;Diarrhea, unspecified;Syncope Presentation: 12/27 14:39 Chief complaint: EMS states: n/v/d and abdominal pain x1 week. hx of diverticulitis. kc6 syncopal episode at home today. denies LOC. Coronavirus screen: At this time, the client does not indicate any symptoms associated with coronavirus-19. Ebola Screen: No symptoms or risks identified at this time. Initial Sepsis Screen: Does the patient meet any 2 criteria? No. Patient's initial sepsis screen is negative. Does the patient have a suspected source of infection? No. Patient's initial sepsis screen is negative. Risk Assessment: Do you want to hurt yourself or someone else? Patient reports no desire to harm self or others. Onset of symptoms was December 27, 2022. 14:39 Method Of Arrival: EMS: [facility] kc6 14:39 Acuity: CELENA 3 kc6 Triage Assessment: 14:40 General: Appears in no apparent distress. comfortable, Behavior is calm, cooperative, kc6 appropriate for age. Pain: Complains of pain in left upper quadrant and left lower quadrant Pain does not radiate. EENT: No signs and/or symptoms were reported regarding the EENT system. Neuro: Level of Consciousness is awake, alert, obeys commands, Oriented to person, place, time, situation, Appropriate for age Reports dizziness. Cardiovascular: Capillary refill < 3 seconds. Respiratory: Airway is patent Trachea midline Respiratory effort is even, unlabored, Respiratory pattern is regular, symmetrical. GI: Abdomen is round non-distended, Bowel sounds present X 4 quads. Reports upper abdominal pain, diarrhea, nausea, vomiting. : No signs and/or symptoms were reported regarding the genitourinary system. Derm: No signs and/or symptoms reported regarding the dermatologic system. Skin is intact, is healthy with good turgor, Skin is diaphoretic, Skin is normal, Skin temperature is warm. Musculoskeletal: No signs and/or symptoms reported regarding the musculoskeletal system. Circulation, motion, and sensation intact. Capillary refill < 3 seconds, Range of motion: intact in all extremities. Historical: - Allergies: 14:40 PENICILLINS; kc6 - PMHx: 14:40 Diverticulitis; Pancreatitis; kc6 - PSHx: 14:40 None; kc6 - Immunization history:: Adult Immunizations up to date. - Social history:: Smoking status: Patient denies any tobacco usage or history of. Screenin:42 [facility] ED Fall Risk Assessment (Adult) History of falling in the last 3 months, kc6 including since admission No falls in past 3 months (0 pts) Confusion or Disorientation No (0 pts) Intoxicated or Sedated No (0 pts) Impaired Gait No (0 pts) Mobility Assist Device Used No (0 pt) Altered Elimination No (0 pt) Score/Fall Risk Level 0 - 2 = Low Risk. Abuse screen: Denies threats or abuse. Denies injuries from another. Nutritional screening: No deficits noted. Tuberculosis screening: No symptoms or risk factors identified. Assessment: 14:42 Reassessment: please see triage assessment. [facility] 15:30 Reassessment: Patient appears in no apparent distress at this time. No changes from 6 previously documented assessment. Patient and/or family updated on plan of care and expected duration. Pain level reassessed. Patient is alert, oriented x 3, equal unlabored respirations, skin warm/dry/pink. 16:23 Reassessment: Patient appears in no apparent distress at this time. No changes from kc6 previously documented assessment. Patient and/or family updated on plan of care and expected duration. Pain level reassessed. Patient is alert, oriented x 3, equal unlabored respirations, skin warm/dry/pink. 17:18 Reassessment: Patient appears in no apparent distress at this time. No changes from kc6 previously documented assessment. Patient and/or family updated on plan of care and expected duration. Pain level reassessed. Patient is alert, oriented x 3, equal unlabored respirations, skin warm/dry/pink. 17:30 Reassessment: Patient appears in no apparent distress at this time. Patient and/or db family updated on plan of care and expected duration. Pain level reassessed. Patient is alert, oriented x 3, equal unlabored respirations, skin warm/dry/pink. Patient states feeling better. Patient states symptoms have improved. Neuro: No deficits noted. Level of Consciousness is awake, alert, obeys commands, Oriented to person, place, time, situation. Cardiovascular: Rhythm is regular. Vital Signs: 14:39 BP 135 / 84; Pulse 76; Resp 19 S; Temp 98.3(O); Pulse Ox 100% on R/A; Weight 117.93 kg kc6 (R); Height 5 ft. 10 in. (R); 15:30 BP 128 / 84; Pulse 68; Resp 17 S; Pulse Ox 97% on R/A; kc6 16:23 BP 132 / 72; Pulse 58; Resp 17 S; Pulse Ox 98% on R/A; kc6 17:18 BP 126 / 76; Pulse 64; Resp 16; Pulse Ox 98% on R/A; kc6 17:30 BP 128 / 74; Pulse 65; Resp 16; Pulse Ox 97% on R/A; db 14:39 Body Mass Index 37.31 (117.93 kg, 177.8 cm) kc6 ED Course: 14:36 Patient arrived in ED. eb 14:36 Michaela Sherman FNP-C is PHCP. kb 14:36 Adrián Quiroga MD is Attending Physician. kb 14:38 Barbara Jordan RN is Primary Nurse. kc6 14:40 Triage completed. kc6 14:40 Arm band placed on. kc6 14:42 Patient has correct armband on for positive identification. Bed in low position. Call kc6 light in reach. Side rails up X2. Client placed on continuous cardiac and pulse oximetry monitoring. NIBP monitoring applied. 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 14:42 Maintain EMS IV. Dressing intact. Good blood return noted. Site clean \T\ dry. Gauge \T\ jacob 6 site: 20G L Hand. 15:06 Inserted saline lock: 20 gauge in left antecubital area, using aseptic technique. Blood kc6 collected. 15:53 CT Abd/Pelvis - IV Contrast Only In Process Unspecified. EDMS 18:02 No provider procedures requiring assistance completed. IV discontinued, intact, kc6 bleeding controlled, No redness/swelling at site. Pressure dressing applied. Administered Medications: 15:06 Drug: NS 0.9% IV 1000 ml Route: IV; Rate: 1 bolus; Site: left antecubital; kc6 17:32 Follow up: Response: No adverse reaction; IV Status: Completed infusion; IV Intake: kc6 1000ml 15:06 Drug: Famotidine IVP 20 mg Route: IVP; Site: left antecubital; kc6 17:32 Follow up: Response: No adverse reaction kc6 15:06 Drug: Ondansetron IVP 4 mg Route: IVP; Site: left antecubital; kc6 17:32 Follow up: Response: No adverse reaction; Nausea is decreased; Vomiting decreased kc6 15:06 Drug: morphine IVP or IV 4 mg Route: IVP; Infused Over: 4 mins; Site: left antecubital; kc6 17:32 Follow up: Response: No adverse reaction; Pain is decreased; RASS: Alert and Calm (0) kc6 Medication: 17:30 VIS not applicable for this client. db Intake: 17:32 IV: 1000ml; Total: 1000ml. kc6 Outcome: 17:31 Discharge ordered by . kb 18:02 Discharged to home ambulatory. kc6 18:02 Condition: improved 18:02 Discharge instructions given to patient, Instructed on discharge instructions, follow up and referral plans. Demonstrated understanding of instructions, follow-up care. 18:02 Patient left the ED. kc6 Signatures: Dispatcher [employer] EDMS Michaela Sherman, KAYLA-C BALE SEWER-Alessandra Hinds Kaitlyn, RN RN kc6 Lindy Brizuela RN RN db
--- NOTE | 2022-12-27 17:32 | EDPHYS ---
Physician Documentation [facility] Name: Ming Odonnell Age: 47 yrs Sex: Male : 1975 Arrival Date: 12/27/2022 Time: 14:33 Bed 15 Private MD: ED Physician Adrián Quiroga HPI: 12/27 17:25 This 47 yrs old Male presents to ER via EMS with complaints of Syncope, kb Nausea/Vomiting, Abdominal Pain. 17:25 The patient presents to the emergency department with nausea, vomiting, diarrhea, kb abdominal pain. Onset: The symptoms/episode began/occurred 4 day(s) ago. Possible causes: unknown. The symptoms are aggravated by nothing. The symptoms are alleviated by nothing. Associated signs and symptoms: Pertinent positives: abdominal pain, diarrhea, nausea, vomiting. Severity of symptoms: At their worst the symptoms were moderate in the emergency department the symptoms are unchanged. The patient has experienced similar episodes in the past. The patient has not recently seen a physician. Pt reports n/v/d and abd pain for the last 4 days. States he stood up today and passed out. Denies headache, dizziness or injury. States he has had similar symptoms in the past, but nothing is ever found. . Historical: - Allergies: 14:40 PENICILLINS; kc6 - PMHx: 14:40 Diverticulitis; Pancreatitis; kc6 - PSHx: 14:40 None; kc6 - Immunization history:: Adult Immunizations up to date. - Social history:: Smoking status: Patient denies any tobacco usage or history of. ROS: 17:24 Constitutional: Negative for fever, chills, and weight loss. kb 17:24 Abdomen/GI: Positive for abdominal pain, nausea, vomiting, and diarrhea. 17:24 Neuro: Positive for syncope. 17:24 All other systems are negative. Exam: 17:24 Constitutional: This is a well developed, well nourished patient who is awake, alert, kb and in no acute distress. Head/Face: Normocephalic, atraumatic. ENT: Moist Mucous membranes Cardiovascular: Regular rate and rhythm with a normal S1 and S2. No gallops, murmurs, or rubs. No pulse deficits. Respiratory: Respirations even and unlabored. No increased work of breathing. Talking in full sentences Skin: Warm, dry with normal turgor. Normal color. MS/ Extremity: Pulses equal, no cyanosis. Neurovascular intact. Full, normal range of motion. Neuro: Awake and alert, GCS 15, oriented to person, place, time, and situation. Moves all extremities. Normal gait. 17:24 Abdomen/GI: Inspection: abdomen appears normal, Bowel sounds: normal, Palpation: soft, in all quadrants, moderate abdominal tenderness, in the left upper quadrant and left lower quadrant. 17:30 ECG was reviewed by the Attending Physician. kb Vital Signs: 14:39 BP 135 / 84; Pulse 76; Resp 19 S; Temp 98.3(O); Pulse Ox 100% on R/A; Weight 117.93 kg kc6 (R); Height 5 ft. 10 in. (R); 15:30 BP 128 / 84; Pulse 68; Resp 17 S; Pulse Ox 97% on R/A; kc6 16:23 BP 132 / 72; Pulse 58; Resp 17 S; Pulse Ox 98% on R/A; kc6 17:18 BP 126 / 76; Pulse 64; Resp 16; Pulse Ox 98% on R/A; kc6 17:30 BP 128 / 74; Pulse 65; Resp 16; Pulse Ox 97% on R/A; db 14:39 Body Mass Index 37.31 (117.93 kg, 177.8 cm) kc6 MDM: 14:36 Patient medically screened. kb 17:28 Differential diagnosis: Nonspecific abd pain, gastritis, pancreatitis, diverticulitis, kb viral gastroenteritis. Data reviewed: vital signs, nurses notes. Consideration of Admission/Observation Escalation of care including admission/observation considered. admission considered for syncope, but pt is feeling better after fluids and no longer lightheaded upon standing. Test considered but Not performed: CT: CT head considered, but pt has no neuro deficitis. Historians other than the Patient: EMS: [facility]. Counseling: I had a detailed discussion with the patient and/or guardian regarding the historical points, exam findings, and any diagnostic results supporting the discharge/admit diagnosis, lab results, radiology results, the need for outpatient follow up, a family practitioner, a incident manager, to return to the emergency department if symptoms worsen or persist or if there are any questions or concerns that arise at home. 12/27 14:45 Order name: CBC with Diff; Complete Time: 15:30 kb 12/27 14:45 Order name: CMP; Complete Time: 15:40 kb 12/27 14:45 Order name: Lipase; Complete Time: 15:40 kb 12/27 14:45 Order name: CT Abd/Pelvis - IV Contrast Only; Complete Time: 16:49 kb 12/27 17:17 Order name: EKG; Complete Time: 17:17 kb 12/27 14:45 Order name: IV Saline Lock; Complete Time: 14:46 kb 12/27 14:45 Order name: Labs collected and sent; Complete Time: 15:06 kb 12/27 17:17 Order name: EKG - Nurse/Tech; Complete Time: 17:32 kb 12/27 17:24 Order name: PO challenge; Complete Time: 17:38 kb EC:30 Rate is 66 beats/min. Rhythm is regular. QRS [place] is Normal. MD interval is normal at kb 160 msec. QRS interval is normal at 84 msec. QT interval is normal at 431 msec. Administered Medications: 15:06 Drug: NS 0.9% IV 1000 ml Route: IV; Rate: 1 bolus; Site: left antecubital; 6 17:32 Follow up: Response: No adverse reaction; IV Status: Completed infusion; IV Intake: kc6 1000ml 15:06 Drug: Famotidine IVP 20 mg Route: IVP; Site: left antecubital; 6 17:32 Follow up: Response: No adverse reaction kc6 15:06 Drug: Ondansetron IVP 4 mg Route: IVP; Site: left antecubital; 6 17:32 Follow up: Response: No adverse reaction; Nausea is decreased; Vomiting decreased kc6 15:06 Drug: morphine IVP or IV 4 mg Route: IVP; Infused Over: 4 mins; Site: left antecubital; 6 17:32 Follow up: Response: No adverse reaction; Pain is decreased; RASS: Alert and Calm (0) 6 Disposition Summary: 12/27/22 17:31 Discharge Ordered Location: Home kb Condition: Stable kb Diagnosis - Nausea with vomiting, unspecified kb - Diarrhea, unspecified kb - Syncope kb Followup: kb - With: Emergency Department - When: As needed - Reason: Worsening of condition Followup: kb - With: Private Physician - When: 2 - 3 days - Reason: Recheck today's complaints, Continuance of care, Re-evaluation by your physician Discharge Instructions: - Discharge Summary Sheet kb - Food Choices to Help Relieve Diarrhea, Adult kb - Nausea and Vomiting, Adult, [id number] kb - Diarrhea, Adult, [id number] kb Forms: - Medication Reconciliation Form kb - Thank You Letter kb - Antibiotic Education kb - Prescription Opioid Use kb - Patient Portal Instructions kb - Leadership Thank You Letter kb Prescriptions: - Zofran 4 mg Oral Tablet - take 1 tablet by ORAL route every 6 hours As needed; 20 tablet; Refills: 0, kb Product Selection Permitted - dicyclomine 20 mg Oral Tablet - take 1 tablet by ORAL route 4 times per day As needed; 20 tablet; Refills: 0, kb Product Selection Permitted Signatures: Dispatcher [employer] Michaela Acosta, CLOD PULLER-C KAYLA-Barbara Bedolla, RN RN kc6
[2022-12-27 19:06] VITALS: TEMP 98.3
[2022-12-27 19:24] VITALS: BP 128/74; O2SAT 97
--- NOTE | 2022-12-30 16:57 | EKG ---
Test Date: 2022-12-27 Test Time: 17:28:08 Flare Maker: MARK MEASUREMENT RESULTS: Intervals: Rate: 66 MO: 160 QRSD: 84 QT: 412 QTc: 431 Harvest: P: 68 MO: 160 QRS: -7 T: 49 INTERPRETIVE STATEMENTS: Normal sinus rhythm Normal ECG Compared to ECG 08/15/2021 10:10:04 No significant changes Electronically Signed On 12-30-22 16:47:29 CDT by Jesus Maldonado
== END 2022-12-27 18:02 | disposition home or self-care (01) ==
LOC: ER 14:33
DX: R11.2 Nausea with vomiting, unspecified (principal); R19.7 Diarrhea, unspecified; R55 Syncope and collapse
CPT/HCPCS: 36415; 74177; 80053; 83690; 85025; 93005; 96361; 96374; 96375; 99285; J2405; J7030; Q9967

== ENCOUNTER 2023-03-09 10:03 | Emergency (ER) | payer SELFPAY ==
--- OUTSIDE RECORDS SUMMARY | 2023-03-09 10:10 | XMS REPORT | Continuity of Care Document ---
:[address] [facility] t Address [address] [facility] [address] [place] [id number] Care Team Providers Name Role Phone Rick MEJIAS, [facility] Primary Care Physician [phone] Fernando MEJIAS, Miguelina Attending Clinician Gus Johnson MD Attending Clinician GUS JOHNSON Attending Clinician Unavailable GUS JOHNSON Admitting Clinician Unavailable Problems This patient has no known problems. Allergies, Adverse Reactions, Alerts Allergy Allergy Status Severity Reaction(s) Onset Inactive Treating Comm ents Source Name Type Date Date Clinician Penicill Propensi Active Anaphylaxis 0 U nivers in ty to 5-16 ity of adverse 00:00: [place] reaction 00 Medical s Branch PENICILL DRUG Active Anaphylaxis Uni vers IN INGREDI 5-16 ity of 00:00: [place] 00 Medical Branch Penicill Propensi Active 0 ins - ty to 7-19 CLASS adverse 00:00: reaction 00 to drug Penicill Propensi Active 0 ins ty to 2-24 adverse 00:00: reaction 00 to drug NO KNOWN Drug Active Univers ALLERGIE Class ity of S [facility] Social History Social Habit Start Date Stop Date Quantity Comments Source Exposure to 2022-08-30 2022-09-09 Not sure [facility] SARS-CoV-2 (event) 00:00:00 22:44:00 Medica l Branch Sex Ass[birth year] [facility] 00:00:00 00:00:00 Medical Branch Smoking Status Start Date Stop Date Source Tobacco smoking consumption [facility] unknown Branch Medications Ordered Filled Start Stop Current Ordering Indication Dosage Frequency Signature Comments Components Source Medication Medication Date Date Medication? Clinician (SIG) Name Name iopamidol 2022- No [id number] 100mL 100 mL, Univers (ISOVUE 09-10 Intravenou ity o f 370-500 mL) 05:15: 04:16 s, ONCE, 1 [place] injection 00 :00 dose, On Medica l 100 mL Thu Bells 09/10/22 at 0015, Routine morpHINE (4 2022- No 4mg 4 mg, Slow Univers mg/mL) 09-10 IV Push, ity of injection 4 05:00: 05:02 [place]CE[place] 1 [place] mg [place] :[place] dose, On Medical Thu Bells 09/10/22 at 0000, STAT levoFLOXaci 2022- No 500mg 500 mg, U nivers n 09-10 Oral, ity of (LEVAQUIN) 04:45: 04:41 ONCE, 1 [place] as tablet 500 00 :00 dose, On Medic al mg Thu Bells 09/09/22 at 2345, LICHA
Re ason for Anti-Infec tive: Empiric Therapy for Suspected Infection< br>Empiric Therapy Site: Abdominal< br>Duratio n of therapy: 72 hours NaCl 0.9% 2022- No 1000mL at 999 Uni vers (NS) bolus 09-10 mL/hr, ity of infusion 04:45: 05:03 1,000 mL, Rob as 1,000 mL 00 :00 IV Medical Piggyback, Branch ONCE, 1 dose, On Thu09/09/22 at 2345, STAT famotidine 2022- No 20mg 20 mg, Univ ers (PEPCID 09-10 Slow IV ity of (PF)) 04:00: 04:02 Push, [place] injection 00 :00 ONCE, 1 Medical 20 mg dose, On Branch 09/09/22 at 2300, LICHA morpHINE (4 2022- No 4mg 4 mg, Slow Univers mg/mL) 09-10 IV Push, ity of injection 4 04:00: 04:03 ONCE, 1 [place] mg 00 :00 dose, On Medical Tue Branch 09/09/22 at 2300, STAT ondansetron 2022-0 202- No 4mg 4 mg, Slow Univers (ZOFRAN 09-10 IV Push, ity of (PF)) 04:00: 04:02 ONCE, 1 [place] injection 4 00 :00 dose, On Medi jian mg Tue Branch 09/09/22 at 2300, LICHA dicyclomine 2022-0 Yes [id number] 20mg Take 1 Univers 20 mg 5-16 tablet by ity of tablet 00:00: mouth 3 00 (three) Medical times Branch daily as needed for Abdominal pain. proMETHazin 2022-0 Yes [id number] 12.5mg Take 0.5 Univers e 25 mg 5-16 tablets by ity of tablet 00:00: mouth [place] 00 every 6 Medical (six) Branch hours as needed for Nausea and Vomiting (N/V). dicyclomine 2022-0 Yes [id number] 20mg Take 1 Univers 20 mg 5-16 tablet by ity of tablet 00:00: mouth 3 [place] 00 (three) Medical times Branch daily as needed for Abdominal pain. proMETHazin 2022-0 Yes [id number] 12.5mg Take 0.5 Univers e 25 mg 5-16 tablets by ity of tablet 00:00: mouth [place] 00 every 6 Medical (six) Branch hours as needed for Nausea and Vomiting (N/V). levoFLOXaci 2022-0 2022- No [id number] 500mg Take 1 Univers n 5-16 05-24 tablet by ity of (LEVAQUIN) 00:00: 04:59 mouth [place] 500 mg 00 :00 the Medical tablet morning Branch for 7 days. APPLY 2-3 2021-0 No [id number] TIMES DAILY 7-19 TO AFFECTED 00:00: AREA(S). 00 Ciprodex 2020-0 No 4% 0.3 %-0.1 % 7-20 ear 00:00: drops,suspe 00 nsion doxycycline 0 No 1mg hyclate 100 7-20 mg capsule 00:00: 00 Vital Signs Vital Name Observation Time Observation Value Comments Source Heart rate 2022-09-10 03:51:00 65 /min [facility] [place] [facility] Body temperature 2022-09-10 03:51:00 37 Kecia [facility] Body height 2022-09-10 03:51:00 177.8 cm [facility] Body weight 2022-09-10 03:51:00 113.399 kg [facility] BMI 2022-09-10 03:51:00 35.87 kg/m2 [facility] Systolic blood 2022-09-10 03:50:00 137 mm[Hg] Univer sity [facility] Diastolic blood 2022-09-10 03:50:00 76 mm[Hg] [facility] Respiratory rate 2022-09-10 03:50:00 18 /min [facility] Oxygen saturation in 2022-09-10 03:50:00 98 /min [facility] Arterial blood by [facility] Pulse oximetry Branch BP Systolic 2021-11-12 09:34:00 97 mm[Hg] BP [...] Procedure Date / Time Performed Performing Clinician Sour e COMP. METABOLIC PANEL 2022-09-10 03:57:[address] [facility] ([id number]) [facility] CBC WITH DIFF 2022-09-10 03:57:00 Gus Johnson [place] f [facility] LIPASE 2022-09-10 03:57:00 Gus Johnson [place] o [facility] CONSENT/REFUSAL FOR 2022-09-10 03:41:34 Doctor Unassigned, No [facility] [place] DIAGNOSIS AND Name [facility] TREATMENT NOTICE OF PRIVACY 2022-09-10 03:40:44 Doctor Unassigned, No [facility] [place] PRACTICES Name [facility] Plan of Care Planned Activity Planned Date Details Comments Source Goal Plan of Care Note [code = 30585-9] Goal Plan of Care Note [code = 85139-0] Goal Plan of Care Note [code = 59670-2] Goal Plan of Care Note [code = 92672-0] Goal Plan of Care Note [code = 57059-3] Goal Plan of Care Note [code = 75004-9] Goal Plan of Care Note [code = 05973-2] Goal Plan of Care Note [code = 52292-4] Goal Plan of Care Note [code = 00376-5] Goal Plan of Care Note [code = 60304-5] Goal Plan of Care Note [code = 84650-0] Goal Plan of Care Note [code = 10708-3] Goal Plan of Care Note [code = 97197-9] Goal Plan of Care Note [code = 77479-7] Encounters Start End Encounter Admission Attending Care Care Encounter Source Date/Time Date/Time Type Type Clinicians Facility Department ID 2022-10-09 2022-10-09 [facility] [id number] Univers 00:00:00 00:00:00 Akshata MULTISPEC [id number] ity of IALTY [id number] [facility] [id number] [facility] AND [facility]WIN 072 Branch DIABETES CLINIC 2022-09-09 2022-09-10 Emergency [facility] [id number] Univers 22:42:00 00:10:00 Gus DAVIS [id number] i ty of FADI 4.2.7.2.686 [facility] [id number] [facility] 084 Branch 2022-09-092022-09-10 Emergency X ELIZABETH, [facility] ERT [id number] Univers 22:42:00 00:10:00 GUS bashir [facility] 2022-07-24 2022-07-24 Outpatient SFA SFA [id number] Guillaume 11:23:25 11:23:25 0330 F Jarett 2021-11-12 2021-11-12 Outpatient [id number] 00:00:00 00:00:00 Visit [id number] Results Test Description Test Time Test Comments Results Result Comments Source COMP. METABOLIC PANEL (75928) 2022-09-10 04:28:30 Test Item Value Reference Range Interpretation Comme nts NA (test code = 5444071857) 139 mmol/L 135-145 K (test code = 5864754840) 4.1 mmol/L 3.5-5.0 CL (test code = 3261568180) 106 mmol/L 98-108 CO2 TOTAL (test code = 25 mmol/L 23-31 8973745460) AGAP (test code = 0976553154) 8 2-16 BUN (test code = 7111859431) 11 mg/dL 7-23 GLUCOSE (test code = 8419513904) 108 mg/dL 70-110 CREATININE (test code = 0.89 mg/dL 0.60-1.25 3295452616) TOTAL BILI (test code = 0.8 mg/dL 0.1-1.1 4042998680) CALCIUM (test code = 8545646450) 8.7 mg/dL 8.6-10.6 T PROTEIN (test code = 7.5 g/dL 6.3-8.2 8055487320) ALBUMIN (test code = 5759045569) 4.2 g/dL 3.5-5.0 ALK PHOS (test code = 9742720183) 53 U/L 34-122 ALTv (test code = 1742-6) 19 U/L 5-50 AST(SGOT) (test code = 28 U/L 13-40 9704752913) eGFR (test code = 7572166694) 92.4 mL/min/1.73m2 ANA (test code = ANA) [...] or urine or abnormalities in imaging tests). [facility] Test Item Value Reference Range Interpretation Comments LIPASE (test code = 4471783211) 145 U/L 0-220 Lab Interpretation (test code = Normal 71732-7) [facility] [id number] 04:14:27 Test Item Value Reference Range Interpretation Comments WBC (test code = 13.93 See_Comment H [Automated 0255-2) message] The sy stem which generated this result transmitted reference range : 4.20 - 10.70 10*3/?L. The reference range was not used to interpret this result as normal/abnormal . RBC (test code = 4.40 See_Comment [Automated 272-8) message] The sy stem which generated this [...] RDW-SD (test code = 44.7 fL 38.5-51.6 39439-3) RDW-CV (test code = 12.8 % 12.1-15.4 788-0) PLT (test code = 226 See_Comment [Automated 777-3) message] The sy stem which generated this result transmitted reference range : 150 - 328 10*3/ ?L. The reference r shaylee was not used to interpret this result as normal/abnormal . MPV (test code = 11.2 fL 9.8-13.0 68433-5) NRBC/100 WBC (test 0.0 See_Comment [Automat ed code = 6195059138) message] The system which generated this result transmitted reference range : 0.0 - 10.0 /100 WBCs. The refer ence range was not u sed to interpret th is result as normal/abnormal . NRBC x10^3 (test code See_Comment [Auto mated = 0665977022) message] The s ystem which generated this result transmitted reference range : 10*3/?L. The reference range was not used to interpret this result as normal/abnormal . GRAN MAT (NEUT) % 68.9 % (test code = 770-8) IMM GRAN % (test code 0.40 % = 7736441890) LYMPH % (test code = 23.3 % 736-9) MONO % (test code = 6.6 % 5905-5) EOS % (test code = 0.4 % 713-8) BASO % (test code = 0.4 % 706-2) GRAN MAT x10^3(ANC) 9.61 10*3/uL 1.99-6.95 H (test code = 9529400463) IMM GRAN x10^3 (test 0.06 10*3/uL 0.00-0.06 code = 9573523478) LYMPH x10^3 (test code 3.24 10*3/uL 1.09-3.23 H = 731-0) MONO x10^3 (test code 0.92 10*3/uL 0.36-1.02 = 742-7) EOS x10^3 (test code = 0.05 10*3/uL 0.06-0.53 L 711-2) BASO x10^3 (test code 0.05 10*3/uL 0.01-0.09 = 704-7) Lab Interpretation Abnormal (test code = 35115-8) [facility] [id number] 00:00:00 Test Item Value Reference Range Interpretation Comments CHOLESTEROL (test code = 2210) 199 MG/DL TRIGLYCERIDES (test code = 2232) 172 MG/DL HDL CHOLESTEROL (test code = 2220) 33 MG/DL CALC LDL CHOL (test code = 2237) 135 MG/DL RISK RATIO LDL/HDL (test code = 4.09 RATIO 2238) BLOOD GROUP (ABO) AND RH [id number] 00:00:00 Test Item Value Reference Range Interpretation Comments BLOOD TYPE AND RH (test code = A POSITIVE 3901) BLOOD GROUP (ABO) AND RH [id number] 00:00:00 Test Item Value Reference Range Interpretation Comments BLOOD TYPE AND RH (test code = A POSITIVE 3901) CBC W/AUTO [id number] 00:00:00 Test Item Value Reference Range Interpretation [...] NUCLEATED RBCS (test code = 0.00 K/UL 11844) HEMOGLOBIN [id number] 00:00:00 Test Item Value Reference Range Interpretation Comments HEMOGLOBIN A1c (test code = 30876) 5.7 % HEMOGLOBIN [id number] 00:00:00 Test Item Value Reference Range Interpretation Comments HEMOGLOBIN A1c (test code = 96945) 5.7 % LIPID [id number] 00:00:00 Test Item Value Reference Range Interpretation Comments CHOLESTEROL (test code = 2210) 221 MG/DL TRIGLYCERIDES (test code = 2232) 154 MG/DL HDL CHOLESTEROL (test code = 2220) 35 MG/DL CALC LDL CHOL (test code = 2237) 157 MG/DL RISK RATIO LDL/HDL (test code = 4.49 RATIO 2238) COMPREHENSIVE METABOLIC [id number] 00:00:00 Test Item Value Reference Range Interpretation Comments GLUCOSE (test code = 2217) 107 MG/DL BUN (test code = 2208) 14 MG/DL CREATININE (test code = 2214) 1.13 MG/DL eGFR AMER. (test code 91 ML/MIN/1.73 = 51900) eGFR NON- AMER. (test 79 ML/MIN/1.73 code = 35900) CALC BUN/CREAT (test code = 12 RATIO 2235) SODIUM (test code = 2231) 138 MEQ/L POTASSIUM (test code = 2228) 4.3 MEQ/L CHLORIDE (test code = 2215) 104 MEQ/L CARBON DIOXIDE (test code = 24 MEQ/L 2206) CALCIUM (test code = 2209) [...] ALT (test code = 2219) 19 U/L [id number] 00:00:00 Test Item Value Reference Range Interpretation Comments AMYLASE (test code = 2204) 59 U/L [id number] 00:00:00 Test Item Value Reference Range Interpretation Comments LIPASE (test code = 2057) 74 U/L [id number] 00:00:00 Test Item Value Reference Range Interpretation Comments LIPASE (test code = 2057) 74 U/L CBC W/AUTO [id number] 00:00:00 Test Item Value Reference Range Interpretation [...] NUCLEATED RBCS (test code = 0.00 K/UL 16854) COMPREHENSIVE METABOLIC [id number] 00:00:00 Test Item Value Reference Range Interpretation Comments GLUCOSE (test code = 2217) 95 MG/DL BUN (test code = 2208) 14 MG/DL CREATININE (test code = 2214) 0.88 MG/DL eGFR AMER. (test code 122 ML/MIN/1.73 = 74591) eGFR NON- AMER. (test 105 ML/MIN/1.73 code = 30023) CALC BUN/CREAT (test code = 16 RATIO [...] ALT (test code = 2219) 18 U/L [id number] 00:00:00 Test Item Value Reference Range Interpretation Comments TSH, THIRD GENERATION (test code 3.110 UIU/ML = 2821) [id number] 00:00:00 Test Item Value Reference Range Interpretation Comments TSH, THIRD GENERATION (test code 3.110 UIU/ML = 2821) LIPID [id number] 00:00:00 Test Item Value Reference Range Interpretation Comments CHOLESTEROL (test code = 2210) 214 MG/DL TRIGLYCERIDES (test code = 2232) 182 MG/DL HDL CHOLESTEROL (test code = 2220) 35 MG/DL CALC LDL CHOL (test code = 2237) 147 MG/DL RISK RATIO LDL/HDL (test code = 4.20 RATIO 2238)"
--- NOTE | 2023-03-09 11:24 | RAD REPORT ---
EXAM DESCRIPTION: RAD - Humerus Right - 03/09/2023 11:16 am CLINICAL HISTORY: PAIN COMPARISON: Forearm Right dated 03/09/2023 TECHNIQUE: Right humerus, 3 views. FINDINGS: No fracture is identified. There is no dislocation or periosteal reaction noted. No foreig n body or other soft tissue abnormality. IMPRESSION: Negative right humerus examination.
--- NOTE | 2023-03-09 11:24 | RAD REPORT ---
EXAM DESCRIPTION: RAD - Forearm Right - 03/09/2023 11:16 am CLINICAL HISTORY: PAIN COMPARISON: No comparisons TECHNIQUE: Right forearm, 2 views. FINDINGS: No fracture is identified. There is no dislocation or periosteal reaction noted. No foreign body or other soft tissue abnormality. IMPRESSION: Negative right forearm examination.
--- NOTE | 2023-03-09 11:38 | EDPHYS ---
Physician Documentation [facility] Name: Ming Odonnell Age: 47 yrs Sex: Male : 1975 Arrival Date: 03/09/2023 Time: 10:03 Bed 14 Private MD: ED Physician Ricardo Ambrocio HPI: 03/09 11:32 This 47 yrs old Male presents to ER via Ambulatory with complaints of arm pain. rn 11:32 The patient or guardian complains of pain, that is acute. The complaints affect the rn right bicep and forearm. Onset: The symptoms/episode began/occurred this morning. Modifying factors: The symptoms are alleviated by nothing. the symptoms are aggravated by lifting weight, bending arm. Severity of symptoms: At their worst the symptoms were moderate, in the emergency department the symptoms are unchanged. The patient has not experienced similar symptoms in the past. Patient reports was trying to lift a bed this morning, felt a pop in the right arm, hurts in the right forearm extensor compartment and distal bicep area. No discoloration. Has range of motion just painful. No weakness.. Historical: - Allergies: 10:28 PENICILLINS; ap3 - PMHx: 10:28 Pancreatitis; Diverticulitis; ap3 - Immunization history:: Client reports receiving the 2nd dose of the Covid vaccine. - Social history:: Smoking status: Patient/guardian denies using tobacco, Stopped _ months ago 5. - Family history:: not pertinent. - Hospitalizations: : No recent hospitalization is reported. ROS: 11:32 Constitutional: Negative for fever, chills, and weight loss, Neck: Negative for injury, rn pain, and swelling, Cardiovascular: Negative for chest pain, palpitations, and edema, Respiratory: Negative for shortness of breath, cough, wheezing, and pleuritic chest pain, Abdomen/GI: Negative for abdominal pain, nausea, vomiting, diarrhea, and constipation, MS/Extremity: Positive for right arm injury and pain Skin: Negative for injury, rash, and discoloration, Neuro: Negative for headache, weakness, numbness, tingling, and seizure, Exam: 11:32 Constitutional: This is a well developed, well nourished patient who is awake, alert, rn and in no acute distress. Cardiovascular: Regular rate and rhythm. No pulse deficits. Respiratory: No increased work of breathing, no retractions or nasal flaring. MS/ Extremity: Pulses equal, no cyanosis. Neurovascular intact. Painful flexion of the right elbow and arm. No swelling or masses. No ecchymosis. Mild tenderness extensor compartment of forearm as well as bicep region. Vital Signs: 10:27 Pulse 63; Resp 16; Temp 97.5; Pulse Ox 96% ; Weight 113.4 kg; ap3 10:29 BP 135 / 56; ap3 10:48 BP 130 / 62; Pulse 65; Resp 18; Pulse Ox 97% on R/A; ko1 11:54 BP 126 / 64; Pulse 68; Resp 18; Pulse Ox 99% ; ko1 MDM: 10:07 Patient medically screened. rn 11:34 Differential diagnosis: closed fracture, Avulsion fracture. Tendon injury. Muscle rn injury. Data reviewed: vital signs, nurses notes, radiologic studies, plain films, and as a result, I will discharge patient. Counseling: I had a detailed discussion with the patient and/or guardian regarding the historical points, exam findings, and any diagnostic results supporting the discharge/admit diagnosis, radiology results, the need for outpatient follow up, to return to the emergency department if symptoms worsen or persist or if there are any questions or concerns that arise at home. Special discussion: I discussed with the patient/guardian in detail that at this point there is no indication for admission to the hospital. It is understood, however, that if the symptoms persist or worsen the patient needs to return immediately for re-evaluation. Further emergent ED testing is not indicated at this point in time. I discussed with the patient/guardian in detail the need to arrange with the PCP or specialist further outpatient testing, MRI, Based on the history and exam findings, there is no indication for further emergent testing or inpatient evaluation. I discussed with the patient/guardian the need to see the orthopedic surgeon for further evaluation of the symptoms. ED course: Discussed case with patient, most likely a partial tear of muscle or tendon. Patient heard a pop and x-rays negative. Recommend sling and rest and if does not improve shortly will need orthopedic follow-up with MRI to further evaluate injury. Discharge image I have personally reviewed all of the results, including but not limited to imaging deemed necessary to safely discharge this patient at this time. All results given to and printed out for patient. I personally went over all the results with the patient and answered all questions. Patient will follow-up with PCP and or specialist as discussed. Return precautions given and understood.. 03/09 10:21 Order name: XRAY Humerus RIGHT; Complete Time: : rn 03/09 10:21 Order name: XRAY Forearm RIGHT; Complete Time: 11: rn 03/09 11:32 Order name: Sling; Complete Time: 11:33 rn Administered Medications: No medications were administered Disposition Summary: 03/09/23 11:38 Discharge Ordered Notes: Location: Home rn Problem: new rn Symptoms: have improved rn Condition: Stable rn Diagnosis - Strain of other muscles, fascia and tendons at shoulder and upper arm level, right rn arm Followup: rn - With: Neeraj Wilder MD - When: 7 - 10 days - Reason: Recheck today's complaints, Re-evaluation by your physician Discharge Instructions: - Discharge Summary Sheet rn - Muscle Strain rn - How to Use a Sling rn Forms: - Medication Reconciliation Form rn - Thank You Letter rn - Antibiotic alternative education teacher - Prescription Opioid Use rn - Patient Portal Instructions rn - Leadership Thank You Letter rn Prescriptions: - Cyclobenzaprine 10 mg Oral tablet - take 1 tablet ORAL route every 8 hours As needed; 15 tablet; Refills: 0, rn Product Selection Permitted Signatures: Dispatcher [employer] EDRicardo Lee MD MD rn Prokisch, Amanda, RN RN ap3 Corrections: (The following items were deleted from the chart) 10:29 10:28 PMHx: Pancreatitis; ap3 ap3 11:35 11:32 Constitutional: This is a well developed, well nourished patient who is awake, rn alert, and in no acute distress. rn
--- NOTE | 2023-03-09 11:38 | ER ---
Nurse's Notes [facility] Name: Ming Odonnell Age: 47 yrs Sex: Male : 1975 Arrival Date: 03/09/2023 Time: 10:03 Bed 14 Private MD: Diagnosis: Strain of other muscles, fascia and tendons at shoulder and upper arm level, right arm Presentation: 03/09 10:27 Chief complaint: Patient states: he was moving his bed, when he heard a "pop" in his ap3 right elbow, and has been having pain in the right elbow since. Patient reports the pain varies. Coronavirus screen: At this time, the client does not indicate any symptoms associated with coronavirus-19. Ebola Screen: No symptoms or risks identified at this time. Initial Sepsis Screen: Does the patient meet any 2 criteria? No. Patient's initial sepsis screen is negative. Does the patient have a suspected source of infection? No. Patient's initial sepsis screen is negative. Risk Assessment: Do you want to hurt yourself or someone else? Patient reports no desire to harm self or others. Onset of symptoms was March 09, 2023. 10:27 Method Of Arrival: Ambulatory ap3 10:27 Acuity: CELENA 3 ap3 Triage Assessment: 10:29 General: Appears in no apparent distress. Behavior is calm, cooperative, appropriate ap3 for age. Pain: Complains of pain in right elbow Pain began suddenly. Neuro: Level of Consciousness is awake, alert, obeys commands, Oriented to person, place, time, situation, Appropriate for age. Cardiovascular: Patient's skin is warm and dry. Respiratory: Airway is patent Respiratory effort is even, unlabored, Respiratory pattern is regular, symmetrical. Historical: - Allergies: 10:28 PENICILLINS; ap3 - PMHx: 10:28 Pancreatitis; Diverticulitis; ap3 - Immunization history:: Client reports receiving the 2nd dose of the Covid vaccine. - Social history:: Smoking status: Patient/guardian denies using tobacco, Stopped _ months ago 5. - Family history:: not pertinent. - Hospitalizations: : No recent hospitalization is reported. Screenin:[facility] ED Fall Risk Assessment (Adult) History of falling in the last 3 months, ap3 including since admission No falls in past 3 months (0 pts). Abuse screen: Denies threats or abuse. Nutritional screening: No deficits noted. Tuberculosis screening: No symptoms or risk factors identified. Assessment: 10:48 General: Appears in no apparent distress. Behavior is calm, cooperative, appropriate ko1 for age. Pain: Complains of pain in right arm and right elbow. Neuro: No deficits noted. Cardiovascular: No deficits noted. Respiratory: No deficits noted. GI: No deficits noted. : No deficits noted. EENT: No deficits noted. Derm: No deficits noted. Musculoskeletal: Reports pain in right arm and right elbow. Vital Signs: 10:27 Pulse 63; Resp 16; Temp 97.5; Pulse Ox 96% ; Weight 113.4 kg; ap3 10:29 BP 135 / 56; ap3 10:48 BP 130 / 62; Pulse 65; Resp 18; Pulse Ox 97% on R/A; ko1 11:54 BP 126 / 64; Pulse 68; Resp 18; Pulse Ox 99% ; ko1 ED Course: 10:05 Patient arrived in ED. rg4 10:07 Ricardo Ambrocio MD is Attending Physician. rn 10:28 Triage completed. ap3 10:30 Pari Cruz, ANDREW is Primary Nurse. ko1 10:30 Arm band placed on. ap3 10:48 Patient has correct armband on for positive identification. Bed in low position. Call ko1 light in reach. Pulse ox on. NIBP on. Door closed. Noise minimized. 10:48 No provider procedures requiring assistance completed. Patient did not have IV access ko1 during this emergency room visit. 11:14 X-ray completed. Portable x-ray completed in exam room. Patient tolerated procedure mh1 well. 11:17 XRAY Humerus RIGHT In Process Unspecified. EDMS 11:17 XRAY Forearm RIGHT In Process Unspecified. EDMS 11:28 Provided Education on: NA. ko1 11:37 Neeraj Wilder MD is Referral Physician. rn 11:54 Sling applied to right arm. ko1 Administered Medications: No medications were administered Medication: 10:48 VIS not applicable for this client. ko1 Outcome: 11:38 Discharge ordered by . rn 11:54 Discharged to home ambulatory, ko1 11:54 Condition: stable 11:54 Discharge instructions given to patient, family, Instructed on discharge instructions, follow up and referral plans. medication usage, Demonstrated understanding of instructions, follow-up care, medications, Prescriptions given X 1, 11:55 Patient left the ED. ko1 Signatures: Dispatcher [employer] EDMS Mitul Oksana 1 Ricardo Ambrocio MD MD rn Garcia, Rubi rg4 Adela Hermosillo RN RN ap3 Pari Cruz RN RN ko1 Corrections: (The following items were deleted from the chart) 10:29 10:28 PMHx: Pancreatitis; ap3 ap3
[2023-03-09 12:09] VITALS: TEMP 97.5
[2023-03-09 12:15] VITALS: BP 126/64; O2SAT 99
== END 2023-03-09 11:55 | disposition home or self-care (01) ==
LOC: ER 10:03
DX: S46.811A Strain of other muscles, fascia and tendons at shoulder and upper arm level, right arm, initial encounter (principal)
CPT/HCPCS: 99284

== ENCOUNTER → 2023-07-09 | Emergency (ER) | payer OTHER ==
[~2023-07-09] MED LIST: CIPROFLOXACIN HCL 500 MG TAB ONE; MORPHINE 4 MG/ML SYR ONE; NA CHLORIDE 0.9% 1,000 ML ONE; ONDANSETRON 4 MG/2 ML VIAL ONE; metroNIDAZOLE 500 MG TABLET ONE
--- OUTSIDE RECORDS SUMMARY | 2023-07-09 09:09 | XMS REPORT | Continuity of Care Document ---
Author Name Unknown Address [address] [facility] [address] [place] [address] [facility] thconnect Address [address] [facility] [address] [place] [address] Care Team Providers Care Petrophysicist Name Role Phone [facility] Primary Car e Physician ANA LILIA EVANS Attending Clinician Unavailable TIFFANY KUMAR Attending Clinician Unavailable ANIBAL BENTON Attending Clinician Unavailab KARIME Hurt Attending Clinician Unavailable MALATHI SHELTON Attending Clinician Unavailable RADHA DOMINGUEZ Attending Clinician Unavailable KAILA TORRES Attending Clinician Unava ilnickolas [place] Attending Clinician Unavailable LAB90 Attending Clinician Unavailable Fernando MEJIAS, Miguelina Attending Clinician [phone] Gus Tadeo MD Attending Clinician [phone] GUS TADEO Attending Clinician Unavailable BROOKE Attending Clinician Unavailable GUS TADEO Admitting Clinician Unavailable BROOKE Admitting Clinician Unavailable Payers Payer Name Policy Type Policy Number Effective Date Expirati on Date Source NEVILLE NIELSON [facility] O WREATH MAKER 94 [place] 9 [id number] 2023 00:00:00 Problems Condition Name Condition Details Condition Category Status Onset Date Resolution Date Last Treatment Date Treating Clinician Comments Source Lateral epicondyli tis of both elbows Lateral epicondyli tis of both elbows Disease Active 06-24 00:00: 00 Merna Seybold - Externa l Allergies, Adverse Reactions, Alerts Allergy Name Allergy Type Status Severity Reaction(s) Onset Date Inactive Date Treating Clinician Comments Source Penicill ins Propensi ty to adverse reaction s Active Swelling - 00:00: 00 Throat swells Merna Riddle - Externa l PENICILL IN DRUG INGREDI Active Anaphylaxis 5-16 00:00: 00 [facility] Penicill in Propensi ty to adverse reaction s Active Anaphylaxis 5-16 00:00: 00 [facility] Penicill ins - CLASS Propensi ty to adverse reaction to drug Active 7-19 00:00: 00 Penicill ins Propensi ty to adverse reaction to drug Active 2-24 00:00: 00 NO KNOWN ALLERGIE S Drug Class Active [facility] Social History Social Habit Start Date Stop Date Quantity Comments Source Sexual orientation Althea brett Riddle - External History of tobacco use Cigarette Smoker Merna lozada - External Alcohol intake 2023-07-01 00:00:00 2023-07-01 00:00:00 Ex-drinker (finding) Merna Riddle - External Tobacco Comment 2023-05-19 00:00:00 2023-05-19 00:00:00 Stopped cigarettes 9 months ago Merna Riddle - External History of Social function 2023-05-19 00:00:00 2023-05-19 00:00:00 Merna Riddle - External Exposure to SARS-CoV-2 (event) 2022-08-30 00:00:00 2022-09-09 22:44:00 Not sure [facility] Sex Assigned At 1975 00:00:00 1975 00:00:00 Merna Riddle - External Smoking Status Start Date Stop Date Source Tobacco smoking consumption unknown [facility] Ex-smoker 2023-05-19 00:00:00 2023-05-19 00:00:00 Merna Riddle - External Medications Ordered Medication Name Filled Medication Name Start Date Stop Date Current Medication? Ordering Clinician Indication Dosage Frequency Signature (SIG) Comments Components Source Loteprednol Etabonate (Lotemax) 0.5 % ophthalmic Suspension 00:00: 00 Yes [id number] 1[drp] Place 1 drop into the left eye 2 times daily Instill one drop in both eyes four times a day x 7 days. Merna [place] - Ramonaa l Cefdinir 300 MG oral Capsule 05-20 00:00: 00 Yes [id number] 300mg Take 1 capsule (300 mg total) by mouth 2 times daily. Merna Riddle - Externa l Ofloxacin 0.3 % otic Solution 05-20 00:00: 00 Yes [id number] 5[drp] Place 5 drops into the right ear 2 times daily. Merna [place] - Ramonaa l Cefdinir 300 MG oral Capsule 05-20 00:00: 00 06-24 00:00 :00 No [id number] 300mg Take 1 capsule (300 mg total) by mouth 2 times daily. Merna [place] Bette Greenea l Ofloxacin 0.3 % otic Solution 05-20 00:00: 00 06-24 00:00 :00 No [id number] 5[drp] Place 5 drops into the right ear 2 times daily. Merna Kumar l iopamidol (ISOVUE 370-500 mL) injection 100 mL 09-10 05:15: 00 09-10 04:16 :00 No [id number] 100mL 100 mL, Intravenou s, ONCE, 1 dose, On Thu09/10/22 at 0015, Routine [facility] morpHINE (4 mg/mL) injection 4 mg 09-10 05:00: 00 09-10 05:02 :00 No 4mg 4 mg, Slow IV Push, ONCE, 1 dose, On Thu09/10/22 at 0000, STAT [facility] levoFLOXaci n (LEVAQUIN) tablet 500 mg 09-10 04:45: 00 09-10 04:41 :00 No 500mg 500 mg, Oral, ONCE, 1 dose, On Thu09/09/22 at 2345, LICHA
Re ason for Anti-Infec tive: Empiric Therapy for Suspected Infection< br>Empiric Therapy Site: Abdominal< br>Duratio n of therapy: 72 hours [facility] NaCl 0.9% (NS) bolus infusion 1,000 mL 09-10 04:45: 00 09-10 05:03 :00 No 1000mL at 999 mL/hr, 1,000 mL, IV Piggyback, ONCE, 1 dose, On Thu09/09/22 at 2345, STAT [facility] famotidine (PEPCID (PF)) injection 20 mg 09-10 04:00: 00 09-10 04:02 :00 No 20mg 20 mg, Slow IV Push, ONCE, 1 dose, On Thu09/09/22 at 2300, LICHA [facility] morpHINE (4 mg/mL) injection 4 mg 09-10 04:00: 00 09-10 04:03 :00 No 4mg 4 mg, Slow IV Push, ONCE, 1 dose, On Thu09/09/22 at 2300, STAT [facility] ondansetron (ZOFRAN (PF)) injection 4 mg 09-10 04:00: 00 09-10 04:02 :00 No 4mg 4 mg, Slow IV Push, ONCE, 1 dose, On Thu09/09/22 at 2300, LICHA [facility] dicyclomine 20 mg tablet 09-09 00:00: 00 Yes [id number] 20mg Take 1 tablet by mouth 3 (three) times daily as needed for Abdominal pain. [facility] proMETHazin e 25 mg tablet 09-09 00:00: 00 Yes [id number] 12.5mg Take 0.5 tablets by mouth every 6 (six) hours as needed for Nausea and Vomiting (N/V). [facility] dicyclomine 20 mg tablet 09-09 00:00: 00 Yes [id number] 20mg Take 1 tablet by mouth 3 (three) times daily as needed for Abdominal pain. [facility] proMETHazin e 25 mg tablet 09-09 00:00: 00 Yes [id number] 12.5mg Take 0.5 tablets by mouth every 6 (six) hours as needed for Nausea and Vomiting (N/V). [facility] levoFLOXaci n (LEVAQUIN) 500 mg tablet 09-09 00:00: 00 09-17 04:59 :00 No [id number] 500mg Take 1 tablet by mouth in the morning for 7 days. [facility] APPLY 2-3 TIMES DAILY TO AFFECTED AREA(S). 11-12 00:00: 00 No [id number] Ciprodex 0.3 %-0.1 % ear drops,suspe nsion 11-13 00:00: 00 No 4% doxycycline hyclate 100 mg capsule 11-13 00:00: 00 No 1mg Vital Signs Vital Name Observation Time Observation Value Comments S ource Diastolic blood pressure 2023-06-24 15:18:00 68 mm[Hg] Merna linao ld - External Heart rate 2023-06-24 15:18:00 74 /min Kelse bashir Wheatold - External Body temperature 2023-06-24 15:18:00 36.67 Kecia Mernalety Wheatold - External Respiratory rate 2023-06-24 15:18:00 16 /min Merna Riddle - External Body height 2023-06-24 15:18:00 177.8 cm Anisa Wheatold - External Body weight 2023-06-24 15:18:00 126.1 kg Anisa haskins Seybold - External BMI 2023-06-24 15:18:00 39.89 kg/m2 Anisa haskins Seybold - External Oxygen saturation in Arterial blood by Pulse oximetry 2023-06-24 15:18:00 98 /min Merna Wheato ld - External Systolic blood pressure 2023-06-24 15:18:00 118 mm[Hg] Merna Ansariybo ld - External Systolic blood pressure 2023-05-20 16:14:00 120 mm[Hg] Merna Wheato ld - External Diastolic blood pressure 2023-05-20 16:14:00 78 mm[Hg] Merna linao ld - External Heart rate 2023-05-20 16:14:00 67 /min Kelse y Seybold - External Body temperature 2023-05-20 16:14:00 36.5 Kecia Merna Seybold - External Body height 2023-05-20 16:14:00 177.8 cm Anisa haskins Seybold - External Body weight 2023-05-20 16:14:00 125.193 kg Anisa haskins Seybold - External BMI 2023-05-20 16:14:00 39.60 kg/m2 Anisa haskins Seybold - External Heart rate 2022-09-10 03:51:00 65 /min [facility] Body temperature 2022-09-10 03:51:00 37 Kecia [facility] Body height 2022-09-10 03:51:00 177.8 cm [facility] Body weight 2022-09-10 03:51:00 113.399 kg [facility] BMI 2022-09-10 03:51:00 35.87 kg/m2 [facility] Systolic blood pressure 2022-09-10 03:50:00 137 mm[Hg] [facility] hospital Diastolic blood pressure 2022-09-10 03:50:00 76 mm[Hg] [facility] acute hospital Respiratory rate 2022-09-10 03:50:00 18 /min [facility] Oxygen saturation in Arterial blood by Pulse oximetry 2022-09-10 03:50:00 98 /min [facility] acute hospital BP Systolic 2021-11-12 09:34:00 97 mm[Hg] BP [...] Procedures Procedure Date / Time Performed Performing Clinicia n Source LIPASE 2022-09-10 03:57:00 Gus Tadeo [facility] COMP. METABOLIC PANEL (27715) 2022-09-10 03:57:00 Gus Tadeo [facility] CBC WITH DIFF 2022-09-10 03:57:00 Gus Tadeo [facility] CONSENT/REFUSAL FOR DIAGNOSIS AND TREATMENT 2022-09-10 03:41:34 Doctor Unassigned, [facility] NOTICE OF PRIVACY PRACTICES 2022-09-10 03:40:44 Doctor Unassigned, [facility] Plan of Care Planned Activity Planned Date Details Comments Source Goal Plan of Care Note [code = 54097-9] Goal Plan of Care Note [code = 76801-5] Goal Plan of Care Note [code = 99850-2] Goal Plan of Care Note [code = 40557-9] Goal Plan of Care Note [code = 98781-2] Goal Plan of Care Note [code = 06711-2] Goal Plan of Care Note [code = 06842-6] Goal Plan of Care Note [code = 06016-9] Goal Plan of Care Note [code = 49910-0] Goal Plan of Care Note [code = 72075-3] Goal Plan of Care Note [code = 30291-5] Goal Plan of Care Note [code = 28499-2] Goal Plan of Care Note [code = 04182-2] Goal Plan of Care Note [code = 86900-6] Encounters Start Date/Time End Date/Time Encounter Type Admission Type Attending Clinicians Care Facility Care Department Encounter ID Source 2023-11-20 13:40:00 2023-11-20 13:40:00 Outpatient ANA LILIA EVANS [id number] Merna Riddle 2023-11-19 11:00:00 2023-11-19 11:00:00 Outpatient TIFFANY KUMAR [facility] [place] [id number] [facility] 2023-09-22 09:00:00 2023-09-22 09:00:00 Outpatient ANIBAL BENTON [place] [place] [id number] [facility] 2023-08-28 14:30:00 2023-08-28 14:30:00 Outpatient KARIME FORDE [place] [place] [id number] [facility] 2023-07-29 10:00:00 2023-07-29 10:00:00 Outpatient MALATHI SHELTON [facility] [place] [id number] [facility] 2023-07-29 09:40:00 2023-07-29 09:40:00 Outpatient RADHA DOMINGUEZ [facility] [place] [id number] [facility] 2023-07-01 11:00:00 2023-07-01 11:00:00 Outpatient MALATHI SHELTON [facility] [place] [id number] [facility] 2023-06-24 09:30:00 2023-06-24 09:30:00 Outpatient ANIBAL BENTON [facility] [place] [id number] [facility] 2023-06-24 00:00:00 2023-06-24 00:00:00 Outpatient MERNA [place] [id number] [facility] 2023-06-24 00:00:00 2023-06-24 00:00:00 Outpatient MERNA [place] [id number] [facility] 2023-06-23 13:26:47 2023-06-23 13:26:47 Outpatient [facility] [id number] Guillaume Denson 2023-05-27 00:00:00 2023-05-27 00:00:00 Outpatient KAILA TORRES [id number] [facility] 2023-05-22 00:00:00 2023-05-22 00:00:00 Outpatient [place]NDINA [place] [id number] [facility] 2023-05-22 00:00:00 2023-05-22 00:00:00 Outpatient ONDINA [place] [id number] [facility] 2023-05-20 11:15:00 2023-05-20 11:15:00 Outpatient LAB90 MERNA [place] [id number] Merna Riddle 2023-05-20 10:30:00 2023-05-20 10:30:00 Outpatient KAILA TORRES MERNA [id number] Merna Riddle 2022-10-09 00:00:00 2022-10-09 00:00:00 Telephone Miguelina King [facility] [id number] [facility] 2022-09-09 22:42:00 2022-09-10 00:10:00 Emergency Gus Tadeo [facility] [id number] [facility] 2022-09-09 22:42:00 2022-09-10 00:10:00 Emergency X GUS TADEO [facility] ERT [id number] [facility] 2022-07-24 11:23:25 2022-07-24 11:23:25 Outpatient SFA SFA [id number] Guillaume Denson 2021-11-12 00:00:00 2021-11-12 00:00:00 Outpatient Visit [id number] 2021-11-07 12:32:00 2021-11-07 12:32:00 Outpatient AAMIR DILLON [id number] Sofi benson [facility] Program Results Test Description Test Time Test Comments Results Result Co mments Source [facility]10* Test Item Value Reference Range Interpretation Comme nts LIPASE (test code = 2126437603) 145 U/L 0-220 Lab Interpretation (test cod e = 99796-2) Normal [facility] WITH [id number] 04:14:27* Test Item Value Reference Range Interpretation Comme nts WBC (test code = 6690-2) 13.93 See_Comment H [Automated messa ge] The system which generated this result transmitted reference range: 4.20 - 10.70 10*3/?L. The reference range was not used to interpret this result as normal/abnormal. RBC (test code = 789-8) 4.40 See_Comment [Automated messa ge] The system which generated this result transmitted reference range: 4.26 - 5.52 10*6/?L. The reference range was not used to interpret this result as normal/abnormal. HGB (test code = 718-7) 14.2 g/dL 12.2-16.4 HCT (test code = 4544-3) 42.0 % 38.4-49.3 MCV (test code = 787-2) 95.5 fL 81.7-95.6 MCH (test code = 785-6) 32.3 pg 26.1-32.7 MCHC (test code = 786-4) 33.8 g/dL 31.2-35.0 RDW-SD (test code = 10729-0) 44.7 fL 38.5-51.6 RDW-CV (test code = 788-0) 12.8 % 12.1-15.4 PLT (test code = 777-3) 226 See_Comment [Automated messa ge] The system which generated this result transmitted reference range: 150 - 328 10*3/?L. The reference range was not used to interpret this result as normal/abnormal. MPV (test code = 58006-6) 11.2 fL 9.8-13.0 NRBC/100 WBC (test code = 8283597248) 0.0 See_Comment [Automated Archivas ssage] The system which generated this result transmitted reference range: 0.0 - 10.0 /100 WBCs. The reference range was not used to interpret this result as normal/abnormal. NRBC x10^3 (test code = 4006173013) See_Comment [Automated messa ge] The system which generated this result transmitted reference range: 10*3/?L. The reference range was not used to interpret this result as normal/abnormal. GRAN MAT (NEUT) % (test code = 770-8) 68.9 % IMM GRAN % (test code = 6006142738) 0.40 % LYMPH % (test code = 736-9) 23.3 % MONO % (test code = 5905-5) 6.6 % EOS % (test code = 713-8) 0.4 % BASO % (test code = 706-2) 0.4 % GRAN MAT x10^3(ANC) (test code = 5712269501) 9.61 10*3/uL 1.99-6.95 H IMM GRAN x10^3 (test code = 2552266075) 0.06 10*3/uL 0.00-0.06 LYMPH x10^3 (test code = 731-0) 3.24 10*3/uL 1.09-3.23 H MONO x10^3 (test code = 742-7) 0.92 10*3/uL 0.36-1.02 EOS x10^3 (test code = 711-2) 0.05 10*3/uL 0.06-0.53 L BASO x10^3 (test code = 704-7) 0.05 10*3/uL 0.01-0.09 Lab Interpretation (test code = 51501-9) [facility] [id number] 00:00:00* Test Item Value Reference Range Interpretation Comme nts CHOLESTEROL (test code = 2210) 199 MG/DL TRIGLYCERIDES (test code = 2232) 172 MG/DL HDL CHOLESTEROL (test code = 2220) 33 MG/DL CALC LDL CHOL (test code = 2237) 135 MG/DL RISK RATIO LDL/HDL (test cod e = 2238) 4.09 RATIO BLOOD GROUP (ABO) AND RH [id number] 00:00:00* Test Item Value Reference Range Interpretation Comme nts BLOOD TYPE AND RH (test code = 3901) A POSITIVE BLOOD GROUP (ABO) AND RH [id number] 00:00:00* Test Item Value Reference Range Interpretation Comme nts BLOOD TYPE AND RH (test code = 3901) A POSITIVE CBC W/AUTO [id number] 00:00:00* Test Item Value Reference Range Interpretation Comme nts WBC (test code = 1001) 11.5 K/UL [...] = 1013) 0.4 % IMMATURE GRANULOCYTES (test code = 1036) 0.3 % NUCLEATED RBCS (test code = 1065) 0.0 /100WBC'S PLATELET COUNT (test code = 1015) 235 K/UL ABSOLUTE NEUTROPHILS (test c ode = 1066) 7.76 K/UL ABSOLUTE LYMPHOCYTES (test c ode = 1067) 2.76 K/UL ABSOLUTE MONOCYTES (test cod e = 1068) 0.77 K/UL ABSOLUTE EOSINOPHILS (test c ode = 1040) 0.09 K/UL ABSOLUTE BASOPHILS (test cod e = 1069) 0.05 K/UL ABS IMMATURE GRANULOCYTES (t est code = 1020) 0.04 K/UL ABS NUCLEATED RBCS (test cod e = 42648) 0.00 K/UL HEMOGLOBIN [id number] 00:00:00* Test Item Value Reference Range Interpretation Comme nts HEMOGLOBIN A1c (test code = 65769) 5.7 % HEMOGLOBIN [id number] 00:00:00* Test Item Value Reference Range Interpretation Comme nts HEMOGLOBIN A1c (test code = 90764) 5.7 % LIPID [id number] 00:00:00* Test Item Value Reference Range Interpretation Comme nts CHOLESTEROL (test code = 2210) 221 MG/DL TRIGLYCERIDES (test code = 2232) 154 MG/DL HDL CHOLESTEROL (test code = 2220) 35 MG/DL CALC LDL CHOL (test code = 2237) 157 MG/DL RISK RATIO LDL/HDL (test cod e = 2238) 4.49 RATIO COMPREHENSIVE METABOLIC [id number] 00:00:00* Test Item Value Reference Range Interpretation Comme nts GLUCOSE (test code = 2217) 107 MG/DL BUN (test code = 2208) 14 MG/DL CREATININE (test code = 2214) 1.13 MG/DL eGFR AMER. (test cod e = 72113) 91 ML/MIN/1.73 eGFR NON- AMER. (test code = 65737) 79 ML/MIN/1.73 CALC BUN/CREAT (test code = 2235) 12 RATIO SODIUM (test code = 2231) 138 MEQ/L POTASSIUM (test code = 2228) 4.3 MEQ/L CHLORIDE (test code = 2215) 104 MEQ/L CARBON DIOXIDE (test code = 2206) 24 MEQ/L CALCIUM (test code = 2209) 9.0 MG/DL PROTEIN, TOTAL (test code = 2229) 7.4 G/DL ALBUMIN (test code = 2201) 4.6 G/DL CALC GLOBULIN (test code = 2240) 2.8 G/DL CALC A/G RATIO (test code = 2234) 1.6 RATIO BILIRUBIN, TOTAL (test code = 2207) 0.3 MG/DL ALKALINE PHOSPHATASE (test code = 2204) 77 U/L AST (test code = 2218) 18 U/L ALT (test code = 2219) 19 U/L [id number] 00:00:00* Test Item Value Reference Range Interpretation Comme nts AMYLASE (test code = 2204) 59 U/L [id number] 00:00:00* Test Item Value Reference Range Interpretation Comme nts LIPASE (test code = 2057) 74 U/L [id number] 00:00:00* Test Item Value Reference Range Interpretation Comme nts LIPASE (test code = 2057) 74 U/L CBC W/AUTO [id number] 00:00:00* Test Item Value Reference Range Interpretation Comme nts WBC (test code = 1001) 11.5 K/UL [...] = 1013) 0.4 % IMMATURE GRANULOCYTES (test code = 1036) 0.3 % NUCLEATED RBCS (test code = 1065) 0.0 /100WBC'S PLATELET COUNT (test code = 1015) 235 K/UL ABSOLUTE NEUTROPHILS (test c ode = 1066) 7.76 K/UL ABSOLUTE LYMPHOCYTES (test c ode = 1067) 2.76 K/UL ABSOLUTE MONOCYTES (test cod e = 1068) 0.77 K/UL ABSOLUTE EOSINOPHILS (test c ode = 1040) 0.09 K/UL ABSOLUTE BASOPHILS (test cod e = 1069) 0.05 K/UL ABS IMMATURE GRANULOCYTES (t est code = 1020) 0.04 K/UL ABS NUCLEATED RBCS (test cod e = 54192) 0.00 K/UL COMPREHENSIVE METABOLIC [id number] 00:00:00* Test Item Value Reference Range Interpretation Comme nts GLUCOSE (test code = 2217) 95 MG/DL BUN (test code = 2208) 14 MG/DL CREATININE (test code = 2214) 0.88 MG/DL eGFR AMER. (test cod e = 47883) 122 ML/MIN/1.73 eGFR NON- AMER. (test code = 00772) 105 ML/MIN/1.73 CALC BUN/CREAT (test code = 2235) 16 RATIO SODIUM (test code = 2231) 139 MEQ/L POTASSIUM (test code = 2228) 4.2 MEQ/L CHLORIDE (test code = 2215) 105 MEQ/L CARBON DIOXIDE (test code = 2206) 23 MEQ/L CALCIUM (test code = 2209) 9.0 MG/DL PROTEIN, TOTAL (test code = 2229) 7.3 G/DL ALBUMIN (test code = 2201) 4.2 G/DL CALC GLOBULIN (test code = 2240) 3.1 G/DL CALC A/G RATIO (test code = 2234) 1.4 RATIO BILIRUBIN, TOTAL (test code = 2207) 0.3 MG/DL ALKALINE PHOSPHATASE (test code = 2204) 70 U/L AST (test code = 2218) 17 U/L ALT (test code = 2219) 18 U/L [id number] 00:00:00* Test Item Value Reference Range Interpretation Comme nts TSH, THIRD GENERATION (test code = 2821) 3.110 UIU/ML [id number] 00:00:00* Test Item Value Reference Range Interpretation Comme nts TSH, THIRD GENERATION (test code = 2821) 3.110 UIU/ML LIPID [id number] 00:00:00* Test Item Value Reference Range Interpretation Comme nts CHOLESTEROL (test code = 2210) 214 MG/DL TRIGLYCERIDES (test code = 2232) 182 MG/DL HDL CHOLESTEROL (test code = 2220) 35 MG/DL CALC LDL CHOL (test code = 2237) 147 MG/DL RISK RATIO LDL/HDL (test cod e = 2238) 4.20 RATIO Notes Date/Time Note Provider Source 2023-06-24 09:27:50 [id number] T09:27:50 Chief ComplaintPatient presents withFollow-up4 week follow Precious Morrisonectronically signed by Julia Hauser LVN at 06/24/2023 9:28 AM [id number]:28:53Nurse NoteTXT1.2.840.897172.1.13.131.2.7.2. [id number] for patient [id number] NoteLNNARRATIVEFormatted C-CDA narrative textMilwaukee [facility]– [place][note 2][address] [place] [address].[id number] [id number]:28:531.2.840.365500.1.7 2.3.15|1.2.840.660537.1.13.131.2.7.2. [id number] [facility]"
[2023-07-09 09:46] LABS: Absolute Basophils 0.1 K/uL (0-0.5); Absolute Eosinophils 0.1 K/uL (0-0.5); Absolute Lymphocytes (CBC) 2.3 K/uL (0.7-4.9); Absolute Monocytes 0.8 K/uL (0.1-1.3); Absolute Neutrophil 6.7 K/uL (1.8-8.0); Basophils % 0.9 % (0-1.3); Hematocrit 40.9 % (39.6-49.0); MCH 32.5 pg (27.0-35.0); MCHC 34.2 g/dL (32.0-36.0); MCV 95.1 fL (80-100); MPV 8.2 fL (7.6-11.3); Monocytes % 7.7 % (3.3-12.3); Neutrophils % 67.4 % (41.7-73.7); Nucleated Red Blood Cells % 0.1 % (0-0); Platelets 242 thou/uL (152-406); Red Cell Distribution Width 13.8 % (12.1-15.2)
[2023-07-09 09:57] LABS: Albumin 3.5 g/dL (3.4-5.0); Albumin/Globulin Ratio 0.8 (1.1-1.8); Anion Gap 6.3 mEq/L (5.0-15.0); Bilirubin Total 0.5 mg/dL (0.2-1.0); Globulin 4.3 g/dL (2.3-3.5); Potassium 4.3 mEq/L (3.5-5.1); Protein, Total 7.8 g/dL (6.4-8.2)
--- NOTE | 2023-07-09 10:44 | RAD REPORT ---
EXAM DESCRIPTION: CT - Abdomen Pelvis W Contrast - 07/09/2023 10:09 am CLINICAL HISTORY: ABD PAIN COMPARISON: Abdomen Pelvis W Contrast dated 12/27/2022; Abdomen Pelvis W Contrast dated 06/12/2022; Abdomen Pelvis W Contrast dated 08/25/2021; Abdomen Pelvis W Contrast dated 08/15/2021 TECHNIQUE: Thin cut axial CT imaging of the abdomen and pelvis was performed following intravenous a dministration of 100 mL Isovue 300. Multiplanar reformats were generated and reviewed. All CT scans are performed using dose optimization technique as appropriate and may include automated exposure control or mA/KV adjustment according to patient size. FINDINGS: No suspicious findings in the lung bases. The liver again demonstrates a posterior right lobe subcapsular mass with nodular peripheral enhancem ent measuring 3.3 cm most compatible with a hemangioma. Sub centimeter fluid density cysts in the lef t lobe are difficult to characterize. Spleen, adrenal glands, and pancreas show no suspicious finding s. Gallbladder and biliary tree are also without suspicious finding. Symmetric renal function is seen with no hydronephrosis or suspicious renal mass. No dilated bowel loops. Mild colonic diverticulosis. Inflammatory changes with focal wall thickening and fat stranding centered on an anteriorly projecting mid sigmoid diverticulum. No adjacent collecti ons or extraluminal gas. Appendix is unremarkable. No free air, free fluid or other inflammatory stra nding. Left inguinal hernia containing fat. No suspicious Mass or bulky lymphadenopathy. The urinary bladder is without significant finding. No suspicious bony findings. IMPRESSION: Acute uncomplicated mid sigmoid diverticulitis. Other stable findings as above. The findings were communicated to Kevin Rivas on 07/09/2023 at 10:38 hours.
--- NOTE | 2023-07-09 10:49 | EDPHYS ---
Physician Documentation [facility] Name: Ming Odonnell Age: 47 yrs Sex: Male : 1975 Arrival Date: 07/09/2023 Time: 09:06 Bed 19 Private MD: Aaron Jasmine ED Physician Kevin Rivas HPI: 07/08 09:19 This 47 yrs old Male presents to ER via Ambulatory with complaints of ec2 Abdominal Pain. 09:19 Patient arrives today for evaluation of lower abdominal pain. Patient reports 3 days of ec2 symptoms. Patient reports some associated nausea, no vomiting, no changes in stools. Patient reports history of diverticulitis and this feels similar.. Historical: - Allergies: 09:15 PENICILLINS; ll1 - PMHx: 09:15 Diverticulitis; Pancreatitis; ll1 - Immunization history:: Adult Immunizations up to date. - Social history:: Smoking status: Reported history of juuling and/or vaping. ROS: 09:19 Constitutional: as per hpi ec2 Exam: 09:19 Constitutional: GEN: NAD Head: atraumatic Eyes: EOMI Ears: External ears are ec2 normal. CV: regular rate LUNGS: no respiratory distress ABD: non-distended, soft, tenderness in the left abdomen, no guarding, not rigid SKIN: no evidence of rashes MSK: no evidence of trauma NEURO: moves all extremities equally Vital Signs: 09:15 BP 134 / 81; Pulse 77; Resp 18; Temp 97.7; Pulse Ox 95% on R/A; Weight 122.47 kg; ll1 Height 5 ft. 11 in. ; Pain 5/10; 09:35 BP 127 / 79; Pulse 72; Resp 16; Temp 98.2; Pulse Ox 96% on R/A; aw1 10:00 BP 130 / 80; Pulse 70; Resp 15; Pulse Ox 99% ; ko1 10:30 BP 125 / 74; Pulse 75; Resp 16; Pulse Ox 99% ; ko1 10:30 BP 122 / 78; Pulse 74; Resp 15; Pulse Ox 100% ; ko1 11:28 BP 127 / 73; Pulse 70; Resp 16; Temp 97; Pulse Ox 99% ; ko1 09:15 Body Mass Index 37.66 (122.47 kg, 180.34 cm) ll1 09:15 Pain Scale: Adult ll1 MDM: 09:15 Patient medically screened. ec2 09:19 Data reviewed: vital signs. ED course: Patient arrives today for evaluation of lower ec2 abdominal pain. Examination remarkable for abdominal findings noted above. Will obtain lab work, CT imaging and treat the patient's pain. Currently evaluating for process such diverticulitis, pancreatitis, SBO.. 10:06 ED course: CBC is reassuring, metabolic profile with appropriate electrolytes, lipase ec2 within normal ranges. . 10:39 ED course: CT scan shows uncomplicated diverticulitis, will start the patient ec2 antibiotics and discharged home. Return precaution given.. 07/08 09:15 Order name: CBC with Diff; Complete Time: 10:05 ec2 07/08 09:15 Order name: CMP; Complete Time: 10:05 ec2 07/08 09:15 Order name: Lipase; Complete Time: 10:05 ec2 07/08 09:15 Order name: CT Abd/Pelvis - IV Contrast Only; Complete Time: 10:46 ec2 07/08 09:15 Order name: IV Saline Lock; Complete Time: 09:36 ec2 07/08 09:15 Order name: Labs collected and sent; Complete Time: 09:36 ec2 Administered Medications: 09:48 Drug: NS 0.9% IV 1000 ml IV at 1 bolus Per protocol; 1000 mL bolus Route: IV; Rate: 1 ko1 bolus; Site: left antecubital; 11:31 Follow up: Response: No adverse reaction; IV Status: Completed infusion; IV Intake: ko1 1000ml 09:48 Drug: Ondansetron IVP 4 mg IVP once; over 2 minutes Route: IVP; Site: left antecubital; ko1 10:15 Follow up: Response: No adverse reaction ko1 09:48 Drug: morphine IVP or IV 4 mg IVP once over 4 mins Route: IVP; Infused Over: 4 mins; ko1 Site: left antecubital; 10:10 Follow up: Response: No adverse reaction; Pain is decreased ko1 11:19 Drug: Ciprofloxacin PO 500 mg PO once Route: PO; ko1 11:19 Drug: metroNIDAZOLE PO 500 mg PO once Route: PO; ko1 Disposition Summary: 07/09/23 10:49 Discharge Ordered Notes: Location: Home ec2 Condition: Stable ec2 Diagnosis - Diverticulitis of large intestine without perforation or abscess without bleeding ec2 Followup: ec2 - With: Private Physician - When: - Reason: Re-evaluation by your physician Discharge Instructions: - Discharge Summary Sheet ec2 - Diverticulitis ec2 Forms: - Medication Reconciliation Form ec2 - Thank You Letter ec2 - Antibiotic Education ec2 - Prescription Opioid Use ec2 - Patient Portal Instructions ec2 - Leadership Thank You Letter ec2 Prescriptions: - Flagyl 500 mg Oral tablet - take 1 tablet ORAL route every 8 hours for 5 days; 15 tablet; Refills: 0, ec2 Product Selection Permitted - Cipro 500 mg Oral tablet - take 1 tablet ORAL route every 12 hours for 5 days; 10 tablet; Refills: 0, ec2 Product Selection Permitted Signatures: Dispatcher [employer] Henrik Luque RN RN ll1 Pari Cruz RN RN ko1 Kevin Rivas MD MD ec2
--- NOTE | 2023-07-09 10:49 | ER ---
Nurse's Notes [facility] Name: Ming Odonnell Age: 47 yrs Sex: Male : 1975 Arrival Date: 07/09/2023 Time: 09:06 Bed 19 Private MD: Aaron Jasmine Diagnosis: Diverticulitis of large intestine without perforation or abscess without bleeding Presentation: 07/08 09:15 Chief complaint: Patient states: Lower abdominal pain for 3 days. Denies N/V/D, no ll1 fevers. Coronavirus screen: Vaccine status: Patient reports receiving the 2nd dose of the covid vaccine. Client denies travel out of the [place] in the last 14 days. At this time, the client does not indicate any symptoms associated with coronavirus-19. Ebola Screen: Patient denies travel to an Ebola-affected area in the 21 days before illness onset. Initial Sepsis Screen: Does the patient meet any 2 criteria? No. Patient's initial sepsis screen is negative. Does the patient have a suspected source of infection? No. Patient's initial sepsis screen is negative. Risk Assessment: Do you want to hurt yourself or someone else? Patient reports no desire to harm self or others. Onset of symptoms was July 07, 2023. 09:15 Method Of Arrival: Ambulatory ll1 09:15 Acuity: CELENA 3 ll1 Triage Assessment: 09:17 General: Appears uncomfortable, Behavior is calm, cooperative, appropriate for age. ll1 Pain: Complains of pain in abdomen Quality of pain is described as aching, pressure, Pain began 2-3 days ago. Is continuous. GI: Abdomen is round Reports lower abdominal pain. Historical: - Allergies: 09:15 PENICILLINS; ll1 - PMHx: 09:15 Diverticulitis; Pancreatitis; ll1 - Immunization history:: Adult Immunizations up to date. - Social history:: Smoking status: Reported history of juuling and/or vaping. Screenin:[facility] ED Fall Risk Assessment (Adult) History of falling in the last 3 months, ko1 including since admission No falls in past 3 months (0 pts) Confusion or Disorientation No (0 pts) Intoxicated or Sedated No (0 pts) Impaired Gait No (0 pts) Mobility Assist Device Used No (0 pt) Altered Elimination No (0 pt) Score/Fall Risk Level 0 - 2 = Low Risk Oriented to surroundings, Maintained a safe environment, Educated pt \T\ family on fall prevention, incl call for assistance when getting out of bed, Assessed \T\ reinforced patient's understanding of fall precautions, Provided non-skid footwear, Hourly rounding (assess needs \T\ fall precautionary measures) done, Used ambulatory aids as needed (educated on \T\ assisted with), Used gait belt as appropriate. Abuse screen: Denies threats or abuse. Denies injuries from another. Nutritional screening: No deficits noted. Tuberculosis screening: No symptoms or risk factors identified. Assessment: 09:54 General: Appears in no apparent distress. Behavior is calm, cooperative, appropriate ko1 for age. Pain: Complains of pain in abdomen. Neuro: No deficits noted. Cardiovascular: No deficits noted. Respiratory: No deficits noted. GI: Bowel sounds present X 4 quads. Abd is soft and non tender X 4 quads. Reports lower abdominal pain. : No deficits noted. EENT: No deficits noted. Derm: No deficits noted. Musculoskeletal: No deficits noted. Vital Signs: 09:15 BP 134 / 81; Pulse 77; Resp 18; Temp 97.7; Pulse Ox 95% on R/A; Weight 122.47 kg; ll1 Height 5 ft. 11 in. ; Pain 5/10; 09:35 BP 127 / 79; Pulse 72; Resp 16; Temp 98.2; Pulse Ox 96% on R/A; aw1 10:00 BP 130 / 80; Pulse 70; Resp 15; Pulse Ox 99% ; ko1 10:30 BP 125 / 74; Pulse 75; Resp 16; Pulse Ox 99% ; ko1 10:30 BP 122 / 78; Pulse 74; Resp 15; Pulse Ox 100% ; ko1 11:28 BP 127 / 73; Pulse 70; Resp 16; Temp 97; Pulse Ox 99% ; ko1 09:15 Body Mass Index 37.66 (122.47 kg, 180.34 cm) ll1 09:15 Pain Scale: Adult ll1 ED Course: 09:08 Patient arrived in ED. mr 09:08 Aaron Jasmine DO is Private Physician. mr 09:11 Kevin Rivas MD is Attending Physician. ec2 09:15 Arm band placed on. ll1 09:17 Triage completed. ll1 09:36 Initial lab(s) drawn, by me, sent to lab. Inserted saline lock: 20 gauge in left aw1 antecubital area, using aseptic technique. 09:36 CBC with Diff Sent. aw1 09:36 CMP Sent. aw1 09:36 Lipase Sent. aw1 09:39 Pari Cruz, RN is Primary Nurse. ko1 09:54 Patient has correct armband on for positive identification. Allergy band placed. Bed in ko1 low position. Call light in reach. Side rails up X 1. Pulse ox on. NIBP on. Door closed. Noise minimized. 10:11 CT Abd/Pelvis - IV Contrast Only In Process Unspecified. EDMS 10:46 Provided Education on: labs, meds. Assisted to bathroom. ko1 10:46 No provider procedures requiring assistance completed. ko1 11:28 Assisted to bathroom. ko1 11:28 IV discontinued, intact, bleeding controlled, No redness/swelling at site. Pressure ko1 dressing applied. Administered Medications: 09:48 Drug: NS 0.9% IV 1000 ml IV at 1 bolus Per protocol; 1000 mL bolus Route: IV; Rate: 1 ko1 bolus; Site: left antecubital; 11:31 Follow up: Response: No adverse reaction; IV Status: Completed infusion; IV Intake: ko1 1000ml 09:48 Drug: Ondansetron IVP 4 mg IVP once; over 2 minutes Route: IVP; Site: left antecubital; ko1 10:15 Follow up: Response: No adverse reaction ko1 09:48 Drug: morphine IVP or IV 4 mg IVP once over 4 mins Route: IVP; Infused Over: 4 mins; ko1 Site: left antecubital; 10:10 Follow up: Response: No adverse reaction; Pain is decreased ko1 11:19 Drug: Ciprofloxacin PO 500 mg PO once Route: PO; ko1 11:19 Drug: metroNIDAZOLE PO 500 mg PO once Route: PO; ko1 Medication: 10:46 VIS not applicable for this client. ko1 Intake: 11:31 IV: 1000ml; Total: 1000ml. ko1 Outcome: 10:49 Discharge ordered by . ec2 11:30 Discharged to home ambulatory, with family, ko1 11:30 Condition: stable 11:30 Discharge instructions given to patient, Instructed on discharge instructions, follow up and referral plans. medication usage, Demonstrated understanding of instructions, follow-up care, medications, Prescriptions given X 2, 11:31 Patient left the ED. ko1 Signatures: Dispatcher [employer] EDAtiya Yee, Haim Whitmore mr Henrik Rosario RN RN ll1 Pari Cruz RN RN ko1 [place] aw1 Kevin Rivas MD MD ec2
[2023-07-09 12:12] VITALS: BP 127/73; TEMP 97; O2SAT 99
== END ==
LOC: ER 09:06
DX: K57.32 Diverticulitis of large intestine without perforation or abscess without bleeding (principal); Z88.0 Allergy status to penicillin
CPT/HCPCS: 96361; 85025; 36415; 83690; 80053; 74177; 96375; 96374; 99284; Q9967; J2405; J7030

== ENCOUNTER 2023-08-17 10:10 | Day surgery (SDC) | payer OTHER ==
[2023-08-13 11:30] LABS: Anion Gap 6.5 mEq/L (5.0-15.0); Potassium 4.5 mEq/L (3.5-5.1)
[2023-08-17] MEDS: Ringers Lactate 1,000 ML IV ONE (10:40)
[2023-08-17] MEDS ORDERED: LIDOCAINE 1% MPF 5 ML VIAL ONE (12:32)
[2023-08-17] MEDS ORDERED: propofoL 200 MG/20 ML VIAL IV ONE ×2 (12:32→12:39)
[2023-08-17 15:07] VITALS: O2SAT 100
[2023-08-17 15:43] VITALS: BP 107/75; TEMP 96.9
== END 2023-08-17 14:24 | disposition home or self-care (01) ==
LOC: OR 10:10
PROVIDERS: ATTEND Surgery
PROC: 0DB98ZX Excision of Duodenum, Via Natural or Artificial Opening Endoscopic, Diagnostic (ICD-10-PCS; 2023-08-17)
PROC: 0DB68ZX Excision of Stomach, Via Natural or Artificial Opening Endoscopic, Diagnostic (ICD-10-PCS; 2023-08-17)
PROC: 0DB48ZX Excision of Esophagogastric Junction, Via Natural or Artificial Opening Endoscopic, Diagnostic (ICD-10-PCS; 2023-08-17)
PROC: 0DBM8ZX Excision of Descending Colon, Via Natural or Artificial Opening Endoscopic, Diagnostic (ICD-10-PCS; principal; 2023-08-17 12:00)
PROC: 0DBN8ZX Excision of Sigmoid Colon, Via Natural or Artificial Opening Endoscopic, Diagnostic (ICD-10-PCS; 2023-08-17 12:00)
DX: Z12.11 Encounter for screening for malignant neoplasm of colon (principal); R14.0 Abdominal distension (gaseous); K21.9 Gastro-esophageal reflux disease without esophagitis; K57.30 Diverticulosis of large intestine without perforation or abscess without bleeding; K64.8 Other hemorrhoids; I85.00 Esophageal varices without bleeding; K29.80 Duodenitis without bleeding; K29.50 Unspecified chronic gastritis without bleeding; K63.5 Polyp of colon
CPT/HCPCS: 93005; 80048; 36415; 88312; 88305; 45380; 43239; J2704 ×2; J2001; J7120

== ENCOUNTER 2024-05-21 08:38 | Emergency (ER) | payer OTHER ==
--- OUTSIDE RECORDS SUMMARY | 2024-05-21 08:40 | XMS REPORT | Continuity of Care Document ---
Author Name Unknown Address [address] [facility] [address] [place] [address] [facility] thconnect Address [address] [facility] 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 Phone [facility] Primary Car e Physician ANA LILIA EVANS Attending Clinician Unavailable DEEPA OREILLY Attending Clinician Unav MEGA Liriano Attending Clinician Unavailab SERGIO Molina Attending Clinician Unavailab ANIBAL Rueda Attending Clinician Unavailab ASIA Mejia Attending Clinician Unavailable MD DARIUS Attending Clinician Unavailab BILLY Stone Attending Clinician Unavailable TIFFANY KUMAR Attending Clinician Unavailable TOY FARRELL Attending Clinician Unavailable LAB90 Attending Clinician Unavailable LAB39 Attending Clinician Unavailable RAYMUNDO FAGAN Attending Clinician Unavailable MALATHI SHELTON Attending Clinician Unavailable KARIME FORDE Attending Clinician Unavailable GUILLAUME GOLDEN Attending Clinician Unavailable NEMO SAM Attending Clinician Unavailable RADHA DOMINGUEZ Attending Clinician Unavailable KAILA TORRES Attending Clinician Unava ilnickolas [place] Attending Clinician Unavailable Miguelina King MD Attending Clinician Gus Tadeo MD Attending Clinician [phone] GUS TADEO Attending Clinician Unavailable AMBREEN_JOSEHANA Attending Clinician Unavailable GUS TADEO Admitting Clinician Unavailable AMBREEN_ANA LILIAA Admitting Clinician Unavailable Payers Payer Name Policy Type Policy Number Effective Date Expirati on Date Source [employer] MP [employer] [employer] 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 ON 9 [id number] 2023 00:00:00 Problems Condition Name Condition Details Condition Category Status Onset Date Resolution Date Last Treatment Date Treating Clinician Comments Source Maxillary sinusitis Maxillary sinusitis Disease Active 11-12 00:00: 00 Merna Riddle - Externa l Lesion of basal ganglia Lesion of basal ganglia Disease Active 11-12 00:00: 00 Merna Riddle - Externa l Lateral epicondyli tis of both elbows Lateral epicondyli tis of both elbows Disease Active - 00:00: 00 Merna Riddle - Externa l Allergies, Adverse Reactions, Alerts Allergy Name Allergy Type Status Severity Reaction(s) Onset Date Inactive Date Treating Clinician Comments Source Penicill ins Propensi ty to adverse reaction s Active Swelling 1-23 00:00: 00 Throat swells Merna Riddle - Externa l PENICILL IN DRUG INGREDI Active Anaphylaxis 09-09 00:00: 00 [facility] Penicill in Propensi ty to adverse reaction s Active Anaphylaxis 09-09 00:00: 00 [facility] Penicill ins - CLASS Propensi ty to adverse reaction to drug Active 11-12 00:00: 00 Penicill ins Propensi ty to adverse reaction to drug Active 06-20 00:00: 00 NO KNOWN ALLERGIE S Drug Class Active [facility] Social History Social Habit Start Date Stop Date Quantity Comments Source Sexual orientation Althea Riddle - External History of Occupation Merna Riddle - External Alcoholic beverage intake 2023-12-14 00:00:00 2023-12-14 00:00:00 Ex-drinker (finding) Merna Riddle - External Tobacco Comment 2023-12-02 00:00:00 2023-12-02 00:00:00 Stopped cigarettes 9 months ago Merna Amos External Cigarettes smoked current (pack per day) - Reported 2023-12-02 00:00:00 2023-12-02 00:00:00 Merna Seybold - External Cigarette pack-years 2023-12-02 00:00:00 2023-12-02 00:00:00 Merna Riddle - External Alcohol intake 2023-07-01 00:00:00 2023-07-01 00:00:00 Ex-drinker (finding) Merna Riddle - External History of Social function 2023-05-19 00:00:00 2023-05-19 00:00:00 Merna Riddle - External Sex 2023-05-05 11:11:51 2023-05-05 11:11:51 Male (finding) Merna Riddle - External History of tobacco use 1996-10-04 00:00:00 2022-10-07 00:00:00 Cigarette Smoker Merna Riddle - External Exposure to SARS-CoV-2 (event) 2022-08-30 00:00:00 2022-09-09 22:44:00 Not sure [facility] Sex assigned at 1975 00:00:00 1975 00:00:00 Merna Riddle - External Smoking Status Start Date Stop Date Source Tobacco smoking consumption unknown [facility] Ex-smoker 2023-12-02 00:00:00 2023-12-02 00:00:00 Merna Riddle - External Medications Ordered Medication Name Filled Medication Name Start Date Stop Date Current Medication? Ordering Clinician Indication Dosage Frequency Signature (SIG) Comments Components Source Meloxicam (Mobic) 7.5 MG oral Tablet 01-24 00:00: 00 Yes One QD prn, do not combine with NSAID's. Merna mccrary Baclofen 10 MG oral Tablet 01-24 00:00: 00 Yes 1/[address] Merna mccrary Albuterol HFA 108 (90 Base) MCG/ACT IN AERS 12-07 00:00: 00 12-13 00:00 :00 No Merna mccrary Albuterol Sulfate 108 (90 Base) MCG/ACT inhalation AEROSOL POWDER, BREATH ACTIVATED 12-01 00:00: 00 Yes 2{puff} Q.25D Inhale 2 puffs into the lungs every 6 hours as needed. Merna mccrary Budesonide- Formoterol Fumarate (Symbicort) 160-4.5 MCG/ACT inhalation Aerosol 12-01 00:00: 00 12-13 00:00 :00 No 2{puff} Q.5D Inhale 2 puffs into the lungs 2 times daily. Merna mccrary Gabapentin 300 MG oral Capsule 11-16 00:00: 00 12-17 04:59 :00 No [id number] Take 1 capsule (300 mg total) by mouth nightly for 3 days, THEN 1 capsule (300 mg total) 2 times daily for 3 days, THEN 1 capsule (300 mg total) 3 times daily for 24 days. Merna mccrary methylPREDN ISolone (Medrol) 4 MG oral Tablet Therapy Pack 11-16 00:00: 00 12-01 00:00 :00 No [id number] Take as per administra tion directions . Merna mccrary Mupirocin (BACTROBAN) 2 % apply externally Ointment 11-12 00:00: 00 12-01 00:00 :00 No [id number] 1{appli cation} Q.[id number] 3D Apply 1 Applicatio n topically 3 times daily. Merna mccrary Doxycycline Hyclate 100 MG oral Capsule 11-12 00:00: 00 11-20 04:59 :00 No [id number] 100mg Q.5D Take 1 capsule (100 mg total) by mouth 2 times daily for 7 days. Merna mccrary Sumatriptan Succinate 50 MG oral Tablet 11-12 00:00: 00 11-12 00:00 :00 No [id number] 50mg Take 1 tablet (50 mg total) by mouth once as needed for migraine (May repeat in 2 hours if unresolved . Do not exceed 200 mg in 24 hours.). Merna mccrary Sumatriptan Succinate 25 MG oral Tablet -28 00:00: 00 11-12 00:00 :00 No [id number] 25mg Take 1 tablet (25 mg total) by mouth once as needed for migraine (May repeat in 2 hours if unresolved . Do not exceed 200 mg in 24 hours.). Merna mccrary Loteprednol Etabonate (Lotemax) 0.5 % ophthalmic Suspension 09-08 00:00: 00 09-21 00:00 :00 No [id number] 1[drp] Place 1 drop into the left eye 2 times daily Instill one drop in both eyes four times a day x 7 days. Merna mccrary Mupirocin (BACTROBAN) 2 % apply externally Ointment 08-21 00:00: 00 09-21 00:00 :00 No [id number] 1{appli cation} Apply 1 Applicatio n topically 3 times daily. Merna mccrary Valacyclovi r HCl 1 g oral Tablet 08-21 00:00: 00 08-29 04:59 :00 No [id number] 1000mg Take 1 tablet (1,000 mg total) by mouth 3 times daily for 7 days. Merna mccrary Loteprednol Etabonate (Lotemax) 0.5 % ophthalmic Suspension 06-30 00:00: 00 08-21 00:00 :00 No [id number] 9109 1[drp] Place 1 drop into the left eye 2 times daily Instill one drop in both eyes four times a day x 7 days. Merna mccrary Cefdinir 300 MG oral Capsule 05-20 00:00: 00 Yes [id number] 300mg Take 1 capsule (300 mg total) by mouth 2 times daily. Merna mccrary Ofloxacin 0.3 % otic Solution 05-20 00:00: 00 Yes [id number] 5[drp] Place 5 drops into the right ear 2 times daily. Merna mccrary iopamidol (ISOVUE 370-500 mL) injection 100 mL 09-10 05:15: 00 09-10 04:16 :00 No [id number] 100mL 100 mL, Intravenou s, ONCE, 1 dose, On Thu09/10/22 at 0015, Routine [facility] morpHINE (4 mg/mL) injection 4 mg 09-10 05:00: 00 09-10 05:02 :00 No 4mg 4 mg, Slow IV Push, ONCE, 1 dose, On Thu09/10/22 at 0000, STAT [facility] levoFLOXaci n (LEVAQUIN) tablet 500 mg 09-10 [...] 20 mg tablet 09-09 00:00: 00 Yes [id number] 20mg Take 1 tablet by mouth 3 (three) times daily as needed for Abdominal pain. [facility] proMETHazin e 25 mg tablet 09-09 00:00: 00 Yes [id number] 12.5mg Take 0.5 tablets by mouth every 6 (six) hours as needed for Nausea and Vomiting (N/V). [facility] levoFLOXaci n (LEVAQUIN) 500 mg tablet 09-09 00:00: 00 09-17 04:59 :00 No [id number] 500mg Take 1 tablet by mouth in the morning for 7 days. [facility] APPLY 2-3 TIMES DAILY TO AFFECTED AREA(S). 11-12 00:00: 00 No [id number] Ciprodex 0.3 %-0.1 % ear drops,suspe nsion 11-13 00:00: 00 No 4% doxycycline hyclate 100 mg capsule 11-13 00:00: 00 No 1mg Vital Signs Vital Name Observation Time Observation Value Comments S ource Systolic blood pressure 2024-01-25 14:29:00 115 mm[Hg] Menra Tavarez ld - External Diastolic blood pressure 2024-01-25 14:29:00 79 mm[Hg] Merna Tavarez ld - External Heart rate 2024-01-25 14:29:00 75 /min Kelse bashir Riddle - External Body temperature 2024-01-25 14:29:00 36.61 Kecia Merna Riddle - External Respiratory rate 2024-01-25 14:29:00 16 /min Merna Riddle - External Body height 2024-01-25 14:29:00 177.8 cm Anisa Riddle - External Body weight 2024-01-25 14:29:00 126.009 kg Anisaisela haskins Seybold - External BMI 2024-01-25 14:29:00 39.86 kg/m2 Anisa Riddle - External Oxygen saturation in Arterial blood by Pulse oximetry 2024-01-25 14:29:00 96 /min Merna Ansariybo ld - External Systolic blood pressure 2023-12-14 15:15:00 122 mm[Hg] Merna Seybo ld - External Diastolic blood pressure 2023-12-14 15:15:00 72 mm[Hg] Merna Seybo ld - External Heart rate 2023-12-14 15:15:00 63 /min Kelse y Seybold - External Body temperature 2023-12-14 15:15:00 35.67 Kecia Merna Seybold - External Respiratory rate 2023-12-14 15:15:00 15 /min Merna Seybold - External Body height 2023-12-14 15:15:00 177.8 cm Anisa ey Seybold - External Body weight 2023-12-14 15:15:00 130.182 kg Anisa ey Seybold - External BMI 2023-12-14 15:15:00 41.18 kg/m2 Anisa ey Seybold - External Systolic blood pressure 2023-12-02 15:51:00 117 mm[Hg] Merna Seybo ld - External Diastolic blood pressure 2023-12-02 15:51:00 73 mm[Hg] Merna Seybo ld - External Heart rate 2023-12-02 15:51:00 68 /min Kelse y Seybold - External Body temperature 2023-12-02 15:51:00 36.67 Kecia Merna Seybold - External Respiratory rate 2023-12-02 15:51:00 16 /min Merna Seybold - External Body height 2023-12-02 15:51:00 177.8 cm Anisa ey Seybold - External Body weight 2023-12-02 15:51:00 127.098 kg Anisa ey Seybold - External BMI 2023-12-02 15:51:00 40.20 kg/m2 Anisa ey Seybold - External Oxygen saturation in Arterial blood by Pulse oximetry 2023-12-02 15:51:00 97 /min Merna Seybo ld - External Systolic blood pressure 2023-11-17 15:13:00 144 mm[Hg] Merna Seybo ld - External Diastolic blood pressure 2023-11-17 15:13:00 81 mm[Hg] Merna Seybo ld - External Heart rate 2023-11-17 15:13:00 66 /min Kelse y Seybold - External Body temperature 2023-11-17 15:13:00 36.72 Kecia Merna Seybold - External Respiratory rate 2023-11-17 15:13:00 16 /min Merna Seybold - External Body height 2023-11-17 15:13:00 177.8 cm Anisa ey Seybold - External Body weight 2023-11-17 15:13:00 126.191 kg Anisa ey Seybold - External BMI 2023-11-17 15:13:00 39.92 kg/m2 Anisa ey Seybold - External Oxygen saturation in Arterial blood by Pulse oximetry 2023-11-17 15:13:00 98 /min Merna Seybo ld - External Systolic blood pressure 2023-11-13 20:45:00 114 mm[Hg] Merna Seybo ld - External Diastolic blood pressure 2023-11-13 20:45:00 72 mm[Hg] Merna Seybo ld - External Heart rate 2023-11-13 20:45:00 86 /min Treverse y Seybold - External Body temperature 2023-11-13 20:45:00 36.33 Kecia Merna Seybold - External Respiratory rate 2023-11-13 20:45:00 15 /min Merna Seybold - External Body height 2023-11-13 20:45:00 177.8 cm Anisa ey Seybold - External Body weight 2023-11-13 20:45:00 126.554 kg Anisa ey Seybold - External BMI 2023-11-13 20:45:00 40.03 kg/m2 Anisa ey Seybold - External Systolic blood pressure 2023-09-22 13:50:00 124 mm[Hg] Merna Seybo ld - External Diastolic blood pressure 2023-09-22 13:50:00 78 mm[Hg] Merna Seybo ld - External Heart rate 2023-09-22 13:50:00 70 /min Treverse y Seybold - External Body temperature 2023-09-22 13:50:00 36.72 Kecia Merna Seybold - External Respiratory rate 2023-09-22 13:50:00 18 /min Merna Seybold - External Body height 2023-09-22 13:50:00 177.8 cm Anisa ey Seybold - External Body weight 2023-09-22 13:50:00 128.368 kg Anisa ey Seybold - External BMI 2023-09-22 13:50:00 40.61 kg/m2 Anisa ey Seybold - External Oxygen saturation in Arterial blood by Pulse oximetry 2023-09-22 13:50:00 87 /min Merna Seybo ld - External Body weight 2023-08-24 18:15:00 134.355 kg Anisa ey Seybold - External BMI 2023-08-24 18:15:00 42.50 kg/m2 Anisa ey Seybold - External Systolic blood pressure 2023-06-24 15:18:00 118 mm[Hg] Merna Seybo ld - External Diastolic blood pressure 2023-06-24 15:18:00 68 mm[Hg] Merna Seybo ld - External Heart rate 2023-06-24 15:18:00 74 /min Kelse y Seybold - External Body temperature 2023-06-24 15:18:00 36.67 Kecia Merna Seybold - External Respiratory rate 2023-06-24 15:18:00 16 /min Merna Seybold - External Body height 2023-06-24 15:18:00 177.8 cm Anisa ey Seybold - External Body weight 2023-06-24 15:18:00 126.1 kg Anisa ey Seybold - External BMI 2023-06-24 15:18:00 39.89 kg/m2 Anisa ey Seybold - External Oxygen saturation in Arterial blood by Pulse oximetry 2023-06-24 15:18:00 98 /min Merna Seybo ld - External Systolic blood pressure 2023-05-20 16:14:00 120 mm[Hg] Merna Seybo ld - External Diastolic blood pressure 2023-05-20 16:14:00 78 mm[Hg] Merna Seybo ld - External Heart rate 2023-05-20 16:14:00 67 /min Kelse y Seybold - External Body temperature 2023-05-20 16:14:00 36.5 Kecia Merna Seybold - External Body height 2023-05-20 16:14:00 177.8 cm Anisa ey Seybold - External Body weight 2023-05-20 16:14:00 125.193 kg Anisa ey Seybold - External BMI 2023-05-20 16:14:00 39.60 kg/m2 Anisa ey Seybold - External Heart rate 2022-09-10 03:51:00 65 /min [facility] Body temperature 2022-09-10 03:51:00 37 Kecia [facility] Body height 2022-09-10 03:51:00 177.8 cm [facility] Body weight 2022-09-10 03:51:00 113.399 kg [facility] BMI 2022-09-10 03:51:00 35.87 kg/m2 [facility] Systolic blood pressure 2022-09-10 03:50:00 137 mm[Hg] [facility] Diastolic blood pressure 2022-09-10 03:50:00 76 mm[Hg] [facility] Respiratory rate 2022-09-10 03:50:00 18 /min [facility] Oxygen saturation in Arterial blood by Pulse oximetry 2022-09-10 03:50:00 98 /min [facility] BP Systolic 2021-11-12 09:34:00 97 mm[Hg] BP Diastolic 2021-11-12 09:34:00 63 mm[Hg] Weight Measured 2021-11-12 09:34:00 258.80 pounds Height Measured 2021-11-12 09:34:00 70.00 inches Body Temperature 2021-11-12 09:34:00 98.30 degrees Heart Rate 2021-11-12 09:34:00 83.00 /min Respiratory Rate 2021-11-12 09:34:00 18.00 /min Body Temperature 2020-11-13 13:25:00 98.40 degrees Heart Rate 2020-11-13 13:25:00 89.00 /min Respiratory Rate 2020-11-13 13:25:00 21.00 /min BP Systolic 2020-11-13 13:25:00 111 mm[Hg] BP Diastolic 2020-11-13 13:25:00 70 mm[Hg] Weight Measured 2020-11-13 13:25:00 251.00 pounds Height Measured 2020-11-13 13:25:00 70.00 inches Procedures Procedure Date / Time Performed Performing Clinicia n Source CERVICAL SPINE - 2 VIEW 2023-11-17 15:21:00 Toy Farrell - External LIPASE 2022-09-10 03:57:00 Gus Tadeo [facility] COMP. METABOLIC PANEL (33161) 2022-09-10 03:57:00 Gus Tadeo [facility] CBC WITH DIFF 2022-09-10 03:57:00 Gus Tadeo [facility] CONSENT/REFUSAL FOR DIAGNOSIS AND TREATMENT 2022-09-10 03:41:34 Doctor Unassigned, [place] [facility] NOTICE OF PRIVACY PRACTICES 2022-09-10 03:40:44 Doctor Unassigned, [place] [facility] Plan of Care Planned Activity Planned Date Details Comments Source Goal Plan of Care Note [code = 33847-9] Goal Plan of Care Note [code = 18718-0] Goal Plan of Care Note [code = 93684-5] Goal Plan of Care Note [code = 58468-1] Goal Plan of Care Note [code = 64920-2] Goal Plan of Care Note [code = 73425-4] Goal Plan of Care Note [code = 61815-1] Goal Plan of Care Note [code = 70645-5] Goal Plan of Care Note [code = 80639-0] Goal Plan of Care Note [code = 84352-3] Goal Plan of Care Note [code = 29500-4] Goal Plan of Care Note [code = 25711-9] Goal Plan of Care Note [code = 76567-7] Goal Plan of Care Note [code = 96520-6] Encounters Start Date/Time End Date/Time Encounter Type Admission Type Attending Clinicians Care Facility Care Department Encounter ID Source 2024-11-04 10:40:00 2024-11-04 10:40:00 Outpatient ANA LILIA EVANS [id number] Merna Riddle 2024-05-27 14:20:00 2024-05-27 14:20:00 Outpatient ANA LILIA EVANS [facility] [id number] Merna Seybold 2024-05-09 10:00:00 2024-05-09 10:00:00 Outpatient DEEPA OREILLY [facility] [id number] [facility]erna Seybold 2024-04-16 00:00:00 2024-04-16 00:00:00 Outpatient MEGA ARNDT [facility] [id number] Merna Seybold 2024-04-11 00:00:00 2024-04-11 00:00:00 Outpatient MEGA ARNDT [facility] [id number] Merna Seybold 2024-04-08 00:00:00 2024-04-08 00:00:00 Outpatient [facility]GA ARNDT [facility] [id number] [facility] 2024-03-22 10:30:00 2024-03-22 10:30:00 [id number]24-[facility]-26 10:40:00 2024-02-26 10:40:00 Outpatient ANA LILIA EVANS [facility] [id number] [facility] 2024-02-22 10:00:00 2024-02-22 10:00:00 Outpatient DEEPA OREILLY [facility] [id number] Merna Seybold 2024-01-25 10:00:00 2024-01-25 10:00:00 Outpatient MEGA ARNDT [facility] [place] [id number] Merna Seybold 2024-01-12 13:15:00 2024-01-12 13:15:00 Outpatient MARYSERGIO BOO [facility] [id number] Merna Seybold 2023-12-22 11:00:00 2023-12-22 11:00:00 Outpatient [facility] [place] [id number] Merna Seybold 2023-12-22 09:00:00 2023-12-22 09:00:00 Outpatient MERNA [place] [id number] Merna Seybold 2023-12-15 11:30:00 2023-12-15 11:30:00 Outpatient [facility] [place] [id number] [facility] 2023-12-15 10:30:00 2023-12-15 10:30:00 Outpatient [facility] [place] [id number] [facility] 2023-12-14 10:30:00 2023-12-14 10:30:00 Outpatient ANIBAL BENTON [id number] [facility] 2023-12-08 10:00:00 2023-12-08 10:00:00 Outpatient [facility] [place] [id number] [facility] 2023-12-07 00:00:00 2023-12-07 00:00:00 Outpatient AL-RALFDAVID ALI [facility] [id number] [facility] 2023-12-02 12:05:00 2023-12-02 12:05:00 Outpatient [facility] [place] [id number] [facility] 2023-12-02 11:00:00 2023-12-02 11:00:00 Outpatient MARGE-DIONNE, ALI [id number] [facility] 2023-12-02 00:00:00 2023-12-02 00:00:00 Outpatient [facility] [place] [id number] [facility] 2023-12-02 00:00:00 2023-12-02 00:00:00 Outpatient MD MERNA ORELLANA [id number] [facility] 2023-11-26 11:00:00 2023-11-26 11:00:00 Outpatient BILLY WYATT [id number] [facility] 2023-11-23 11:00:00 2023-11-23 11:00:00 Outpatient ANIBAL BENTON [id number] [facility] 2023-11-23 09:00:00 2023-11-23 09:00:00 Outpatient [facility] [place] [id number] [facility] 2023-11-20 13:40:00 2023-11-20 13:40:00 Outpatient ANA LILIA EVANS [id number] [facility] 2023-11-20 00:00:00 2023-11-20 00:00:00 Outpatient MD MERNA ORELLANA [id number] [facility] 2023-11-19 11:00:00 2023-11-19 11:00:00 Outpatient TIFFANY KUMAR [id number] [facility] 2023-11-19 00:00:00 2023-11-19 00:00:00 Outpatient MERNA [place] [id number] [facility] 2023-11-17 11:15:00 2023-11-17 11:15:00 Outpatient MERNA [place] [id number] [facility] 2023-11-17 10:30:00 2023-11-17 10:30:00 Outpatient JOYTOY [id number] [facility] 2023-11-17 00:00:00 2023-11-17 00:00:00 Outpatient TOY FARRELL [id number] [facility] 2023-11-13 16:00:00 2023-11-13 16:00:00 Outpatient CHETAN ANIBAL [facility] [id number] [facility] 2023-11-13 00:00:00 2023-11-13 00:00:00 Outpatient CHETAN ANIBAL [facility] [place] [id number] [facility] 2023-11-13 00:00:00 2023-11-13 00:00:00 Outpatient ANIBAL BENTON [id number] [facility] 2023-10-28 09:30:00 2023-10-28 09:30:00 Outpatient LAB90 [facility] [id number] [facility] 2023-10-27 00:00:00 2023-10-27 00:00:00 Outpatient ANIBAL BENTON [id number] [facility] 2023-10-26 00:00:00 2023-10-26 00:00:00 Outpatient ANIBAL BENTON [id number] [facility] 2023-10-23 00:00:00 2023-10-23 00:00:00 Outpatient ANIBAL BENTON [id number] [facility] 2023-10-22 10:30:00 2023-10-22 10:30:00 Outpatient MERNA [facility] [id number] [facility] [place] 2023-10-20 12:05:00 2023-10-20 12:05:00 Outpatient JENY [place] [facility] [id number] [facility] 2023-10-20 11:20:00 2023-10-20 11:20:00 Outpatient RAYMUNDO FAGAN [facility] [id number] [facility] 2023-10-07 00:00:00 2023-10-07 00:00:00 Outpatient ANIBAL BENTON [facility] [id number] [facility] 2023-09-22 09:00:00 2023-09-22 09:00:00 Outpatient ANIBAL BENTON [facility] [id number] [facility] 2023-09-15 14:00:00 2023-09-15 14:00:00 Outpatient RAYMUNDO FGAAN [facility] [id number] [facility] 2023-09-09 10:40:00 2023-09-09 10:40:00 Outpatient NIKITAMALATHI PARK [id number] [facility] 2023-09-09 10:25:00 2023-09-09 10:25:00 Outpatient [facility] [place] [id number] [facility] 2023-09-07 10:40:00 2023-09-07 10:40:00 Out[facility] [id number] [facility] 2023-08-31 00:00:00 2023-08-31 00:00:00 Outpatient MD MERNA ORELLANA [id number] [facility] 2023-08-28 14:30:00 2023-08-28 14:30:00 Outpatient KARIME FORDE [id number] [facility] 2023-08-26 10:00:00 2023-08-26 10:00:00 Outpatient MALATHI SHELTON [id number] [facility] 2023-08-24 13:40:00 2023-08-24 13:40:00 Outpatient GUILLAUME GOLDEN [facility] [id number] [facility] 2023-08-22 09:45:00 2023-08-22 09:45:00 Outpatient NEMO SAM [facility] [id number] [facility] 2023-08-12 00:00:00 2023-08-12 00:00:00 Outpatient [facility] [place] [id number] [facility] 2023-08-12 00:00:00 2023-08-12 00:00:00 Outpatient [facility] [place] [id number] [facility] 2023-08-06 00:00:00 2023-08-06 00:00:00 Outpatient MD MERNA ORELLANA [id number] [facility] 2023-08-03 10:00:00 2023-08-03 10:00:00 Outpatient MALATHI SHELTON [id number] [facility] 2023-07-29 10:00:00 2023-07-29 10:00:00 Outpatient MALATHI SHELTON [id number] [facility] 2023-07-29 09:40:00 2023-07-29 09:40:00 Outpatient RADHA DOMINGUEZ [id number] [facility] 2023-07-27 09:20:00 2023-07-27 09:20:00 Outpatient RADHA DOMINGUEZ [id number] [facility] 2023-07-27 00:00:00 2023-07-27 00:00:00 Outpatient ANIBAL BENTON [id number] [facility] 2023-07-21 00:00:00 2023-07-21 00:00:00 Outpatient ANIBAL BENTON [id number] [facility] 2023-07-13 00:00:00 2023-07-13 00:00:00 Outpatient ANIBAL BENTON [id number] [facility] 2023-07-13 00:00:00 2023-07-13 00:00:00 Outpatient ANIBAL BENTON [facility] [id number] [facility] 2023-07-09 00:00:00 2023-07-09 00:00:00 Outpatient MERNA [place] [id number] Merna Riddle 2023-07-01 11:00:00 2023-07-01 11:00:00 Outpatient MALATHI SHELTON [facility] [id number] [facility] [place] 2023-06-24 09:30:00 2023-06-24 09:30:00 Outpatient ANIBAL BENTON [facility] [id number] [facility] 2023-06-24 00:00:00 2023-06-24 00:00:00 Outpatient MERNA [facility] [id number] [facility] 2023-06-24 00:00:00 2023-06-24 00:00:00 Outpatient MERNA MERNA [id number] [facility] 2023-06-23 13:26:47 2023-06-23 13:26:47 Outpatient [facility] [id number] Guillaume F Jarett 2023-05-27 00:00:00 2023-05-27 00:00:00 Outpatient KAILA TORRES [id number] [facility] 2023-05-22 00:00:00 2023-05-22 00:00:00 Outpatient ONDINA WASHINGTON [id number] [facility] 2023-05-22 00:00:00 2023-05-22 00:00:00 Outpatient ONDINA WASHINGTON [id number] [facility] 2023-05-20 11:15:00 2023-05-20 11:15:00 Outpatient LAB90 MERNA WASHINGTON [id number] [facility] 2023-05-20 10:30:00 2023-05-20 10:30:00 Outpatient KAILA TORRES [id number] [facility] 2022-10-09 00:00:00 2022-10-09 00:00:00 Telephone Miguelina King [facility] [id number] [facility] 2022-09-09 22:42:00 2022-09-10 00:10:00 Emergency Gus Tadeo [facility] [id number] [facility] 2022-09-09 22:42:00 2022-09-10 00:10:00 Emergency X GUS TADEO [facility] ERT [id number] [facility] 2022-07-24 11:23:25 2022-07-24 11:23:25 Outpatient [facility] [id number] Guillaume Denson 2021-11-12 00:00:00 2021-11-12 00:00:00 Outpatient Visit [id number] 2021-11-07 12:32:00 2021-11-07 12:32:00 Outpatient OMARREEN[facility]JSOE [facility] [id number] [facility] Results Test Description Test Time Test Comments Results Resul t Comments Source CERVICAL SPINE - 2 VIEW 2023-10-27 3 16:33:06 HISTORY: ?chronic neck painIMAGES: ?4 views, cervical spineFINDINGS: ?The soft tissues of the shoulders project over the cervicothoracic junction in the lateral projection.There is moderately advanced the C5-6 ?degenerative narrowing of all of the cervical discs with osteophytes of the uncovertebral joints. [facility] 04:28:10* Test Item Value Reference Range Interpretation Comme nts LIPASE (test code = 0510290489) 145 U/L 0-220 Lab Interpretation (test cod e = 42223-9) [facility] [id number] 04:14:27* Test Item Value Reference Range Interpretation [...] 33.8 g/dL 31.2-35.0 RDW-SD (test code = 86807-2) 44.7 fL 38.5-51.6 RDW-CV (test code = 788-0) 12.8 % 12.1-15.4 PLT (test code = 777-3) 226 See_Comment [Automated messa ge] The system which generated this result transmitted reference range: 150 - 328 10*3/?L. The reference range was not used to interpret this result as normal/abnormal. MPV (test code = 15755-5) 11.2 fL 9.8-13.0 NRBC/100 WBC (test code = 2812638324) 0.0 See_Comment [Automated SPEEDELO ssage] The system which generated this result transmitted reference range: 0.0 - 10.0 /100 WBCs. The reference range was not used to interpret this result as normal/abnormal. NRBC x10^3 (test code = 5260591645) See_Comment [Automated messa ge] The system which generated this result transmitted reference range: 10*3/?L. The reference range was not used to interpret this result as normal/abnormal. GRAN MAT (NEUT) % (test code = 770-8) 68.9 % IMM GRAN % (test code = 0740774289) 0.40 % LYMPH % (test code = 736-9) 23.3 % MONO % (test code = 5905-5) 6.6 % EOS % (test code = 713-8) 0.4 % BASO % (test code = 706-2) 0.4 % GRAN MAT x10^3(ANC) (test code = 8499362319) 9.61 10*3/uL 1.99-6.95 H IMM GRAN x10^3 (test code = 0560663998) 0.06 10*3/uL 0.00-0.06 LYMPH x10^3 (test code = 731-0) 3.24 10*3/uL 1.09-3.23 H MONO x10^3 (test code = 742-7) 0.92 10*3/uL 0.36-1.02 EOS x10^3 (test code = 711-2) 0.05 10*3/uL 0.06-0.53 L BASO x10^3 (test code = 704-7) 0.05 10*3/uL 0.01-0.09 Lab Interpretation (test code = 13321-9) Abnormal [facility] [id number] 00:00:00* Test Item Value Reference Range Interpretation Comme nts CHOLESTEROL (test code = 2210) 199 MG/DL TRIGLYCERIDES (test code = 2232) 172 MG/DL HDL CHOLESTEROL (test code = 2220) 33 MG/DL CALC LDL CHOL (test code = 2237) 135 MG/DL RISK RATIO LDL/HDL (test cod e = 2238) 4.09 RATIO BLOOD GROUP (ABO) AND RH [id number] 00:00:00* Test Item Value Reference Range Interpretation Comme nts BLOOD TYPE AND RH (test code = 3901) A POSITIVE CBC W/AUTO [id number] 00:00:00* Test Item Value Reference Range Interpretation [...] ABS NUCLEATED RBCS (test cod e = 08706) 0.00 K/UL HEMOGLOBIN [id number] 00:00:00* Test Item Value Reference Range Interpretation Comme nts HEMOGLOBIN A1c (test code = 14286) 5.7 % LIPID [id number] 00:00:00* Test Item Value Reference Range Interpretation Comme nts CHOLESTEROL (test code = 2210) 221 MG/DL TRIGLYCERIDES (test code = 2232) 154 MG/DL HDL CHOLESTEROL (test code = 2220) 35 MG/DL CALC LDL CHOL (test code = 2237) 157 MG/DL RISK RATIO LDL/HDL (test cod e = 2238) 4.49 RATIO COMPREHENSIVE METABOLIC [id number] 00:00:00* Test Item Value Reference Range Interpretation Comme nts GLUCOSE (test code = 2217) 107 MG/DL BUN (test code = 2208) 14 MG/DL CREATININE (test code = 2214) 1.13 MG/DL eGFR AMER. (test cod e = 03625) 91 ML/MIN/1.73 eGFR NON- AMER. (test code = 62655) 79 ML/MIN/1.73 CALC BUN/CREAT (test code = [...] ALT (test code = 2219) 19 U/L [id number] 00:00:00* Test Item Value Reference Range Interpretation Comme nts AMYLASE (test code = 2205) 59 U/L [id number] 00:00:00* Test Item Value Reference Range Interpretation Comme nts LIPASE (test code = 205) 74 U/L COMPREHENSIVE METABOLIC [id number] 00:00:00* Test Item Value Reference Range Interpretation Comme nts GLUCOSE (test code = 2217) 95 MG/DL BUN (test code = 2208) 14 MG/DL CREATININE (test code = 2214) 0.88 MG/DL eGFR AMER. (test cod e = 25839) 122 ML/MIN/1.73 eGFR NON- AMER. (test code = 10698) 105 ML/MIN/1.73 CALC BUN/CREAT (test code = [...] ALT (test code = 2219) 18 U/L [id number] 00:00:00* Test Item Value Reference Range Interpretation Comme nts TSH, THIRD GENERATION (test code = 2821) 3.110 UIU/ML LIPID [id number] 00:00:00* Test Item Value Reference Range Interpretation Comme nts CHOLESTEROL (test code = 2210) 214 MG/DL TRIGLYCERIDES (test code = 2232) 182 MG/DL HDL CHOLESTEROL (test code = 2220) 35 MG/DL CALC LDL CHOL (test code = 2237) 147 MG/DL RISK RATIO LDL/HDL (test cod e = 2238) 4.20 RATIO
[2024-05-21] MEDS ORDERED: ONDANSETRON 4 MG/2 ML VIAL ONE (09:05)
[2024-05-21] MEDS ORDERED: NA CHLORIDE 0.9% 1,000 ML ONE (09:06)
[2024-05-21] MEDS ORDERED: MORPHINE 4 MG/ML SYR ONE (09:06)
[2024-05-21 09:39] LABS: Albumin/Globulin Ratio 0.9 (1.1-1.8); Anion Gap 8.9 mEq/L (5.0-15.0); Bilirubin Total 0.6 mg/dL (0.2-1.0); Globulin 4.4 g/dL (2.3-3.5); Potassium 3.9 mEq/L (3.5-5.1); Protein, Total 8.4 g/dL (6.4-8.2)
[2024-05-21 10:15] LABS: Specific Gravity > 1.030 (1.005-1.030); Sqamous Epithelial None Seen /HPF (None Seen); Urine Bacteria None Seen /HPF (<20); Urine Bilirubin NEGATIVE (Negative); Urine Blood Negative (Negative); Urine Clarity Clear (Clear); Urine Color Yellow (Yellow); Urine Culture Reflex Order NOT NEEDED; Urine Glucose NEGATIVE (Negative); Urine Ketones TRACE (Negative); Urine Microscopic Reflex YN ORDER UMIC; Urine Mucus 4+ /HPF (None Seen); Urine Nitrite NEGATIVE (Negative); Urine Protein TRACE (Negative); Urine RBC None Seen /HPF (None Seen); Urine Urobilinogen Normal (Normal); Urine WBC <5 /HPF (<5); Urine pH 5.5 (5.0-7.0)
--- NOTE | 2024-05-21 10:18 | RAD REPORT ---
EXAMINATION: CT ABDOMEN AND PELVIS WITH CONTRAST CLINICAL INDICATION: Abdominal pain TECHNIQUE: CT abdomen and pelvis was performed, after the administration of 100 cc Isovue-300.. Sagit de and coronal reconstructions were obtained. One or more of the following dose reduction techniques were used: Automated exposure control, adjustment of the mA and kV according to patient si ze, and iterative reconstruction. Unless otherwise specified, incidental findings do not require dedicated imaging follow-up. DO5272. Oral contrast was not given which limits evaluation of bowel and appendix. COMPARISON: .2021 and December 2023 FINDINGS: At least 2 hemangiomas are present within the liver without significant change. There are couple of t iny low-density lesions within the liver which are too small to characterize but probably are cysts. Spleen, pancreas, adrenals and kidneys unremarkable Normal appendix. Small moderate left and small right inguinal hernias containing fat. Tiny umbilical hernia Diverticula stem from colon. Mild to moderate stranding adjacent to the sigmoid colon. Extraluminal a ir present indicating perforation. The air is contained within the mesial:. No abscess : IMPRESSION: Perforated sigmoid diverticulitis. The air is contained within the mesocolon
--- NOTE | 2024-05-21 10:41 | ER ---
Nurse's Notes [facility] Name: Ming Odonnell Age: 48 yrs Sex: Male : 1975 Arrival Date: 05/21/2024 Time: 08:38 Bed 20 Private MD: Diagnosis: Perforated sigmoid diverticulitis Presentation: 05/21 08:57 Chief complaint: Left sided abdominal pain and distention x 3 weeks. Hx of hb diverticulitis, feels similar to last flare up. Coronavirus screen: At this time, the client does not indicate any symptoms associated with coronavirus-19. Ebola Screen: No symptoms or risks identified at this time. Initial Sepsis Screen: Does the patient meet any 2 criteria? No. Patient's initial sepsis screen is negative. Does the patient have a suspected source of infection? No. Patient's initial sepsis screen is negative. Risk Assessment: Do you want to hurt yourself or someone else? Patient reports no desire to harm self or others. Onset of symptoms was April 30, 2024. 08:57 Method Of Arrival: Ambulatory 08:57 Acuity: CELENA 3 hb Triage Assessment: 08:58 General: Appears in no apparent distress. uncomfortable, Behavior is calm, cooperative. hb Pain: Pain currently is 8 out of 10 on a pain scale. Neuro: GCS 15. Cardiovascular: Patient's skin is warm and dry. Respiratory: Respiratory effort is even, unlabored, Respiratory pattern is regular, symmetrical. GI: Reports lower abdominal pain, upper abdominal pain. Historical: - Allergies: 08:58 PENICILLINS; hb - Home Meds: 08:58 None [Active]; hb - PMHx: 08:58 Diverticulitis; Pancreatitis; hb - PSHx: 08:58 Right Knee; Right Shoulder; hb - Immunization history:: Adult Immunizations up to date. - Infectious Disease History:: Denies. - Social history:: Smoking status: Patient reports the use of cigarette tobacco products, denies chronic smoking, but will smoke occasionally. Screenin:00 [facility] ED Fall Risk Assessment (Adult) History of falling in the last 3 months, hb including since admission No falls in past 3 months (0 pts) Confusion or Disorientation No (0 pts) Intoxicated or Sedated No (0 pts) Impaired Gait No (0 pts) Mobility Assist Device Used No (0 pt) Altered Elimination No (0 pt) Score/Fall Risk Level 0 - 2 = Low Risk Oriented to surroundings, Maintained a safe environment, Educated pt \T\ family on fall prevention, incl call for assistance when getting out of bed. Abuse screen: Denies threats or abuse. Denies injuries from another. Nutritional screening: No deficits noted. Tuberculosis screening: No symptoms or risk factors identified. Assessment: 08:59 General: See triage assessment . hb 10:09 Reassessment: Patient appears in no apparent distress at this time. Patient and/or kj2 family updated on plan of care and expected duration. Pain level reassessed. Patient is alert, oriented x 3, equal unlabored respirations, skin warm/dry/pink. 10:54 Reassessment: Patient appears in no apparent distress at this time. Patient and/or kj2 family updated on plan of care and expected duration. Pain level reassessed. Patient is alert, oriented x 3, equal unlabored respirations, skin warm/dry/pink. 11:36 Reassessment: NURSE TO NURSE REPORT ATTEMPTED, ASKED TO CALL BACK IN 20 MINUTES. kj2 12:00 Reassessment: Patient appears in no apparent distress at this time. Patient and/or kj2 family updated on plan of care and expected duration. Pain level reassessed. Patient is alert, oriented x 3, equal unlabored respirations, skin warm/dry/pink. REPORT GIVEN NURSE TO NURSE. Vital Signs: 08:57 BP 112 / 87; Pulse 96; Resp 18; Temp 98(O); Pulse Ox 97% on R/A; Weight 117.93 kg; hb Height 5 ft. 11 in. ; Pain 8/10; 10:10 BP 116 / 65; Pulse 70; Resp 20; Pulse Ox 100% on R/A; kj2 10:58 BP 123 / 81; Pulse 72; Resp 20; Pulse Ox 100% on R/A; kj2 12:00 BP 123 / 82; Pulse 78; Resp 20; Pulse Ox 100% on R/A; kj2 08:57 Body Mass Index 36.26 (117.93 kg, 180.34 cm) hb 08:57 Pain Scale: Adult hb ED Course: 08:39 Patient arrived in ED. mr 08:56 Michaela Sherman FNP-C is [facility]. kb 08:56 Guille Arreguin MD is Attending Physician. kb 08:57 Yandy Barlow, RN is Primary Nurse. hb 08:58 Triage completed. hb 08:59 Arm band placed on. hb 09:00 Patient has correct armband on for positive identification. Provided Education on: use hb of call light, bathroom location . 09:14 CBC with Diff Sent. hb 09:14 CMP Sent. hb 09:14 Lipase Sent. hb 09:15 Initial lab(s) drawn, by ED staff, sent to lab. Inserted saline lock: 20 gauge in right hb forearm, using aseptic technique. ,using aseptic technique. by [facility] health officer Blood collected. Flushed with 10 mL NS. 09:52 Urinalysis w/ reflexes Sent. ty 09:[address] via wheelchair. db 10:07 CT Abd/Pelvis - IV Contrast Only In Process Unspecified. EDMS 10:10 Report received from Yandy Egan RN. kj2 10:34 initiated a transfer with Iraz from the [facility] Transfer [place]. eb 11:[address] Garcia the hospitalist injury prevention coordinator for [facility] with Michaela Thomas for eb patient transfer consultation. 11:10 First set of blood cultures drawn by me. ty 11:20 Inserted saline lock: 20 gauge in left wrist, using aseptic technique. Blood collected. ty Flushed with 10 mL NS. 11:20 Initial lab(s) drawn, by me, sent to lab. Second set of blood cultures drawn by me. ty 11:23 Blood Culture Adult (2) Sent. kj2 11:23 Lactate w/ 2H reflex if indic. Sent. kj2 12:19 No provider procedures requiring assistance completed. kj2 Administered Medications: 09:14 Drug: Ondansetron IVP 4 mg IVP once; over 2 minutes Route: IVP; Site: right forearm; hb 11:23 Follow up: Response: No adverse reaction kj2 09:14 Drug: NS 0.9% IV 1000 ml IV at 1 bolus Per protocol; to be given as a bolus over 60 hb minutes Route: IV; Rate: 1 bolus; Site: right forearm; 11:24 Follow up: IV Status: Completed infusion; IV Intake: 1000ml kj2 09:15 Drug: morphine IVP or IV 4 mg IVP once over 4 mins Route: IVP; Infused Over: 4 mins; hb Site: right forearm; 11:37 Drug: metroNIDAZOLE IVPB 500 mg 100 ml IVPB at 200 ml/hr once over 30 mins Volume: 100 kj2 ml; Route: IVPB; Rate: 200 ml/hr; Infused Over: 30 mins; Site: left antecubital; 12:14 Follow up: Response: No adverse reaction; IV Status: Completed infusion; IV Intake: kj2 100ml 12:14 Drug: Ciprofloxacin IVPB 400 mg 200 ml IVPB once over 60 mins Volume: 200 ml; Route: kj2 IVPB; Infused Over: 60 mins; Site: left antecubital; 13:10 Follow up: Response: No adverse reaction; IV Status: Completed infusion; IV Intake: hb 100ml 13:15 Follow up: Response: No adverse reaction; IV Status: Completed infusion; IV Intake: hb 200ml Medication: 09:00 VIS not applicable for this client. hb Intake: 11:24 IV: 1000ml; Total: 1000ml. kj2 12:14 IV: 100ml; Total: 1100ml. kj2 13:10 IV: 100ml; Total: 1200ml. hb 13:15 IV: 200ml; Total: 1400ml. hb Outcome: 10:41 ER care complete, transfer ordered by . kb 12:45 Patient left the ED. Signatures: Dispatcher [employer] EDMS Michaela Sherman, BALANCE BRIDGE ASSEMBLER-C BALANCE BRIDGE ASSEMBLER-Atiya Noel, Haim Whitmore mr Yandy Barlow, RN RN Alessandra Ramirez Danielle, RN RN db Yandell, Tylor ty Jordan, Krystal, RN RN kj2
--- NOTE | 2024-05-21 10:42 | EDPHYS ---
Physician Documentation [facility] Name: Ming Odonnell Age: 48 yrs Sex: Male : 1975 Arrival Date: 05/21/2024 Time: 08:38 Bed 20 Private MD: ED Physician uGille Arreguin HPI: 05/21 09:05 This 48 yrs old Male presents to ER via Ambulatory with complaints of Abdominal Pain. kb 09:05 Pt is a 48 year old male who presents for left sided abd pain that started 3 weeks ago kb and has gotten progressively worse. Denies n/v/d, fever. States it feels similar to previous episodes of diverticulitis. . Historical: - Allergies: 08:58 PENICILLINS; hb - Home Meds: 08:58 None [Active]; hb - PMHx: 08:58 Diverticulitis; Pancreatitis; hb - PSHx: 08:58 Right Knee; Right Shoulder; hb - Immunization history:: Adult Immunizations up to date. - Infectious Disease History:: Denies. - Social history:: Smoking status: Patient reports the use of cigarette tobacco products, denies chronic smoking, but will smoke occasionally. ROS: 09:05 Constitutional: As per HPI kb Exam: 09:05 Constitutional: This is a well developed, well nourished patient who is awake, alert, kb and in no acute distress. Head/Face: Normocephalic, atraumatic. ENT: Moist Mucous membranes Cardiovascular: Regular rate Respiratory: Respirations even and unlabored. No increased work of breathing. Talking in full sentences Skin: Warm, dry with normal turgor. Normal color. MS/ Extremity: Pulses equal, no cyanosis. Neurovascular intact. Full, normal range of motion. Neuro: Awake and alert, GCS 15, oriented to person, place, time, and situation. 09:05 Abdomen/GI: Inspection: distension, that is mild, Bowel sounds: normal, Palpation: soft, in all quadrants, moderate abdominal tenderness, in the left upper quadrant and left lower quadrant, Vital Signs: 08:57 BP 112 / 87; Pulse 96; Resp 18; Temp 98(O); Pulse Ox 97% on R/A; Weight 117.93 kg; hb Height 5 ft. 11 in. ; Pain 8/10; 10:10 BP 116 / 65; Pulse 70; Resp 20; Pulse Ox 100% on R/A; kj2 10:58 BP 123 / 81; Pulse 72; Resp 20; Pulse Ox 100% on R/A; kj2 12:00 BP 123 / 82; Pulse 78; Resp 20; Pulse Ox 100% on R/A; kj2 08:57 Body Mass Index 36.26 (117.93 kg, 180.34 cm) hb 08:57 Pain Scale: Adult hb MDM: 08:56 Medical Screening Exam initiated kb 10:39 Differential diagnosis: diverticulitis, perforation, abscess. Data reviewed: vital kb signs, nurses notes. Consideration of Admission/Observation Escalation of care including admission/observation considered. admission considered, but pt will be transferred after discussion with Dr Reardon. Management of patient was discussed with the following: Water Tender: Dr Reardon recommends transfer for colorectal surgeon. Counseling: I had a detailed discussion with the patient and/or guardian regarding the historical points, exam findings, and any diagnostic results supporting the discharge/admit diagnosis, lab results, radiology results, the need to transfer to another facility, [facility] does not immediately have the required specialist. 11:34 Management of patient was discussed with the following: Dr Garcia, hospitalist at [facility], accepts pt for transfer but wants CBC resulted prior to transfer. Dr Mcgraw, surgeon, accepts pt for consult without conference. . 05/21 08:59 Order name: CBC with Diff; Complete Time: 12:12 kb 05/21 08:59 Order name: CMP; Complete Time: 09:41 kb 05/21 08:59 Order name: Lipase; Complete Time: 09:41 kb 05/21 08:59 Order name: Urinalysis w/ reflexes; Complete Time: 10:17 kb 05/21 10:29 Order name: Lactate w/ 2H reflex if indic.; Complete Time: 11:47 kb 05/21 10:29 Order name: Blood Culture Adult (2) kb 05/21 08:59 Order name: CT Abd/Pelvis - IV Contrast Only; Complete Time: 10:28 kb 05/21 08:59 Order name: IV Saline Lock; Complete Time: 09:14 kb 05/21 08:59 Order name: Labs collected and sent; Complete Time: 09:14 kb Administered Medications: 09:14 Drug: Ondansetron IVP 4 mg IVP once; over 2 minutes Route: IVP; Site: right forearm; hb 11:23 Follow up: Response: No adverse reaction kj2 09:14 Drug: NS 0.9% IV 1000 ml IV at 1 bolus Per protocol; to be given as a bolus over 60 hb minutes Route: IV; Rate: 1 bolus; Site: right forearm; 11:24 Follow up: IV Status: Completed infusion; IV Intake: 1000ml kj2 09:15 Drug: morphine IVP or IV 4 mg IVP once over 4 mins Route: IVP; Infused Over: 4 mins; hb Site: right forearm; 11:37 Drug: metroNIDAZOLE IVPB 500 mg 100 ml IVPB at 200 ml/hr once over 30 mins Volume: 100 kj2 ml; Route: IVPB; Rate: 200 ml/hr; Infused Over: 30 mins; Site: left antecubital; 12:14 Follow up: Response: No adverse reaction; IV Status: Completed infusion; IV Intake: kj2 100ml 12:14 Drug: Ciprofloxacin IVPB 400 mg 200 ml IVPB once over 60 mins Volume: 200 ml; Route: kj2 IVPB; Infused Over: 60 mins; Site: left antecubital; 13:10 Follow up: Response: No adverse reaction; IV Status: Completed infusion; IV Intake: hb 100ml 13:15 Follow up: Response: No adverse reaction; IV Status: Completed infusion; IV Intake: hb 200ml Disposition: 14:17 Co-signature as Attending Physician, Guille Arreguin MD I reviewed the patient's care rt provided by the Advanced Practice Provider and agree with the diagnosis and treatment plan. Disposition Summary: 05/21/24 10:41 Transfer Ordered Notes: Transfer Location: [facility] kb Reason: Higher level of care kb Condition: Stable kb Problem: new kb Symptoms: are unchanged kb Accepting Physician: Dr Garcia(05/21/24 12:45) hb Diagnosis - Perforated sigmoid diverticulitis kb Forms: - Medication Reconciliation Form kb - SBAR form kb Signatures: Dispatcher [employer] Michaela Acosta, ALYSSA ADAMSP-Peyton Boateng RN RN Guille Cano MD MD rt Tran Everett RN RN kj2 Corrections: (The following items were deleted from the chart) 08:59 08:59 CBC+H.LAB.BRZ ordered. EDMS EDMS 08:59 08:59 COMPREHENSIVE METABOLIC PANEL+C.LAB.BRZ ordered. EDMS EDMS 08:59 08:59 LIPASE+C.LAB.BRZ ordered. EDMS EDMS 08:59 08:59 Urinalysis+U.LAB.BRZ ordered. EDMS EDMS 08:59 08:59 Abdomen Pelvis W Con+CT.RAD.BRZ ordered. EDMS EDMS 11:16 10:41 Dr verena albarado 12:45 11:16 Dr Jose albarado hb
[2024-05-21] MEDS ORDERED: METRONIDAZOLE 500mg IVPB 500 MG/100 ML BAG IV ONE (11:35)
[2024-05-21] MEDS ORDERED: CIPROFLOXACIN 400mg IV 400 MG/200 ML BAG IV ONE (11:35)
[2024-05-21 12:02] LABS: Absolute Lymphocytes (CBC) 2.5 K/uL (0.7-4.9); Absolute Monocytes 0.8 K/uL (0.1-1.3); Absolute Neutrophil 8.3 K/uL (1.8-8.0); Basophils % 0.4 % (0-1.3); Eosinophils % 0.3 % (0-4.4); Hematocrit 45.1 % (39.6-49.0); Hemoglobin 15.6 g/dL (13.6-17.9); MCHC 34.6 g/dL (32.0-36.0); MCV 95.5 fL (80-100); MPV 9.9 fL (7.6-11.3); Monocytes % 6.8 % (3.3-12.3); Neutrophils % 71.5 % (41.7-73.7); Nucleated Red Blood Cells % 0.1 % (0-0); Platelets 244 thou/uL (152-406); RBC Red Blood Cell Count 4.72 M/uL (4.33-5.43); Red Cell Distribution Width 13.6 % (12.1-15.2)
[2024-05-21 13:54] VITALS: TEMP 98
[2024-05-21 13:55] VITALS: O2SAT 100
[2024-05-21 13:57] VITALS: BP 123/82
== END 2024-05-21 12:45 | disposition short-term general hospital (02) ==
LOC: ER 08:38
DX: K57.20 Diverticulitis of large intestine with perforation and abscess without bleeding (principal); F17.210 Nicotine dependence, cigarettes, uncomplicated
CPT/HCPCS: 96365; 96367; 96361; 87040 ×2; 85025; 81001; 36415; 83605; 83690; 80053; 74177; 96375; 99284; Q9967; J2405; J0744; J7030

== ENCOUNTER 2024-07-10 09:13 | Emergency (ER) | payer OTHER ==
[2024-07-10] MEDS ORDERED: NA CHLORIDE 0.9% 1,000 ML ONE (09:51)
[2024-07-10] MEDS ORDERED: MORPHINE 4 MG/ML SYR ONE ×2 (09:51→11:02)
[2024-07-10] MEDS ORDERED: ONDANSETRON 4 MG/2 ML VIAL ONE ×2 (09:51→11:02)
[2024-07-10] MEDS ORDERED: DIPHENHYDRAMINE 50 MG/ML VIAL ONE ×2 (09:51→11:54)
[2024-07-10 10:00] LABS: Absolute Basophils 0.1 K/uL (0-0.5); Absolute Eosinophils 1.2 K/uL (0-0.5); Absolute Lymphocytes (CBC) 3.2 K/uL (0.7-4.9); Absolute Monocytes 1.1 K/uL (0.1-1.3); Absolute Neutrophil 8.9 K/uL (1.8-8.0); Basophils % 0.7 % (0-1.3); Eosinophils % 8.4 % (0-4.4); Hematocrit 45.3 % (39.6-49.0); Hemoglobin 15.6 g/dL (13.6-17.9); Lymphocytes % 21.9 % (15.3-44.8); MCH 33.1 pg (27.0-35.0); MCHC 34.4 g/dL (32.0-36.0); MCV 96.4 fL (80-100); MPV 8.7 fL (7.6-11.3); Monocytes % 7.3 % (3.3-12.3); Neutrophils % 61.7 % (41.7-73.7); Nucleated Red Blood Cells % 0.1 % (0-0); Platelets 289 thou/uL (152-406); Red Cell Distribution Width 13.9 % (12.1-15.2)
[2024-07-10 10:06] LABS: PT Prothrombin Time 13.3 SECONDS (10-13.0); PTT, Activated Partial Thromb 30.8 SECONDS (27.2-37.4); Protime INR 1.18
[2024-07-10 10:14] LABS: Albumin 3.6 g/dL (3.4-5.0); Albumin/Globulin Ratio 0.9 (1.1-1.8); Anion Gap 11.8 mEq/L (5.0-15.0); Bilirubin Total 0.3 mg/dL (0.2-1.0); Globulin 4.2 g/dL (2.3-3.5); Potassium 3.8 mEq/L (3.5-5.1); Protein, Total 7.8 g/dL (6.4-8.2)
[2024-07-10] MEDS ORDERED: METRONIDAZOLE 500mg IVPB 0 MG/0 ML BAG IV ONE (10:34)
[2024-07-10] MEDS ORDERED: METRONIDAZOLE 500mg IVPB 500 MG/100 ML BAG IV ONE (10:36)
[2024-07-10] MEDS ORDERED: CEFTRIAXONE 1000 MG/VIAL ONE (11:02)
--- NOTE | 2024-07-10 11:22 | RAD REPORT ---
EXAMINATION: CT Abdomen Pelvis W Contrast CLINICAL INDICATION: Male, 48 years old. ABD PAIN TECHNIQUE: CT abdomen and pelvis was performed, after the administration of IV contrast, as per [facility]. Axial, sagittal and coronal reconstructions were obtained. One or more of the following dose reduction techniques were used: Automated exposure control, adjustment of the mA and k V according to patient size, and iterative reconstruction. Unless otherwise specified, incidental findings do not require dedicated imaging follow-up. COMPARISON: 05/21/2024 FINDINGS: LOWER CHEST: The visualized lung bases are clear. LIVER: Normal in size and contour. Stable 2.6 cm subcapsular posterior right lobe hemangioma and othe r subcentimeter hypoattenuating lesions, suggestive of small cysts, but not well characterized. No other suspicious focal lesion. BILIARY SYSTEM: No suspicious abnormalities. SPLEEN: Normal size. No focal lesion. PANCREAS: No mass, ductal dilation, or pat-pancreatic fluid. ADRENALS: Normal; no mass. KIDNEYS: Normal size and contour. No hydronephrosis. URINARY BLADDER: Unremarkable. GASTROINTESTINAL TRACT: Improving fat stranding along the superior wall of the proximal sigmoid colon . Poorly localized locus of gas seen just proximal to this has since resolved. Mild fat stranding now extends along the posterior wall, towards the left pelvic sidewall, see series 201 image 82. No e vidence of free air, significant intra-abdominal free fluid, bowel obstruction or abscess. APPENDIX: Normal appendix. LYMPH NODES: No lymphadenopathy. MUSCULOSKELETAL: No acute or suspicious osseous abnormality. ADDITIONAL FINDINGS: Small left inguinal hernia containing fat. IMPRESSION: Improving sequelae of acute diverticulitis along the superior wall of the proximal sigmoid colon. Int erval resolution of poorly localized adjacent locus of free air. Mild new fat stranding now extending along the posterior wall towards the left pelvic sidewall, could represent early acute diverticulitis in this location, versus extension of the prior findings. Other stable findings as above.
--- NOTE | 2024-07-10 11:50 | ER ---
Nurse's Notes [facility] Name: Ming Odonnell Age: 48 yrs Sex: Male : 1975 Arrival Date: 07/10/2024 Time: 09:13 Bed 6 Private MD: Diagnosis: Diverticulitis of large intestine without perforation or abscess without bleeding Presentation: 07/10 09:29 Chief complaint: Left sided abdominal pain and diarrhea x 3 days. Coronavirus screen: hb At this time, the client does not indicate any symptoms associated with coronavirus-19. Ebola Screen: No symptoms or risks identified at this time. Initial Sepsis Screen: Does the patient meet any 2 criteria? No. Patient's initial sepsis screen is negative. Does the patient have a suspected source of infection? No. Patient's initial sepsis screen is negative. 09:29 Method Of Arrival: Ambulatory hb 09:30 Risk Assessment: Do you want to hurt yourself or someone else? Patient reports no hb desire to harm self or others. Onset of symptoms was July 07, 2024. 09:30 Acuity: CELENA 3 hb Triage Assessment: 09:42 General: Appears in no apparent distress. uncomfortable, ill, Behavior is cooperative, bp appropriate for age, anxious. Pain: Complains of pain in abdomen. EENT: No deficits noted. Neuro: No deficits noted. Cardiovascular: No deficits noted. Respiratory: No deficits noted. GI: Reports diarrhea, nausea. : No signs and/or symptoms were reported regarding the genitourinary system. Derm: No deficits noted. Musculoskeletal: No deficits noted. Historical: - Allergies: 09:30 PENICILLINS; hb 10:30 Cipro IV; ll1 - PMHx: 09:30 Diverticulitis; Pancreatitis; hb - PSHx: 09:30 right knee; right shoulder; hb - Immunization history:: Adult Immunizations up to date. - Infectious Disease History:: Denies. - Social history:: Smoking status: unknown. Screenin:01 [facility] ED Fall Risk Assessment (Adult) History of falling in the last 3 months, ll1 including since admission No falls in past 3 months (0 pts) Confusion or Disorientation No (0 pts) Intoxicated or Sedated No (0 pts) Impaired Gait No (0 pts) Mobility Assist Device Used No (0 pt) Altered Elimination No (0 pt) Score/Fall Risk Level 0 - 2 = Low Risk Maintained a safe environment, Hourly rounding (assess needs \T\ fall precautionary measures) done. Abuse screen: Denies threats or abuse. Nutritional screening: No deficits noted. Tuberculosis screening: No symptoms or risk factors identified. Assessment: 09:43 General: Appears distressed, ill, obese, Behavior is cooperative, appropriate for age, bp anxious. 10:30 Reassessment: No changes from previously documented assessment. Patient and/or family ll1 updated on plan of care and expected duration. Pain level reassessed. Patient is alert, oriented x 3, equal unlabored respirations, skin warm/dry/pink. 11:07 Reassessment: No changes from previously documented assessment. Patient and/or family ll1 updated on plan of care and expected duration. Pain level reassessed. Patient is alert, oriented x 3, equal unlabored respirations, skin warm/dry/pink. 11:58 Reassessment: No changes from previously documented assessment. Patient and/or family ll1 updated on plan of care and expected duration. Pain level reassessed. Patient is alert, oriented x 3, equal unlabored respirations, skin warm/dry/pink. 11:58 GI: Bowel sounds present X 4 quads. Abd is soft and non tender X 4 quads. ll1 Vital Signs: 09:32 BP 152 / 120; Pulse 112; Resp 18; Temp 98.5(O); Pulse Ox 99% ; Weight 122.47 kg; Height hb 5 ft. 10 in. ; Pain 3/10; 10:41 BP 141 / 91; Pulse 80; Resp 18; Pulse Ox 99% ; ll1 11:58 BP 140 / 89; Pulse 79; Resp 17; Pulse Ox 99% ; ll1 09:32 Body Mass Index 38.74 (122.47 kg, 177.8 cm) hb 09:32 Pain Scale: Adult hb ED Course: 09:22 Patient arrived in ED. al6 09:27 Andre Zelaya FNP-C [facility] hb 09:27 Brandon Quintanilla MD is Attending Physician. hb 09:30 Triage completed. hb 09:30 Arm band placed on. hb 09:35 Henrik Rosario, ANDREW is Primary Nurse. ll1 09:35 Patient placed in an exam room, on a stretcher. ll1 09:45 Initial lab(s) drawn, by me, sent to lab. First set of blood cultures drawn. Inserted ll1 saline lock: 20 gauge in left antecubital area, using aseptic technique. Blood collected. Flushed with 10 mL NS. 09:49 Lactate w/ 2H reflex if indic. Sent. hb 09:49 Blood Culture Adult (2) Sent. hb 10:02 Patient has correct armband on for positive identification. Bed in low position. Call ll1 light in reach. Provided Education on: ER procedures and process. Client placed on continuous cardiac and pulse oximetry monitoring. NIBP monitoring applied. 10:53 CT Abd/Pelvis - IV Contrast Only In Process Unspecified. EDMS 11:58 No provider procedures requiring assistance completed. IV discontinued, intact, ll1 bleeding controlled, No redness/swelling at site. Pressure dressing applied. Administered Medications: 10:00 Drug: Ondansetron IVP 4 mg IVP once; over 2 minutes Route: IVP; Site: left antecubital; ll1 11:56 Follow up: Response: No adverse reaction ll1 10:00 Drug: morphine IVP or IV 4 mg IVP once over 4 mins {Note: pain 6/10 RASS 0.} Route: ll1 IVP; Infused Over: 4 mins; Site: left antecubital; 11:56 Follow up: Response: No adverse reaction; Pain is decreased ll1 10:00 Drug: NS 0.9% IV 1000 ml IV at 1 bolus Per protocol; to be given as a bolus over 60 ll1 minutes Route: IV; Rate: 1 bolus; Site: left antecubital; 11:56 Follow up: Response: No adverse reaction; IV Status: Completed infusion; IV Intake: ll1 1000ml 10:00 Drug: diphenhydrAMINE IVP 12.5 mg IVP once Route: IVP; Site: left antecubital; ll1 11:57 Follow up: Response: No adverse reaction; RASS: Alert and Calm (0) ll1 10:30 Not Given (allergicc): [id number] mg 200 ml IVPB once over 60 mins ll1 10:35 Not Given (Changed to Zosyn): [id number] mg 100 ml IVPB at 200 ml/hr once over 30 dr5 mins 10:40 Drug: metroNIDAZOLE IVPB 500 mg 100 ml IVPB once over 30 mins Volume: 100 ml; Route: ll1 IVPB; Infused Over: 30 mins; Site: left antecubital; 11:57 Follow up: Response: No adverse reaction; IV Status: Completed infusion; IV Intake: ll1 100ml 10:50 Not Given (Physician Discretion): [id number] mg 150 ml IVPB once over 90 mins dr5 11:07 Drug: Rocephin IV 1 grams IV at per protocol once; Given slow IV push per pharmacy ll1 instructions Route: IV; Rate: per protocol; Site: left antecubital; 11:57 Follow up: Response: No adverse reaction; IV Status: Completed infusion; IV Intake: [id number] 11:07 Drug: morphine IVP or IV 4 mg IVP once over 4 mins {Note: pain 7/10 RASS 0.} Route: ll1 IVP; Infused Over: 4 mins; Site: left antecubital; 11:57 Follow up: Response: No adverse reaction; Pain is decreased; RASS: Alert and Calm (0) ll1 11:07 Drug: Ondansetron IVP 4 mg IVP once; over 2 minutes Route: IVP; Site: left antecubital; ll1 11:57 Follow up: Response: No adverse reaction ll1 11:58 Drug: diphenhydrAMINE IVP 12.5 mg IVP once Route: IVP; Site: left antecubital; ll1 11:59 Follow up: Response: No adverse reaction ll1 Medication: 10:02 VIS not applicable for this client. ll1 Intake: 11:56 IV: 1000ml; Total: 1000ml. ll1 11:57 IV: 100ml; Total: 1100ml. ll1 11:57 IV: 10ml; Total: 1110ml. ll1 Outcome: 11:49 Discharge ordered by . dr5 11:58 Discharged to home ambulatory, ll1 11:58 Condition: stable 11:58 Discharge instructions given to patient, Instructed on discharge instructions, follow up and referral plans. medication usage, 11:59 Demonstrated understanding of instructions, follow-up care, medications, Prescriptions ll1 given X 4, 12:01 Patient left the ED. bp Signatures: Dispatcher [employer] EDMS Peyton Barlow RN RN hb Peltier, Brian, RN RN bp Lewis, Lynsay, RN RN ll1 Andre Zelaya, COSMETOLOGIST-C COSMETOLOGIST-[facility]5 Urban, Macie al6
--- NOTE | 2024-07-10 11:50 | EDPHYS ---
Physician Documentation [facility] Name: Ming Odonnell Age: 48 yrs Sex: Male : 1975 Arrival Date: 07/10/2024 Time: 09:13 Bed 6 Private MD: ED Physician Brandon Quintanilla HPI: 07/10 11:58 This 48 yrs old Male presents to ER via Ambulatory with complaints of dr5 Abdominal Pain, Diarrhea, Weakness. 11:58 The patient presents with abdominal pain in the left lower quadrant. Onset: The dr5 symptoms/episode began/occurred last week. Patient is a 48-year-old male with history of pancreatitis and diverticulitis coming in with left lower quadrant abdominal pain this been going on for the past week. Patient reports that he is supposed to have surgery on his large intestines on September 21 due to continuous diverticulitis problems. Patient reports he had just finished his antibiotics last week. Patient reports diarrhea as well. Historical: - Allergies: 09:30 PENICILLINS; hb 10:30 Cipro IV; ll1 - PMHx: 09:30 Diverticulitis; Pancreatitis; hb - PSHx: 09:30 right knee; right shoulder; hb - Immunization history:: Adult Immunizations up to date. - Infectious Disease History:: Denies. - Social history:: Smoking status: unknown. ROS: 11:58 Constitutional: as per hpi dr5 Exam: 11:58 Constitutional: This is a well developed, well nourished patient who is awake, alert, dr5 and in no acute distress. Head/Face: Normocephalic, atraumatic. Eyes: Pupils equal round and reactive to light, extra-ocular motions intact. Lids and lashes normal. Conjunctiva and sclera are non-icteric and not injected. Cornea within normal limits. Periorbital areas with no swelling, redness, or edema. Chest/axilla: Normal chest wall appearance and motion. Nontender with no deformity. No lesions are appreciated. Cardiovascular: Regular rate and rhythm with a normal S1 and S2. Normal PMI, no JVD. No pulse deficits. Respiratory: Lungs have equal breath sounds bilaterally, clear to auscultation. No rales, rhonchi or wheezes noted. No increased work of breathing, no retractions or nasal flaring. 11:58 Skin: Warm, dry with normal turgor. Normal color with no rashes, no lesions, and no evidence of cellulitis. Neuro: Awake and alert, GCS 15, oriented to person, place, time, and situation. Cranial nerves II-XII grossly intact. Motor strength 5/5 in all extremities. Sensory grossly intact. Cerebellar exam normal. Normal gait. 11:58 Abdomen/GI: Inspection: obese Bowel sounds: normal, Palpation: moderate abdominal tenderness, in the left lower quadrant, Vital Signs: 09:32 BP 152 / 120; Pulse 112; Resp 18; Temp 98.5(O); Pulse Ox 99% ; Weight 122.47 kg; Height hb 5 ft. 10 in. ; Pain 3/10; 10:41 BP 141 / 91; Pulse 80; Resp 18; Pulse Ox 99% ; ll1 11:58 BP 140 / 89; Pulse 79; Resp 17; Pulse Ox 99% ; ll1 09:32 Body Mass Index 38.74 (122.47 kg, 177.8 cm) hb 09:32 Pain Scale: Adult hb MDM: 09:35 Medical Screening Exam initiated dr5 11:58 Differential diagnosis: diverticulitis, gastritis, Pyelonephritis. Data reviewed: vital dr5 signs, nurses notes. Consideration of Admission/Observation Considered admission if patient had perforated diverticulum. . I considered the following discharge prescriptions or medication management in the emergency department Medications were administered in the Emergency Department. See MAR. Care significantly affected by the following chronic conditions: Diverticulitis, Pancreatitis. Care significantly affected by the following Social Determinants of Health: Poor access to healthcare and/or lack of insurance, Poor access to transportation, Problems related to employment. Counseling: I had a detailed discussion with the patient and/or guardian regarding the historical points, exam findings, and any diagnostic results supporting the discharge/admit diagnosis, the presence of at least one elevated blood pressure reading (>120/80) during this emergency department visit, lab results, radiology results, the need for outpatient follow up, for definitive care, a family practitioner, a banquet chef, to return to the emergency department if symptoms worsen or persist or if there are any questions or concerns that arise at home. Medication response: Morphine, Benadryl. Response to treatment: the patient's symptoms have resolved after treatment. ED course: CT scan does not show perforated diverticulum. Concerns for early diverticulitis. First dose of antibiotics given in ER and prescribed 10 days of antibiotics to take outpatient. I recommended patient to follow-up with GI doctor that doing surgery to have surgery date moved closer given likely repeat diverticulitis in the future. Patient's pain has resolved and is feeling much better. Will have patient follow-up this week.. 07/10 09:35 Order name: CBC with Diff; Complete Time: 10:10 [facility] 07/10 09:35 Order name: CMP; Complete Time: 10: [facility] 07/10 09:35 Order name: Lipase; Complete Time: 10: [facility] 07/10 09:35 Order name: Blood Culture Adult (2) dr5 07/10 09:35 Order name: Lactate w/ 2H reflex if indic.; Complete Time: 10: [facility] 07/10 09:35 Order name: Protime (+inr); Complete Time: 10: [facility] 07/10 09:35 Order name: Ptt, Activated; Complete Time: 10:10 [facility] 07/10 09:35 Order name: CT Abd/Pelvis - IV Contrast Only; Complete Time: 11:33 [facility] 07/10 09:35 Order name: IV Saline Lock; Complete Time: 09:49 [facility] 07/10 09:35 Order name: Labs collected and sent; Complete Time: 09:49 [facility] Administered Medications: 10:00 Drug: Ondansetron IVP 4 mg IVP once; over 2 minutes Route: IVP; Site: left antecubital; ll1 11:56 Follow up: Response: No adverse reaction ll1 10:00 Drug: morphine IVP or IV 4 mg IVP once over 4 mins {Note: pain 6/10 RASS 0.} Route: ll1 IVP; Infused Over: 4 mins; Site: left antecubital; 11:56 Follow up: Response: No adverse reaction; Pain is decreased ll1 10:00 Drug: NS 0.9% IV 1000 ml IV at 1 bolus Per protocol; to be given as a bolus over 60 ll1 minutes Route: IV; Rate: 1 bolus; Site: left antecubital; 11:56 Follow up: Response: No adverse reaction; IV Status: Completed infusion; IV Intake: ll1 1000ml 10:00 Drug: diphenhydrAMINE IVP 12.5 mg IVP once Route: IVP; Site: left antecubital; ll1 11:57 Follow up: Response: No adverse reaction; RASS: Alert and Calm (0) ll1 10:30 Not Given (allergicc): [id number] mg 200 ml IVPB once over 60 mins ll1 10:35 Not Given (Changed to Zosyn): [id number] mg 100 ml IVPB at 200 ml/hr once over 30 dr5 mins 10:40 Drug: metroNIDAZOLE IVPB 500 mg 100 ml IVPB once over 30 mins Volume: 100 ml; Route: ll1 IVPB; Infused Over: 30 mins; Site: left antecubital; 11:57 Follow up: Response: No adverse reaction; IV Status: Completed infusion; IV Intake: ll1 100ml 10:50 Not Given (Physician Discretion): [id number] mg 150 ml IVPB once over 90 mins dr5 11:07 Drug: Rocephin IV 1 grams IV at per protocol once; Given slow IV push per pharmacy ll1 instructions Route: IV; Rate: per protocol; Site: left antecubital; 11:57 Follow up: Response: No adverse reaction; IV Status: Completed infusion; IV Intake: [id number] 11:07 Drug: morphine IVP or IV 4 mg IVP once over 4 mins {Note: pain 7/10 RASS 0.} Route: ll1 IVP; Infused Over: 4 mins; Site: left antecubital; 11:57 Follow up: Response: No adverse reaction; Pain is decreased; RASS: Alert and Calm (0) ll1 11:07 Drug: Ondansetron IVP 4 mg IVP once; over 2 minutes Route: IVP; Site: left antecubital; ll1 11:57 Follow up: Response: No adverse reaction ll1 11:58 Drug: diphenhydrAMINE IVP 12.5 mg IVP once Route: IVP; Site: left antecubital; ll1 11:59 Follow up: Response: No adverse reaction ll1 Disposition Summary: 07/10/24 11:49 Discharge Ordered Notes: Location: Home dr5 Condition: Stable dr5 Diagnosis - Diverticulitis of large intestine without perforation or abscess without bleeding dr5 Followup: dr5 - With: Emergency Department - When: As needed - Reason: Worsening of condition Followup: dr5 - With: Private Physician - When: 1 - 2 days - Reason: Recheck today's complaints, Continuance of care, Re-evaluation by your physician Discharge Instructions: - Discharge Summary Sheet dr5 - High-Fiber Eating Plan dr5 - Diverticulitis dr5 Forms: - Medication Reconciliation Form dr5 - Antibiotic Education dr5 - Prescription Opioid Use dr5 - Patient Portal Instructions dr5 - Leadership Thank You Letter dr5 Prescriptions: - Flagyl 500 mg Oral tablet - take 1 tablet ORAL route every 12 hours for 10 days; 20 tablet; Refills: 0, dr5 Product Selection Permitted - Zofran 4 mg Oral Tablet - take 1 tablet ORAL route every 12 hours As needed; 20 tablet; Refills: 0, dr5 Product Selection Permitted - Tramadol 50 mg Oral Tablet - take 1 tablet ORAL route every 8 hours as needed; 12 tablet; Refills: 0, dr5 Product Selection Permitted - Bactrim DS 800-160 mg Oral tablet - take 1 tablet ORAL route every 12 hours for 10 days; 20 tablet; Refills: 0, dr5 Product Selection Permitted Signatures: Dispatcher [employer] EDMS Peyton Barlow, RN RN Parminder Hsu RN RN Henrik Davis RN RN ll1 Andre Zelaya, BRANNER MACHINE TENDER-C BRANNER MACHINE TENDER-Cdr5 Corrections: (The following items were deleted from the chart) 09:36 09:36 CBC+H.LAB.BRZ ordered. EDMS EDMS 09:36 09:36 COMPREHENSIVE METABOLIC PANEL+C.LAB.BRZ ordered. EDMS EDMS 09:36 09:36 LIPASE+C.LAB.BRZ ordered. EDMS EDMS 09:36 09:36 BLOOD CULTURE*+BA.LAB.BRZ ordered. EDMS EDMS 09:36 09:36 LACTATE+C.LAB.BRZ ordered. EDMS EDMS 09:36 09:36 PROTIME (+INR)+COAG.LAB.BRZ ordered. EDMS EDMS 09:36 09:36 PTT, ACTIVATED+COAG.LAB.BRZ ordered. EDMS EDMS 09:36 09:36 Abdomen Pelvis W Con+CT.RAD.BRZ ordered. EDMS EDMS
[2024-07-10 12:15] VITALS: TEMP 98.5; O2SAT 99
[2024-07-10 12:26] VITALS: BP 140/89
== END 2024-07-10 12:01 | disposition home or self-care (01) ==
LOC: ER 09:13
DX: K57.32 Diverticulitis of large intestine without perforation or abscess without bleeding (principal)
CPT/HCPCS: 96365; 96361; 87040 ×2; 85025; 36415; 85610; 83605; 85730; 83690; 80053; 74177; 96375; 99284; Q9967; J1200 ×2; J2405 ×2; J7030; J0696

== ENCOUNTER 2024-08-04 10:02 | Emergency (ER) | payer OTHER ==
[2024-08-04 11:06] LABS: Absolute Basophils 0.1 K/uL (0-0.5); Absolute Eosinophils 0.3 K/uL (0-0.5); Absolute Lymphocytes (CBC) 2.6 K/uL (0.7-4.9); Absolute Monocytes 0.6 K/uL (0.1-1.3); Absolute Neutrophil 3.6 K/uL (1.8-8.0); Eosinophils % 3.6 % (0-4.4); Hematocrit 41.6 % (39.6-49.0); Hemoglobin 14.3 g/dL (13.6-17.9); Lymphocytes % 36.5 % (15.3-44.8); MCH 33.2 pg (27.0-35.0); MCHC 34.4 g/dL (32.0-36.0); MCV 96.5 fL (80-100); MPV 8.4 fL (7.6-11.3); Monocytes % 7.8 % (3.3-12.3); Neutrophils % 51.1 % (41.7-73.7); Nucleated Red Blood Cells % 0.1 % (0-0); Platelets 239 thou/uL (152-406); RBC Red Blood Cell Count 4.31 M/uL (4.33-5.43)
[2024-08-04] MEDS ORDERED: ONDANSETRON 4 MG/2 ML VIAL ONE (11:07)
[2024-08-04] MEDS ORDERED: FAMOTIDINE 20 MG/2 ML VIAL IV ONE (11:07)
[2024-08-04] MEDS ORDERED: MORPHINE 4 MG/ML SYR ONE ×2 (11:07→12:27)
[2024-08-04] MEDS ORDERED: METRONIDAZOLE 500mg IVPB 500 MG/100 ML BAG IV ONE (11:08)
[2024-08-04] MEDS ORDERED: CIPROFLOXACIN 400mg IV 400 MG/200 ML BAG IV ONE (11:08)
[2024-08-04 11:31] LABS: Albumin 3.6 g/dL (3.4-5.0); Albumin/Globulin Ratio 0.9 (1.1-1.8); Anion Gap 7.5 mEq/L (5.0-15.0); Bilirubin Total 0.3 mg/dL (0.2-1.0); Globulin 4.1 g/dL (2.3-3.5); Potassium 4.5 mEq/L (3.5-5.1); Protein, Total 7.7 g/dL (6.4-8.2)
--- NOTE | 2024-08-04 12:25 | RAD REPORT ---
EXAMINATION: CT ABDOMEN AND PELVIS WITH CONTRAST CLINICAL INDICATION: Abdominal pain TECHNIQUE: CT abdomen and pelvis was performed, after the administration of 100 cc Isovue-300.. Sagit de and coronal reconstructions were obtained. One or more of the following dose reduction techniques were used: Automated exposure control, adjustment of the mA and kV according to patient si ze, and iterative reconstruction. Unless otherwise specified, incidental findings do not require dedicated imaging follow-up. [id number]. Oral contrast was not given which limits evaluation of bowel and appendix. COMPARISON: .June 2024 FINDINGS: Hepatic hemangiomas unchanged. The spleen, pancreas, adrenals and left kidney unremarkable. Small benign complex cyst right kidney. Normal appendix. Small to moderate left and small right inguinal hernias containing fat.. Small umbilical hernia Diverticula stem from the colon. The stranding adjacent to the sigmoid colon has resolved. No abscess . No free air.: IMPRESSION: No acute abnormality displayed
[2024-08-04] MEDS ORDERED: DIPHENHYDRAMINE 50 MG/ML VIAL ONE (12:37)
[2024-08-04] MEDS ORDERED: NA CHLORIDE 0.9% 1,000 ML ONE (13:01)
[2024-08-04 13:26] LABS: Specific Gravity > 1.030 (1.005-1.030); Urine Bilirubin NEGATIVE (Negative); Urine Blood Negative (Negative); Urine Clarity Clear (Clear); Urine Color Light-Yellow (Yellow); Urine Glucose NEGATIVE (Negative); Urine Ketones NEGATIVE (Negative); Urine Microscopic Reflex YN NO UMIC; Urine Nitrite NEGATIVE (Negative); Urine Protein NEGATIVE (Negative); Urine Urobilinogen Normal (Normal); Urine pH 5.5 (5.0-7.0)
--- NOTE | 2024-08-04 14:08 | EDPHYS ---
Physician Documentation [facility] Name: Ming Odonnell Age: 48 yrs Sex: Male : 1975 Arrival Date: 08/04/2024 Time: 10:02 Bed 11 Private MD: DESTINEE Physician Foster Trejo HPI: 08/04 14:00 This 48 yrs old Male presents to ER via Ambulatory with complaints of kin Abdominal Pain, Bloody Stools. 14:00 The patient presents with abdominal pain in the lower abdomen. Onset: The kin symptoms/episode began/occurred 2 day(s) ago. The patient presents to the emergency department with rectal bleeding, a small amount. Onset: The symptoms/episode began/occurred 2 day(s) ago. Abdominal pain: described as crampy, located in the left lower quadrant. Modifying factors: The symptoms are alleviated by nothing, the symptoms are aggravated by nothing. Associated signs and symptoms: Pertinent positives: constipation. Historical: - Allergies: 10:24 Cipro IV (Rash); aa5 10:24 PENICILLINS (Anaphylaxis); aa5 - PMHx: 10:24 Diverticulitis; Pancreatitis; iw - PSHx: 10:24 right knee; right shoulder; iw - Immunization history:: Adult Immunizations not up to date. - Infectious Disease History:: Denies. - Social history:: Smoking status: Patient/guardian denies using tobacco. - Family history:: not pertinent. ROS: 14:00 Constitutional: Negative for fever, chills, and weight loss, Eyes: Negative for injury, kin pain, redness, and discharge, ENT: Negative for injury, pain, and discharge, Neck: Negative for injury, pain, and swelling, Cardiovascular: Negative for chest pain, palpitations, and edema, Respiratory: Negative for shortness of breath, cough, wheezing, and pleuritic chest pain, Back: Negative for injury and pain, : Negative for injury, bleeding, discharge, and swelling, MS/Extremity: Negative for injury and deformity, Skin: Negative for injury, rash, and discoloration, Neuro: Negative for headache, weakness, numbness, tingling, and seizure, Psych: Negative for depression, anxiety, suicide ideation, homicidal ideation, and hallucinations, Allergy/Immunology: Negative for hives, rash, and allergies, Endocrine: Negative for neck swelling, polydipsia, polyuria, polyphagia, and marked weight changes, Hematologic/Lymphatic: Negative for swollen nodes, abnormal bleeding, and unusual bruising, 14:00 Abdomen/GI: Positive for abdominal pain, abdominal cramps, rectal bleeding, Exam: 14:00 Constitutional: This is a well developed, well nourished patient who is awake, alert, kin and in no acute distress. Head/Face: Normocephalic, atraumatic. Eyes: Pupils equal round and reactive to light, extra-ocular motions intact. Lids and lashes normal. Conjunctiva and sclera are non-icteric and not injected. Cornea within normal limits. Periorbital areas with no swelling, redness, or edema. ENT: Nares patent. No nasal discharge, no septal abnormalities noted. Tympanic membranes are normal and external auditory canals are clear. Oropharynx with no redness, swelling, or masses, exudates, or evidence of obstruction, uvula midline. Mucous membranes moist. Neck: Trachea midline, no thyromegaly or masses palpated, and no cervical lymphadenopathy. Supple, full range of motion without nuchal rigidity, or vertebral point tenderness. No Meningismus. Chest/axilla: Normal chest wall appearance and motion. Nontender with no deformity. No lesions are appreciated. Cardiovascular: Regular rate and rhythm with a normal S1 and S2. No gallops, murmurs, or rubs. Normal PMI, no JVD. No pulse deficits. Respiratory: Lungs have equal breath sounds bilaterally, clear to auscultation and percussion. No rales, rhonchi or wheezes noted. No increased work of breathing, no retractions or nasal flaring. Back: No spinal tenderness. No costovertebral tenderness. Full range of motion. Male : Normal genitalia with no discharge or lesions. Skin: Warm, dry with normal turgor. Normal color with no rashes, no lesions, and no evidence of cellulitis. MS/ Extremity: Pulses equal, no cyanosis. Neurovascular intact. Full, normal range of motion., bilateral aka Neuro: Awake and alert, GCS 15, oriented to person, place, time, and situation. Cranial nerves II-XII grossly intact. Motor strength 5/5 in all extremities. Sensory grossly intact. Cerebellar exam normal. Normal gait. Psych: Awake, alert, with orientation to person, place and time. Behavior, mood, and affect are within normal limits. 14:00 Abdomen/GI: Inspection: distension, that is moderate, Bowel sounds: normal, Palpation: mild abdominal tenderness, in the right lower quadrant and left lower quadrant, Liver: no appreciated palpable abnormalities, Hernia: not appreciated, Vital Signs: 10:21 BP 103 / 81; Pulse 72; Resp 16; Temp 97.6; Pulse Ox 100% on R/A; Weight 119.75 kg; iw Height 5 ft. 11 in. ; Pain 5/10; 12:35 BP 101 / 78; Pulse 75; Resp 18 S; Pulse Ox 100% on R/A; aa5 13:15 BP 99 / 72; Pulse 76; Resp 16 S; Temp 97.8(TE); Pulse Ox 100% on R/A; aa5 14:00 BP 105 / 78; Pulse 75; Resp 16 S; Pulse Ox 100% on R/A; aa5 10:21 Body Mass Index 36.82 (119.75 kg, 180.34 cm) iw 10:21 Pain Scale: Adult iw MDM: 10:07 Medical Screening Exam initiated kin 14:03 Data reviewed: vital signs, nurses notes, lab test result(s), EKG, radiologic studies, kin CT scan. Consideration of Admission/Observation Escalation of care including admission/observation considered. I considered the following discharge prescriptions or medication management in the emergency department Medications were administered in the Emergency Department. See MAR. Independent interpretation of the following test(s) in the Emergency Department CT Scan: My interpretation is ct ab/pel. Historians other than the Patient: Spouse/Significant Other: well informed. 08/04 10:10 Order name: CBC with Diff; Complete Time: 12:52 [facility] 08/04 10:10 Order name: CMP; Complete Time: 12:52 [facility] 08/04 10:10 Order name: Lipase; Complete Time: 12:52 [facility] 08/04 10:10 Order name: Urinalysis w/ reflexes; Complete Time: 13:57 [facility] 08/04 10:10 Order name: CT Abd/Pelvis - IV Contrast Only; Complete Time: 12:52 [facility] 08/04 10:10 Order name: IV Saline Lock; Complete Time: 10:59 kin 08/04 10:10 Order name: Labs collected and sent; Complete Time: 10:59 [facility] Administered Medications: 12:36 Discontinued: [id number] mg 200 ml IVPB once over 60 mins aa5 11:15 Drug: Famotidine IVP 20 mg IVP once; dilute with 10 mL 0.9% NaCl; give over 2 minutes iw Route: IVP; Site: left antecubital; 12:15 Follow up: Response: No adverse reaction aa5 11:15 Drug: Ondansetron IVP 4 mg IVP once; over 2 minutes Route: IVP; Site: left antecubital; iw 12:15 Follow up: Response: No adverse reaction aa5 11:15 Drug: morphine IVP or IV 4 mg IVP once over 4 mins Route: IVP; Infused Over: 4 mins; iw Site: left antecubital; 12:15 Follow up: Response: No adverse reaction aa5 11:15 Drug: metroNIDAZOLE IVPB 500 mg 100 ml IVPB at 200 ml/hr once over 30 mins Volume: 100 iw ml; Route: IVPB; Rate: 200 ml/hr; Infused Over: 30 mins; Site: left antecubital; 12:00 Follow up: Response: No adverse reaction; IV Status: Completed infusion aa5 12:28 Drug: Ciprofloxacin IVPB 400 mg 200 ml IVPB once over 60 mins Volume: 200 ml; Route: aa5 IVPB; Infused Over: 60 mins; Site: left antecubital; 12:34 Follow up: IV Status: Order to discontinue infusion aa5 12:45 Follow up: itching and mild redness to site have resolved. aa5 12:37 Drug: diphenhydrAMINE IVP 50 mg IVP once Route: IVP; Site: left antecubital; aa5 12:45 Follow up: Response: No adverse reaction aa5 12:41 Drug: morphine IVP or IV 4 mg IVP once over 4 mins Route: IVP; Infused Over: 4 mins; aa5 Site: left antecubital; 13:00 Follow up: Response: No adverse reaction; Pain is decreased aa5 13:16 Drug: NS 0.9% IV 1000 ml IV at 1 bolus Per protocol; to be given as a bolus over 60 aa5 minutes Route: IV; Rate: 1 bolus; Site: left antecubital; 14:16 Follow up: IV Status: Completed infusion; IV Intake: 1000ml aa5 14:23 Not Given (Physician Discretion): cefoxitin2 grams IVPB once over 30 mins; (mix in 100 ll1 mL NS) 14:50 Drug: Trimethoprim-Sulfamethoxazole PO (160 mg-800 mg (DS) 1 tablet PO once Route: PO; aa5 14:51 Follow up: Response: No adverse reaction; Medication administered at discharge. aa5 Disposition Summary: 08/04/24 14:08 Discharge Ordered Notes: Location: Home kin Problem: new kin Symptoms: have improved kin Condition: Stable kin Diagnosis - GI Bleed/ Gastrointestinal hemorrhage, unspecified - lower kin - Abdominal pain, Generalized kin - Diverticulosis of intestine, part unspecified, without perforation or abscess with kin bleeding Followup: kin - With: Private Physician - When: 2 - 3 days - Reason: Recheck today's complaints, Re-evaluation by your physician Followup: kin - With: Earnest Portillo MD - When: 2 - 3 days - Reason: Recheck today's complaints, Re-evaluation by your physician Discharge Instructions: - Discharge Summary Sheet kin - Abdominal Pain, Adult kin - Diverticulosis kin - Gastrointestinal Bleeding kin - Rectal Bleeding kin - Abdominal Pain, Adult, [id number] [facility] Forms: - Medication Reconciliation Form [facility] - Antibiotic Education kin - Prescription Opioid Use [facility] - Patient Portal Instructions [facility] - Leadership Thank You Letter [facility] Prescriptions: - Colace 100 mg Oral Tablet - take 1 tablet ORAL route every 12 hours; 14 tablet; Refills: 0, Product [facility] Selection Permitted - Flagyl 500 mg Oral Tablet - take 1 tablet ORAL route every 6 hours for 10 days; 40 tablet; Refills: 0, [facility] Product Selection Permitted - Bactrim DS 800-160 mg Oral Tablet - take 1 tablet ORAL route every 12 hours for 10 days; 20 tablet; Refills: 0, [facility] Product Selection Permitted - dicyclomine 20 mg Oral tablet - take 1 tablet ORAL route 4 times per day; 28 tablet; Refills: 0, Product [facility] Selection Permitted Signatures: Dispatcher [employer] EDMS Foster Trejo MD MD cha Williams, Irene RN RN Lorri Mckeon RN RN aa5 Henrik Rosario RN ll1 Corrections: (The following items were deleted from the chart) 10:11 10:11 CBC+H.LAB.BRZ ordered. EDMS EDMS 10:11 10:11 COMPREHENSIVE METABOLIC PANEL+C.LAB.BRZ ordered. EDMS EDMS 10:11 10:11 LIPASE+C.LAB.BRZ ordered. EDMS EDMS 10: 10:11 Test, Urine+UC.LAB.BRZ ordered. EDMS EDMS 10: 10:11 Urinalysis+U.LAB.BRZ ordered. EDMS EDMS 10: 10:11 Abdomen Pelvis W Con+CT.RAD.BRZ ordered. EDMS EDMS 13: 10:24 Allergies: Cipro IV; iw aa5 13: 10:24 Allergies: PENICILLINS; iw aa5
--- NOTE | 2024-08-04 14:08 | ER ---
Nurse's Notes [facility] Name: Ming Odonnell Age: 48 yrs Sex: Male : 1975 Arrival Date: 08/04/2024 Time: 10:02 Bed 11 Private MD: Diagnosis: GI Bleed/ Gastrointestinal hemorrhage, unspecified-lower;Abdominal pain, Generalized;Diverticulosis of intestine, part unspecified, without perforation or abscess with bleeding Presentation: 08/04 10:21 Chief complaint: Patient states: is waiting on colon surgery for diverticulitis and iw finished his antibiotics , my abd pain has came back a week ago , worse over 2 days. Coronavirus screen: At this time, the client does not indicate any symptoms associated with coronavirus-19. Ebola Screen: No symptoms or risks identified at this time. Initial Sepsis Screen: Does the patient meet any 2 criteria? No. Patient's initial sepsis screen is negative. Does the patient have a suspected source of infection? No. Patient's initial sepsis screen is negative. Risk Assessment: Do you want to hurt yourself or someone else? Patient reports no desire to harm self or others. Onset of symptoms was July 28, 2024. 10:21 Method Of Arrival: Ambulatory iw 10:21 Acuity: CELENA 3 iw Historical: - Allergies: 10:24 Cipro IV (Rash); aa5 10:24 PENICILLINS (Anaphylaxis); aa5 - PMHx: 10:24 Diverticulitis; Pancreatitis; iw - PSHx: 10:24 right knee; right shoulder; iw - Immunization history:: Adult Immunizations not up to date. - Infectious Disease History:: Denies. - Social history:: Smoking status: Patient/guardian denies using tobacco. - Family history:: not pertinent. Screenin:59 [facility] ED Fall Risk Assessment (Adult) History of falling in the last 3 months, iw including since admission No falls in past 3 months (0 pts) Confusion or Disorientation No (0 pts) Intoxicated or Sedated No (0 pts) Impaired Gait No (0 pts) Mobility Assist Device Used No (0 pt) Altered Elimination No (0 pt) Score/Fall Risk Level 0 - 2 = Low Risk Oriented to surroundings, Maintained a safe environment. Abuse screen: Denies threats or abuse. Nutritional screening: No deficits noted. Tuberculosis screening: No symptoms or risk factors identified. Assessment: 10:58 General: Appears in no apparent distress. Behavior is calm, cooperative. Pain: iw Complains of pain in left lower quadrant Pain currently is 5 out of 10 on a pain scale. Quality of pain is described as sharp, stabbing, Is intermittent. Neuro: Level of Consciousness is awake, alert, obeys commands, Oriented to person, place, time, situation, Moves all extremities. GI: Abdomen is non-distended, Reports lower abdominal pain, nausea. Derm: Skin is intact, is healthy with good turgor. Musculoskeletal: Range of motion: intact in all extremities. 12:00 Reassessment: Patient is alert, oriented x 3, equal unlabored respirations, skin aa5 warm/dry/pink. GI: Abdomen is round non-distended, Last BM was August 04, 2024. Bowel sounds present X 4 quads. Abd is soft X 4 quads Reports nausea, Pain to LLQ Patient currently denies diarrhea. 12:00 Pain: Pain currently is 6 out of 10 on a pain scale. aa5 12:36 Reassessment: Patient is alert, oriented x 3, equal unlabored respirations, skin aa5 warm/dry/pink. Pt c/o itching and mild redness to left arm, Cipro was d/c'd and MD was notified. . 12:45 Reassessment: Redness and itching to IV site has resolved. . aa5 14:16 Reassessment: Patient is alert, oriented x 3, equal unlabored respirations, skin aa5 warm/dry/pink. 14:50 Reassessment: Patient is alert, oriented x 3, equal unlabored respirations, skin aa5 warm/dry/pink. Vital Signs: 10:21 BP 103 / 81; Pulse 72; Resp 16; Temp 97.6; Pulse Ox 100% on R/A; Weight 119.75 kg; iw Height 5 ft. 11 in. ; Pain 5/10; 12:35 BP 101 / 78; Pulse 75; Resp 18 S; Pulse Ox 100% on R/A; aa5 13:15 BP 99 / 72; Pulse 76; Resp 16 S; Temp 97.8(TE); Pulse Ox 100% on R/A; aa5 14:00 BP 105 / 78; Pulse 75; Resp 16 S; Pulse Ox 100% on R/A; aa5 10:21 Body Mass Index 36.82 (119.75 kg, 180.34 cm) iw 10:21 Pain Scale: Adult iw ED Course: 10:05 Patient arrived in ED. al6 10:07 Foster Trejo MD is Attending Physician. kin 10:23 Triage completed. iw 10:24 Arm band placed on. iw 10:58 Initial lab(s) drawn, by me, sent to lab. Inserted saline lock: 20 gauge in left iw antecubital area, using aseptic technique. Blood collected. Flushed with 10 mL NS. 11:44 CT Abd/Pelvis - IV Contrast Only In Process Unspecified. EDMS 12:00 Patient has correct armband on for positive identification. Bed in low position. Call aa5 light in reach. Side rails up X2. Adult w/ patient. Pulse ox on. NIBP on. 12:30 Lorri Mckeon RN is Primary Nurse. aa5 14:06 Earnest Portillo MD is Referral Physician. kin 14:50 IV discontinued, intact, bleeding controlled, No redness/swelling at site. Pressure aa5 dressing applied. 14:50 No provider procedures requiring assistance completed. aa5 Administered Medications: 12:36 Discontinued: [id number] mg 200 ml IVPB once over 60 mins aa5 11:15 Drug: Famotidine IVP 20 mg IVP once; dilute with 10 mL 0.9% NaCl; give over 2 minutes iw Route: IVP; Site: left antecubital; 12:15 Follow up: Response: No adverse reaction aa5 11:15 Drug: Ondansetron IVP 4 mg IVP once; over 2 minutes Route: IVP; Site: left antecubital; iw 12:15 Follow up: Response: No adverse reaction aa5 11:15 Drug: morphine IVP or IV 4 mg IVP once over 4 mins Route: IVP; Infused Over: 4 mins; iw Site: left antecubital; 12:15 Follow up: Response: No adverse reaction aa5 11:15 Drug: metroNIDAZOLE IVPB 500 mg 100 ml IVPB at 200 ml/hr once over 30 mins Volume: 100 iw ml; Route: IVPB; Rate: 200 ml/hr; Infused Over: 30 mins; Site: left antecubital; 12:00 Follow up: Response: No adverse reaction; IV Status: Completed infusion aa5 12:28 Drug: Ciprofloxacin IVPB 400 mg 200 ml IVPB once over 60 mins Volume: 200 ml; Route: aa5 IVPB; Infused Over: 60 mins; Site: left antecubital; 12:34 Follow up: IV Status: Order to discontinue infusion aa5 12:45 Follow up: itching and mild redness to site have resolved. aa5 12:37 Drug: diphenhydrAMINE IVP 50 mg IVP once Route: IVP; Site: left antecubital; aa5 12:45 Follow up: Response: No adverse reaction aa5 12:41 Drug: morphine IVP or IV 4 mg IVP once over 4 mins Route: IVP; Infused Over: 4 mins; aa5 Site: left antecubital; 13:00 Follow up: Response: No adverse reaction; Pain is decreased aa5 13:16 Drug: NS 0.9% IV 1000 ml IV at 1 bolus Per protocol; to be given as a bolus over 60 aa5 minutes Route: IV; Rate: 1 bolus; Site: left antecubital; 14:16 Follow up: IV Status: Completed infusion; IV Intake: 1000ml aa5 14:23 Not Given (Physician Discretion): cefoxitin2 grams IVPB once over 30 mins; (mix in 100 ll1 mL NS) 14:50 Drug: Trimethoprim-Sulfamethoxazole PO (160 mg-800 mg (DS) 1 tablet PO once Route: PO; aa5 14:51 Follow up: Response: No adverse reaction; Medication administered at discharge. aa5 Medication: 14:50 VIS not applicable for this client. aa5 Intake: 14:16 IV: 1000ml; Total: 1000ml. aa5 Outcome: 14:08 Discharge ordered by MD. sanderson 14:50 Discharged to home ambulatory, with significant other, aa5 14:50 Condition: stable 14:50 Discharge instructions given to patient, Instructed on discharge instructions, follow up and referral plans. medication usage, Demonstrated understanding of instructions, follow-up care, medications, Prescriptions given X 4, 14:51 Patient left the ED. aa5 Signatures: Dispatcher [employer] EDOK Foster Trejo MD MD cha Williams, Irene, RN RN Lorir Mckeon RN RN aa5 Macie Duggan al6 Henrik Rosario RN ll1 Corrections: (The following items were deleted from the chart) 10:24 10:21 Pulse 72bpm; Resp 16bpm; Pulse Ox 100% RA; Temp 97.6F; Pain 5/10, Adult; iw iw 10:24 10:21 Pulse 72bpm; Resp 16bpm; Pulse Ox 100% RA; Temp 97.6F; 119.75 kg; Height 5 ft. 11 iw in.; BMI: 36.8; Pain 5/10, Adult; iw 12:35 12:18 Ciprofloxacin IVPB 400 mg 200 ml IVPB in left antecubital over 60 mins aa5 aa5 13: 10:24 Allergies: Cipro IV; iw aa5 13: 10:24 Allergies: PENICILLINS; iw aa5
[2024-08-04] MEDS ORDERED: SMZ./TMP. 800/160 MG TABLET ONE (14:40)
[2024-08-04 15:08] VITALS: BP 103/81; TEMP 97.6; O2SAT 100
== END 2024-08-04 14:51 | disposition home or self-care (01) ==
LOC: ER 10:02
DX: K57.31 Diverticulosis of large intestine without perforation or abscess with bleeding (principal)
CPT/HCPCS: 96365; 96361; 85025; 36415; 81003; 83690; 80053; 74177; 96375; 99284; Q9967; J1200; J2405; J0744; J7030

== ENCOUNTER 2024-08-10 11:48 | Emergency (ER) | payer OTHER ==
[2024-08-10 12:36] LABS: Absolute Basophils 0.1 K/uL (0-0.5); Absolute Eosinophils 0.1 K/uL (0-0.5); Absolute Lymphocytes (CBC) 2.7 K/uL (0.7-4.9); Absolute Monocytes 0.7 K/uL (0.1-1.3); Absolute Neutrophil 4.5 K/uL (1.8-8.0); Basophils % 0.7 % (0-1.3); Eosinophils % 1.4 % (0-4.4); Hematocrit 41.2 % (39.6-49.0); Hemoglobin 14.5 g/dL (13.6-17.9); Lymphocytes % 33.6 % (15.3-44.8); MCH 33.7 pg (27.0-35.0); MCHC 35.1 g/dL (32.0-36.0); MPV 8.2 fL (7.6-11.3); Monocytes % 9.1 % (3.3-12.3); Neutrophils % 55.2 % (41.7-73.7); Nucleated Red Blood Cells % 0.1 % (0-0); Platelets 233 thou/uL (152-406); RBC Red Blood Cell Count 4.29 M/uL (4.33-5.43)
[2024-08-10 12:55] LABS: Albumin 3.6 g/dL (3.4-5.0); Albumin/Globulin Ratio 0.9 (1.1-1.8); Bilirubin Total 0.3 mg/dL (0.2-1.0); Globulin 4.2 g/dL (2.3-3.5); Protein, Total 7.8 g/dL (6.4-8.2)
--- NOTE | 2024-08-10 13:15 | RAD REPORT ---
EXAMINATION: CT ABDOMEN AND PELVIS WITH CONTRAST CLINICAL INDICATION: Abdominal pain TECHNIQUE: CT abdomen and pelvis was performed, after the administration of 100 cc Isovue-300.. Sagit de and coronal reconstructions were obtained. One or more of the following dose reduction techniques were used: Automated exposure control, adjustment of the mA and kV according to patient si ze, and iterative reconstruction. Unless otherwise specified, incidental findings do not require dedicated imaging follow-up. [id number]. Oral contrast was not given which limits evaluation of bowel and appendix. COMPARISON: .August 04, 2024 FINDINGS: Hepatic hemangiomas unchanged. The spleen, pancreas, adrenals and left kidney unremarkable. Small benign complex cyst right kidney. Normal appendix. Small to moderate left and small right inguinal hernias containing fat.. Small umbilical hernia Diverticula stem from colon without visualization of diverticulitis. : IMPRESSION: No acute abnormality displayed
[2024-08-10] MEDS ORDERED: MORPHINE 4 MG/ML SYR ONE (14:15)
[2024-08-10] MEDS ORDERED: NA CHLORIDE 0.9% 1,000 ML ONE (14:15)
[2024-08-10] MEDS ORDERED: ONDANSETRON 4 MG/2 ML VIAL ONE (14:15)
--- NOTE | 2024-08-10 14:24 | ER ---
Nurse's Notes [facility] Name: Ming Odonnell Age: 48 yrs Sex: Male : 1975 Arrival Date: 08/10/2024 Time: 11:48 Bed 8 Private MD: Diagnosis: Abdominal pain, unspecified Presentation: 08/10 12:11 Chief complaint: Patient states: LEFT LOWER ABD PAIN STATES PAIN IS GETTING WORSE AND db IS UP HIGHER. STATES HAS PLAN FOR COLON SURGERY. HX OF DIVERTICULOSIS. Coronavirus screen: Client denies travel out of the [place] in the last 14 days. At this time, the client does not indicate any symptoms associated with coronavirus-19. Ebola Screen: Patient negative for fever greater than or equal to 101.5 degrees Fahrenheit, and additional compatible Ebola Virus Disease symptoms Patient denies exposure to infectious person. Patient denies travel to an Ebola-affected area in the 21 days before illness onset. No symptoms or risks identified at this time. Initial Sepsis Screen: Does the patient meet any 2 criteria? No. Patient's initial sepsis screen is negative. Does the patient have a suspected source of infection? No. Patient's initial sepsis screen is negative. Risk Assessment: Do you want to hurt yourself or someone else? Patient reports no desire to harm self or others. Onset of symptoms was August 10, 2024. 12:11 Method Of Arrival: Ambulatory db 12:11 Acuity: CELENA 3 db Triage Assessment: 12:11 General: Appears in no apparent distress. comfortable, Behavior is calm, cooperative. db Pain: Complains of pain in abdomen. Neuro: Level of Consciousness is awake, alert, obeys commands, Oriented to person, place, time, situation. Respiratory: Airway is patent Respiratory effort is even, unlabored, Respiratory pattern is regular, symmetrical. GI: Abdomen is distended, Abdomen is tender to palpation in left lower quadrant Reports lower abdominal pain, upper abdominal pain. Historical: - Allergies: 12:12 Cipro IV (rash); db 12:12 PENICILLINS (Anaphylaxis); db - PMHx: 12:12 Diverticulitis; Pancreatitis; db - PSHx: 12:12 right knee; right shoulder; db - Immunization history:: Adult Immunizations unknown. - Infectious Disease History:: Denies. - Social history:: Smoking status: Patient denies any tobacco usage or history of. - Family history:: not pertinent. Screenin:25 [facility] ED Fall Risk Assessment (Adult) History of falling in the last 3 months, kc6 including since admission No falls in past 3 months (0 pts) Confusion or Disorientation No (0 pts) Intoxicated or Sedated No (0 pts) Impaired Gait No (0 pts) Mobility Assist Device Used No (0 pt) Altered Elimination No (0 pt) Score/Fall Risk Level 0 - 2 = Low Risk Oriented to surroundings, Maintained a safe environment. Abuse screen: Denies threats or abuse. Denies injuries from another. Nutritional screening: No deficits noted. Tuberculosis screening: No symptoms or risk factors identified. Assessment: 14:25 General: Appears in no apparent distress. comfortable, obese, well groomed, well kc6 developed, Behavior is calm, cooperative, appropriate for age. Pain: Complains of pain in left lower quadrant. Neuro: Level of Consciousness is awake, alert, obeys commands, Oriented to person, place, time, situation, Appropriate for age. Cardiovascular: Capillary refill < 3 seconds. Respiratory: Airway is patent Trachea midline Respiratory effort is even, unlabored, Respiratory pattern is regular, symmetrical. GI: Abdomen is round non-distended, obese, Bowel sounds present X 4 quads. Abd is soft X 4 quads Abdomen is tender to palpation in left lower quadrant Reports lower abdominal pain, Patient currently denies diarrhea, nausea, vomiting. : No signs and/or symptoms were reported regarding the genitourinary system. EENT: No signs and/or symptoms were reported regarding the EENT system. Derm: No signs and/or symptoms reported regarding the dermatologic system. Skin is intact, is healthy with good turgor, Skin is pink, warm \T\ dry. Musculoskeletal: No signs and/or symptoms reported regarding the musculoskeletal system. Circulation, motion, and sensation intact. Range of motion: intact in all extremities. 14:44 Reassessment: DC ON HOLD FOR IVF. bp 15:06 Reassessment: Patient appears in no apparent distress at this time. No changes from kc6 previously documented assessment. Patient and/or family updated on plan of care and expected duration. Pain level reassessed. Patient is alert, oriented x 3, equal unlabored respirations, skin warm/dry/pink. Patient states feeling better. Patient states symptoms have improved. Vital Signs: 12:11 BP 140 / 113; Pulse 75; Resp 16; Temp 98.9; Pulse Ox 95% ; Weight 121.56 kg; Height 5 db ft. 11 in. ; Pain 7/10; 14:24 BP 109 / 76; Pulse 80; Resp 17 S; Pulse Ox 96% on R/A; kc6 12:11 Body Mass Index 37.38 (121.56 kg, 180.34 cm) db 12:11 Pain Scale: Adult db ED Course: 12:03 Patient arrived in ED. cj3 12:04 Guille Arreguin MD is Attending Physician. rt 12:11 Arm band placed on Patient placed in an exam room. db 12:12 Triage completed. db 12:29 CBC with Diff Sent. cc6 12:29 CMP Sent. cc6 12:29 Lipase Sent. cc6 12:29 Initial lab(s) drawn, by ED staff, sent to lab. Inserted saline lock: 20 gauge in left cc6 antecubital area, using aseptic technique. Blood collected. Flushed with 10 mL NS. 12:51 CT Abd/Pelvis - IV Contrast Only In Process Unspecified. EDMS 14:13 Barbara Jordan, RN is Primary Nurse. kc6 14:24 Patient has correct armband on for positive identification. Bed in low position. Call kc6 light in reach. Side rails up X 1. Pulse ox on. NIBP on. Door closed. Noise minimized. Lights dimmed. Pillow given. Verbal reassurance given. 14:24 Patient maintains SpO2 saturation greater than 95% on room air. kc6 15:07 No provider procedures requiring assistance completed. IV discontinued, intact, kc6 bleeding controlled, No redness/swelling at site. Pressure dressing applied. Administered Medications: 14:24 Drug: Ondansetron IVP 4 mg IVP once; over 2 minutes Route: IVP; Site: left antecubital; kc6 15:07 Follow up: Response: No adverse reaction kc6 14:24 Drug: morphine IVP or IV 4 mg IVP once over 4 mins Route: IVP; Infused Over: 4 mins; kc6 Site: left antecubital; 15:06 Follow up: Response: No adverse reaction; Pain is decreased; RASS: Alert and Calm (0) kc6 14:24 Drug: NS 0.9% IV 1000 ml IV at 1 bolus Per protocol; to be given as a bolus over 60 kc6 minutes Route: IV; Rate: 1 bolus; Site: left antecubital; 15:07 Follow up: Response: No adverse reaction; IV Status: Completed infusion; IV Intake: kc6 600ml Medication: 15:07 VIS not applicable for this client. kc6 Intake: 15:07 IV: 600ml; Total: 600ml. kc6 Outcome: 14:24 Discharge ordered by . rt 15:07 Discharged to home ambulatory, with family, kc6 15:07 Condition: improved 15:07 Discharge instructions given to patient, Instructed on discharge instructions, follow up and referral plans. no drinking with medication, no driving heavy equipment, medication usage, Demonstrated understanding of instructions, follow-up care, medications, Prescriptions given X 1, 15:07 Patient left the ED. kc6 Signatures: Dispatcher [employer] EDMS Parminder Hsu RN RN bp Campbell, Kaitlyn, RN RN kc6 Lindy Brizuela RN RN db [place], Ryan, MD MD rt Samanta Mathew cc6 Roxy Echevarria cj3 Corrections: (The following items were deleted from the chart) 12:13 12:11 BP 140 / 113; Pulse 75bpm; Resp 16bpm; Pulse Ox 95%; Temp 98.9F; 121.56 kg; db Height 5 ft. 11 in.; BMI: 37.3; db
--- NOTE | 2024-08-10 14:24 | EDPHYS ---
Physician Documentation [facility] Name: Ming Odonnell Age: 48 yrs Sex: Male : 1975 Arrival Date: 08/10/2024 Time: 11:48 Bed 8 Private MD: ED Physician Guille Arreguin HPI: 08/10 12:29 This 48 yrs old Male presents to ER via Ambulatory with complaints of Abdominal Pain. rt 12:29 Patient with history of diverticulitis presents to the ED for left lower pain. Patient rt was seen in the ED a week ago, was diagnosed diverticulosis. Patient states pain is worsened since then, believes that he has another episode of diverticulitis. Denies nausea, vomiting, hematochezia. Denies any acute complaints, symptoms are moderate severity, no other aggravating or alleviating factors.. Historical: - Allergies: 12:12 Cipro IV (rash); db 12:12 PENICILLINS (Anaphylaxis); db - PMHx: 12:12 Diverticulitis; Pancreatitis; db - PSHx: 12:12 right knee; right shoulder; db - Immunization history:: Adult Immunizations unknown. - Infectious Disease History:: Denies. - Social history:: Smoking status: Patient denies any tobacco usage or history of. - Family history:: not pertinent. ROS: 12:29 Constitutional: Negative for fever, chills, and weight loss, Cardiovascular: Negative rt for chest pain, palpitations, and edema, Respiratory: Negative for shortness of breath, cough, wheezing, and pleuritic chest pain, MS/Extremity: Negative for injury and deformity, Skin: Negative for injury, rash, and discoloration, Neuro: Negative for headache, weakness, numbness, tingling, and seizure, 12:29 Abdomen/GI: Positive for abdominal pain, Negative for nausea and vomiting, Exam: 12:29 Constitutional: This is a well developed, well nourished patient who is awake, alert, rt and in no acute distress. Head/Face: Normocephalic, atraumatic. Chest/axilla: Normal chest wall appearance and motion. Nontender with no deformity. No lesions are appreciated. Cardiovascular: Regular rate and rhythm with a normal S1 and S2. No gallops, murmurs, or rubs. Normal PMI, no JVD. No pulse deficits. Respiratory: Lungs have equal breath sounds bilaterally, clear to auscultation and percussion. No rales, rhonchi or wheezes noted. No increased work of breathing, no retractions or nasal flaring. Skin: Warm, dry with normal turgor. Normal color with no rashes, no lesions, and no evidence of cellulitis. MS/ Extremity: Pulses equal, no cyanosis. Neurovascular intact. Full, normal range of motion. Neuro: Awake and alert, GCS 15, oriented to person, place, time, and situation. Cranial nerves II-XII grossly intact. Motor strength 5/5 in all extremities. Sensory grossly intact. Cerebellar exam normal. Normal gait. 12:29 Abdomen/GI: Tenderness to the left upper, left lower quadrants, no rebound, guarding, distention, Vital Signs: 12:11 BP 140 / 113; Pulse 75; Resp 16; Temp 98.9; Pulse Ox 95% ; Weight 121.56 kg; Height 5 db ft. 11 in. ; Pain 7/10; 14:24 BP 109 / 76; Pulse 80; Resp 17 S; Pulse Ox 96% on R/A; kc6 12:11 Body Mass Index 37.38 (121.56 kg, 180.34 cm) db 12:11 Pain Scale: Adult db MDM: 12:16 Medical Screening Exam initiated rt 14:26 Differential Diagnosis Diverticulitis, chronic abdominal pain, bowel obstruction. Data rt reviewed: vital signs, nurses notes, lab test result(s), radiologic studies. I considered the following discharge prescriptions or medication management in the emergency department Medications were administered in the Emergency Department. See MAR. Independent interpretation of the following test(s) in the Emergency Department CT Scan: My interpretation is No bowel obstruction syndrome interpretation of CT scan images. Care significantly affected by the following chronic conditions: Diverticulosis, diverticulitis. Counseling: I had a detailed discussion with the patient and/or guardian regarding the historical points, exam findings, and any diagnostic results supporting the discharge/admit diagnosis, lab results, radiology results, the need for outpatient follow up, to return to the emergency department if symptoms worsen or persist or if there are any questions or concerns that arise at home. Response to treatment: the patient's symptoms have markedly improved after treatment. 08/10 12:17 Order name: CBC with Diff; Complete Time: 13:20 rt 08/10 12:17 Order name: CMP; Complete Time: 13:20 rt 08/10 12:17 Order name: Lipase; Complete Time: 13:20 rt 08/10 12:17 Order name: CT Abd/Pelvis - IV Contrast Only; Complete Time: 13:20 rt 08/10 12:17 Order name: IV Saline Lock; Complete Time: 12:29 rt 08/10 12:17 Order name: Labs collected and sent; Complete Time: 12:29 rt Administered Medications: 14:24 Drug: Ondansetron IVP 4 mg IVP once; over 2 minutes Route: IVP; Site: left antecubital; kc6 15:07 Follow up: Response: No adverse reaction 6 14:24 Drug: morphine IVP or IV 4 mg IVP once over 4 mins Route: IVP; Infused Over: 4 mins; kc6 Site: left antecubital; 15:06 Follow up: Response: No adverse reaction; Pain is decreased; RASS: Alert and Calm (0) [facility] 14:24 Drug: NS 0.9% IV 1000 ml IV at 1 bolus Per protocol; to be given as a bolus over 60 kc6 minutes Route: IV; Rate: 1 bolus; Site: left antecubital; 15:07 Follow up: Response: No adverse reaction; IV Status: Completed infusion; IV Intake: kc6 600ml Disposition Summary: 08/10/24 14:24 Discharge Ordered Notes: Location: Home rt Problem: an ongoing problem rt Symptoms: have improved rt Condition: Stable rt Diagnosis - Abdominal pain, unspecified rt Followup: rt - With: Private Physician - When: 2 - 3 days - Reason: Discharge Instructions: - Discharge Summary Sheet rt - Abdominal Pain, Adult rt Forms: - Medication Reconciliation Form rt - Antibiotic Education rt - Prescription Opioid Use rt - Patient Portal Instructions rt - Leadership Thank You Letter rt Prescriptions: - Tramadol 50 mg Oral tablet - take 1 tablet ORAL route every 8 hours as needed; 15 tablet; Refills: 0, rt Product Selection Permitted Signatures: Dispatcher [employer] Barbara Pineda RN RN kc6 Lindy Brizuela RN RN Guille Schilling MD MD rt Corrections: (The following items were deleted from the chart) 12:17 12:17 CBC+H.LAB.BRZ ordered. EDMS EDMS 12:17 12:17 COMPREHENSIVE METABOLIC PANEL+C.LAB.BRZ ordered. EDMS EDMS 12: 12:17 LIPASE+C.LAB.BRZ ordered. EDMS EDMS : 12:17 Abdomen Pelvis W Con+CT.RAD.BRZ ordered. EDMS EDMS
[2024-08-10 16:31] VITALS: TEMP 98.9
[2024-08-10 16:32] VITALS: BP 109/76; O2SAT 96
== END 2024-08-10 15:07 | disposition home or self-care (01) ==
LOC: ER 11:48
DX: R10.32 Left lower quadrant pain (principal)
CPT/HCPCS: 85025; 36415; 83690; 80053; 74177; Q9967; J2405; J7030

== ENCOUNTER 2024-09-13 16:45 | Emergency (ER) | payer OTHER ==
[2024-09-13 18:07] LABS: Absolute Basophils 0.1 K/uL (0-0.5); Absolute Eosinophils 0.1 K/uL (0-0.5); Absolute Lymphocytes (CBC) 2.9 K/uL (0.7-4.9); Absolute Monocytes 0.7 K/uL (0.1-1.3); Absolute Neutrophil 4.3 K/uL (1.8-8.0); Basophils % 0.9 % (0-1.3); Eosinophils % 0.9 % (0-4.4); Hematocrit 42.6 % (39.6-49.0); Hemoglobin 14.8 g/dL (13.6-17.9); Lymphocytes % 36.7 % (15.3-44.8); MCH 33.4 pg (27.0-35.0); MCHC 34.7 g/dL (32.0-36.0); MCV 96.3 fL (80-100); MPV 8.1 fL (7.6-11.3); Monocytes % 8.3 % (3.3-12.3); Neutrophils % 53.2 % (41.7-73.7); Nucleated Red Blood Cells % 0.1 % (0-0); Platelets 274 thou/uL (152-406); RBC Red Blood Cell Count 4.42 M/uL (4.33-5.43); Red Cell Distribution Width 13.8 % (12.1-15.2)
[2024-09-13 18:23] LABS: Albumin 4.1 g/dL (3.4-5.0); Bilirubin Total 0.2 mg/dL (0.2-1.0); Globulin 4.1 g/dL (2.3-3.5); Protein, Total 8.2 g/dL (6.4-8.2)
[2024-09-13] MEDS ORDERED: NA CHLORIDE 0.9% 1,000 ML ONE (18:57)
[2024-09-13] MEDS ORDERED: MORPHINE 4 MG/ML SYR ONE ×2 (18:57→19:31)
[2024-09-13] MEDS ORDERED: ONDANSETRON 4 MG/2 ML VIAL ONE (18:57)
--- NOTE | 2024-09-13 19:23 | RAD REPORT ---
EXAMINATION: CT Abdomen Pelvis W Contrast CLINICAL INDICATION: Male, 48 years old. ABD PAIN TECHNIQUE: CT abdomen and pelvis was performed, after the administration of IV contrast, as per [facility] protocol. Axial, sagittal and coronal reconstructions were obtained. One or more of the following dose reduction techniques were used: Automated exposure control, adjustment of the mA and k V according to patient size, and iterative reconstruction. Unless otherwise specified, incidental findings do not require dedicated imaging follow-up. COMPARISON: 08/10/2024 FINDINGS: LOWER CHEST: The visualized lung bases are clear. LIVER: Normal in size and contour. Centrally hypoattenuating right posterior liver lobe lesion with m arginal nodular enhancement measuring 3.3 x 2.7 cm, essentially stable allowing for variations in contrast timing, most suggestive of a small hemangioma. Fluid density cyst within the superior aspect of the left lobe measuring 7 mm is also stable. Adjacent hyperenhancing subcapsular left lobe 1 cm focus, also probably stable, may suggest a small hemangioma. No other suspicious focal lesion. BILIARY SYSTEM: No suspicious abnormalities. SPLEEN: Normal size. No focal lesion. PANCREAS: No mass, ductal dilation, or pat-pancreatic fluid. ADRENALS: Normal; no mass. KIDNEYS: Normal size and contour. No hydronephrosis. Small exophytic right lower pole 1.2 cm cyst. URINARY BLADDER: Decompressed limiting evaluation. GASTROINTESTINAL TRACT: No evidence of free air, significant intra-abdominal free fluid, bowel obstru ction or abscess. Distal colonic diverticulosis without evidence of acute diverticulitis. APPENDIX: Normal appendix. LYMPH NODES: No lymphadenopathy. MUSCULOSKELETAL: No acute or suspicious osseous abnormality. ADDITIONAL FINDINGS: Small left inguinal hernia containing fat. IMPRESSION: No acute or concerning abnormalities seen in the abdomen or pelvis. Stable central findings as above.
--- NOTE | 2024-09-13 20:10 | ER ---
Nurse's Notes [facility] Name: Ming Odonnell Age: 48 yrs Sex: Male : 1975 Arrival Date: 09/13/2024 Time: 16:45 Bed 7 Private MD: Diagnosis: Abdominal pain, unspecified Presentation: 09/13 17:06 Chief complaint: Patient states: LEFT UPPER QUAD ABD PAIN X 2 DAYS. WORSE NOW. HERE db MULTIPLE TIMES FOR ABD PAIN. PLAN FOR SURGERY. Coronavirus screen: Client denies travel out of the [place] in the last 14 days. At this time, the client does not indicate any symptoms associated with coronavirus-19. Ebola Screen: Patient negative for fever greater than or equal to 101.5 degrees Fahrenheit, and additional compatible Ebola Virus Disease symptoms Patient denies exposure to infectious person. Patient denies travel to an Ebola-affected area in the 21 days before illness onset. No symptoms or risks identified at this time. Initial Sepsis Screen: Does the patient meet any 2 criteria? No. Patient's initial sepsis screen is negative. Does the patient have a suspected source of infection? No. Patient's initial sepsis screen is negative. Risk Assessment: Do you want to hurt yourself or someone else? Patient reports no desire to harm self or others. Onset of symptoms was September 13, 2024. 17:06 Method Of Arrival: Ambulatory db 17:06 Acuity: CELENA 3 db Triage Assessment: 17:08 General: Appears in no apparent distress. comfortable, Behavior is calm, cooperative. db Pain: Complains of pain in abdomen. Neuro: Level of Consciousness is awake, alert, obeys commands, Oriented to person, place, time, situation, GI: Abdomen is Reports upper abdominal pain. Historical: - Allergies: 17:06 Cipro IV (rash); db 17:06 PENICILLINS (Anaphylaxis); db - PMHx: 17:06 Diverticulitis; Pancreatitis; db - PSHx: 17:06 right shoulder; right knee; db - Immunization history:: Adult Immunizations unknown. - Infectious Disease History:: Denies. - Social history:: Smoking status: Patient denies any tobacco usage or history of. Screenin:34 [facility] ED Fall Risk Assessment (Adult) History of falling in the last 3 months, kd3 including since admission No falls in past 3 months (0 pts) Confusion or Disorientation No (0 pts) Intoxicated or Sedated No (0 pts) Impaired Gait No (0 pts) Mobility Assist Device Used No (0 pt) Altered Elimination No (0 pt) Score/Fall Risk Level 0 - 2 = Low Risk Oriented to surroundings. Abuse screen: Denies threats or abuse. Denies injuries from another. Nutritional screening: No deficits noted. Tuberculosis screening: No symptoms or risk factors identified. Assessment: 19:34 General: Appears uncomfortable, Behavior is calm, cooperative. Pain: Complains of pain kd3 in left upper quadrant. Neuro: Level of Consciousness is awake, alert, obeys commands, Oriented to person, place, time, situation. Cardiovascular: Patient's skin is warm and dry. Respiratory: Airway is patent Trachea midline Respiratory effort is even, unlabored, Respiratory pattern is regular, symmetrical. Vital Signs: 17:06 BP 123 / 85; Pulse 87; Resp 16; Temp 98.7; Pulse Ox 95% ; Weight 121.56 kg; Height 5 db ft. 11 in. ; Pain 8/10; 19:35 BP 106 / 92; Pulse 60; Resp 19; Pulse Ox 98% on R/A; kd3 20:05 BP 107 / 65; Pulse 75; Resp 18; Pulse Ox 100% on R/A; kd3 17:06 Body Mass Index 37.38 (121.56 kg, 180.34 cm) db 17:06 Pain Scale: Adult db ED Course: 16:48 Patient arrived in ED. al6 16:51 Michaela Sherman FNP-C [facility]. kb 16:51 Bc Farfan DO is Attending Physician. kb 17:08 Triage completed. db 17:08 Arm band placed on. db 17:11 Radiology exam delayed due to lab results not completed at this time. (BUN/Creatinine) jc4 IV insertion attempt and/or patient not having appropriate IV at this time. 18:03 CBC with Diff Sent. bc6 18:03 CMP Sent. bc6 18:03 Lipase Sent. bc6 18:03 Initial lab(s) drawn, by ia, sent to lab. Inserted saline lock: 20 gauge in left bc6 antecubital area, using aseptic technique. Blood collected. Flushed with 10 mL NS. 18:35 Parminder Hsu, RN is Primary Nurse. bp 18:51 CT Abd/Pelvis - IV Contrast Only In Process Unspecified. EDMS 19:35 Patient has correct armband on for positive identification. kd3 20:20 IV discontinued, intact, bleeding controlled, No redness/swelling at site. Pressure km10 dressing applied. 20:21 Provided Education on: plan of care. km10 20:21 No provider procedures requiring assistance completed. km10 Administered Medications: 19:01 Drug: Ondansetron IVP 4 mg IVP once; over 2 minutes Route: IVP; Site: left antecubital; bp 20:22 Follow up: Response: No adverse reaction km10 19:01 Drug: morphine IVP or IV 4 mg IVP once over 4 mins Route: IVP; Infused Over: 4 mins; bp Site: left antecubital; 20:22 Follow up: Response: No adverse reaction km10 19:01 Drug: NS 0.9% IV 1000 ml IV at 1 bolus Per protocol; to be given as a bolus over 60 bp minutes Route: IV; Rate: 1 bolus; Site: left antecubital; 20:22 Follow up: Response: No adverse reaction; IV Status: Completed infusion km10 19:34 Drug: morphine IVP or IV 4 mg IVP once over 4 mins Route: IVP; Infused Over: 4 mins; kd3 Site: left antecubital; 20:17 Follow up: Response: No adverse reaction; Pain is decreased km10 20:17 Drug: [place] PO 10 mg-325 mg 1 tabs PO once Route: PO; km10 20:21 Follow up: Response: No adverse reaction; Pain is decreased km10 Medication: 19:35 VIS not applicable for this client. kd3 Outcome: 20:10 Discharge ordered by . kb 20:21 Discharged to home ambulatory, with family, km10 20:21 Condition: stable 20:21 Discharge instructions given to patient, family, Instructed on discharge instructions, follow up and referral plans. Demonstrated understanding of instructions, follow-up care, 20:22 Patient left the ED. km10 Signatures: Dispatcher [employer] EDMS Michaela Sherman, SENIOR ENGINEERING TECHNICIAN-C SENIOR ENGINEERING TECHNICIAN-Parminder Zuniga RN RN Monica Pérez RN RN kd3 Lindy Brizuela RN RN db Yokasta Jamil6 Reilly Dobbs jc4 Macie Duggan al6 Padma Wong RN RN km10 Corrections: (The following items were deleted from the chart) 17:08 17:06 Pulse 87bpm; Resp 16bpm; Pulse Ox 95%; Temp 98.7F; 121.56 kg; Height 5 ft. 11 db in.; BMI: 37.3; Pain 8/10, Adult; db
--- NOTE | 2024-09-13 20:10 | EDPHYS ---
Physician Documentation [facility] Name: Ming Odonnell Age: 48 yrs Sex: Male : 1975 Arrival Date: 09/13/2024 Time: 16:45 Bed 7 Private MD: ED Physician cB Farfan HPI: 09/13 17:15 This 48 yrs old Male presents to ER via Ambulatory with complaints of Abdominal Pain. kb 17:15 Patient is a 48-year-old male who presents for left upper quadrant pain that started 2 kb days ago. States it started as cramping in the area that was intermittent and has become sharp and constant. Denies nausea, vomiting, diarrhea, fever. States he is supposed to have surgery next week on his intestine and to have hernias repaired.. Historical: - Allergies: 17:06 Cipro IV (rash); db 17:06 PENICILLINS (Anaphylaxis); db - PMHx: 17:06 Diverticulitis; Pancreatitis; db - PSHx: 17:06 right shoulder; right knee; db - Immunization history:: Adult Immunizations unknown. - Infectious Disease History:: Denies. - Social history:: Smoking status: Patient denies any tobacco usage or history of. ROS: 17:15 Constitutional: As per HPI kb Exam: 17:15 Constitutional: This is a well developed, well nourished patient who is awake, alert, kb and in no acute distress. Head/Face: Normocephalic, atraumatic. ENT: Moist Mucous membranes Cardiovascular: Regular rate Respiratory: Respirations even and unlabored. No increased work of breathing. Talking in full sentences Skin: Warm, dry with normal turgor. Normal color. MS/ Extremity: Pulses equal, no cyanosis. Neurovascular intact. Full, normal range of motion. Neuro: Awake and alert, GCS 15, oriented to person, place, time, and situation. 17:15 Abdomen/GI: Inspection: obese Bowel sounds: normal, Palpation: soft, in all quadrants, moderate abdominal tenderness, in the left upper quadrant, Vital Signs: 17:06 BP 123 / 85; Pulse 87; Resp 16; Temp 98.7; Pulse Ox 95% ; Weight 121.56 kg; Height 5 db ft. 11 in. ; Pain 8/10; 19:35 BP 106 / 92; Pulse 60; Resp 19; Pulse Ox 98% on R/A; kd3 20:05 BP 107 / 65; Pulse 75; Resp 18; Pulse Ox 100% on R/A; kd3 17:06 Body Mass Index 37.38 (121.56 kg, 180.34 cm) db 17:06 Pain Scale: Adult db MDM: 16:51 Medical Screening Exam initiated kb 17:16 Data reviewed: vital signs, nurses notes. kb 20:11 Differential diagnosis: diverticulitis, gastritis, gastroesophageal reflux disease, kb non-specific abd pain, pancreatitis. Historians other than the Patient: Spouse/Significant Other: . Counseling: I had a detailed discussion with the patient and/or guardian regarding the historical points, exam findings, and any diagnostic results supporting the discharge/admit diagnosis, lab results, radiology results, the need for outpatient follow up, a family practitioner, to return to the emergency department if symptoms worsen or persist or if there are any questions or concerns that arise at home. ED course: Pt is scheduled for surgery on 09/21. Will keep appt. 09/13 17:07 Order name: CBC with Diff; Complete Time: 18:28 kb 09/13 17:07 Order name: CMP; Complete Time: 18:28 kb 09/13 17:07 Order name: Lipase; Complete Time: 18:28 kb 09/13 17:07 Order name: CT Abd/Pelvis - IV Contrast Only; Complete Time: 19:24 kb 09/13 17:08 Order name: IV Saline Lock; Complete Time: 18:03 kb 09/13 17:08 Order name: Labs collected and sent; Complete Time: 18:03 kb Administered Medications: : Drug: Ondansetron IVP 4 mg IVP once; over 2 minutes Route: IVP; Site: left antecubital; bp 20:22 Follow up: Response: No adverse reaction : Drug: morphine IVP or IV 4 mg IVP once over 4 mins Route: IVP; Infused Over: 4 mins; bp Site: left antecubital; 20:22 Follow up: Response: No adverse reaction : Drug: NS 0.9% IV 1000 ml IV at 1 bolus Per protocol; to be given as a bolus over 60 bp minutes Route: IV; Rate: 1 bolus; Site: left antecubital; 20:22 Follow up: Response: No adverse reaction; IV Status: Completed infusion km10 19:34 Drug: morphine IVP or IV 4 mg IVP once over 4 mins Route: IVP; Infused Over: 4 mins; kd3 Site: left antecubital; 20:17 Follow up: Response: No adverse reaction; Pain is decreased km10 20:17 Drug: [place] PO 10 mg-325 mg 1 tabs PO once Route: PO; km10 20:21 Follow up: Response: No adverse reaction; Pain is decreased km10 Disposition: 20:35 I was immediately available on-site in the Emergency Department for consultation in the ms3 care of the patient. Disposition Summary: 09/13/24 20:10 Discharge Ordered Notes: Location: Home kb Condition: Stable kb Diagnosis - Abdominal pain, unspecified kb Followup: kb - With: Emergency Department - When: As needed - Reason: Worsening of condition Followup: kb - With: Private Physician - When: 2 - 3 days - Reason: Recheck today's complaints, Continuance of care, Re-evaluation by your physician Discharge Instructions: - Discharge Summary Sheet kb - Abdominal Pain, Adult, [id number] kb Forms: - Medication Reconciliation Form kb - Antibiotic Education kb - Prescription Opioid Use kb - Patient Portal Instructions kb - Leadership Thank You Letter kb Signatures: Dispatcher [employer] Michaela Acosta, CLAIMS ASSISTANT-C CLAIMS ASSISTANT-Parminder Zuniga, RN RN Bc Walker DO DO ms3 Monica Gunter, RN RN kd3 Lindy Brizuela RN ANDREW db Padma Wong RN RN [id number]
[2024-09-13] MEDS ORDERED: HYDROCODONE/APAP 10/325 TAB ONE (20:14)
[2024-09-13 20:55] VITALS: TEMP 98.7
[2024-09-13 21:06] VITALS: BP 107/65; O2SAT 100
== END 2024-09-13 20:22 | disposition home or self-care (01) ==
LOC: ER 16:45
DX: R10.12 Left upper quadrant pain (principal)
CPT/HCPCS: 96361; 85025; 36415; 83690; 80053; 74177; 96375; 96374; 99284; Q9967; J2405; J7030

== ENCOUNTER 2024-12-04 08:25 | Emergency (ER) | payer OTHER ==
[2024-12-04] MEDS ORDERED: HYDROCODONE/APAP 10/325 TAB ONE (08:58)
[2024-12-04] MEDS ORDERED: DERMABOND SKIN ADHESIVE TOP ONE (08:59)
--- NOTE | 2024-12-04 09:32 | EDPHYS ---
Physician Documentation [facility] Name: Ming Odonnell Age: 49 yrs Sex: Male : 1975 Arrival Date: 12/04/2024 Time: 08:25 Bed 5 Private MD: ED Physician Magi Christie HPI: 12/04 09:23 This 49 yrs old Male presents to ER via Ambulatory with complaints of Post dr5 Surgical Complications- OPEN WOUND STOMACH. 09:23 Onset: The symptoms/episode began/occurred 6 day(s) ago. Patient is a 49-year-old male dr5 with history of diverticulitis, pancreatitis coming in with serosanguineous drainage from [facility] after umbilical hernia repair that was completed 6 days ago by surgeon in [place]. Patient reports that he has been taking pain medication with relief and drainage started yesterday. Patient reports that after surgery the surgical site was closed with Dermabond. Patient denies fever, purulent drainage from wound, or tenderness to palpation. . Historical: - Allergies: 08:45 Cipro IV (rash); jl7 08:45 PENICILLINS (Anaphylaxis); jl7 - PMHx: 08:45 Diverticulitis; Pancreatitis; jl7 - PSHx: 08:45 colon resection; hernia repair x 3; right knee; right shoulder; jl7 - Immunization history:: Adult Immunizations unknown. - Infectious Disease History:: Denies. - Social history:: Smoking status: Patient/guardian denies using tobacco. ROS: 09:23 Constitutional: as per hpi dr5 Exam: 09:23 Constitutional: This is a well developed, well nourished patient who is awake, alert, dr5 and in no acute distress. Head/Face: Normocephalic, atraumatic. Eyes: Pupils equal round and reactive to light, extra-ocular motions intact. Lids and lashes normal. Conjunctiva and sclera are non-icteric and not injected. Cornea within normal limits. Periorbital areas with no swelling, redness, or edema. Chest/axilla: Normal chest wall appearance and motion. Nontender with no deformity. No lesions are appreciated. Cardiovascular: Regular rate and rhythm with a normal S1 and S2. Normal PMI, no JVD. No pulse deficits. Respiratory: Lungs have equal breath sounds bilaterally, clear to auscultation. No rales, rhonchi or wheezes noted. No increased work of breathing, no retractions or nasal flaring. Abdomen/GI: Soft, non-tender, non-distended. No tenderness to palpation around surgical site. Wound is healing well without signs of cellulitis, infection. Small amount of serosanguineous fluid noted inside belly button Back: No spinal tenderness. No costovertebral tenderness. Full range of motion. Skin: Warm, dry with normal turgor. Normal color with no rashes, no lesions, and no evidence of cellulitis. MS/ Extremity: Pulses equal, no cyanosis. Neurovascular intact. Full, normal range of motion. Neuro: Awake and alert, GCS 15, oriented to person, place, time, and situation. Cranial nerves II-XII grossly intact. Motor strength 5/5 in all extremities. Sensory grossly intact. Cerebellar exam normal. Normal gait. Vital Signs: 08:44 BP 149 / 90; Pulse 74; Resp 17; Temp 98.2; Pulse Ox 100% ; Weight 122.47 kg; Height 5 jl7 ft. 11 in. ; Pain 8/10; 08:53 BP 129 / 64; Pulse 79; Resp 18; Temp 98.6(O); Pulse Ox 100% on R/A; cf3 08:44 Body Mass Index 37.66 (122.47 kg, 180.34 cm) [facility] 08:44 Pain Scale: Adult jl7 [place] Coma Score: 08:53 Eye Response: spontaneous(4). Motor Response: obeys commands(6). Verbal Response: cf3 oriented(5). Total: 15. Laceration: 09:23 Wound Repair of 5cm ( 2.0in ) subcutaneous laceration to umbilical area. Linear dr5 shaped.. Distal neuro/vascular/tendon intact. Skin closed with 2 1-0 Adhesive skin closure using simple sutures and sterile technique. MDM: 08:33 Medical Screening Exam initiated dr5 09:23 Differential diagnosis: Surgical site infection, surgical site drainage, complication dr5 with surgical site. Data reviewed: vital signs, nurses notes. Consideration of Admission/Observation Escalation of care including admission/observation considered. Admission considered if patient found to have infection or purulent drainage from surgical site.. I considered the following discharge prescriptions or medication management in the emergency department I discussed and recommended Over The Counter medications, Medications were administered in the Emergency Department. See MAR. Test considered but Not performed: CT: CT was considered but deferred due to patient not having tenderness palpation, no infection noted to surgical site.. Historians other than the Patient: Spouse/Significant Other: Spouse at bedside. Care significantly affected by the following chronic conditions: Pancreatitis, diverticulitis, obesity. Care significantly affected by the following Social Determinants of Health: Poor access to healthcare and/or lack of insurance, Poor access to transportation, Problems related to employment. Counseling: I had a detailed discussion with the patient and/or guardian regarding the historical points, exam findings, and any diagnostic results supporting the discharge/admit diagnosis, the presence of at least one elevated blood pressure reading (>120/80) during this emergency department visit, the need for outpatient follow up, for definitive care, a general surgeon, to return to the emergency department if symptoms worsen or persist or if there are any questions or concerns that arise at home. Medication response: [place]. Response to treatment: the patient's symptoms have resolved after treatment, the patient's condition has returned to base line. Special discussion: I discussed with the patient/guardian in detail that at this point there is no indication for admission to the hospital. It is understood, however, that if the symptoms persist or worsen the patient needs to return immediately for re-evaluation. Based on the history and exam findings, there is no indication for further emergent testing or inpatient evaluation. I discussed with the patient/guardian the need to see the general surgeon for further evaluation of the symptoms. ED course: Recommended patient follow-up with his surgeon that did his surgery. Patient is reporting muscle spasms in his back as well as around wound. Will give patient muscle relaxers to take as needed. Patient also requesting to have antibiotics to prevent wound infection. Recommended increasing hydration and following up with his surgeon tomorrow. Patient agreeable plan. Dermabond used x 2 to reinforce surgical site as part of glue has been removed and that is where drainage is coming from. All questions answered. Strict ER precautions given.. 12/04 09:04 Order name: Dermabond; Complete Time: 09:05 dr5 Administered Medications: 09:09 Drug: [place] PO 10 mg-325 mg 2 tabs PO once Route: PO; aa5 09:45 Follow up: Response: No adverse reaction aa5 Disposition Summary: 12/04/24 09:31 Discharge Ordered Notes: Location: Home dr5 Condition: Stable dr5 Diagnosis - Infection following a procedure, initial encounter - Drainage of wound following dr5 surgical procedure Followup: dr5 - With: Emergency Department - When: As needed - Reason: Worsening of condition Followup: dr5 - With: Private Physician - When: 1 - 2 days - Reason: Recheck today's complaints, Continuance of care, Re-evaluation by your physician Discharge Instructions: - Discharge Summary Sheet dr5 - Open Hernia Repair, Adult, Care After, [id number] dr5 Forms: - Medication Reconciliation Form dr5 - Antibiotic Education dr5 - Patient Portal Instructions dr5 - Leadership Thank You Letter dr5 Prescriptions: - Ibuprofen 800 mg Oral Tablet - take 1 tablet ORAL route every 12 hours As needed take with food; 20 tablet; dr5 Refills: 0, Product Selection Permitted - Cyclobenzaprine 10 mg Oral Tablet - take 1 tablet ORAL route every 8 hours As needed; 30 tablet; Refills: 0, dr5 Product Selection Permitted - Bactrim DS 800-160 mg Oral Tablet - take 1 tablet ORAL route every 12 hours for 10 days; 20 tablet; Refills: 0, dr5 Product Selection Permitted Signatures: Lorri Mckeon, RN RN aa5 Aida Das RN RN jl7 Andre Zelaya, CRUSHER SCREEN REPAIRER-C CRUSHER SCREEN REPAIRER-Cdr5
--- NOTE | 2024-12-04 09:32 | ER ---
Nurse's Notes [facility] Name: Ming Odonnell Age: 49 yrs Sex: Male : 1975 Arrival Date: 12/04/2024 Time: 08:25 Bed 5 Private MD: Diagnosis: Infection following a procedure, initial encounter-Drainage of wound following surgical procedure Presentation: 12/04 08:44 Chief complaint: Patient states: Umbilical hernia repair 11/28/24, reports increased jl7 oozing from site. Coronavirus screen: At this time, the client does not indicate any symptoms associated with coronavirus-19. Ebola Screen: No symptoms or risks identified at this time. Initial Sepsis Screen: Does the patient meet any 2 criteria? No. Patient's initial sepsis screen is negative. Does the patient have a suspected source of infection? No. Patient's initial sepsis screen is negative. Risk Assessment: Do you want to hurt yourself or someone else? Patient reports no desire to harm self or others. Onset of symptoms is unknown. 08:44 Method Of Arrival: Ambulatory jl7 08:44 Acuity: CELENA 3 jl7 Triage Assessment: 08:45 General: Appears in no apparent distress. uncomfortable, Behavior is calm, cooperative, jl7 appropriate for age. Pain: Complains of pain in abdomen Pain currently is 8 out of 10 on a pain scale. Historical: - Allergies: 08:45 Cipro IV (rash); jl7 08:45 PENICILLINS (Anaphylaxis); jl7 - PMHx: 08:45 Diverticulitis; Pancreatitis; jl7 - PSHx: 08:45 colon resection; hernia repair x 3; right knee; right shoulder; jl7 - Immunization history:: Adult Immunizations unknown. - Infectious Disease History:: Denies. - Social history:: Smoking status: Patient/guardian denies using tobacco. Screenin:53 [facility] ED Fall Risk Assessment (Adult) History of falling in the last 3 months, cf3 including since admission No falls in past 3 months (0 pts) Confusion or Disorientation No (0 pts) Intoxicated or Sedated No (0 pts) Impaired Gait Yes (1 pt) Mobility Assist Device Used No (0 pt) Altered Elimination No (0 pt) Score/Fall Risk Level 0 - 2 = Low Risk Oriented to surroundings, Maintained a safe environment, Educated pt \T\ family on fall prevention, incl call for assistance when getting out of bed, Assessed \T\ reinforced patient's understanding of fall precautions, Hourly rounding (assess needs \T\ fall precautionary measures) done. Abuse screen: Denies threats or abuse. Denies injuries from another. Nutritional screening: No deficits noted. Tuberculosis screening: No symptoms or risk factors identified. Sepsis Screening: . Infection:. Sepsis Screening:. Assessment: 08:53 General: Appears distressed, uncomfortable, Behavior is anxious. Pain: Complains of cf3 pain in umbilical area, right upper quadrant and right lower quadrant Pain at worst was 9 out of 10 on a pain scale. Quality of pain is described as sharp, tender, Pain began 2-3 days ago. Is continuous, Aggravated by increased activity, repositioning, movement and touch. Neuro: [place] Agitation-Sedation Scale (RASS): +1 Restless Level of Consciousness is awake, alert, obeys commands, Oriented to person, place, time, situation, Welcome Hostess are Moves all extremities. Full function. Derm: Skin has lesions on Midline abdominal incision from surgery on 11/26. Glue not intact in the umbilical area, very small amount of sanguineous drainage. Injury Description: Surgical incision - approximately 18cm, glue closure, glue not intact in the umbilical area. 09:45 Reassessment: Patient is alert, oriented x 3, equal unlabored respirations, skin aa5 warm/dry/pink. Vital Signs: 08:44 BP 149 / 90; Pulse 74; Resp 17; Temp 98.2; Pulse Ox 100% ; Weight 122.47 kg; Height 5 jl7 ft. 11 in. ; Pain 8/10; 08:53 BP 129 / 64; Pulse 79; Resp 18; Temp 98.6(O); Pulse Ox 100% on R/A; cf3 08:44 Body Mass Index 37.66 (122.47 kg, 180.34 cm) jl7 08:44 Pain Scale: Adult jl7 [place] Coma Score: 08:53 Eye Response: spontaneous(4). Motor Response: obeys commands(6). Verbal Response: cf3 oriented(5). Total: 15. ED Course: 08:32 Patient arrived in ED. cj3 08:32 [facility]NP-C [facility] dr5 08:32 Magi Christie MD is Attending Physician. dr5 08:45 Triage completed. jl7 08:45 Arm band placed on right wrist. jl7 08:53 Toby Jose, RN is Primary Nurse. cf3 08:53 Patient has correct armband on for positive identification. Bed in low position. Call cf3 light in reach. Side rails up X 1. Provided Education on:. Pulse ox on. NIBP on. Door closed. Noise minimized. Pillow given. Head of bed elevated. 09:40 Dressings: ABD pad X 1; abdomen. aa5 09:45 No provider procedures requiring assistance completed. Patient did not have IV access aa5 during this emergency room visit. Administered Medications: 09:09 Drug: [place] PO 10 mg-325 mg 2 tabs PO once Route: PO; aa5 09:45 Follow up: Response: No adverse reaction aa5 Medication: 08:53 VIS not applicable for this client. cf3 Outcome: 09:31 Discharge ordered by MD. dr5 09:45 Discharged to home ambulatory, with significant other, aa5 09:45 Condition: stable 09:45 Discharge instructions given to patient, significant other, Instructed on discharge instructions, follow up and referral plans. medication usage, Demonstrated understanding of instructions, follow-up care, medications, Prescriptions given X 3, 09:46 Patient left the ED. aa5 Signatures: Lorri Mckeon, RN RN aa5 Aida Das, ANDREW RN jl7 Andre Zelaya, CHEMICAL OPERATOR-C CHEMICAL OPERATOR-Cdr5 Roxy Echevarria cj3 Toby Jose, RN RN 3
[2024-12-04 09:50] VITALS: O2SAT 100
[2024-12-04 09:52] VITALS: BP 129/64; TEMP 98.6
== END 2024-12-04 09:46 | disposition home or self-care (01) ==
LOC: ER 08:25
DX: T81.49XA Infection following a procedure, other surgical site, initial encounter (principal); Z98.890 Other specified postprocedural states
CPT/HCPCS: 12002; 99284

== ENCOUNTER 2024-12-05 17:43 | Emergency (ER) | payer OTHER ==
[2024-12-05] MEDS ORDERED: NA CHLORIDE 0.9% 1,000 ML ONE (18:38)
--- NOTE | 2024-12-05 19:02 | RAD REPORT ---
EXAM: Chest Single View HISTORY: 49 years Male ABDOMINAL DISTENTION COMPARISON: 08/15/21 FINDINGS: LUNGS/PLEURA: The lungs are clear. No pleural effusions or pneumothorax. No pulmonary edema. CARDIAC/MEDIASTINUM: The cardiac silhouette is within normal limits. UPPER ABDOMEN: No significant abnormality. BONES: No acute abnormality. LINES/TUBES/OTHER: N/A IMPRESSION: No evidence of acute cardiopulmonary disease.
[2024-12-05] MEDS ORDERED: ONDANSETRON 4 MG/2 ML VIAL ONE (19:22)
[2024-12-05 19:23] LABS: Absolute Lymphocytes (CBC) 2.1 K/uL (0.7-4.9); Hematocrit 35.3 % (39.6-49.0); Hemoglobin 12.0 g/dL (13.6-17.9); MCH 33.0 pg (27.0-35.0); MCHC 34.1 g/dL (32.0-36.0); MCV 96.8 fL (80-100); MPV 8.6 fL (7.6-11.3); Nucleated RBC Absolute Count 0.0 (0-0); Nucleated Red Blood Cells % 0.0 % (0-0); RBC Red Blood Cell Count 3.64 M/uL (4.33-5.43); White Blood Count 7.50 thou/uL (4.3-10.9)
[2024-12-05] MEDS ORDERED: MORPHINE 4 MG/ML SYR ONE (19:23)
--- NOTE | 2024-12-05 19:23 | RAD REPORT ---
EXAMINATION: Abdomen Pelvis W Contrast CLINICAL INDICATION: Male, 49 years old.ABD PAIN TECHNIQUE: CT abdomen and pelvis was performed, after the administration of IV contrast, as per [facility] protocol. Axial, sagittal and coronal reconstructions were obtained. One or more of the following dose reduction techniques were used: Automated exposure control, adjustment of the mA and/o r kV according to patient size, and/or iterative reconstruction. Unless otherwise specified, incidental findings do not require dedicated imaging follow-up. [id number]. COMPARISON: 09/29/2024 FINDINGS: LOWER CHEST: No acute process identified.No significant pericardial effusion. UPPER GI: No significant abnormality. LIVER: Benign-appearing liver lesions including hemangioma in the posterior right hepatic lobe. GALLBLADDER/BILE DUCTS: No biliary ductal dilatation.? PANCREAS: No mass, ductal dilation, or pat-pancreatic fluid. SPLEEN: Unremarkable. ADRENALS: No adrenal masses. KIDNEYS AND URETERS: No hydronephrosis.Low density and/or too small to characterize renal lesions whi ch are statistically benign. ABDOMINAL AORTA AND OTHER VESSELS: Normal caliber aorta and IVC. PERITONEUM: No abnormal free fluid. No free air. LYMPH NODES: No pathologic lymphadenopathy. ABDOMINAL WALL: Fluid collection within the anterior abdominal wall measuring 8.8 x 6.7 x 5.2 cm whic h contains some gas. Prior ventral hernia repair. Small volume of fluid associated with the the repair at the level of the omentum may be some fluid around mesh if mesh was used. SMALL BOWEL/COLON: Small bowel has normal course and caliber. No colonic wall thickening or pericolon ic inflammatory changes.Normal appendix. Mild diverticulosis without diverticulitis. URINARY BLADDER: Underdistended but grossly unremarkable. REPRODUCTIVE ORGANS: No pathologic process. MUSCULOSKELETAL: No acute or suspicious osseous abnormality. ADDITIONAL FINDINGS: None. IMPRESSION: Surgical changes from recent umbilical hernia repair with gas and fluid containing subincisional flui d collection that may reflect a seroma though the fluid is of indeterminate sterility. No findings to suggest a fistula. A small volume of fluid is present at the parietal peritoneum subjacent to the repair as well.
[2024-12-05 19:24] LABS: PT Prothrombin Time 12.9 SECONDS (10-13.0); Protime INR 1.15
[2024-12-05 19:34] LABS: ALT/SGPT 21 U/L (16-61); AST/SGOT 15 U/L (15-37); Albumin 3.1 g/dL (3.4-5.0); Albumin/Globulin Ratio 0.9 (1.1-1.8); Alkaline Phosphatase 59 U/L (45-117); Anion Gap 7.7 mEq/L (5.0-15.0); BUN Blood Urea Nitrogen 15 mg/dL (7-18); Globulin 3.5 g/dL (2.3-3.5); Glucose Level 105 mg/dL (74-106); Lipase 26 U/L (13-75); Magnesium 1.9 mg/dL (1.6-2.4); NT PRO-BNP 43 pg/mL (<125); Potassium 3.7 mEq/L (3.5-5.1); Troponin High Sensitivity 3.7 pg/mL (<58.9)
[2024-12-05 19:36] LABS: Bilirubin Indirect, Calculated 0.0 mg/dL (0.2-0.8)
[2024-12-05] MEDS ORDERED: LIDOCAINE 1% 20 ML MDV ONE (19:41)
[2024-12-05] MEDS ORDERED: NA CHLORIDE 0.9% 50 ML ONE (20:30)
[2024-12-05] MEDS ORDERED: CEFTRIAXONE 1000 MG/VIAL ONE (20:30)
--- NOTE | 2024-12-05 21:48 | EDPHYS ---
Physician Documentation [facility] Name: Ming Odonnell Age: 49 yrs Sex: Male : 1975 Arrival Date: 12/05/2024 Time: 17:43 Bed 12 Private MD: ED Physician Satya Vincent HPI: 12/05 19:05 This 49 yrs old Other Race Male presents to ER via EMS with complaints of Post Surgical sp4 Bleeding. 19:22 This is a very pleasant 49-year-old male who presents with peritoneal fluid leak from sp4 postoperative incision. Patient had umbilical hernia repair 7 days ago at [facility] in [place]. Dr. Funmi Mtz performed umbilical hernia repair. Patient since then developed wound dehiscence and leakage of peritoneal fluid. Today patient developed significant leak of peritoneal fluid and presented to the ER.. Historical: - Allergies: 18:04 Cipro IV (rash); ap3 18:04 PENICILLINS (Anaphylaxis); ap3 - PMHx: 18:04 Diverticulitis; Pancreatitis; ap3 - PSHx: 18:04 hernia repair x 3; colon resection; right knee; right shoulder; ap3 - Immunization history:: Adult Immunizations up to date. - Infectious Disease History:: Denies. - Social history:: Smoking status: Patient denies any tobacco usage or history of. - Family history:: not pertinent. ROS: 19:28 Constitutional: Negative for fever, chills, and weight loss, positive peritoneal fluid sp4 leak, positive ventral abdominal incision dehiscence. 19:28 All other systems are negative, Exam: 19:28 Constitutional: This is a well developed, well nourished patient who is awake, alert, sp4 and in no acute distress. Head/Face: Normocephalic, atraumatic. Eyes: Pupils equal round and reactive to light, extra-ocular motions intact. Lids and lashes normal. Conjunctiva and sclera are not injected. Cornea within normal limits. Periorbital areas with no swelling, redness, or edema. ENT: Nares patent. No nasal discharge, no septal abnormalities noted. Tympanic membranes are normal and external auditory canals are clear. Oropharynx with no redness, swelling, or masses, exudates, or evidence of obstruction, uvula midline. Mucous membranes moist. Neck: Trachea midline, no thyromegaly or masses palpated, and no cervical lymphadenopathy. Supple, full range of motion without nuchal rigidity, or vertebral point tenderness. Chest/axilla: Normal chest wall appearance and motion. Nontender with no deformity. No lesions are appreciated. Cardiovascular: Regular rate and rhythm with a normal S1 and S2. No gallops, murmurs, or rubs. No pulse deficits. Respiratory: Lungs have equal breath sounds bilaterally, clear to auscultation and percussion. No rales, rhonchi or wheezes noted. No increased work of breathing, no retractions or nasal flaring. Abdomen/GI: Soft, with normal bowel sounds. No distension or tympany. No guarding or rebound, positive midline small postop incision with Dermabond. Dehiscence of lower portion of abdominal incision with leakage of blood-tinged peritoneal fluid. Back: No spinal tenderness. No costovertebral tenderness. Skin: Warm, dry with normal turgor. Normal color with no rashes, no lesions, and no evidence of cellulitis. MS/ Extremity: Pulses equal, no cyanosis. Neurovascular intact. Full, normal range of motion. Neuro: Awake and alert, GCS 15, oriented to person, place, time, and situation. Cranial nerves II-XII grossly intact. Motor strength 5/5 in all extremities. Sensory grossly intact. Psych: Awake, alert, with orientation to person, place and time. Behavior, mood, and affect are within normal limits Vital Signs: 18:01 BP 128 / 77; Pulse 69; Resp 18; Temp 99(O); Pulse Ox 100% on R/A; Weight 122.47 kg; ap3 22:28 BP 124 / 69; Pulse 71; Resp 18; Temp 97.9; Pulse Ox 100% ; jj7 [place] Coma Score: 19:28 Eye Response: spontaneous(4). Motor Response: obeys commands(6). Verbal Response: sp4 oriented(5). Total: 15. Procedures: 12/06 05:24 Performed Drainage of abdominal wall seroma, wound care and dressing . Abdominal wound sp4 was slightly open to allow seroma to drain. Then it was packed with plain gauze and sterile dressing applied.. MDM: 12/05 18:19 Medical Screening Exam initiated kin 12/06 05:25 Differential diagnosis: diverticulitis, gastritis, GI Bleed, non-specific abd pain, sp4 pancreatitis. Data reviewed: vital signs, nurses notes, old medical records, lab test result(s), radiologic studies, CT scan. 05:26 Consideration of Admission/Observation Escalation of care including sp4 admission/observation considered. ED course: EXAMINATION: Abdomen Pelvis W Contrast CLINICAL INDICATION: Male, 49 years old.ABD PAIN TECHNIQUE: CT abdomen and pelvis was performed, after the administration of IV contrast, as per department protocol. Axial, sagittal and coronal reconstructions were obtained. One or more of the following dose reduction techniques were used: Automated exposure control, adjustment of the mA and/or kV according to patient size, and/or iterative reconstruction. Unless otherwise specified, incidental findings do not require dedicated imaging follow-up. [id number]. COMPARISON: 09/29/2024 FINDINGS: LOWER CHEST: No acute process identified.No significant pericardial effusion. UPPER GI: No significant abnormality. LIVER: Benign-appearing liver lesions including hemangioma in the posterior right hepatic lobe. GALLBLADDER/BILE DUCTS: No biliary ductal dilatation.? PANCREAS: No mass, ductal dilation, or pat-pancreatic fluid. SPLEEN: Unremarkable. ADRENALS: No adrenal masses. KIDNEYS AND URETERS: No hydronephrosis.Low density and/or too small to characterize renal lesions which are statistically benign. ABDOMINAL AORTA AND OTHER VESSELS: Normal caliber aorta and IVC. PERITONEUM: No abnormal free fluid. No free air. LYMPH NODES: No pathologic lymphadenopathy. ABDOMINAL WALL: Fluid collection within the anterior abdominal wall measuring 8.8 x 6.7 x 5.2 cm which contains some gas. Prior ventral hernia repair. Small volume of fluid associated with the the repair at the level of the omentum may be some fluid around mesh if mesh was used. SMALL BOWEL/COLON: Small bowel has normal course and caliber. No colonic wall thickening or pericolonic inflammatory changes.Normal appendix. Mild diverticulosis without diverticulitis. URINARYBLADDER: Underdistended but grossly unremarkable. REPRODUCTIVE ORGANS: No pathologic process. MUSCULOSKELETAL: No acute or suspicious osseous abnormality. ADDITIONAL FINDINGS: None. IMPRESSION: Surgical changes from recent umbilical hernia repair with gas and fluid containing subincisional fluid collection that may reflect a seroma though the fluid is of indeterminate sterility. No findings to suggest a fistula. A small volume of fluid is present at the parietal peritoneum subjacent to the repair as well.. 12/05 18:20 Order name: Basic Metabolic Panel; Complete Time: 20:36 [facility] 12/05 18:20 Order name: CBC with Diff; Complete Time: 20:36 [facility] 12/05 18:20 Order name: LFT's; Complete Time: 20:36 [facility] 12/05 18:20 Order name: Magnesium; Complete Time: 20:36 [facility] 12/05 18:20 Order name: NT PRO-BNP; Complete Time: 20:36 [facility] 12/05 18:20 Order name: PT-INR; Complete Time: 19:31 [facility] 12/05 18:20 Order name: Troponin HS; Complete Time: 20:36 [facility] 12/05 18:20 Order name: Lipase; Complete Time: 20:36 [facility] 12/05 18:20 Order name: XRAY Chest (1 view); Complete Time: 19:15 [facility] 12/05 18:20 Order name: CT Abd/Pelvis - IV Contrast Only; Complete Time: 19:31 [facility] 12/05 18:20 Order name: Cardiac monitoring; Complete Time: 18:27 [facility] 12/05 18:20 Order name: IV Saline Lock; Complete Time: 18:27 [facility] 12/05 18:20 Order name: Labs collected and sent; Complete Time: 19:06 [facility] 12/05 18:20 Order name: O2 Per Protocol; Complete Time: 18:27 [facility] 12/05 18:20 Order name: O2 Sat Monitoring; Complete Time: 18:26 [facility] Administered Medications: 12/05 19:05 Drug: NS 0.9% IV 500 ml 500 ml IV at 1 bolus once; to be given as a bolus over 30 ap3 minutes Volume: 500 ml; Route: IV; Rate: 1 bolus; Site: left antecubital; 22:20 Follow up: IV Status: Completed infusion jj7 19:05 Drug: NS 0.9% IV 500 ml 500 ml IV at 125 ml/hr once Volume: 500 ml; Route: IV; Rate: ap3 125 ml/hr; Site: left antecubital; 22:20 Follow up: IV Status: Completed infusion jj7 19:38 Drug: Ondansetron IVP 4 mg IVP once; over 2 minutes Route: IVP; Site: left antecubital; dd2 22:21 Follow up: Response: Marked relief of symptoms jj7 19:39 Drug: morphine IVP or IV 4 mg IVP once over 4 mins Route: IVP; Infused Over: 4 mins; dd2 Site: left antecubital; 22:25 Follow up: Response: Marked relief of symptoms jj7 19:42 Drug: Lidocaine Infiltration (1 %) 20 ml 20 ml Infiltration once; to bedside Volume: 20 dd2 ml; Route: Infiltration; Site: wound; 20:37 Drug: Rocephin - Rocephin (cefTRIAXone) IVPB 1 grams IVPB once over 30 mins; (mix in 50 dd2 mL NS) Route: IVPB; Rate: per protocol; Infused Over: 30 mins; Site: left antecubital; 22:20 Follow up: IV Status: Completed infusion jj7 22:20 Drug: HYDROcodone-acetaminophen PO 5 mg-325 mg 2 tabs PO once Route: PO; jj7 22:25 Follow up: Response: No adverse reaction jj7 22:20 Drug: Diazepam PO 5 mg PO once Route: PO; jj7 22:25 Follow up: Response: No adverse reaction jj7 Disposition Summary: 12/05/24 21:48 Discharge Ordered Notes: Location: Home sp4 Problem: new sp4 Symptoms: have improved sp4 Condition: Stable sp4 Diagnosis - Postoperative abdominal wall seroma, midline abdominal wall wound dehiscence sp4 Followup: sp4 - With: Private Physician - When: 1 - 2 days - Reason: Recheck today's complaints Discharge Instructions: - Discharge Summary Sheet sp4 - Seroma sp4 Forms: - Patient Portal Instructions sp4 Signatures: Dispatcher [employer] EDFoster Myers MD MD cha Prokisch, Amanda, RN RN [email or web address] Judith Echevarria RN RN jj7 Satya Vincent MD MD sp4 CHELE MENENDEZ RN RN dd2 Corrections: (The following items were deleted from the chart) 19:40 18:20 EKG - Nurse/Tech ordered. kin flynn
--- NOTE | 2024-12-05 21:48 | ER ---
Nurse's Notes [facility] Name: Ming Odonnell Age: 49 yrs Sex: Male : 1975 Arrival Date: 12/05/2024 Time: 17:43 Bed 12 Private MD: Diagnosis: Postoperative abdominal wall seroma, midline abdominal wall wound dehiscence Presentation: 12/05 18:01 Chief complaint: Patient states: he had a hernia repair sx Thursday11/28/24, and today it ap3 opened back up again, after being glued yesterday. patient complains of pain 5/10 on the pain scale. Coronavirus screen: At this time, the client does not indicate any symptoms associated with coronavirus-19. Ebola Screen: No symptoms or risks identified at this time. Initial Sepsis Screen: Does the patient meet any 2 criteria? No. Patient's initial sepsis screen is negative. Does the patient have a suspected source of infection? No. Patient's initial sepsis screen is negative. Risk Assessment: Do you want to hurt yourself or someone else? Patient reports no desire to harm self or others. Onset of symptoms was December 05, 2024. 18:01 Method Of Arrival: EMS: [facility] ap3 18:01 Acuity: CELENA 2 ap3 18:06 Care prior to arrival: Medication(s) given: fentanyl 100mcg IV IV initiated. 20 GA, in ap3 the left antecubital area. Triage Assessment: 18:05 General: Appears uncomfortable, Behavior is calm, cooperative, appropriate for age. ap3 Pain: Complains of pain in abdomen Pain currently is 5 out of 10 on a pain scale. at worst was 10 out of 10 on a pain scale. Neuro: Level of Consciousness is awake, alert, obeys commands, Oriented to person, place, time, situation, Appropriate for age Gait is steady, Speech is normal. Cardiovascular: Patient's skin is warm and dry. Respiratory: Airway is patent Respiratory effort is even, unlabored, Respiratory pattern is regular, symmetrical. GI: Abdomen is round. Derm: Wound noted abdomen. Historical: - Allergies: 18:04 Cipro IV (rash); ap3 18:04 PENICILLINS (Anaphylaxis); ap3 - PMHx: 18:04 Diverticulitis; Pancreatitis; ap3 - PSHx: 18:04 hernia repair x 3; colon resection; right knee; right shoulder; ap3 - Immunization history:: Adult Immunizations up to date. - Infectious Disease History:: Denies. - Social history:: Smoking status: Patient denies any tobacco usage or history of. - Family history:: not pertinent. Screenin:06 [facility] ED Fall Risk Assessment (Adult) History of falling in the last 3 months, ap3 including since admission No falls in past 3 months (0 pts) Confusion or Disorientation No (0 pts) Intoxicated or Sedated No (0 pts) Impaired Gait No (0 pts) Mobility Assist Device Used No (0 pt) Altered Elimination No (0 pt) Score/Fall Risk Level 0 - 2 = Low Risk Oriented to surroundings, Maintained a safe environment, Educated pt \T\ family on fall prevention, incl call for assistance when getting out of bed, Assessed \T\ reinforced patient's understanding of fall precautions, Hourly rounding (assess needs \T\ fall precautionary measures) done, Used ambulatory aids as needed (educated on \T\ assisted with). Abuse screen: Denies threats or abuse. Nutritional screening: No deficits noted. Tuberculosis screening: No symptoms or risk factors identified. Assessment: 22:20 Reassessment: ASSUMED CARE OF PT. PT SITTING IN BED. DISCHARGE VS TAKEN. ORDERED MED jj7 GIVEN. WOUND ALREADY DRESSED. CLEAN, DRY AND INTACT. VS STABLE. General: Appears in no apparent distress. comfortable, Behavior is calm, cooperative, appropriate for age. GI: Abdomen is round COVERED WITH DRESSED APPLIED BY DR VERDUGO. Vital Signs: 18:01 BP 128 / 77; Pulse 69; Resp 18; Temp 99(O); Pulse Ox 100% on R/A; Weight 122.47 kg; ap3 22:28 BP 124 / 69; Pulse 71; Resp 18; Temp 97.9; Pulse Ox 100% ; jj7 [place] Coma Score: 19:28 Eye Response: spontaneous(4). Motor Response: obeys commands(6). Verbal Response: sp4 oriented(5). Total: 15. ED Course: 17:52 Patient arrived in ED. ll1 18:04 Triage completed. ap3 18:06 Arm band placed on right wrist. ap3 18:06 Patient has correct armband on for positive identification. Bed in low position. Call ap3 light in reach. Side rails up X2. Adult w/ patient. Client placed on continuous cardiac and pulse oximetry monitoring. NIBP monitoring applied. media monitor on. Pulse ox on. NIBP on. 18:19 Foster Trejo MD is Attending Physician. [facility] 18:21 Adela Hermosillo, RN is Primary Nurse. ap3 18:50 XRAY Chest (1 view) In Process Unspecified. EDMS 18:56 CT Abd/Pelvis - IV Contrast Only In Process Unspecified. EDMS 19:05 Attending Physician role handed off by Foster Trejo MD sp4 19:05 Satya Vincent MD is Attending Physician. sp4 22:20 Provided Education on: FOLLOW UP AND WATCHING FOR SIGNS OF INFECTION. jj7 22:20 IV discontinued, intact, bleeding controlled, No redness/swelling at site. Pressure jj7 dressing applied. 22:20 Assist provider with the repair of a wound dehiscence located on abdomen Performed by janie Vincent MD cleaned with packed with 4X4s, ABD pads, dressed with ABD pads, TAPE. Administered Medications: 19:05 Drug: NS 0.9% IV 500 ml 500 ml IV at 1 bolus once; to be given as a bolus over 30 ap3 minutes Volume: 500 ml; Route: IV; Rate: 1 bolus; Site: left antecubital; 22:20 Follow up: IV Status: Completed infusion jj7 19:05 Drug: NS 0.9% IV 500 ml 500 ml IV at 125 ml/hr once Volume: 500 ml; Route: IV; Rate: ap3 125 ml/hr; Site: left antecubital; 22:20 Follow up: IV Status: Completed infusion jj7 19:38 Drug: Ondansetron IVP 4 mg IVP once; over 2 minutes Route: IVP; Site: left antecubital; dd2 22:21 Follow up: Response: Marked relief of symptoms jj7 19:39 Drug: morphine IVP or IV 4 mg IVP once over 4 mins Route: IVP; Infused Over: 4 mins; dd2 Site: left antecubital; 22:25 Follow up: Response: Marked relief of symptoms jj7 19:42 Drug: Lidocaine Infiltration (1 %) 20 ml 20 ml Infiltration once; to bedside Volume: 20 dd2 ml; Route: Infiltration; Site: wound; 20:37 Drug: Rocephin - Rocephin (cefTRIAXone) IVPB 1 grams IVPB once over 30 mins; (mix in 50 dd2 mL NS) Route: IVPB; Rate: per protocol; Infused Over: 30 mins; Site: left antecubital; 22:20 Follow up: IV Status: Completed infusion jj7 22:20 Drug: HYDROcodone-acetaminophen PO 5 mg-325 mg 2 tabs PO once Route: PO; jj7 22:25 Follow up: Response: No adverse reaction jj7 22:20 Drug: Diazepam PO 5 mg PO once Route: PO; jj7 22:25 Follow up: Response: No adverse reaction jj7 Medication: 22:20 VIS not applicable for this client. jj7 Outcome: 21:48 Discharge ordered by MD. ruiz 22:20 Discharged to j7 22:20 Discharged to 22:20 Discharged to home ambulatory, with significant other, 22:20 Condition: improved 22:20 Discharge instructions given to patient, family, Instructed on discharge instructions, follow up and referral plans. wound care, Demonstrated understanding of instructions, follow-up care, wound care, 22:43 Patient left the ED. jj7 Signatures: Dispatcher [employer] EDMS Foster Trejo MD MD cha Prokisch, Amanda RN RN [email or web address] Henrik Rosario RN RN ll1 Judith Echevarria RN RN jSatya Mckinley MD MD sp4 CHELE MENENDEZ RN RN dd2 Corrections: (The following items were deleted from the chart) 22:40 22:32 Assist provider with the repair of a wound dehiscence located on abdomen jj7 Performed by Satya Vincent MD cleaned with packed with 4X4s, ABD pads, dressed with ABD pads, TAPE, jj7
[2024-12-05] MEDS ORDERED: HYDROCODONE/APAP 5/325 MG TAB ONE (22:10)
[2024-12-05] MEDS ORDERED: DIAZEPAM 5 MG TABLET ONE (22:10)
[2024-12-05 22:49] VITALS: O2SAT 100
[2024-12-05 22:50] VITALS: BP 124/69; TEMP 97.9
== END 2024-12-05 22:43 | disposition home or self-care (01) ==
LOC: ER 17:43
DX: L76.34 Postprocedural seroma of skin and subcutaneous tissue following other procedure (principal); T81.31XA Disruption of external operation (surgical) wound, not elsewhere classified, initial encounter
CPT/HCPCS: 96365; 96361; 85025; 80048; 36415; 83735; 85610; 82565; 80076; 84484; 83690; 83880; 74177; 71045; 96375; 99285; 96366; Q9967; J2003; J2405; J7030; J0696

== ENCOUNTER 2025-02-07 19:40 | Emergency (ER) | payer OTHER ==
[2025-02-07] MEDS ORDERED: ONDANSETRON 4 MG/2 ML VIAL ONE (20:09)
[2025-02-07] MEDS ORDERED: MORPHINE 4 MG/ML SYR ONE (20:10)
[2025-02-07 20:13] LABS: Absolute Lymphocytes (CBC) 3.4 K/uL (0.7-4.9); Hematocrit 39.9 % (39.6-49.0); Hemoglobin 13.9 g/dL (13.6-17.9); MCH 33.4 pg (27.0-35.0); MCHC 34.7 g/dL (32.0-36.0); MCV 96.2 fL (80-100); MPV 8.8 fL (7.6-11.3); Nucleated RBC Absolute Count 0.0 (0-0); Nucleated Red Blood Cells % 0.1 % (0-0); RBC Red Blood Cell Count 4.15 M/uL (4.33-5.43); White Blood Count 8.80 thou/uL (4.3-10.9)
[2025-02-07 20:35] LABS: ALT/SGPT 25.0 U/L (16-61); Albumin 3.4 g/dL (3.4-5.0); Albumin/Globulin Ratio 0.9 (1.1-1.8); Alkaline Phosphatase 79.0 U/L (45-117); Anion Gap 8.7 mEq/L (5.0-15.0); BUN Blood Urea Nitrogen 15.0 mg/dL (7-18); Globulin 4.0 g/dL (2.3-3.5); Glucose Level 156.0 mg/dL (74-106); Lipase 50.0 U/L (13-75)
[2025-02-07 20:37] LABS: AST/SGOT 24.0 U/L (15-37); Potassium 3.7 mEq/L (3.5-5.1)
--- NOTE | 2025-02-07 21:18 | RAD REPORT ---
EXAMINATION: CT ABDOMEN AND PELVIS WITH CONTRAST CLINICAL INDICATION: Abdominal pain TECHNIQUE: CT abdomen and pelvis was performed, after the administration of 100 cc Isovue-300.. Sagit de and coronal reconstructions were obtained. One or more of the following dose reduction techniques were used: Automated exposure control, adjustment of the mA and kV according to patient si ze, and iterative reconstruction. Unless otherwise specified, incidental findings do not require dedicated imaging follow-up. [id number]. Oral contrast was not given which limits evaluation of bowel and appendix. COMPARISON: .November 2024 and 2021 FINDINGS: Small hepatic cysts unchanged. Hepatic hemangiomas unchanged. Spleen, pancreas, adrenals and left kidney unremarkable 1.3 cm low to intermediate density mass extends off the posterior aspect right kidney. [place] uni t 37. It is mildly enlarged from 2021. Normal appendix. Sigmoidectomy. Minimal stranding within the adjacent fat unchanged. No obstruction. Umbilical hernia repair. The fluid collection containing air within the anterior subcutaneous tissues has resolved. Increased density within the tissues not considered significant. [id number] left inguinal hernia contains fat. Small right inguinal hernia : IMPRESSION: Fluid collection within the anterior subcutaneous fat at the site of umbilical hernia repair has reso lved. 1.3 cm right renal masses not represent a simple cyst. It may represent a benign complex cyst. Follow -up renal ultrasound in 3 months recommended for reevaluation
--- NOTE | 2025-02-07 21:29 | ER ---
Nurse's Notes [facility] Name: Ming Odonnell Age: 49 yrs Sex: Male : 1975 Arrival Date: 02/07/2025 Time: 19:40 Bed 2 Private MD: Diagnosis: Left lower quadrant pain;Left lower quadrant abdominal tenderness;INCIDENTAL FINDING ON CT IMAGING OF ABDOMEN Presentation: 02/07 19:47 Chief complaint: Patient states: LT UPPER AND LT LOWER ABD PAIN, STOMACH SWELLING X 1.5 dd2 WEEKS. REPORTS NAUSEA. DENIES VOMITING, DIARRHEA OR CONSTIPATION. Coronavirus screen: At this time, the client does not indicate any symptoms associated with coronavirus-19. Ebola Screen: No symptoms or risks identified at this time. Initial Sepsis Screen: Does the patient meet any 2 criteria? No. Patient's initial sepsis screen is negative. Does the patient have a suspected source of infection? No. Patient's initial sepsis screen is negative. Risk Assessment: Do you want to hurt yourself or someone else? Patient reports no desire to harm self or others. Onset of symptoms was January 26, 2025. 19:47 Method Of Arrival: Ambulatory dd2 19:47 Acuity: CELENA 3 dd2 Triage Assessment: 19:50 General: Appears in no apparent distress. uncomfortable, Behavior is calm, cooperative, dd2 appropriate for age. Pain: Complains of pain in left upper quadrant and left lower quadrant. GI: Reports lower abdominal pain, upper abdominal pain, bloating, nausea. Historical: - Allergies: 19:50 Cipro IV (rash); dd2 19:50 PENICILLINS (Anaphylaxis); dd2 - PMHx: 19:50 Diverticulitis; Pancreatitis; dd2 - PSHx: 19:50 colon resection; hernia repair x 3; right knee; right shoulder; dd2 - Immunization history:: Adult Immunizations up to date, Client reports receiving the 2nd dose of the Covid vaccine, Flu vaccine is up to date. - Infectious Disease History:: Denies. - Social history:: Smoking status: Patient denies any tobacco usage or history of. Screenin:02 [facility] ED Fall Risk Assessment (Adult) History of falling in the last 3 months, km10 including since admission No falls in past 3 months (0 pts) Confusion or Disorientation No (0 pts) Intoxicated or Sedated No (0 pts) Impaired Gait No (0 pts) Mobility Assist Device Used No (0 pt) Altered Elimination No (0 pt) Score/Fall Risk Level 0 - 2 = Low Risk Oriented to surroundings, Maintained a safe environment. Abuse screen: Denies threats or abuse. Denies injuries from another. Nutritional screening: No deficits noted. Tuberculosis screening: No symptoms or risk factors identified. Assessment: 20:04 General: Appears in no apparent distress. Behavior is cooperative, appropriate for age. km10 Pain: Complains of pain in abdomen and left lower quadrant and left upper quadrant Pain currently is 7 out of 10 on a pain scale. Quality of pain is described as crampy, sharp. Neuro: Level of Consciousness is awake, alert, obeys commands, Oriented to person, place, time, situation, Appropriate for age Gait is steady. GI: Abdomen is round Reports cramping, nausea, Patient currently denies constipation, diarrhea. 21:32 Reassessment: Patient appears in no apparent distress at this time. No changes from km10 previously documented assessment. Patient and/or family updated on plan of care and expected duration. Pain level reassessed. Patient is alert, oriented x 3, equal unlabored respirations, skin warm/dry/pink. Patient states feeling better. GI: Bowel sounds present X 4 quads. Vital Signs: 19:47 BP 120 / 99; Pulse 76; Resp 16; Temp 98.2; Pulse Ox 97% on R/A; Weight 122.47 kg; Pain dd2 6/10; 21:13 BP 130 / 69; Pulse 67; Resp 18; Pulse Ox 97% on R/A; km10 21:32 BP 129 / 63; Pulse 70; Resp 13; Pulse Ox 95% on R/A; km10 19:47 Pain Scale: Adult dd2 [place] Coma Score: 21:32 Eye Response: spontaneous(4). Motor Response: obeys commands(6). Verbal Response: km10 oriented(5). Total: 15. ED Course: 19:43 Patient arrived in ED. mr 19:50 Triage completed. dd2 19:50 Arm band placed on right wrist. dd2 19:58 Kamaljit Aleman DO is Attending Physician. tt7 20:01 Padma Wong, RN is Primary Nurse. km10 20:01 No provider procedures requiring assistance completed. Inserted saline lock: 20 gauge km10 in left antecubital area, using aseptic technique. Blood collected. Flushed with 10 mL NS. 20:02 Patient has correct armband on for positive identification. Bed in low position. Call km10 light in reach. Side rails up X 1. Provided Education on: PLAN OF CARE. Client placed on continuous cardiac and pulse oximetry monitoring. NIBP monitoring applied. manager neonatal on. Door closed. Noise minimized. 20:58 CT Abd/Pelvis - IV Contrast Only In Process Unspecified. EDMS 21:31 IV discontinued, intact, bleeding controlled, No redness/swelling at site. Pressure km10 dressing applied. Administered Medications: 20:14 Drug: morphine IVP or IV 4 mg IVP once over 4 mins Route: IVP; Infused Over: 4 mins; km10 Site: left antecubital; 21:32 Follow up: Response: No adverse reaction km10 20:14 Drug: Ondansetron IVP 4 mg IVP once; over 2 minutes Route: IVP; Site: left antecubital; km10 21:32 Follow up: Response: No adverse reaction km10 Medication: 21:33 VIS not applicable for this client. km10 Outcome: 21:28 Discharge ordered by . tt7 21:33 Discharged to home ambulatory, with significant other, km10 21:33 Condition: stable 21:33 Discharge instructions given to patient, significant other, Instructed on discharge instructions, follow up and referral plans. Demonstrated understanding of instructions, follow-up care, 21:33 Patient left the ED. km10 Signatures: Dispatcher [employer] [facility]SC Atiya Ennis, Reg Reg mr CHELE MENENDEZ RN RN dd2 Padma Wong RN RN km10 Kamaljit Aleman DO DO tt7
--- NOTE | 2025-02-07 21:29 | EDPHYS ---
Physician Documentation [facility] Name: Ming Odonnell Age: 49 yrs Sex: Male : 1975 Arrival Date: 02/07/2025 Time: 19:40 Bed 2 Private MD: ED Physician Kamaljit Aleman HPI: 02/07 21:17 This 49 yrs old Male presents to ER via Ambulatory with complaints of Abdominal Pain, tt7 Abdominal Swelling. 21:17 Patient reports over the past 1 week he has been having increasing abdominal swelling, tt7 has also been having intermittent sharp/stabbing left lower quadrant abdominal pain, he reports past history of diverticulitis, pancreatitis, and recent hernia surgery, he states that his symptoms seem similar to the last time he was diagnosed with diverticulitis. Historical: - Allergies: 19:50 Cipro IV (rash); dd2 19:50 PENICILLINS (Anaphylaxis); dd2 - PMHx: 19:50 Diverticulitis; Pancreatitis; dd2 - PSHx: 19:50 colon resection; hernia repair x 3; right knee; right shoulder; dd2 - Immunization history:: Adult Immunizations up to date, Client reports receiving the 2nd dose of the Covid vaccine, Flu vaccine is up to date. - Infectious Disease History:: Denies. - Social history:: Smoking status: Patient denies any tobacco usage or history of. ROS: 21:17 Constitutional: negative for fever. Cardiovascular: negative for chest pain. tt7 Respiratory: negative for shortness of breath. MS/Extremity: negative for injury and deformity. Skin: negative for rash. Neuro: negative for focal weakness. 21:17 Abdomen/GI: Positive for abdominal pain, Negative for nausea and vomiting, Exam: 21:18 Constitutional: vital signs reviewed, well appearing. Head/Face: normocephalic, tt7 atraumatic. Eyes: no conjunctival injection, anicteric sclerae. ENT: mucus membranes moist. Neck: trachea midline, no JVD, no meningismus. Chest/axilla: normal chest wall appearance and motion, nontender, no crepitus. Cardiovascular: regular rate and rhythm, no murmurs, no rubs, no lower extremity edema. Respiratory: normal respiratory effort, no accessory muscle use, lungs CTAB. Abdomen/GI: soft, mildly distended, moderate left lower quadrant tenderness to palpation, no guarding or rebound, negative Mcmillan's sign, no McBurney point tenderness. Back: normal ROM. Male : normal genitalia with no discharge or lesions. Skin: warm, dry, intact, normal turgor, normal color, no rash. MS/ Extremity: normal ROM of extremities, no gross deformities. Neuro: alert and oriented with appropriate mental status, normal speech, follows commands, no focal neurologic deficits. Psych: appropriate mood and affect. Vital Signs: 19:47 BP 120 / 99; Pulse 76; Resp 16; Temp 98.2; Pulse Ox 97% on R/A; Weight 122.47 kg; Pain dd2 6/10; 21:13 BP 130 / 69; Pulse 67; Resp 18; Pulse Ox 97% on R/A; km10 21:32 BP 129 / 63; Pulse 70; Resp 13; Pulse Ox 95% on R/A; km10 19:47 Pain Scale: Adult dd2 [place] Coma Score: 21:32 Eye Response: spontaneous(4). Motor Response: obeys commands(6). Verbal Response: km10 oriented(5). Total: 15. MDM: 19:58 Medical Screening Exam initiated tt7 21:18 Differential Diagnosis Diverticulitis, pancreatitis, incarcerated hernia, strangulated tt7 hernia, postoperative seroma, postoperative abscess, gastritis, nonspecific abdominal pain. Data reviewed: vital signs, nurses notes, lab test result(s), radiologic studies. ED course: Well-appearing 49-year-old with stable vital signs presents with 1 week of abdominal swelling and intermittent left lower quadrant pain, standard laboratory studies ordered including lipase, CT imaging of the abdomen/pelvis ordered to assess for potential postoperative complication. 21:40 ED course: Laboratory studies and CT imaging reassuring, I discussed with the patient tt7 the results of CT imaging including incidental potentially complex renal cyst and need for outpatient follow-up with ultrasound in 3 months, after completion of the patient's emergency department evaluation, I do not suspect a life-threatening or disabling process. Patient is medically stable and not in need of emergent medical intervention. I had a detailed discussion with the patient regarding the historical points, exam findings, emergency department evaluation, diagnostic results, and the discharge diagnosis. I instructed the patient on outpatient management of their condition. I discussed the need for outpatient follow-up with a primary care physician. I informed the patient on return precautions, including the need to return to the ED if symptoms do not improve, worsen, or if there are any questions or concerns that arise at home. The patient was discharged in stable condition. 02/07 20:00 Order name: CBC with Diff; Complete Time: 20:50 tt7 02/07 20:00 Order name: CMP; Complete Time: 20:50 tt7 02/07 20:00 Order name: Lipase; Complete Time: 20:50 tt7 02/07 20:00 Order name: CT Abd/Pelvis - IV Contrast Only; Complete Time: 21:20 tt7 02/07 20:00 Order name: IV Saline Lock; Complete Time: 20:07 tt7 02/07 20:00 Order name: Labs collected and sent; Complete Time: 20: tt7 Administered Medications: 20:14 Drug: morphine IVP or IV 4 mg IVP once over 4 mins Route: IVP; Infused Over: 4 mins; km10 Site: left antecubital; 21:32 Follow up: Response: No adverse reaction km10 20:14 Drug: Ondansetron IVP 4 mg IVP once; over 2 minutes Route: IVP; Site: left antecubital; km10 21:32 Follow up: Response: No adverse reaction km10 Disposition: 21:40 Co-signature as Attending Physician, Kamaljit Aleman DO. tt7 Disposition Summary: 02/07/25 21:28 Discharge Ordered Notes: Location: Home tt7 Problem: an ongoing problem tt7 Symptoms: have improved tt7 Condition: Stable tt7 Diagnosis - Left lower quadrant pain tt7 - Left lower quadrant abdominal tenderness tt7 - INCIDENTAL FINDING ON CT IMAGING OF ABDOMEN tt7 Followup: tt7 - With: Emergency Department - When: As needed - Reason: Followup: tt7 - With: Private Physician - When: 2 - 3 days - Reason: Further diagnostic work-up, Re-evaluation by your physician, Follow up renal US for possible complex renal cyst in 3 months Discharge Instructions: - Discharge Summary Sheet tt7 - Abdominal Pain, Adult, Onth-cf-Gtmo tt7 Forms: - Medication Reconciliation Form tt7 - Antibiotic Education tt7 - Prescription Opioid Use tt7 - Patient Portal Instructions tt7 - Leadership Thank You Letter tt7 Signatures: Dispatcher [facility] CHELE PITTS RN RN dd2 Padma Wong RN RN km10 Kamaljit Aleman DO DO tt7 Corrections: (The following items were deleted from the chart) 20:00 20:00 CBC+H.LAB.BRZ ordered. EDMS EDMS 20:00 20:00 COMPREHENSIVE METABOLIC PANEL+C.LAB.BRZ ordered. EDMS EDMS 20:00 20:00 LIPASE+C.LAB.BRZ ordered. EDMS EDMS 20:00 20:00 Abdomen Pelvis W Con+CT.RAD.BRZ ordered. EDMS EDMS
[2025-02-08 04:27] VITALS: TEMP 98.2
[2025-02-08 04:30] VITALS: BP 129/63; O2SAT 95
== END 2025-02-07 21:33 | disposition home or self-care (01) ==
LOC: ER 19:40
DX: R10.32 Left lower quadrant pain (principal); R10.814 Left lower quadrant abdominal tenderness; R93.5 Abnormal findings on diagnostic imaging of other abdominal regions, including retroperitoneum
CPT/HCPCS: 85025; 36415; 83690; 80053; 74177; 96375; 96374; 99285; Q9967; J2405